=== PATIENT | female | born 1970 | race Caucasian/White ===

== ENCOUNTER 2020-06-24 14:37 | Outpatient (REF) | payer MEDICAID, SELFPAY ==
[2020-06-24 17:28] LABS: Syphilis Screen Nonreactive (Nonreactive)
[2020-06-25 11:08] LABS: CT PCR NOT DETECTED (Not Detect.); NG PCR NOT DETECTED (Not Detect.)
[2020-06-27 08:39] LABS: HBsAGNum1 0.15 S/CO (0.00-0.99); Hepatitis B Surface Antigen Negative (Negative); ~HepC Num1 0.05 S/CO (0.00-0.79); ~Hepatitis C Antibody Nonreactive (Nonreactive)
[2020-06-27 08:55] LABS: HIV AB/AG Nonreactive (Nonreactive); HIV Num 1 0.07 S/CO (0.00-0.99)
[2020-06-28 20:36] LABS: HPV mRNA E6/E7 Not Detected (Not Detected)
== END 2020-06-24 14:38 | disposition home or self-care (01) ==
LOC: HO.LAB 14:37
PROVIDERS: PCP Internal Medicine; Visit Provider Advanced Practice Midwife
DX: Z01.419 Encounter for gynecological examination (general) (routine) without abnormal findings (principal); Z20.2 Contact with and (suspected) exposure to infections with a predominantly sexual mode of transmission; N63.0 Unspecified lump in unspecified breast
CPT/HCPCS: 86780; 86803; 87340; 87389; 87491; 87591; 87624; 87625; 88141; 88142

== ENCOUNTER 2020-06-29 12:59 | Outpatient (REF) | payer MEDICAID, SELFPAY ==
--- NOTE | 2020-06-29 13:07 | MM_ITS ---
EXAMINATION: MM DIAGNOSTIC DIGITAL BREAST TOMOSYNTHESIS, BILATERAL US DIAGNOSTIC ULTRASOUND BREAST, RIGHT CLINICAL INFORMATION: Due for yearly exam. Palpable fullness retroareolar right breast noted at clinical exam. Patient notes no new palpable finding or discharge. No known family history breast cancer. Personal history fibrocystic changes and complicated cyst with apocrine metaplasia. Prior history left cyst aspiration 01/31/2015 and 2 09/21/2006, right cyst aspiration 08/19/2014 and 06/20/2012. The lifetime risk of breast cancer based on the Tyrer-Cuzick Model is 11%. COMPARISON: Mammography: 05/16/2018, 05/10/2017, 04/05/2016; ultrasound right breast 05/10/2017, 10/04/2016, 04/05/2016 TECHNIQUE: Digital breast tomosynthesis is performed in both the craniocaudal and mediolateral oblique views along with computer-aided detection (CAD). Synthesized 2D images are generated from the tomosynthesis. Ultrasound right breast is targeted to the retroareolar and periareolar region image from 4:00 through 8:00 direction. Grayscale imaging and color Doppler are performed without and with harmonics. FINDINGS: The breasts are heterogeneously dense, which may obscure small masses (ACR BI-RADS breast composition Category c). Breast tissue composition borders on extremely dense. There are no abnormal calcifications. The skin contours are smooth. The left breast shows no dominant mass or architectural abnormality. The anterior right breast has 2 smooth masses, the larger 1.1 cm, both appear decreased since prior mammography 05/16/2018. There is no significant mass. No significant changes. Ultrasound anterior right breast demonstrate at least 4 smooth circumscribed with internal echogenicity and increased through-transmission of sound and no associated color flow. These are likely related to apocrine metaplasia, combination foam cysts and acorn cysts also noted to be present in the past, details below. There is no architectural abnormality or focal duct ectasia. The probable benign complicated cysts likely apocrine metaplasia are as follows: -4:00, 4 cm from nipple, 0.5 cm, foam cyst. -6:00, 6 cm from nipple, 0.6 cm, acorn-foam cyst. -6:00, 2 cm from nipple, 1.1 cm, acorn-foam cyst. -6:00, 2 cm from nipple, 0.8 x 0.5 cm, acorn-foam cyst. Results are discussed with the patient at time of visit. The probable benign complicated cysts anterior right breast may be reassessed again with targeted ultrasound in 6 months. MM/MM diagnostic mammo BI IMPRESSION: 1. No significant changes. Right breast mass is decreased from prior mammography 2018. 2. Probable benign apocrine metaplasia acorn-foam cysts right breast. ASSESSMENT: BI-RADS 3: Probably Benign RECOMMENDATION: Targeted right breast ultrasound in 6 months. This patient's information was entered into a reminder system with a target due date for their next mammogram.
== END 2020-06-29 13:00 | disposition home or self-care (01) ==
LOC: HO.MAMMO 12:59
PROVIDERS: Visit Provider Advanced Practice Midwife
DX: N63.0 Unspecified lump in unspecified breast (principal)
CPT/HCPCS: 76642; 77066

== ENCOUNTER 2020-07-06 15:55 | Emergency (ER) | payer MEDICAID, SELFPAY ==
[2020-07-06 18:10] VITALS: BP 102/64; PULSE 75; RESP 17; TEMP 36.7; O2SAT 98; BMI 48.0
--- NOTE | 2020-07-06 18:24 | ED_ITS ---
HPI - Abdominal Pain General Chief Complaint: General Medical Stated Complaint: Flank Pain Time Seen by Provider: 07/06/20 18:11 Source: patient Mode of arrival: ambulatory Limitations: no limitations History of Present Illness HPI narrative: patient with history of recurrent bilateral non soft obstructive kidney stones had a CT scan last year which showed same comes here for pain in the right flank specially since yesterday. Patient denies any nausea no vomiting no relation of the pain with movement no hematuria MD elicited complaint: flank pain Pertinent past history: kidney stones Onset (ago): day(s) (1) Pain Consistency: constant Location: L flank and R flank Severity: moderate Quality: sharp Radiation: none Migration to: no migration Exacerbating factors: nothing Relieving factors: nothing Associated symptoms: denies other symptoms Related Data Home Medications Medication Instructions Recorded Confirmed metoprolol succinate 25 mg 25 mg PO DAILY 06/24/20 tablet,extended release 24 hr Previous Rx's Medication Instructions Recorded cyclobenzaprine 10 mg PO Q8H #20 tab 07/06/20 oxycodone 5 mg PO Q6H PRN #20 tab 07/06/20 Allergies Allergy/AdvReac Type Severity Reaction Status Date / Time bee pollen [BEE STINGS] Allergy Unknown THROAT Verified 06/24/20 14:48 SWELLING codeine [Codeine] Allergy Unknown CAN'T Verified 06/24/20 14:48 BREATHE, SWELLING,RASH tramadol [TRAMADOL] Allergy Unknown ABD PAIN- Verified 06/24/20 14:48 COULD NOT EAT - FELT SICK, sick Codeine Sulfate Allergy Unknown swelling, Uncoded 11/08/17 00:00 black and blue Review of Systems Review of Systems REVIEW OF SYSTEMS: Pertinent positives and negatives are stated above in the history. GEN: no fevers, chills, fatigue HEENT: no nasal congestion, sore throat, ear pain NEURO: no headache, dizziness, focal weakness PULM: no cough, shortness of breath CV: no chest pain, palpitations, LE edema ABD: no abdominal pain, nausea, vomiting, diarrhea : no dysuria, urgency, frequency SKIN: no rash ROS otherwise negative x 10 Physical Exam Vital Signs: Vital Signs: Vital Signs Temp Pulse Resp BP Pulse Ox 07/06/20 18:10 98.1 F 75 17 102/64 98 Body Mass Index 48.0 Appearance: Alert. Oriented X3. No acute distress. Eyes: Pupils equal, round and reactive to light. ENT: Pharynx normal. Neck: Normal inspection. Neck supple. CVS: Normal heart rate and rhythm. Pulses normal. Respiratory: No respiratory distress. Breath sounds normal. Abdomen: Soft and nontender. mild tenderness left flank area no midline tenderness Skin: Skin warm and dry. Normal skin color. Normal skin turgor. Extremities: No lower extremity edema. Good range of movement Neuro: Oriented X 3. No motor deficit. No sensory deficit. Course Course Course Narrative: patient with nonspecific back pain likely muscular urine is negative for hematuria and labs also stable will discharge patient home MDM - Abdominal Pain Differential Diagnosis Differential diagnosis: Likely calculus of kidney and renal colic Differential diagnosis narrative:: UTI, musculoskeletal pain Medical Records Attestation: I reviewed the patient's medical records. Lab Data Attestation: I reviewed the patient's lab results. Result diagrams: 07/06/20 18:29 07/06/20 18:29 Labs: Lab Results 07/06/20 07/06/20 07/06/20 Range/Units 18:29 18:29 18:36 WBC 7.0 (4.8-10.8) X10*3/uL RBC 4.29 (4.20-5.50) X10*6/uL Hgb 12.2 (12.0-16.0) g/dl Hct 37.1 (37-47) % MCV 86.5 (80-98) fL MCH 28.4 (27.0-33.0) pg MCHC 32.9 (31.0-35.0) g/dl RDW 14.2 (11.0-16.0) % Plt Count 248 (160-400) X10*3/uL MPV 9.1 L (9.4-12.3) fL Immature Gran % (Auto) 0.1 (0.0-0.4) % Neut % (Auto) 49.7 (45-73) % Lymph % (Auto) 43.4 H (20-40) % Wetzel % (Auto) 5.5 (2-11) % Eos % (Auto) 0.7 (0-4) % Baso % (Auto) 0.6 (0-2) % Lymph # (Auto) 3.1 (1.2-4.9) X10*3/uL Wetzel # (Auto) 0.4 (0.1-1.2) X10*3/uL Eos # (Auto) 0.1 (0.0-0.4) X10*3/uL Baso # (Auto) 0.0 (0.0-0.2) X10*3/uL Abs Immat Gran (auto) 0.01 (0.00-0.03) X10*3/uL Absolute Neuts (auto) 3.5 (2.0-8.3) X10*3/uL Absolute Nucleated RBC 0.000 (0.0-0.012) X10*3/uL Nucleated RBC % (auto) 0.0 (0.0-0.2) /100WBC Sodium 138 (135-145) mmol/L Potassium 4.3 (3.3-5.1) mmol/l Chloride 105 (96-108) mmol/L Carbon Dioxide 24 (22-29) mmol/L Anion Gap 13 (12-20) BUN 14 (9-16) mg/dL Creatinine 0.74 (0.5-1.4) mg/dL Estim Creat Clear Calc 99.2 Estimated GFR > 60 Random Glucose 93 (60-115) mg/dL Calcium 8.9 (8.4-10.2) mg/dL Urine Color YELLOW Urine Appearance CLEAR Urine pH 5.5 (5.0-8.0) Ur Specific Harrells <= 1.005 (1.005-1.025) Urine Protein NEG (NEG-TRACE) MG/DL Urine Glucose (UA) NEG (NEG) MG/DL Urine Ketones NEG (NEG) MG/DL Urine Blood TRACE (NEG) Urine Nitrite NEG (NEG) Ur Leukocyte Esterase NEG (NEG) Urine RBC 0-2 (0) /HPF Urine WBC 0-2 (0-4) /HPF Ur Squamous Epith Cells 2+ /LPF Urine Bacteria NONE /LPF Discharge Plan Discharge Clinical Impression: Back pain Qualifiers: Back pain location: low back pain Chronicity: acute Back pain laterality: right Sciatica presence: without sciatica Qualified Code(s): M54.5 - Low back pain Patient Disposition: Home, Self-Care Instructions: Back Pain (ED) Additional Instructions: drink plenty of fluid intake and pain medication as prescribed Prescriptions: New oxycodone 5 mg tablet 5 mg PO Q6H PRN (Reason: pain) Qty: 20 RF: 0 cyclobenzaprine 10 mg tablet 10 mg PO Q8H Qty: 20 RF: 0 PMFSH Past Medical History Medical History Hx of ectopic Kidney stones MRSA (methicillin resistant Staphylococcus aureus) SAB (spontaneous ) Surgical History Hx of appendectomy Hx of breast biopsy Hx of cholecystectomy Family History Family History Father Diabetes mellitus CVD (cardiovascular disease) Hyperlipemia Mother Diabetes mellitus HTN (hypertension) Colon cancer Liver cancer Maternal Grandmother Diabetes mellitus Maternal Aunt Breast cancer Paternal Grandfather Colon cancer Maternal Grandfather Stomach cancer Social History Social History Alcohol intake: unknown Smoking Status: Unknown if ever smoked Tobacco Type: Cigarette Use of substances other than those prescribed or required for medical reasons: Unknown Substance Use Type: Marijuana Advance Directives: No Advance Directives Information Provided: Yes Gender identity: female
[2020-07-06] MEDS: 0.9 % Sodium Chloride 1,000 ML 999 ML IVCONT (18:31)
[2020-07-06] MEDS: Ketorolac Tromethamine 30 MG/ML VIAL IVPUSH (18:33)
[2020-07-06 18:37] LABS: Basophils Percent Auto 0.6 % (0-2); Eosinophils Absolute Auto 0.1 X10*3/uL (0.0-0.4); Eosinophils Percent Auto 0.7 % (0-4); Hematocrit 37.1 % (37-47); Hemoglobin 12.2 g/dl (12.0-16.0); Imm Gran Abs Auto 0.01 X10*3/uL (0.00-0.03); Imm Gran Pct Auto 0.1 % (0.0-0.4); Lymphocytes Absolute Auto 3.1 X10*3/uL (1.2-4.9); Lymphocytes Percent Auto 43.4 % (20-40); MANUAL DIFF FLAG NO; Mean Corpuscular HGB Conc 32.9 g/dl (31.0-35.0); Mean Corpuscular Hemoglobin 28.4 pg (27.0-33.0); Mean Corpuscular Volume 86.5 fL (80-98); Mean Platelet Volume 9.1 fL (9.4-12.3); Monocytes Absolute Auto 0.4 X10*3/uL (0.1-1.2); Monocytes Percent Auto 5.5 % (2-11); Neutrophils Absolute Auto 3.5 X10*3/uL (2.0-8.3); Neutrophils Percent Auto 49.7 % (45-73); Platelet Count 248 X10*3/uL (160-400); Red Blood Count 4.29 X10*6/uL (4.20-5.50); Red Cell Distribution Width 14.2 % (11.0-16.0)
[2020-07-06 18:43] LABS: Glucose Urine UA NEG (NEG); Leukocyte Esterase Urine NEG (NEG); Nitrite Urine NEG (NEG); PH 5.5 (5.0-8.0); Specific Gravity - Urine <= 1.005 (1.005-1.025); Urine Blood TRACE (NEG); Urine Ketones NEG (NEG); Urine Protein NEG (NEG-TRACE)
[2020-07-06 18:44] LABS: Appearance Urine CLEAR; Color Urine YELLOW
[2020-07-06 18:57] LABS: Anion Gap 13 (12-20); Blood Urea Nitrogen 14 mg/dL (9-16); Calcium 8.9 mg/dL (8.4-10.2); Carbon Dioxide 24 mmol/L (22-29); Chloride 105 mmol/L (96-108); Creatinine Clr Calc Pharmacy 99.2; Estimated Glomerular Filt Rate > 60; Glucose Random 93 mg/dL (60-115); Potassium 4.3 mmol/l (3.3-5.1); Sodium 138 mmol/L (135-145)
[2020-07-06 18:59] LABS: RBC Urine 0-2 /HPF (0); Squamous Epithelial Cell Urine 2+ /LPF; WBC Urine 0-2 /HPF (0-4)
--- NOTE | 2020-07-06 19:08 | PC.NURSE ---
REPORT TAKEN FROM YEHUDA MEDINA. PATIENT LABS DRAWN AND ALL WITHIN RANGE. PATIENT COMPLAINING OF FLANK PAIN 7 OUT OF 10
[2020-07-06 20:15] VITALS: BP 109/54; PULSE 63; RESP 14; O2SAT 99
== END 2020-07-06 20:30 | disposition home or self-care (01) ==
PROVIDERS: Emergency Provider Internal Medicine; PCP Internal Medicine
DX: M54.41 Lumbago with sciatica, right side (principal); R10.9 Unspecified abdominal pain; Z87.442 Personal history of urinary calculi; Z79.899 Other long term (current) drug therapy; F17.210 Nicotine dependence, cigarettes, uncomplicated; Z71.6 Tobacco abuse counseling
CPT/HCPCS: 36415; 80048; 81001; 85025; 96361; 96374; 99284; J1885

== ENCOUNTER → 2020-07-13 14:17 | Outpatient (BNVA) | payer MEDICAID, SELFPAY | PROVIDERS: PCP Internal Medicine; Referring Provider Internal Medicine; Visit Provider Nurse Practitioner Family | DX: Z01.818 Encounter for other preprocedural examination (principal); K21.9 Gastro-esophageal reflux disease without esophagitis | CPT/HCPCS: 99212 ==

== ENCOUNTER → 2020-08-10 12:45 | Outpatient (BNVA) | payer MEDICAID, SELFPAY | PROVIDERS: PCP Internal Medicine; Visit Provider Nurse Practitioner Family | DX: Z76.89 Persons encountering health services in other specified circumstances (principal) ==

== ENCOUNTER 2020-09-22 08:13 | Day surgery (SDC) | payer MEDICAID, SELFPAY ==
[2020-09-19 11:25] VITALS: BMI 22.2
--- NOTE | 2020-09-21 10:16 | HO.ANESPROP2 ---
Documented by User: Sandy Villalobos 09/21/20 10:18 HPI - Anesthesia Eval Consult details Narrative: 50yo F for Colonoscopy PMFSH Past Medical History Medical History Hx of ectopic Kidney stones MRSA (methicillin resistant Staphylococcus aureus) PONV (postoperative nausea and vomiting) SAB (spontaneous ) Family History Family History Father Diabetes mellitus CVD (cardiovascular disease) Hyperlipemia Mother Diabetes mellitus HTN (hypertension) Colon cancer Liver cancer Maternal Grandmother Diabetes mellitus Maternal Aunt Breast cancer Paternal Grandfather Colon cancer Maternal Grandfather Stomach cancer Surgical History Surgical History H/O elbow surgery H/O lithotripsy History of colonoscopy History of hernia repair Hx of appendectomy Hx of breast biopsy Hx of cholecystectomy Hx of endoscopy Hx of hemorrhoidectomy Social History Social History Alcohol intake: current Alcohol intake frequency: a few times a week Alcohol type: wine and hard liquor Smoking Status: Current every day smoker Tobacco Type: Cigarette Cigarettes Per Day: 5 Years Smoked: 8 Use of substances other than those prescribed or required for medical reasons: Yes Substance Use Type: Marijuana Substance Use Frequency: Daily Advance Directives: No Advance Directives Information Provided: No Advance Directives on File: No Gender identity: female Meds Allergies Allergy/AdvReac Type Severity Reaction Status Date / Time bee pollen [BEE STINGS] Allergy Severe THROAT Verified 09/19/20 11:23 SWELLING codeine [Codeine] Allergy Severe CAN'T Verified 09/19/20 11:23 BREATHE, SWELLING,RASH tramadol [TRAMADOL] Allergy Intermediate ABD PAIN- Verified 09/19/20 11:23 COULD NOT EAT - FELT SICK Exam Exam Date and Time: September 21, 2020 1016 Height,Weight and Vital Signs: Height 4 ft 11 in Weight 49.895 kg Pertinent Lab Results Pertinent Lab Results: Laboratory Tests 07/06/20 07/06/20 18:29 18:29 WBC 7.0 Hgb 12.2 Hct 37.1 Plt Count 248 Sodium 138 Potassium 4.3 Chloride 105 Carbon Dioxide 24 BUN 14 Creatinine 0.74 Assessment and Plan Assessment Anesthesia Assessment: Chart Reviewed Documented by User: Carson Taylor 09/22/20 09:03 PMFSH Past Medical History Medical History Hx of ectopic Kidney stones MRSA (methicillin resistant Staphylococcus aureus) PONV (postoperative nausea and vomiting) SAB (spontaneous ) Family History Family History Father Diabetes mellitus CVD (cardiovascular disease) Hyperlipemia Mother Diabetes mellitus HTN (hypertension) Colon cancer Liver cancer Maternal Grandmother Diabetes mellitus Maternal Aunt Breast cancer Paternal Grandfather Colon cancer Maternal Grandfather Stomach cancer Surgical History Surgical History H/O elbow surgery H/O lithotripsy History of colonoscopy History of hernia repair Hx of appendectomy Hx of breast biopsy Hx of cholecystectomy Hx of endoscopy Hx of hemorrhoidectomy Social History Social History Alcohol intake: current Alcohol intake frequency: a few times a week Alcohol type: wine and hard liquor Smoking Status: Current every day smoker Tobacco Type: Cigarette Cigarettes Per Day: 5 Years Smoked: 8 Use of substances other than those prescribed or required for medical reasons: Yes Substance Use Type: Marijuana Substance Use Frequency: Daily Advance Directives: No Advance Directives Information Provided: No Advance Directives on File: No Gender identity: female Meds Allergies Allergy/AdvReac Type Severity Reaction Status Date / Time bee pollen [BEE STINGS] Allergy Severe THROAT Verified 09/19/20 11:23 SWELLING codeine [Codeine] Allergy Severe CAN'T Verified 09/19/20 11:23 BREATHE, SWELLING,RASH tramadol [TRAMADOL] Allergy Intermediate ABD PAIN- Verified 09/19/20 11:23 COULD NOT EAT - FELT SICK Exam Airway Mallampati Class: II TM Dist: >3cm Neck ROM: Full Loose/Missing/Broken Teeth: No Heart: [id number] Lungs: cta b/l Assessment and Plan Assessment Anesthesia Assessment: Anesthesia Plan Discussed, PAT Visit and Chart Reviewed Final Anesthetic Review NPO: Yes ASA Class: II Final Preanesthetic Review: No Changes in Pt Med Stat, Meds/Allgs Chart Reviewed, Consent Obtained/Reviewed and Anes Risks/Benef Reviewed Patient Risk: Low Procedure Risk: Low Assessment/Block/Sedation in SS: Assess/Block/Sedation-SS Anesthetic Plan Anesthetic Plan: MAC: and Agree w/ Assess. and Plan Disposition: Standard PACU
[2020-09-22] VITALS (8 sets, daily range): BP systolic 107–138; BP diastolic 60–79; PULSE 50–69; RESP 16–18; TEMP 36.2–36.4; O2SAT 98–131
--- NOTE | 2020-09-22 09:01 | MHC.SHP ---
Pre-Procedural Eval Section B Chief Complaint: Screening Details of Present Illness: colon cancer screening, Pos family hx Mother with colon cancer No changes in clinical conditions Relevant Family History (Specify if Yes): Yes Relevant Social History: Tobacco Use (5 cig /day) Present Medications: see Short Stay Collaborative assessment Medical History: Significant History (cigarette smoker, Kidney stones. GERD) History of Previous Operations: Relevant previous surgery/procedure and date(s) (Appendix, cholecystectomy, colonoscopy--Hemorrhoid surgery) Allergies: Allergies Allergy/AdvReac Type Severity Reaction Status Date / Time bee pollen [BEE STINGS] Allergy Severe THROAT Verified 09/19/20 11:23 SWELLING codeine [Codeine] Allergy Severe CAN'T Verified 09/19/20 11:23 BREATHE, SWELLING,RASH tramadol [TRAMADOL] Allergy Intermediate ABD PAIN- Verified 09/19/20 11:23 COULD NOT EAT - FELT SICK Review of Systems Sugical H&P ROS: Negative: Constitution, Cardiovascular, Respiratory and Gastrointestinal Exam Surgical H&P Exam: Normal: HEENT, Normal: Heart, Normal: Lungs, Normal: Extremities, Normal: Abdomen and Normal: Skin Plan Diagnosis/Plan: Unchanged I have reviewed the history and physical and performed a pertinent physical examination on my patient. No changes have occurred unless specified.Yes
[2020-09-22] MEDS: Lactated Ringers 1,000 ML 100 ML IVCONT (09:10)
--- NOTE | 2020-09-22 10:02 | PM.PROC ---
Brief Operative Note Date of procedure: 09/22/20 Pre-op diagnosis: COLON CANCER SCREENING--MOTHER WITH COLON CANCER Post-op diagnosis: other (COLONIC POLYP, MINOR DIVERTICULOSIS) Procedure: COLONOSCOPY WITH COLD SNARE POLYPECTOMT Anesthesia: MAC (EVELYN FERNANDES) Surgeon: Aaliyah Oconnell Estimated blood loss (mL): 5 Pathology: other (sigmoid polyp) Condition: stable Disposition: PACU
[2020-09-22] MEDS: ondansetron HCL 4 MG/2 ML VIAL IVPUSH ×2 (10:07→10:24)
--- NOTE | 2020-09-22 18:41 | OP_ITS ---
SURGEON: Aaliyah Oconnell MD PROCEDURE PERFORMED: Colonoscopy with cold snare polypectomy x1. ESTIMATED BLOOD LOSS: Less than 5 mL. COMPLICATIONS: No complications. ANESTHESIA: Monitored. ANESTHESIOLOGIST: Flor Martin CRNA ASSISTANTS: No assistant at surgery. SPECIMENS: Specimen removed, polyp 30 cm. PREOPERATIVE DIAGNOSES: Colon cancer screening, positive family history in her mother of colon cancer. This is I believe colonoscopy #2. POSTOPERATIVE DIAGNOSES: Colonic polyp, diverticulosis. RN CLINICAL DOCUMENTATION: Dr. Oconnell. CONDITION: Postprocedure, stable. PROCEDURE: Digital rectal exam revealed sphincter tone to be adequate. Video colonoscope was introduced without difficulty. It was navigated into the rectosigmoid sigmoid on up through descending, transverse, ascending colon into the cecum. Appendiceal orifice was seen. Ileocecal valve was well seen. Prep was good. There were few areas that required flushing and suctioning. Scope was slowly withdrawn, good rotational views. Polyp had been removed on the way in that was thought to be 50 cm, which on withdrawal, the scope was actually 30 cm. The base of the polyp was clear. No active bleeding, had been removed with cold snare polypectomy technique. Originally, the considered using a resolution clip. However, due to recurrent angulation and spasm, this did not happen. Further withdrawal of the scope, no additional lesions. Anorectal verge was clear. PLAN: This patient will continue with 5-year colon cancer screening unless there is some concern over histology on polyp. GRAFT OR IMPLANTS: No grafts or implants. Aaliyah Oconnell MD MEN/MODL / [phone] [facility]
== END 2020-09-22 12:08 | disposition home or self-care (01) ==
PROVIDERS: PCP Internal Medicine; Visit Provider Internal Medicine Gastroenterology
PROC: 0DJD8ZZ Inspection of Lower Intestinal Tract, Via Natural or Artificial Opening Endoscopic (ICD-10-PCS; CPT 45378; principal; 2020-09-22 09:20)
DX: Z12.11 Encounter for screening for malignant neoplasm of colon (principal); Z80.0 Family history of malignant neoplasm of digestive organs; D12.5 Benign neoplasm of sigmoid colon; K57.30 Diverticulosis of large intestine without perforation or abscess without bleeding; K21.9 Gastro-esophageal reflux disease without esophagitis; Z79.899 Other long term (current) drug therapy; Z90.49 Acquired absence of other specified parts of digestive tract; Z87.442 Personal history of urinary calculi; Z86.14 Personal history of Methicillin resistant Staphylococcus aureus infection; F17.210 Nicotine dependence, cigarettes, uncomplicated; Z88.8 Allergy status to other drugs, medicaments and biological substances
CPT/HCPCS: 45385; 88305; J2405

== ENCOUNTER → 2020-10-27 13:06 | Outpatient (BNVA) | payer MEDICAID, SELFPAY | PROVIDERS: PCP Internal Medicine; Visit Provider Nurse Practitioner Family ==

== ENCOUNTER → 2020-11-24 13:31 | Outpatient (BNVA) | payer MEDICAID, SELFPAY | PROVIDERS: PCP Internal Medicine; Visit Provider Nurse Practitioner Family ==

== ENCOUNTER 2020-12-02 12:58 | Outpatient (REF) | payer MEDICAID, SELFPAY ==
--- NOTE | ~2020-12-02 | XR_ITS ---
EXAMINATION: XR CHEST CLINICAL INFORMATION: Chest pain. COMPARISON: None TECHNIQUE: 2 views of the chest were obtained. FINDINGS: No significant abnormality is noted involving the heart, lungs, mediastinum, bony thorax or soft tissues. XR/XR chest 2V IMPRESSION: Unremarkable chest exam
== END 2020-12-02 12:59 | disposition home or self-care (01) ==
LOC: HO.XRAY 12:58
PROVIDERS: PCP Internal Medicine; Visit Provider Internal Medicine
DX: R07.9 Chest pain, unspecified (principal)
CPT/HCPCS: 71046

== ENCOUNTER 2021-01-12 13:03 | Outpatient (REF) | payer MEDICAID, SELFPAY ==
--- NOTE | ~2021-01-12 | US_ITS ---
EXAMINATION: US DIAGNOSTIC ULTRASOUND BREAST, RIGHT CLINICAL INFORMATION: Short interval six-month follow-up for several probable benign complicated cysts right breast likely apocrine metaplasia. Prior history fibrocystic changes and complicated cyst with apocrine metaplasia. Prior history left breast aspirations 2014 and 2006 and right breast aspirations 2013 and 2011. TC score 11%. No known family history breast cancer. COMPARISON: Targeted right breast ultrasound 06/29/2020. TECHNIQUE: Ultrasound of the breast is performed with real-time carrillo scale imaging and color Doppler. FINDINGS: The 4 small nodule likely complicated cyst with apocrine metaplasia are stable in size and smooth in contour. There is no interval peripheral or internal color flow. No interval cystic or solid mass. The nodularity for follow-up are as follows: -4:00, 4 cm from nipple, 0.5 cm, foam cyst. Prior measurement 0.5 cm. -6:00, 4-6 cm from nipple, 0.6 cm, acorn-foam cyst. Prior measurement 0.6 cm. -6:00, 2 cm from nipple, 1.1 cm, acorn-foam cyst. Prior measurement 1.1 cm. -6:00, 2 cm from nipple, 0.7 x 0.5 cm, acorn-foam cyst. Prior measurement 0.8 x 0.5 cm. Results are discussed with the patient at time of visit. Management plan is for targeted right breast ultrasound follow-up at time of annual bilateral mammography, due in 6 months. US/US breast RT limited IMPRESSION: The probable benign nodularity right breast for follow-up are stable. ASSESSMENT: BI-RADS 3: Probably Benign RECOMMENDATION: Targeted right breast ultrasound at time of annual bilateral mammography, due in 6 months. This patient's information was entered into a reminder system with a target due date for their next mammogram.
== END 2021-01-12 13:04 | disposition home or self-care (01) ==
LOC: HO.MAMMO 13:03
PROVIDERS: Visit Provider Internal Medicine
DX: R92.2 Inconclusive mammogram (principal)
CPT/HCPCS: 76642

== ENCOUNTER 2021-01-17 13:34 | Emergency (ER) | payer MEDICAID, SELFPAY ==
--- NOTE | ~2021-01-17 | CT_ITS ---
EXAMINATION: CT ABDOMEN AND PELVIS WITH CONTRAST CLINICAL INFORMATION: Syncope and fall. Distention and left lower quadrant tenderness COMPARISON: Previous CT of the abdomen and pelvis most recent June 2019 TECHNIQUE: Multidetector volumetric images were obtained from the superior aspect of the liver through the pubic symphysis following administration 85 mL of Omnipaque 350 intravenous contrast. Sagittal and coronal reformatted images were obtained on the technologist's workstation. Oral contrast: Yes This CT examination was performed using dose optimization techniques as appropriate, variously including the following: *Automated exposure control *Adjustment of mA and/or kV according to patient size (this includes techniques or standardized protocols for targeted exams where dose is matched to indication/reason for exam; i.e. extremities or head) *Use of iterative reconstruction technique DLP: 390 mGy-cm FINDINGS: LUNG BASES: The visualized lung bases are unremarkable. LIVER, GALLBLADDER, AND BILIARY TREE: The liver is normal in size, shape, and attenuation. No focal hepatic lesion or biliary ductal dilatation is present. The gallbladder has been removed. PANCREAS: Unremarkable. SPLEEN: Unremarkable. ADRENAL GLANDS: Unremarkable. KIDNEYS AND URETERS: There are 2 adjacent 3 mm left lower pole renal stones. The kidneys are otherwise unremarkable. No hydronephrosis, ureteral dilatation or ureteral stone is seen. BLADDER: Unremarkable. GASTROINTESTINAL TRACT: There is stool throughout the colon suggestive of constipation. There is mild diverticulosis of the colon. Small and large bowel is otherwise unremarkable. No abnormal bowel wall thickening is seen. No ascites or free air is seen. The appendix is unremarkable. The stomach is unremarkable. ABDOMINAL WALL: No significant hernia is appreciated. LYMPH NODES: Normal. VASCULAR: Unremarkable. PELVIC VISCERA: Unremarkable. OSSEOUS STRUCTURES: No fracture or dislocation is seen. There is degenerative disc disease at L4-L5. CT/CT abdomen pelvis w con IMPRESSION: Small left renal stones. Stool throughout the colon suggestive of constipation and mild diverticulosis. No acute findings in the abdomen or pelvis.
--- NOTE | ~2021-01-17 | XR_ITS ---
EXAMINATION: XR CHEST CLINICAL INFORMATION: Fall. Bilateral rib pain. COMPARISON: Previous chest x-ray most recent December 2020 TECHNIQUE: 2 views of the chest were obtained. FINDINGS: The cardiac and mediastinal contours are normal. The lungs are clear. There is no pleural effusion or pneumothorax. There are degenerative changes of the thoracic spine. No fracture is seen. XR/XR chest 2V IMPRESSION: No evidence for acute disease in the chest. No rib fracture seen.
--- NOTE | ~2021-01-17 | CT_ITS ---
EXAMINATION: CT HEAD WITHOUT CONTRAST CT CERVICAL SPINE WITHOUT CONTRAST CLINICAL INFORMATION: Head injury. Syncope. COMPARISON: None. TECHNIQUE: Imaging was performed from the skull base to vertex without intravenous administration of contrast. In addition, helical noncontrast CT imaging was acquired through the cervical spine and source images were reviewed along with axial reconstructions and sagittal and coronal MPRs. [This CT examination was performed using dose optimization techniques as appropriate, variously including the following: *Automated exposure control *Adjustment of mA and/or kV according to patient size (this includes techniques or standardized protocols for targeted exams where dose is matched to indication/reason for exam; i.e. extremities or head) *Use of iterative reconstruction technique] DLP: 10.25+589.47+248.05 mGy-cm FINDINGS: HEAD: No intracranial mass, hemorrhage, or midline shift is visualized. The ventricles and sulci are age-appropriate. No extra-axial collections are identified. The paranasal sinuses and mastoid air cells are well aerated. CERVICAL SPINE: There is no evidence of acute cervical spine fracture. Vertebral bodies remain normal in height. Cervical vertebrae have normal alignment. There is multilevel degenerative spondylosis of the cervical spine with disc height narrowing and endplate spurs and facet joint arthrosis No pre- or paravertebral soft tissue abnormality is identified. Limited assessment of the lung apices is unremarkable. CT/CT cervical spine wo con IMPRESSION: 1. No acute intracranial pathology. 2. No CT evidence of acute cervical spine fracture or traumatic subluxation
--- NOTE | ~2021-01-17 | CT_ITS ---
EXAMINATION: CT HEAD WITHOUT CONTRAST CT CERVICAL SPINE WITHOUT CONTRAST CLINICAL INFORMATION: Head injury. Syncope. COMPARISON: None. TECHNIQUE: Imaging was performed from the skull base to vertex without intravenous administration of contrast. In addition, helical noncontrast CT imaging was acquired through the cervical spine and source images were reviewed along with axial reconstructions and sagittal and coronal MPRs. [This CT examination was performed using dose optimization techniques as appropriate, variously including the following: *Automated exposure control *Adjustment of mA and/or kV according to patient size (this includes techniques or standardized protocols for targeted exams where dose is matched to indication/reason for exam; i.e. extremities or head) *Use of iterative reconstruction technique] DLP: 10.25+589.47+248.05 mGy-cm FINDINGS: HEAD: No intracranial mass, hemorrhage, or midline shift is visualized. The ventricles and sulci are age-appropriate. No extra-axial collections are identified. The paranasal sinuses and mastoid air cells are well aerated. CERVICAL SPINE: There is no evidence of acute cervical spine fracture. Vertebral bodies remain normal in height. Cervical vertebrae have normal alignment. There is multilevel degenerative spondylosis of the cervical spine with disc height narrowing and endplate spurs and facet joint arthrosis No pre- or paravertebral soft tissue abnormality is identified. Limited assessment of the lung apices is unremarkable. CT/CT head/brain wo con IMPRESSION: 1. No acute intracranial pathology. 2. No CT evidence of acute cervical spine fracture or traumatic subluxation
[2021-01-17 13:57] VITALS: BP 124/67; PULSE 94; RESP 18; TEMP 37.1; O2SAT 100; BMI 24.2
--- NOTE | 2021-01-17 14:38 | ECG_ITS ---
Test Reason : SYNCOPE Blood Pressure : / mmHG Vent. Rate : 078 BPM Atrial Rate : 078 BPM P-R Int : 136 ms QRS Dur : 080 ms QT Int : 386 ms P-R-T Axes : 077 071 034 degrees QTc Int : 440 ms Normal sinus rhythm Possible Left atrial enlargement Borderline ECG When compared with ECG of 27-FEB-2017 11:58, No significant change was found Referred By: Ana Shipley Electronically Signed By:OMERO BOURGEOIS MD
--- NOTE | 2021-01-17 14:58 | ED_ITS ---
HPI - Fall General Chief Complaint: Fall <ALEX Nicole - Last Filed: 01/17/21 17:30> Stated Complaint: FALL <ALEX Nicole - Last Filed: 01/17/21 17:30> Time Seen by Provider: 01/17/21 14:21 <ALEX Nicole - Last Filed: 01/17/21 17:30> Source: patient <ALEX Nicole - Last Filed: 01/17/21 17:30> Mode of arrival: ambulatory <ALEX Nicole - Last Filed: 01/17/21 17:30> History of Present Illness HPI Narrative: 50-year-old female with a past medical history of MRSA, renal stones, SAB, appendectomy, cholecystectomy, prestenting to the ED complaining of syncopal episode & falling out of bed around 7:00 a.m. S/P hearing sudden bang on wall from neighbor, + hit head on floor, +brief LOC, admits to diffuse myalgias, headache, CP, dizziness/feeling off balance with position changes/head movement, and abdominal pain. Denies vision change/loss, nausea/vomiting, diarrhea/constipation, dysuria/hematuria, weakness, numbness/tingling. Does not take anticoagulation <ALEX Nicole - Last Filed: 01/17/21 17:30> MD complaint: fall <ALEX Nicole - Last Filed: 01/17/21 17:30> Onset (ago): hour(s) <ALEX Nicole - Last Filed: 01/17/21 17:30> Related Data Home Medications: Previous Rx's Medication Instructions Recorded omeprazole 20 mg capsule,delayed 20 mg PO DAILY #30 cap 07/13/20 release hydrocortisone 2.5 % topical cream 1 appl IN QID PRN #30 g 10/27/20 with perineal applicator lactobacillus combination no.8 3 3,000 mmu cells PO DAILY #30 cap 10/27/20 billion cell capsule methylcellulose (laxative) 500 mg 500 mg PO DAILY #30 tab 10/27/20 tablet acetaminophen [Tylenol Extra 500 mg PO Q6H PRN #20 tab 01/17/21 Strength] lidocaine [Lidoderm] 1 patch TOPICAL DAILY PRN #30 ea 01/17/21 MDD remove after 12 hours naproxen 500 mg PO BID PRN 10 Days #20 tab 01/17/21 <ALEX Nicole Last Filed: 01/17/21 17:30> Allergies/Adverse Reactions: Allergies Allergy/AdvReac Type Severity Reaction Status Date / Time bee pollen [BEE STINGS] Allergy Severe THROAT Verified 01/17/21 13:57 SWELLING codeine [Codeine] Allergy Severe CAN'T Verified 01/17/21 13:57 BREATHE, SWELLING,RASH tramadol [TRAMADOL] Allergy Intermediate ABD PAIN- Verified 01/17/21 13:57 COULD NOT EAT - FELT SICK <ALEX Nicole Last Filed: 01/17/21 17:30> Review of Systems Review of Systems: Constitutional: No Fever, No Chills, No Fatigue, No Malaise ENT/Mouth: No Ear Pain, No sore throat, No Swallowing Difficulty Eyes: No Vision Changes Cardiovascular: No Chest Pain, +SOB, No Edema, No Palpitations Respiratory: No Cough, No Dyspnea Gastrointestinal: No Nausea, No Vomiting, No Diarrhea, No Constipation, + Abdominal pain Genitourinary: No Dysuria, No Urinary Frequency, No Hematuria, No Flank Pain Musculoskeletal: No joint pain, + Myalgias, No Joint Swelling Skin: No Skin Lesions, No rash Neuro: No Weakness, No Numbness, No Paresthesias, + Loss of Consciousness, + Di zziness, + Headache <ALEX Nicole Last Filed: 01/17/21 17:30> Yes all other systems are reviewed and are negative <ALEX Nicole Last Filed: 01/17/21 17:30> [facility] Past Medical History Attestation statement: The following information was validated with the patient. <ALEX Nicole - Last Filed: 01/17/21 17:30> Medical History: Medical History (Updated 01/18/21 @ 00:01 by Victor M Gonzalez) Hx of ectopic Kidney stones MRSA (methicillin resistant Staphylococcus aureus) PONV (postoperative nausea and vomiting) SAB (spontaneous ) Tubular adenoma <ALEX Nicole Last Filed: 01/17/21 17:30> Surgical History: Surgical History H/O elbow surgery H/O lithotripsy History of colonoscopy History of hernia repair Hx of appendectomy Hx of breast biopsy Hx of cholecystectomy Hx of endoscopy Hx of hemorrhoidectomy <ALEX Nicole - Last Filed: 01/17/21 17:30> Family History Family History: Family History Father Diabetes mellitus CVD (cardiovascular disease) Hyperlipemia Mother Diabetes mellitus HTN (hypertension) Colon cancer Liver cancer Maternal Grandmother Diabetes mellitus Maternal Aunt Breast cancer Paternal Grandfather Colon cancer Maternal Grandfather Stomach cancer <ALEX Nicole - Last Filed: 01/17/21 17:30> Social History Social History: Social History (Updated 11/24/20 @ 13:34 by Chantale rOozco [facility]) Household Members: Children Alcohol intake: current Alcohol intake frequency: a few times a week Alcohol type: wine and hard liquor Cigarettes Per Day: 10 Years Smoked: 8 Substance Use Type: Marijuana Current occupational status: disabled Gender identity: female <ALEX Nicole - Last Filed: 01/17/21 17:30> Physical Exam Vital Signs: Vital Signs: Last Vital Signs Temp 98.7 F 01/17/21 13:57 Pulse 73 01/17/21 17:40 Resp 14 01/17/21 17:40 BP 111/69 01/17/21 17:40 Pulse Ox 100 01/17/21 17:40 Body Mass Index 24.2 <ALEX Nicole - Last Filed: 01/17/21 17:30> Vital Signs: Last Vital Signs Temp 98.7 F 01/17/21 13:57 Pulse 73 01/17/21 17:40 Resp 14 01/17/21 17:40 BP 111/69 01/17/21 17:40 Pulse Ox 100 01/17/21 17:40 Body Mass Index 24.2 <Irineo Ballard MD - Last Filed: 02/13/21 11:35> Const: General: cooperative, healthy appearing, comfortable, no acute distress, alert, awake and Physically active <ALEX Nicole - Last Filed: 01/17/21 17:30> Orientation/consciousness: patient oriented x3 <ALEX Nicole - Last Filed: 01/17/21 17:30> Limitations: no limitations <Ana Shipley AK - Last Filed: 01/17/21 17:30> HENMT: Head: Yes normal to inspection <Ana Shipley AK - Last Filed: 01/17/21 17:30> Ears: hearing grossly normal bilaterally <Ana Shipley AK - Last Filed: 01/17/21 17:30> General nose exam: Normal external nose present <Ana Shipley AK - Last Filed: 01/17/21 17:30> Face and sinus: Yes normal facial exam <Ana Shipley AK - Last Filed: 01/17/21 17:30> Eyes: General: appearance normal, both eyes and all related structures <Ana Shipley AK - Last Filed: 01/17/21 17:30> Pupils: Equal, round and reactive pupils present <Ana Shipley AK - Last Filed: 01/17/21 17:30> EOM: EOMs intact bilaterally <Ana Shipley AK - Last Filed: 01/17/21 17:30> Neck: Other: No midline cervical spinous tenderness or step-offs. Bilateral paraspinal and MSK tenderness to palpation <Ana Shipley AK - Last Filed: 01/17/21 17:30> Neck: Yes normal visual inspection, Yes no lymphadenopathy and Yes no meningeal signs <Ana Shilpey AK - Last Filed: 01/17/21 17:30> Chest: Chest palpation & inspection: normal inspection of the chest, no crepitus and tenderness (Bilateral diffuse rib tenderness to palpation) <Ana Shipley AK - Last Filed: 01/17/21 17:30> Resp: Effort & Inspection: normal respiratory effort <Ana Shipley AK - Last Filed: 01/17/21 17:30> Auscultation: clear to auscultation bilaterally <Ana Shipley AK - Last Filed: 01/17/21 17:30> Cardio: Rate: regular rate <Ana Shipley AK - Last Filed: 01/17/21 17:30> Heart sounds: S1 normal heart sound present and S2 normal heart sound present <Ana Shipley AK - Last Filed: 01/17/21 17:30> GI: Inspection: Yes normal to inspection <Ana Shipley AK - Last Filed: 01/17/21 17:30> Palpation (GI): Soft to palpation, Tenderness to palpation present (GI) in the LLQ, no guarding and not rigid <Ana Quinten AK - Last Filed: 01/17/21 17:30> Back/Spine/Pelvis: Other: No midline thoracic/lumbar spinous tenderness. + bilateral lower lumbar MSK tenderness to palpation <Ana Quinten AK - Last Filed: 01/17/21 17:30> Skin: Rashes: no rashes <Ana Quinten AK - Last Filed: 01/17/21 17:30> Wounds: no wounds <Ana Quinten [facility] Last Filed: 01/17/21 17:30> Neuro: General: patient oriented x3, gait normal, tone normal, moves all extremities, no meningeal signs, no focal motor deficits and CN's II-XI intact bilaterally <Ana Quinten [facility] Last Filed: 01/17/21 17:30> Cranial nerves: Yes Equal, round and reactive pupils present and Yes Nystagmus n ot present <Ana Quinten [facility] Last Filed: 01/17/21 17:30> Motor exam (neuro): 5/5 motor strength present throughout, Pronator motor function not present and no tremor noted <Ana Quinten [facility] Last Filed: 01/17/21 17:30> Coordination: [id number] test normal and Romberg test negative <Ana Quinten [facility] Last Filed: 01/17/21 17:30> Extrem: General: Yes normal to inspection <Ana Shipley [facility] Last Filed: 01/17/21 17:30> Course Course Course Narrative: XR chest 2V IMPRESSION: No evidence for acute disease in the chest. No rib fracture seen. -1645--labs unremarkable including troponin, UA contaminated/not infected, tox screen positive for THC -orthostatic vital signs negative -1729--CT head/brain wo con IMPRESSION: 1. No acute intracranial pathology. 2. No CT evidence of acute cervical spine fracture or traumatic subluxation CT abdomen pelvis w con IMPRESSION: Small left renal stones. Stool throughout the colon suggestive of constipation and mild diverticulosis. No acute findings in the abdomen or pelvis. >> results discussed with patient including worrisome signs and symptoms and strict return precautions. Patient verbalized understanding feel safe for discharge <ALEX Nicole - Last Filed: 01/17/21 17:30> I have reviewed the chart <Irineo Ballard MD - Last Filed: 02/13/21 11:35> MDM - Fall MDM Narrative Medical decision making narrative: 50-year-old female with a past medical history of MRSA, renal stones, SAB, appendectomy, cholecystectomy, prestenting to the ED complaining of syncopal episode & falling out of bed around 7:00 a.m. S/P hearing sudden bang on wall from neighbor, + hit head on floor, +brief LOC, admits to diffuse myalgias, headache, CP, dizziness/feeling off balance with position changes/head movement, and abdominal pain. On exam VSS, NAD, well appearing, no focal neuro deficits, diffuse body myalgias/tenderness to palpation without focal deformity, abdomen soft with LLQ ttp. Concern for syncope vs vasovagal vs anxiety vs metabolic abnormalities. R/o ICH/Fx's vs ACS vs vertigo vs diverticulitis. Low concern for intra-abdominal injury/bleeding with mechanism of action. Plan: EKG, labs, UA, head/C-spine CT, CTAP, CXR, IVF, symptomatic treatment, recess <ALEX Nicole - Last Filed: 01/17/21 17:30> Medical Records Attestation: I reviewed the patient's medical records. <ALEX Nicole - Last Filed: 01/17/21 17:30> Lab Data Attestation: I reviewed the patient's lab results. <ALEX Nicole - Last Filed: 01/17/21 17:30> Result diagrams: : 01/17/21 14:57 01/17/21 15:46 <ALEX Nicole - Last Filed: 01/17/21 17:30> Labs: Lab Results 01/17/21 01/17/21 01/17/21 Range/Units 14:56 14:57 14:57 WBC 6.4 (4.8-10.8) X10*3/uL RBC 4.38 (4.20-5.50) X10*6/uL Hgb 12.4 (12.0-16.0) g/dl Hct 37.9 (37-47) % MCV 86.5 (80-98) fL MCH 28.3 (27.0-33.0) pg MCHC 32.7 (31.0-35.0) g/dl RDW 13.9 (11.0-16.0) % Plt Count 253 (160-400) X10*3/uL MPV 9.2 L (9.4-12.3) fL Immature Gran % (Auto) 0.2 (0.0-0.4) % Neut % (Auto) 64.0 (45-73) % Lymph % (Auto) 30.4 (20-40) % Crosby % (Auto) 4.4 (2-11) % Eos % (Auto) 0.5 (0-4) % Baso % (Auto) 0.5 (0-2) % Lymph # (Auto) 2.0 (1.2-4.9) X10*3/uL Crosby # (Auto) 0.3 (0.1-1.2) X10*3/uL Eos # (Auto) 0.0 (0.0-0.4) X10*3/uL Baso # (Auto) 0.0 (0.0-0.2) X10*3/uL Abs Immat Gran (auto) 0.01 (0.00-0.03) X10*3/uL Absolute Neuts (auto) 4.1 (2.0-8.3) X10*3/uL Absolute Nucleated RBC 0.000 (0.0-0.012) X10*3/uL Nucleated RBC % (auto) 0.0 (0.0-0.2) /100WBC PT 11.3 (10.8-13.0) SEC INR 1.0 (0.9-1.1) APTT 30.2 (24.1-38.0) SEC Sodium (135-145) mmol/L Potassium (3.3-5.1) mmol/L Chloride (96-108) mmol/L Carbon Dioxide (22-29) mmol/L Anion Gap (12-20) BUN (9-16) mg/dL Creatinine (0.5-1.4) mg/dL Estim Creat Clear Calc Estimated GFR Random Glucose (60-115) mg/dL Calcium (8.4-10.2) mg/dL Magnesium (1.6-2.6) mg/dL Total Bilirubin (0.0-1.0) mg/dL Direct Bilirubin (0.0-0.5) mg/dL AST (5-31) U/L ALT (0-31) U/L Alkaline Phosphatase (39-117) U/L Total Creatine Kinase (26-140) U/L Troponin I High Sens < 3.5 (<3.5-17.0) ng/L Total Protein (6.5-8.0) g/dL Albumin (3.5-5.0) g/dL Lipase Urine Color Urine Appearance Urine pH (5.0-8.0) Ur Specific [place] (1.005-1.025) Urine Protein (NEG-TRACE) MG/DL Urine Glucose (UA) (NEG) MG/DL Urine Ketones (NEG) MG/DL Urine Blood (NEG) Urine Nitrite (NEG) Ur Leukocyte Esterase (NEG) Urine RBC (0) /HPF Urine WBC (0-4) /HPF Ur Squamous Epith Cells /LPF Urine Bacteria /LPF Urine Opiates Screen (Not Detect) Ur Barbiturates Screen (Not Detect) Ur Phencyclidine Scrn (Not Detect) Ur Amphetamines Screen (Not Detect) U Benzodiazepines Scrn (Not Detect) Urine Cocaine Screen (Not Detect) U Marijuana (THC) Screen (Not Detect) 01/17/21 01/17/21 01/17/21 Range/Units 14:57 15:46 15:46 WBC (4.8-10.8) X10*3/uL RBC (4.20-5.50) X10*6/uL Hgb (12.0-16.0) g/dl Hct (37-47) % MCV (80-98) fL MCH (27.0-33.0) pg MCHC (31.0-35.0) g/dl RDW (11.0-16.0) % Plt Count (160-400) X10*3/uL MPV (9.4-12.3) fL Immature Gran % (Auto) (0.0-0.4) % Neut % (Auto) (45-73) % Lymph % (Auto) (20-40) % Crosby % (Auto) (2-11) % Eos % (Auto) (0-4) % Baso % (Auto) (0-2) % Lymph # (Auto) (1.2-4.9) X10*3/uL Crosby # (Auto) (0.1-1.2) X10*3/uL Eos # (Auto) (0.0-0.4) X10*3/uL Baso # (Auto) (0.0-0.2) X10*3/uL Abs Immat Gran (auto) (0.00-0.03) X10*3/uL Absolute Neuts (auto) (2.0-8.3) X10*3/uL Absolute Nucleated RBC (0.0-0.012) X10*3/uL Nucleated RBC % (auto) (0.0-0.2) /100WBC PT (10.8-13.0) SEC INR (0.9-1.1) APTT (24.1-38.0) SEC Sodium 141 (135-145) mmol/L Potassium 4.1 (3.3-5.1) mmol/L Chloride 109 H (96-108) mmol/L Carbon Dioxide 24 (22-29) mmol/L Anion Gap 12 (12-20) BUN 7 L (9-16) mg/dL Creatinine 0.73 (0.5-1.4) mg/dL Estim Creat Clear Calc 69.4 Estimated GFR > 60 Random Glucose 96 (60-115) mg/dL Calcium 9.5 D (8.4-10.2) mg/dL Magnesium 2.1 (1.6-2.6) mg/dL Total Bilirubin 0.5 (0.0-1.0) mg/dL Direct Bilirubin 0.2 (0.0-0.5) mg/dL AST 21 (5-31) U/L ALT 18 (0-31) U/L Alkaline Phosphatase 87 (39-117) U/L Total Creatine Kinase 136 (26-140) U/L Troponin I High Sens (<3.5-17.0) ng/L Total Protein 6.9 (6.5-8.0) g/dL Albumin 4.5 (3.5-5.0) g/dL Lipase Cancelled 22 Urine Color YELLOW Urine Appearance CLEAR Urine pH 6.0 (5.0-8.0) Ur Specific [place] 1.010 (1.005-1.025) Urine Protein NEG (NEG-TRACE) MG/DL Urine Glucose (UA) NEG (NEG) MG/DL Urine Ketones NEG (NEG) MG/DL Urine Blood TRACE (NEG) Urine Nitrite NEG (NEG) Ur Leukocyte Esterase TRACE H (NEG) Urine RBC 0-2 (0) /HPF Urine WBC 1-4 (0-4) /HPF Ur Squamous Epith Cells 4+ /LPF Urine Bacteria TRACE /LPF Urine Opiates Screen (Not Detect) Ur Barbiturates Screen (Not Detect) Ur Phencyclidine Scrn (Not Detect) Ur Amphetamines Screen (Not Detect) U Benzodiazepines Scrn (Not Detect) Urine Cocaine Screen (Not Detect) U Marijuana (THC) Screen (Not Detect) 01/17/21 Range/Units 15:46 WBC (4.8-10.8) X10*3/uL RBC (4.20-5.50) X10*6/uL Hgb (12.0-16.0) g/dl Hct (37-47) % MCV (80-98) fL MCH (27.0-33.0) pg MCHC (31.0-35.0) g/dl RDW (11.0-16.0) % Plt Count (160-400) X10*3/uL MPV (9.4-12.3) fL Immature Gran % (Auto) (0.0-0.4) % Neut % (Auto) (45-73) % Lymph % (Auto) (20-40) % Crosby % (Auto) (2-11) % Eos % (Auto) (0-4) % Baso % (Auto) (0-2) % Lymph # (Auto) (1.2-4.9) X10*3/uL Crosby # (Auto) (0.1-1.2) X10*3/uL Eos # (Auto) (0.0-0.4) X10*3/uL Baso # (Auto) (0.0-0.2) X10*3/uL Abs Immat Gran (auto) (0.00-0.03) X10*3/uL Absolute Neuts (auto) (2.0-8.3) X10*3/uL Absolute Nucleated RBC (0.0-0.012) X10*3/uL Nucleated RBC % (auto) (0.0-0.2) /100WBC PT (10.8-13.0) SEC INR (0.9-1.1) APTT (24.1-38.0) SEC Sodium (135-145) mmol/L Potassium (3.3-5.1) mmol/L Chloride (96-108) mmol/L Carbon Dioxide (22-29) mmol/L Anion Gap (12-20) BUN (9-16) mg/dL Creatinine (0.5-1.4) mg/dL Estim Creat Clear Calc Estimated GFR Random Glucose (60-115) mg/dL Calcium (8.4-10.2) mg/dL Magnesium (1.6-2.6) mg/dL Total Bilirubin (0.0-1.0) mg/dL Direct Bilirubin (0.0-0.5) mg/dL AST (5-31) U/L ALT (0-31) U/L Alkaline Phosphatase (39-117) U/L Total Creatine Kinase (26-140) U/L Troponin I High Sens (<3.5-17.0) ng/L Total Protein (6.5-8.0) g/dL Albumin (3.5-5.0) g/dL Lipase Urine Color Urine Appearance Urine pH (5.0-8.0) Ur Specific [place] (1.005-1.025) Urine Protein (NEG-TRACE) MG/DL Urine Glucose (UA) (NEG) MG/DL Urine Ketones (NEG) MG/DL Urine Blood (NEG) Urine Nitrite (NEG) Ur Leukocyte Esterase (NEG) Urine RBC (0) /HPF Urine WBC (0-4) /HPF Ur Squamous Epith Cells /LPF Urine Bacteria /LPF Urine Opiates Screen Not Detected (Not Detect) Ur Barbiturates Screen Not Detected (Not Detect) Ur Phencyclidine Scrn Not Detected (Not Detect) Ur Amphetamines Screen Not Detected (Not Detect) U Benzodiazepines Scrn Not Detected (Not Detect) Urine Cocaine Screen Not Detected (Not Detect) U Marijuana (THC) Screen POSITIVE H (Not Detect) <ALEX Nicole - Last Filed: 01/17/21 17:30> Lab Results 01/17/21 01/17/21 01/17/21 Range/Units 14:56 14:57 14:57 WBC 6.4 (4.8-10.8) X10*3/uL RBC 4.38 (4.20-5.50) X10*6/uL Hgb 12.4 (12.0-16.0) g/dl Hct 37.9 (37-47) % MCV 86.5 (80-98) fL MCH 28.3 (27.0-33.0) pg MCHC 32.7 (31.0-35.0) g/dl RDW 13.9 (11.0-16.0) % Plt Count 253 (160-400) X10*3/uL MPV 9.2 L (9.4-12.3) fL Immature Gran % (Auto) 0.2 (0.0-0.4) % Neut % (Auto) 64.0 (45-73) % Lymph % (Auto) 30.4 (20-40) % Crosby % (Auto) 4.4 (2-11) % Eos % (Auto) 0.5 (0-4) % Baso % (Auto) 0.5 (0-2) % Lymph # (Auto) 2.0 (1.2-4.9) X10*3/uL Crosby # (Auto) 0.3 (0.1-1.2) X10*3/uL Eos # (Auto) 0.0 (0.0-0.4) X10*3/uL Baso # (Auto) 0.0 (0.0-0.2) X10*3/uL Abs Immat Gran (auto) 0.01 (0.00-0.03) X10*3/uL Absolute Neuts (auto) 4.1 (2.0-8.3) X10*3/uL Absolute Nucleated RBC 0.000 (0.0-0.012) X10*3/uL Nucleated RBC % (auto) 0.0 (0.0-0.2) /100WBC PT 11.3 (10.8-13.0) SEC INR 1.0 (0.9-1.1) APTT 30.2 (24.1-38.0) SEC Sodium (135-145) mmol/L Potassium (3.3-5.1) mmol/L Chloride (96-108) mmol/L Carbon Dioxide (22-29) mmol/L Anion Gap (12-20) BUN (9-16) mg/dL Creatinine (0.5-1.4) mg/dL Estim Creat Clear Calc Estimated GFR Random Glucose (60-115) mg/dL Calcium (8.4-10.2) mg/dL Magnesium (1.6-2.6) mg/dL Total Bilirubin (0.0-1.0) mg/dL Direct Bilirubin (0.0-0.5) mg/dL AST (5-31) U/L ALT (0-31) U/L Alkaline Phosphatase (39-117) U/L Total Creatine Kinase (26-140) U/L Troponin I High Sens < 3.5 (<3.5-17.0) ng/L Total Protein (6.5-8.0) g/dL Albumin (3.5-5.0) g/dL Lipase Urine Color Urine Appearance Urine pH (5.0-8.0) Ur Specific [place] (1.005-1.025) Urine Protein (NEG-TRACE) MG/DL Urine Glucose (UA) (NEG) MG/DL Urine Ketones (NEG) MG/DL Urine Blood (NEG) Urine Nitrite (NEG) Ur Leukocyte Esterase (NEG) Urine RBC (0) /HPF Urine WBC (0-4) /HPF Ur Squamous Epith Cells /LPF Urine Bacteria /LPF Urine Opiates Screen (Not Detect) Ur Barbiturates Screen (Not Detect) Ur Phencyclidine Scrn (Not Detect) Ur Amphetamines Screen (Not Detect) U Benzodiazepines Scrn (Not Detect) Urine Cocaine Screen (Not Detect) U Marijuana (THC) Screen (Not Detect) 01/17/21 01/17/21 01/17/21 Range/Units 14:57 15:46 15:46 WBC (4.8-10.8) X10*3/uL RBC (4.20-5.50) X10*6/uL Hgb (12.0-16.0) g/dl Hct (37-47) % MCV (80-98) fL MCH (27.0-33.0) pg MCHC (31.0-35.0) g/dl RDW (11.0-16.0) % Plt Count (160-400) X10*3/uL MPV (9.4-12.3) fL Immature Gran % (Auto) (0.0-0.4) % Neut % (Auto) (45-73) % Lymph % (Auto) (20-40) % Crosby % (Auto) (2-11) % Eos % (Auto) (0-4) % Baso % (Auto) (0-2) % Lymph # (Auto) (1.2-4.9) X10*3/uL Crosby # (Auto) (0.1-1.2) X10*3/uL Eos # (Auto) (0.0-0.4) X10*3/uL Baso # (Auto) (0.0-0.2) X10*3/uL Abs Immat Gran (auto) (0.00-0.03) X10*3/uL Absolute Neuts (auto) (2.0-8.3) X10*3/uL Absolute Nucleated RBC (0.0-0.012) X10*3/uL Nucleated RBC % (auto) (0.0-0.2) /100WBC PT (10.8-13.0) SEC INR (0.9-1.1) APTT (24.1-38.0) SEC Sodium 141 (135-145) mmol/L Potassium 4.1 (3.3-5.1) mmol/L Chloride 109 H (96-108) mmol/L Carbon Dioxide 24 (22-29) mmol/L Anion Gap 12 (12-20) BUN 7 L (9-16) mg/dL Creatinine 0.73 (0.5-1.4) mg/dL Estim Creat Clear Calc 69.4 Estimated GFR > 60 Random Glucose 96 (60-115) mg/dL Calcium 9.5 D (8.4-10.2) mg/dL Magnesium 2.1 (1.6-2.6) mg/dL Total Bilirubin 0.5 (0.0-1.0) mg/dL Direct Bilirubin 0.2 (0.0-0.5) mg/dL AST 21 (5-31) U/L ALT 18 (0-31) U/L Alkaline Phosphatase 87 (39-117) U/L Total Creatine Kinase 136 (26-140) U/L Troponin I High Sens (<3.5-17.0) ng/L Total Protein 6.9 (6.5-8.0) g/dL Albumin 4.5 (3.5-5.0) g/dL Lipase Cancelled 22 Urine Color YELLOW Urine Appearance CLEAR Urine pH 6.0 (5.0-8.0) Ur Specific [place] 1.010 (1.005-1.025) Urine Protein NEG (NEG-TRACE) MG/DL Urine Glucose (UA) NEG (NEG) MG/DL Urine Ketones NEG (NEG) MG/DL Urine Blood TRACE (NEG) Urine Nitrite NEG (NEG) Ur Leukocyte Esterase TRACE H (NEG) Urine RBC 0-2 (0) /HPF Urine WBC 1-4 (0-4) /HPF Ur Squamous Epith Cells 4+ /LPF Urine Bacteria TRACE /LPF Urine Opiates Screen (Not Detect) Ur Barbiturates Screen (Not Detect) Ur Phencyclidine Scrn (Not Detect) Ur Amphetamines Screen (Not Detect) U Benzodiazepines Scrn (Not Detect) Urine Cocaine Screen (Not Detect) U Marijuana (THC) Screen (Not Detect) 01/17/21 Range/Units 15:46 WBC (4.8-10.8) X10*3/uL RBC (4.20-5.50) X10*6/uL Hgb (12.0-16.0) g/dl Hct (37-47) % MCV (80-98) fL MCH (27.0-33.0) pg MCHC (31.0-35.0) g/dl RDW (11.0-16.0) % Plt Count (160-400) X10*3/uL MPV (9.4-12.3) fL Immature Gran % (Auto) (0.0-0.4) % Neut % (Auto) (45-73) % Lymph % (Auto) (20-40) % [place] % (Auto) (2-11) % Eos % (Auto) (0-4) % Baso % (Auto) (0-2) % Lymph # (Auto) (1.2-4.9) X10*3/uL [place] # (Auto) (0.1-1.2) X10*3/uL Eos # (Auto) (0.0-0.4) X10*3/uL Baso # (Auto) (0.0-0.2) X10*3/uL Abs Immat Gran (auto) (0.00-0.03) X10*3/uL Absolute Neuts (auto) (2.0-8.3) X10*3/uL Absolute Nucleated RBC (0.0-0.012) X10*3/uL Nucleated RBC % (auto) (0.0-0.2) /100WBC PT (10.8-13.0) SEC INR (0.9-1.1) APTT (24.1-38.0) SEC Sodium (135-145) mmol/L Potassium (3.3-5.1) mmol/L Chloride (96-108) mmol/L Carbon Dioxide (22-29) mmol/L Anion Gap (12-20) BUN (9-16) mg/dL Creatinine (0.5-1.4) mg/dL Estim Creat Clear Calc Estimated GFR Random Glucose (60-115) mg/dL Calcium (8.4-10.2) mg/dL Magnesium (1.6-2.6) mg/dL Total Bilirubin (0.0-1.0) mg/dL Direct Bilirubin (0.0-0.5) mg/dL AST (5-31) U/L ALT (0-31) U/L Alkaline Phosphatase (39-117) U/L Total Creatine Kinase (26-140) U/L Troponin I High Sens (<3.5-17.0) ng/L Total Protein (6.5-8.0) g/dL Albumin (3.5-5.0) g/dL Lipase Urine Color Urine Appearance Urine pH (5.0-8.0) Ur Specific [place] (1.005-1.025) Urine Protein (NEG-TRACE) MG/DL Urine Glucose (UA) (NEG) MG/DL Urine Ketones (NEG) MG/DL Urine Blood (NEG) Urine Nitrite (NEG) Ur Leukocyte Esterase (NEG) Urine RBC (0) /HPF Urine WBC (0-4) /HPF Ur Squamous Epith Cells /LPF Urine Bacteria /LPF Urine Opiates Screen Not Detected (Not Detect) Ur Barbiturates Screen Not Detected (Not Detect) Ur Phencyclidine Scrn Not Detected (Not Detect) Ur Amphetamines Screen Not Detected (Not Detect) U Benzodiazepines Scrn Not Detected (Not Detect) Urine Cocaine Screen Not Detected (Not Detect) U Marijuana (THC) Screen POSITIVE H (Not Detect) <Irineo Ballard MD - Last Filed: 02/13/21 11:35> ECG Data Attestation: I personally reviewed and interpreted this ECG as follows: <ALEX Nicole - Last Filed: 01/17/21 17:30> ECG interpretation date: 01/17/21 <ALEX Nicole - Last Filed: 01/17/21 17:30> ECG interpretation time: 15:16 <ALEX Nicole - Last Filed: 01/17/21 17:30> Interpretation: EKG normal sinus rhythm with a rate of 78. Nonischemic-no STEMI. QTC 440 <ALEX Nicole - Last Filed: 01/17/21 17:30> Discharge Plan Discharge Clinical Impression: Syncope, Fall <ALEX Nicole - Last Filed: 01/17/21 17:30> Patient Disposition: Home, Self-Care <ALEX Nicole - Last Filed: 01/17/21 17:30> Instructions: Syncope (ED), Fall Prevention (ED) <ALEX Nicole - Last Filed: 01/17/21 17:30> Additional Instructions: Your blood work and imaging studies were unremarkable today in the ED It is important for you to stay hydrated at home Take Tylenol and Motrin for body aches/pains Ice painful areas Rest Follow-up with her doctor Your pain is likely musculoskeletal Naproxen as an anti-inflammatory / pain medication, take with food Lidoderm patches are numbing patches, apply to painful area In addition take Tylenol at home If symptoms persist or worsen, pain becomes unbearable, you developed urinary retention or incontinence, or weakness return to the ED <ALEX Nicole Last Filed: 01/17/21 17:30> Prescriptions: New acetaminophen [Tylenol Extra Strength] 500 mg tablet 500 mg PO Q6H PRN (Reason: pain or fever) Qty: 20 RF: 0 lidocaine [Lidoderm] 5 % adhesive patch,medicated 1 patch topical DAILY MDD remove after 12 hours PRN (Reason: pain) Qty: 30 RF: 0 naproxen 500 mg tablet 500 mg PO BID PRN (Reason: pain) 10 Days Qty: 20 RF: 0 No Action omeprazole 20 mg capsule,delayed release(DR/EC) 20 mg PO DAILY Qty: 30 RF: 3 Adult Probiotic 3 billion cell capsule 3,000 mmu cells PO DAILY Qty: 30 RF: 2 Citrucel 500 mg tablet 500 mg PO DAILY Qty: 30 RF: 2 hydrocortisone [Anusol-HC] 2.5 % cream with perineal applicator 1 appl IN QID PRN (Reason: hemorrhoids) Qty: 30 RF: 2 <ALEX Nicole - Last Filed: 01/17/21 17:30> Referrals: Gloria Smith MD [Primary Care Provider] - 2 days <ALEX Nicole - Last Filed: 01/17/21 17:30> Interventions: ED Discharge Assessment Last Done: 01/17/21 17:45 <ALEX Nicole - Last Filed: 01/17/21 17:30> Discharge Date/Time: 01/17/21 17:46 <ALEX Nicole - Last Filed: 01/17/21 17:30>
[2021-01-17 15:04] LABS: MANUAL DIFF FLAG NO
[2021-01-17 15:07] LABS: Basophils Percent Auto 0.5 % (0-2); Eosinophils Percent Auto 0.5 % (0-4); Hematocrit 37.9 % (37-47); Hemoglobin 12.4 g/dl (12.0-16.0); Imm Gran Abs Auto 0.01 X10*3/uL (0.00-0.03); Imm Gran Pct Auto 0.2 % (0.0-0.4); Lymphocytes Percent Auto 30.4 % (20-40); Mean Corpuscular HGB Conc 32.7 g/dl (31.0-35.0); Mean Corpuscular Hemoglobin 28.3 pg (27.0-33.0); Mean Corpuscular Volume 86.5 fL (80-98); Mean Platelet Volume 9.2 fL (9.4-12.3); Monocytes Absolute Auto 0.3 X10*3/uL (0.1-1.2); Monocytes Percent Auto 4.4 % (2-11); Neutrophils Absolute Auto 4.1 X10*3/uL (2.0-8.3); Platelet Count 253 X10*3/uL (160-400); Red Blood Count 4.38 X10*6/uL (4.20-5.50); Red Cell Distribution Width 13.9 % (11.0-16.0); White Blood Count 6.4 X10*3/uL (4.8-10.8)
[2021-01-17 15:12] VITALS: BP 106/57; PULSE 69
[2021-01-17 15:15] LABS: Prothrombin Time 11.3 SEC (10.8-13.0)
[2021-01-17 15:17] LABS: Partial Thromboplastin Time 30.2 SEC (24.1-38.0)
[2021-01-17] MEDS: Metoclopramide HCl 10 MG/2 ML VIAL IVPUSH (15:33)
[2021-01-17] MEDS: Acetaminophen 325 MG TABLET 650 MG PO (15:37)
[2021-01-17] MEDS: Meclizine HCl 25 MG TABLET PO (15:37)
[2021-01-17] MEDS: 0.9 % Sodium Chloride 1,000 ML 999 ML IVCONT (15:39)
[2021-01-17 15:41] LABS: Troponin-I High Sensitivity < 3.5 ng/L (<3.5-17.0)
[2021-01-17 16:02] LABS: Glucose Urine UA NEG (NEG); Leukocyte Esterase Urine TRACE (NEG); Nitrite Urine NEG (NEG); UACC Culture Trigger YES; Urine Blood TRACE (NEG); Urine Ketones NEG (NEG); Urine Protein NEG (NEG-TRACE)
[2021-01-17 16:06] LABS: Appearance Urine CLEAR; Color Urine YELLOW
[2021-01-17 16:18] LABS: Amphetamine Screen Urine Not Detected (Not Detect); Barbiturates, Urine Not Detected (Not Detect); Benzodiazepines Screen Urine Not Detected (Not Detect); Cannabinoid Screen Urine POSITIVE (Not Detect); Cocaine Screen Urine Not Detected (Not Detect); Opiate Screen Urine Not Detected (Not Detect); Phencyclidine Screen Urine Not Detected (Not Detect)
[2021-01-17 16:23] LABS: Alanine Aminotransferase 18 U/L (0-31); Albumin Level 4.5 g/dL (3.5-5.0); Alkaline Phosphatase 87 U/L (39-117); Anion Gap 12 (12-20); Aspartate Amino Transferase 21 U/L (5-31); Bilirubin Direct 0.2 mg/dL (0.0-0.5); Bilirubin Total 0.5 mg/dL (0.0-1.0); Blood Urea Nitrogen 7 mg/dL (9-16); Calcium 9.5 mg/dL (8.4-10.2); Carbon Dioxide 24 mmol/L (22-29); Chloride 109 mmol/L (96-108); Creatinine Clr Calc Pharmacy 69.4; Estimated Glomerular Filt Rate > 60; Glucose Random 96 mg/dL (60-115); Lipase 22 U/L (8-78); Magnesium 2.1 mg/dL (1.6-2.6); Potassium 4.1 mmol/L (3.3-5.1); Sodium 141 mmol/L (135-145); Total Protein 6.9 g/dL (6.5-8.0)
[2021-01-17 16:31] LABS: Bacteria Urine TRACE /LPF; RBC Urine 0-2 /HPF (0); Squamous Epithelial Cell Urine 4+ /LPF
[2021-01-17] MEDS: iohexoL 350 MG/ML 100 ML INFUS..BTL IV (16:48)
[2021-01-17 17:40] VITALS: BP 111/69; PULSE 73; RESP 14; O2SAT 100
== END 2021-01-17 17:46 | disposition home or self-care (01) ==
PROVIDERS: Physician Assistant; Emergency Provider Emergency Medicine; PCP Internal Medicine
DX: R55 Syncope and collapse (principal); M79.10 Myalgia, unspecified site; R51.9 Headache, unspecified; F17.210 Nicotine dependence, cigarettes, uncomplicated; F12.90 Cannabis use, unspecified, uncomplicated; Z91.81 History of falling
CPT/HCPCS: 36415; 70450; 71046; 72125; 74177; 80048; 80076; 80307; 81001; 81003; 82550; 83690; 83735; 84484; 85025; 85610; 85730; 87086; 93005; 96361; 96374; 99284; J2765; Q9967

== ENCOUNTER 2021-05-26 00:50 | Emergency (ER) | payer MEDICAID, SELFPAY ==
--- NOTE | 2021-05-26 | ECG_ITS ---
Test Reason : CHEST PAIN Blood Pressure : / mmHG Vent. Rate : 077 BPM Atrial Rate : 077 BPM P-R Int : 142 ms QRS Dur : 078 ms QT Int : 370 ms P-R-T Axes : 079 071 035 degrees QTc Int : 418 ms Normal sinus rhythm Possible Left atrial enlargement Borderline ECG When compared with ECG of 17-JAN-2021 15:16, No significant change was found Referred By: Irineo Ballard Electronically Signed By:JACOB BURNETT
[2021-05-26 01:56] VITALS: BP 114/78; PULSE 74; RESP 20; TEMP 36.4; O2SAT 100; BMI 27.9
[2021-05-26 04:00] VITALS: BP 114/78; PULSE 74; RESP 20; TEMP 36.4; O2SAT 100
--- NOTE | 2021-05-26 04:39 | ED_ITS ---
HPI - Chest Pain General Chief Complaint: Chest Pain Stated Complaint: chest pain Time Seen by Provider: 05/26/21 04:39 Source: patient Mode of arrival: ambulatory Limitations: no limitations History of Present Illness HPI narrative: patient has been checking her blood pressure with variation. Patient has had three cardiac catherization that were all negative. Stress test were abnormal thats why the patient had the caths. patient is really under a lot of stress MD complaint: chest pain Onset (ago): week(s) Timing of current episode: episodic Onset: during rest Pain location: substernal Pain radiation: none Severity: mild Treatment prior to arrival: none Risk Factors Coronary artery disease risk factors: none Related Data Previous Rx's Medication Instructions Recorded omeprazole 20 mg capsule,delayed 20 mg PO DAILY #30 cap 07/13/20 release hydrocortisone 2.5 % topical cream 1 appl NM QID PRN #30 g 10/27/20 with perineal applicator (Anusol-HC) lactobacillus combination no.8 3 3,000 mmu cells PO DAILY #30 cap 10/27/20 billion cell capsule (Adult Probiotic) methylcellulose (laxative) 500 mg 500 mg PO DAILY #30 tab 10/27/20 tablet (Citrucel) acetaminophen 500 mg tablet 500 mg PO Q6H PRN #20 tab 01/17/21 (Tylenol Extra Strength) lidocaine 5 % topical patch 1 patch TOPICAL DAILY PRN #30 ea 01/17/21 (Lidoderm) MDD remove after 12 hours naproxen 500 mg tablet 500 mg PO BID PRN 10 Days #20 tab 01/17/21 Allergies Allergy/AdvReac Type Severity Reaction Status Date / Time bee pollen [BEE STINGS] Allergy Severe THROAT Verified 05/26/21 01:55 SWELLING codeine [Codeine] Allergy Severe CAN'T Verified 05/26/21 01:55 BREATHE, SWELLING,RASH tramadol [TRAMADOL] Allergy Intermediate ABD PAIN- Verified 05/26/21 01:55 COULD NOT EAT - FELT SICK Review of Systems Constitutional: Constitutional: Reports no additional constitutional complaints Eyes: Eyes: Reports no additional eye complaints ENT: Denies dizziness Cardiovascular: Cardiovascular: Reports no additional cardiovascular complaints Respiratory: Respiratory: Reports as per HPI Gastrointestinal: Gastrointestinal: Reports no additional gastrointestinal complaints Genitourinary: Genitourinary: Reports no additional female genitourinary complaints Musculoskeletal: Musculoskeletal: Reports no additional musculoskeletal complaints Integumentary/Breasts: Skin/Breast: Denies rash Neurologic: Denies dizziness and Denies Sensory deficit (Neuro) Psychiatric: Psychiatric: Denies anxiety [facility] Past Medical History Medical History Hx of ectopic Kidney stones MRSA (methicillin resistant Staphylococcus aureus) PONV (postoperative nausea and vomiting) SAB (spontaneous ) Tubular adenoma Surgical History H/O elbow surgery H/O lithotripsy History of colonoscopy History of hernia repair Hx of appendectomy Hx of breast biopsy Hx of cholecystectomy Hx of endoscopy Hx of hemorrhoidectomy Family History Family History Father Diabetes mellitus CVD (cardiovascular disease) Hyperlipemia Mother Diabetes mellitus HTN (hypertension) Colon cancer Liver cancer Maternal Grandmother Diabetes mellitus Maternal Aunt Breast cancer Paternal Grandfather Colon cancer Maternal Grandfather Stomach cancer Social History Social History Household Members: Children Alcohol intake: never Patient Tobacco Use Status: Never used Tobacco Cigarettes Per Day: 10 Years Smoked: 8 Use of substances other than those prescribed or required for medical reasons: Yes Substance Use Type: Marijuana Advance Directives: No Advance Directives Information Provided: Yes Patient : No Current occupational status: disabled Gender identity: Female Physical Exam Vital Signs: Vital Signs: Last Vital Signs Temp 97.5 F 05/26/21 04:00 Pulse 74 05/26/21 04:00 Resp 20 05/26/21 04:00 BP 114/78 05/26/21 04:00 Pulse Ox 100 05/26/21 04:00 Body Mass Index 27.9 Const: General: healthy appearing Nutritional Appearance: average body habitus Orientation/consciousness: oriented to person and patient oriented x3 Limitations: no limitations HENMT: Head: Yes normal to inspection Ears: external ears normal General nose exam: Normal external nose present Mouth: Normal oral and palatal mucosa present and oropharynx normal Throat: Yes posterior oropharynx normal Eyes: General: appearance normal, both eyes and all related structures Neck: Other: supple Neck: Yes normal visual inspection Chest: Chest palpation & inspection: normal inspection of the chest Resp: Auscultation: clear to auscultation bilaterally Cardio: Jugular venous distension: no JVD Rate: regular rate Rhythm: regular rhythm Heart sounds: S1 normal heart sound present and S2 normal heart sound present GI: Inspection: Yes normal to inspection Palpation (GI): Soft to palpation, nontender and No hepatosplenomegaly present Auscultation: normal bowel sounds : General: Yes no CVA tenderness Back/Spine/Pelvis: Back: no CVA tenderness Skin: General skin exam: no rashes or lesions noted Neuro: General: oriented to person and patient oriented x3 Cranial nerves: Yes CN's II-XII intact bilaterally Motor exam (neuro): 5/5 motor strength p resent throughout Sensory Exam: No Sensory deficit (Neuro) Extrem: General: Yes normal to inspection Psych: Appearance: grossly normal Course Reevaluation(s) Reevaluation #1: patient with negative cath x 3. EKG normal, Troponin normal. Doubt this is cardiac, will dc home Time: 06:57 MDM - Chest Pain Lab Data Result diagrams: 05/26/21 04:40 05/26/21 04:41 Labs: Lab Results 05/26/21 05/26/21 05/26/21 Range/Units 04:40 04:40 04:41 WBC 7.2 Cancelled (4.8-10.8) X10*3/uL RBC 4.70 Cancelled (4.20-5.50) X10*6/uL Hgb 13.2 Cancelled (12.0-16.0) g/dl Hct 40.6 Cancelled (37-47) % MCV 86.4 Cancelled (80-98) fL MCH 28.1 Cancelled (27.0-33.0) pg MCHC 32.5 Cancelled (31.0-35.0) g/dl RDW 14.0 Cancelled (11.0-16.0) % Plt Count 280 Cancelled (160-400) X10*3/uL MPV 8.9 L Cancelled (9.4-12.3) fL Immature Gran % (Auto) 0.3 Cancelled (0.0-0.4) % Neut % (Auto) 46.0 Cancelled (45-73) % Lymph % (Auto) 45.9 H Cancelled (20-40) % Jenkins % (Auto) 5.7 Cancelled (2-11) % Eos % (Auto) 1.7 Cancelled (0-4) % Baso % (Auto) 0.4 Cancelled (0-2) % Lymph # (Auto) 3.3 Cancelled (1.2-4.9) X10*3/uL Jenkins # (Auto) 0.4 Cancelled (0.1-1.2) X10*3/uL Eos # (Auto) 0.1 Cancelled (0.0-0.4) X10*3/uL Baso # (Auto) 0.0 Cancelled (0.0-0.2) X10*3/uL Abs Immat Gran (auto) 0.02 Cancelled (0.00-0.03) X10*3/uL Absolute Neuts (auto) 3.3 Cancelled (2.0-8.3) X10*3/uL Absolute Nucleated RBC 0.000 Cancelled (0.0-0.012) X10*3/uL Nucleated RBC % (auto) 0.0 Cancelled (0.0-0.2) /100WBC Sodium (135-145) mmol/L Potassium (3.3-5.1) mmol/L Chloride (96-108) mmol/L Carbon Dioxide (22-29) mmol/L Anion Gap (12-20) BUN (9-16) mg/dL Creatinine (0.5-1.4) mg/dL Estim Creat Clear Calc Estimated GFR Random Glucose (60-115) mg/dL Calcium (8.4-10.2) mg/dL Total Bilirubin (0.0-1.0) mg/dL AST (5-31) U/L ALT (0-31) U/L Alkaline Phosphatase (39-117) U/L Troponin I High Sens 4.8 (<3.5-17.0) ng/L Total Protein (6.5-8.0) g/dL Albumin (3.5-5.0) g/dL 05/26/21 Range/Units 04:41 WBC (4.8-10.8) X10*3/uL RBC (4.20-5.50) X10*6/uL Hgb (12.0-16.0) g/dl Hct (37-47) % MCV (80-98) fL MCH (27.0-33.0) pg MCHC (31.0-35.0) g/dl RDW (11.0-16.0) % Plt Count (160-400) X10*3/uL MPV (9.4-12.3) fL Immature Gran % (Auto) (0.0-0.4) % Neut % (Auto) (45-73) % Lymph % (Auto) (20-40) % Jenkins % (Auto) (2-11) % Eos % (Auto) (0-4) % Baso % (Auto) (0-2) % Lymph # (Auto) (1.2-4.9) X10*3/uL Jenkins # (Auto) (0.1-1.2) X10*3/uL Eos # (Auto) (0.0-0.4) X10*3/uL Baso # (Auto) (0.0-0.2) X10*3/uL Abs Immat Gran (auto) (0.00-0.03) X10*3/uL Absolute Neuts (auto) (2.0-8.3) X10*3/uL Absolute Nucleated RBC (0.0-0.012) X10*3/uL Nucleated RBC % (auto) (0.0-0.2) /100WBC Sodium 139 (135-145) mmol/L Potassium 4.0 (3.3-5.1) mmol/L Chloride 103 (96-108) mmol/L Carbon Dioxide 26 (22-29) mmol/L Anion Gap 14 (12-20) BUN 13 D (9-16) mg/dL Creatinine 0.85 (0.5-1.4) mg/dL Estim Creat Clear Calc 63.8 Estimated GFR > 60 Random Glucose 105 (60-115) mg/dL Calcium 10.5 H D (8.4-10.2) mg/dL Total Bilirubin 0.3 (0.0-1.0) mg/dL AST 21 (5-31) U/L ALT 13 (0-31) U/L Alkaline Phosphatase 98 (39-117) U/L Troponin I High Sens (<3.5-17.0) ng/L Total Protein 7.7 (6.5-8.0) g/dL Albumin 4.8 (3.5-5.0) g/dL Discharge Plan Discharge Clinical Impression: Atypical chest pain Patient Disposition: Home, Self-Care Instructions: Chest Pain (ED) Prescriptions: No Action acetaminophen [Tylenol Extra Strength] 500 mg tablet 500 mg PO Q6H PRN (Reason: pain or fever) Qty: 20 RF: 0 lidocaine [Lidoderm] 5 % adhesive patch,medicated 1 patch topical DAILY MDD remove after 12 hours PRN (Reason: pain) Qty: 30 RF: 0 naproxen 500 mg tablet 500 mg PO BID PRN (Reason: pain) 10 Days Qty: 20 RF: 0 omeprazole 20 mg capsule,delayed release(DR/EC) 20 mg PO DAILY Qty: 30 RF: 3 Adult Probiotic 3 billion cell capsule 3,000 mmu cells PO DAILY Qty: 30 RF: 2 Citrucel 500 mg tablet 500 mg PO DAILY Qty: 30 RF: 2 hydrocortisone [Anusol-HC] 2.5 % cream with perineal applicator 1 appl NM QID PRN (Reason: hemorrhoids) Qty: 30 RF: 2 Referrals: [facility] [Primary Care Provider] - 1 week
--- NOTE | 2021-05-26 04:43 | ECG_ITS ---
Test Reason : CP Blood Pressure : / mmHG Vent. Rate : 067 BPM Atrial Rate : 067 BPM P-R Int : 152 ms QRS Dur : 080 ms QT Int : 404 ms P-R-T Axes : 081 072 044 degrees QTc Int : 426 ms Normal sinus rhythm Possible Left atrial enlargement Borderline ECG When compared with ECG of 26-MAY-2021 01:01, No significant change was found Referred By: Irineo Ballard Electronically Signed By:JACOB BURNETT
[2021-05-26 04:51] LABS: Basophils Percent Auto 0.4 % (0-2); Eosinophils Absolute Auto 0.1 X10*3/uL (0.0-0.4); Eosinophils Percent Auto 1.7 % (0-4); Hematocrit 40.6 % (37-47); Hemoglobin 13.2 g/dl (12.0-16.0); Imm Gran Abs Auto 0.02 X10*3/uL (0.00-0.03); Imm Gran Pct Auto 0.3 % (0.0-0.4); Lymphocytes Absolute Auto 3.3 X10*3/uL (1.2-4.9); Lymphocytes Percent Auto 45.9 % (20-40); MANUAL DIFF FLAG NO; Mean Corpuscular HGB Conc 32.5 g/dl (31.0-35.0); Mean Corpuscular Hemoglobin 28.1 pg (27.0-33.0); Mean Corpuscular Volume 86.4 fL (80-98); Mean Platelet Volume 8.9 fL (9.4-12.3); Monocytes Absolute Auto 0.4 X10*3/uL (0.1-1.2); Monocytes Percent Auto 5.7 % (2-11); Neutrophils Absolute Auto 3.3 X10*3/uL (2.0-8.3); Platelet Count 280 X10*3/uL (160-400); White Blood Count 7.2 X10*3/uL (4.8-10.8)
[2021-05-26 05:06] LABS: Troponin-I High Sensitivity 4.8 ng/L (<3.5-17.0)
[2021-05-26 05:09] LABS: Alanine Aminotransferase 13 U/L (0-31); Albumin Level 4.8 g/dL (3.5-5.0); Alkaline Phosphatase 98 U/L (39-117); Anion Gap 14 (12-20); Aspartate Amino Transferase 21 U/L (5-31); Bilirubin Total 0.3 mg/dL (0.0-1.0); Blood Urea Nitrogen 13 mg/dL (9-16); Calcium 10.5 mg/dL (8.4-10.2); Carbon Dioxide 26 mmol/L (22-29); Chloride 103 mmol/L (96-108); Creatinine Clr Calc Pharmacy 63.8; Estimated Glomerular Filt Rate > 60; Glucose Random 105 mg/dL (60-115); Sodium 139 mmol/L (135-145); Total Protein 7.7 g/dL (6.5-8.0)
[2021-05-26 07:07] VITALS: BP 126/76; PULSE 70; RESP 19; O2SAT 100
== END 2021-05-26 07:15 | disposition home or self-care (01) ==
PROVIDERS: Emergency Provider Emergency Medicine
DX: R07.89 Other chest pain (principal); F17.210 Nicotine dependence, cigarettes, uncomplicated; Z71.6 Tobacco abuse counseling; Z79.899 Other long term (current) drug therapy
CPT/HCPCS: 36415; 80053; 84484; 85025; 93005; 99284; 99285

== ENCOUNTER 2021-08-17 14:13 | Outpatient (REF) | payer MEDICAID, SELFPAY ==
[2021-08-18 01:10] LABS: CT PCR NOT DETECTED (Not Detect.); NG PCR NOT DETECTED (Not Detect.)
[2021-08-23 07:16] LABS: HPV mRNA E6/E7 rflx Not Detected (Not Detected)
== END 2021-08-17 14:14 | disposition home or self-care (01) ==
LOC: HO.LAB 14:13
PROVIDERS: Visit Provider Advanced Practice Midwife
DX: Z01.411 Encounter for gynecological examination (general) (routine) with abnormal findings (principal); Z11.51 Encounter for screening for human papillomavirus (HPV); R87.610 Atypical squamous cells of undetermined significance on cytologic smear of cervix (ASC-US); R10.2 Pelvic and perineal pain; Z20.2 Contact with and (suspected) exposure to infections with a predominantly sexual mode of transmission
CPT/HCPCS: 87491; 87591; 87624; 88142

== ENCOUNTER 2021-08-31 12:22 | Emergency (ER) | payer MEDICAID, SELFPAY ==
--- NOTE | ~2021-08-31 | XR_ITS ---
EXAMINATION: XR CHEST CLINICAL INFORMATION: SOB, +COVID COMPARISON: 01/17/2021 TECHNIQUE: AP portable view of the chest FINDINGS: Lungs are clear. No consolidation, pneumothorax, or pleural effusion. Cardiac and mediastinal contours are normal. Pulmonary vasculature is unremarkable. Osseous structures are unremarkable. XR/XR chest 1V IMPRESSION: No acute cardiopulmonary findings
[2021-08-31 12:39] VITALS: BP 135/66; PULSE 80; RESP 19; TEMP 36.6; O2SAT 97; BMI 23.0
[2021-08-31 19:34] LABS: COVID-19 Test Positive (Negative)
--- NOTE | 2021-08-31 19:40 | ED_ITS ---
HPI - URI/Sore Throat General Chief Complaint: Upper Respiratory Symptoms Stated Complaint: covid Time Seen by Provider: 08/31/21 19:28 Source: patient Mode of arrival: ambulatory Limitations: no limitations History of Present Illness HPI Narrative: 51-year-old female with history of asthma, history of pneumonia who presents to the ER with body aches congestion, dry cough and some mild shortness of breath for the last 2 or 3 days. She states yesterday she was positive for COVID-19 at the clinic. She called her primary care doctor with her worsening symptoms who instructed to come to the ER for further evaluation. She reports her doctor 1 drink sure she did have pneumonia. She states she has body pain all over in her back, head, throat. She has headaches and overall just does not feel well. She reports some mild shortness of breath and has coughing episodes when she tries to take deep breaths. She has no chest pain. She has no dyspnea on exertion. She is fully vaccinated and [facility] gotten [facility]. She also got her flu shot. MD elicited complaint: cough and nasal congestion Pertinent past history: pneumonia and asthma Onset (ago): day(s) (3) Consistency: progressively worsening Severity: severe Description of mucous: clear Able to tolerate fluids by mouth: Yes Exacerbating factors: nothing Relieving factors: nothing Context: sick contacts Associated symptoms: chills, myalgias, headache, nasal congestion, sore throat, cough and shortness of breath Treatments prior to arrival: none Related Data Previous Rx's Medication Instructions Recorded omeprazole 20 mg capsule,delayed 20 mg PO DAILY #30 cap 07/13/20 release hydrocortisone 2.5 % topical cream 1 appl NM QID PRN #30 g 10/27/20 with perineal applicator (Anusol-HC) lactobacillus combination no.8 3 3,000 mmu cells PO DAILY #30 cap 10/27/20 billion cell capsule (Adult Probiotic) methylcellulose (laxative) 500 mg 500 mg PO DAILY #30 tab 10/27/20 tablet (Citrucel) acetaminophen 500 mg tablet 500 mg PO Q6H PRN #20 tab 01/17/21 (Tylenol Extra Strength) lidocaine 5 % topical patch 1 patch TOPICAL DAILY PRN #30 ea 01/17/21 (Lidoderm) MDD remove after 12 hours naproxen 500 mg tablet 500 mg PO BID PRN 10 Days #20 tab 01/17/21 Allergies Allergy/AdvReac Type Severity Reaction Status Date / Time bee pollen [BEE STINGS] Allergy Severe THROAT Verified 08/17/21 14:25 SWELLING codeine [Codeine] Allergy Severe CAN'T Verified 08/17/21 14:25 BREATHE, SWELLING,RASH tramadol [TRAMADOL] Allergy Intermediate ABD PAIN- Verified 08/17/21 14:25 COULD NOT EAT - FELT SICK Review of Systems Review of Systems: Constitutional: No Fever, + Chills ENT/Mouth: + sore throat,+ Rhinorrhea, No Swallowing Difficulty Eyes: No Eye Pain, No Swelling, No Redness Cardiovascular: No Chest Pain, + SOB, No Orthopnea, No Edema Respiratory: + Cough, No Sputum, No Wheezing, No dyspnea Gastrointestinal: + Nausea, No Vomiting, No Diarrhea, No abdominal Pain Musculoskeletal: + joint pain, + Myalgias Skin: No Skin Lesions, No rash Neuro: + Weakness, No Numbness, No Dizziness, + Headache Psych: + Anxiety/Panic, No Depression Heme/Lymph:No Lymphadenopathy PMFSH Past Medical History Medical History ASCUS of cervix with negative high risk HPV Female pelvic pain Hx of abnormal cervical Pap smear Hx of ectopic Kidney stones MRSA (methicillin resistant Staphylococcus aureus) PONV (postoperative nausea and vomiting) SAB (spontaneous ) Tubular adenoma Surgical History H/O elbow surgery H/O lithotripsy History of colonoscopy History of hernia repair Hx of appendectomy Hx of breast biopsy Hx of cholecystectomy Hx of endoscopy Hx of hemorrhoidectomy Family History Family History Father Diabetes mellitus CVD (cardiovascular disease) Hyperlipemia Mother Diabetes mellitus HTN (hypertension) Colon cancer Liver cancer Maternal Grandmother Diabetes mellitus Maternal Aunt Breast cancer Paternal Grandfather Colon cancer Maternal Grandfather Stomach cancer Social History Social History Household Members: Children Alcohol intake: never Patient Tobacco Use Status: Never used Tobacco Cigarettes Per Day: 10 Years Smoked: 8 Substance Use Type: Marijuana Advance Directives: No Patient : No Current occupational status: disabled Gender identity: Female Physical Exam Vital Signs: Vital Signs: Last Vital Signs Temp 98 F 08/31/21 12:39 Pulse 80 08/31/21 12:39 Resp 19 08/31/21 12:39 BP 135/66 08/31/21 12:39 Pulse Ox 97 08/31/21 12:39 BMI result Body Mass Index 23.0 Appearance: Alert. Oriented X3. No acute distress. Eyes: Pupils equal, round and reactive to light. ENT: Pharynx normal. Neck: Normal inspection. Neck supple. CVS: Normal heart rate and rhythm. Pulses normal. Respiratory: No respiratory distress. Breath sounds normal. Dry cough noted. Abdomen: Soft and nontender. +BS x4 Skin: Skin warm and dry. Normal skin color. Normal skin turgor. No rashes. Extremities: No lower extremity edema. Thin, frail, no calf tenderness or swelling. Neuro: Oriented X 3. No motor deficit. No sensory deficit. Anxious Course Course Course Narrative: 51-year-old female with history of mild intermittent asthma and history of and pneumonia who is known COVID-19 positive presents to the ER with worsening symptoms today. She reports the worst part is having ?pain all over.? She states her primary care doctor is worried she may have pneumonia. Her SpO2 was 97% on room air. Her lungs are clear. Doubt superimposed bacterial pneumonia but will check a chest x-ray to assess for ground-glass opac ities that may be consistent with COVID pneumonia. Patient is interested in monoclonal antibodies and will refer patient. Reevaluation(s) Reevaluation #1: Chest x-ray shows no evidence of pneumonia. At this time she is stable for discharge home with supportive care as well as referral for monoclonal antibodies. Management and warning signs return to the ER were discussed with the patient. Stable for discharge home. MDM - URI/Sore Throat Lab Data Labs: Lab Results 08/31/21 Range/Units 19:10 COVID-19 ([facility]) Positive A (Negative) COVID-19 Clin Com See Note Discharge Plan Discharge Clinical Impression: COVID-19 Patient Disposition: Home, Self-Care Instructions: Covid-19 Viral Syndrome and Novel Coronavirus (ED) Hey/Ath Additional Instructions: You were found to be COVID-19 POSITIVE today. Your chest x-ray and oxygen levels were normal. Rest. Drink plenty of fluids. Send the Monoclonal Antibody referral to the email provided. They will contact your for an appointment for infusion. Do not go out in public for the next 7- 10 days. It is okay at day 7 if you have no symptoms but continue to wear mask in public. Take over the counter cold/flu medications as needed for your symptoms. Take Tylenol and/or Motrin as needed for fevers and body aches. Follow up with your doctor this week. If you shortness of breath worsens, if you develop difficulty breathing or any other concerning symptom come back to the ER for further evaluation. Prescriptions: No Action acetaminophen [Tylenol Extra Strength] 500 mg tablet 500 mg PO Q6H PRN (Reason: pain or fever) Qty: 20 RF: 0 lidocaine [Lidoderm] 5 % adhesive patch,medicated 1 patch topical DAILY MDD remove after 12 hours PRN (Reason: pain) Qty: 30 RF: 0 naproxen 500 mg tablet 500 mg PO BID PRN (Reason: pain) 10 Days Qty: 20 RF: 0 omeprazole 20 mg capsule,delayed release(DR/EC) 20 mg PO DAILY Qty: 30 RF: 3 Adult Probiotic 3 billion cell capsule 3,000 mmu cells PO DAILY Qty: 30 RF: 2 Citrucel 500 mg tablet 500 mg PO DAILY Qty: 30 RF: 2 hydrocortisone [Anusol-HC] 2.5 % cream with perineal applicator 1 appl NM QID PRN (Reason: hemorrhoids) Qty: 30 RF: 2 Referrals: Gloria Smith MD [Primary Care Provider] - 1 week (Follow-up COVID) Stand Alone Forms: Work/School Release
[2021-08-31 20:00] VITALS: BP 124/79; PULSE 78; RESP 17; TEMP 37.3; O2SAT 98
== END 2021-08-31 20:55 | disposition home or self-care (01) ==
PROVIDERS: Emergency Provider Emergency Medicine Emergency Medical Services; PCP Internal Medicine
DX: U07.1 COVID-19 (principal); R05.9 Cough, unspecified; R06.02 Shortness of breath; M79.10 Myalgia, unspecified site
CPT/HCPCS: 36415; 71045; 87635; 99283; 99284

== ENCOUNTER 2021-09-22 14:08 | Outpatient (REF) | payer MEDICAID, SELFPAY ==
--- NOTE | ~2021-09-22 | MM_ITS ---
EXAMINATION: MM DIAGNOSTIC DIGITAL BREAST TOMOSYNTHESIS, BILATERAL US DIAGNOSTIC ULTRASOUND BREAST, RIGHT CLINICAL INFORMATION: Due for yearly exam. History fibrocystic changes with probable benign complicated cysts with apocrine metaplasia right breast for follow-up. The lifetime risk of breast cancer based on the Tyrer-Cuzick Model is 10%. COMPARISON: Mammography: 06/29/2020, 05/16/2018; targeted right breast ultrasound 01/12/2021, 06/29/2020, 05/10/2017, and 04/05/2016. TECHNIQUE: Digital breast tomosynthesis is performed in both the craniocaudal and mediolateral oblique views along with computer-aided detection (CAD). Synthesized 2D images are generated from the tomosynthesis. Ultrasound right breast is targeted to the areas for follow-up 4:00 and 6:00 positions. Grayscale imaging and color Doppler are performed without and with harmonics. FINDINGS: The breasts are heterogeneously dense, which may obscure small masses (ACR BI-RADS breast composition Category c). There is fine fibronodular parenchymal pattern. Background fibrocystic changes are decreased overall since mammography 2018. There is no interval dominant mass or architectural abnormality. No abnormal calcifications. Complicated cyst anterior lower inner right breast is decreased in size since 2018. The axilla and skin contours are unremarkable. Ultrasound right breast demonstrates no suspicious change from prior exams 01/12/2021 and 06/29/2020. There is no interval solid or complicated cystic lesion or duct ectasia. The dominant acorn/foam cyst 6:00 position 2 cm from nipple appears stable from prior ultrasound exams. There is no associated color flow. This is now considered to be benign. Similarly, the smaller foam cyst 4:00 position 4 cm from nipple measuring approximately 0.5 cm and the acorn-foam cyst 6:00 position measuring 0.6 cm are also stable and without color flow. There are also considered to be benign. The acorn-foam cyst 6:00 position measuring 0.7 cm on prior exam is no longer demonstrated. Results are discussed with the patient at time of visit. MM/MM tomosynthesis diagnostic BI IMPRESSION: 1. Fibrocystic changes decreased since 2018. No mammographic evidence of malignancy. 2. Probable benign foam/acorn cysts right breast are stable and without color flow and now considered to be benign. One of the cysts is no longer demonstrated. ASSESSMENT: BI-RADS 2: Benign RECOMMENDATION: Routine annual mammography screening. This patient's information was entered into a reminder system with a target due date for their next mammogram.
== END 2021-09-22 14:09 | disposition home or self-care (01) ==
LOC: HO.MAMMO 14:08
PROVIDERS: Visit Provider Internal Medicine
DX: N60.01 Solitary cyst of right breast (principal)
CPT/HCPCS: 76642; 77062; 77066

== ENCOUNTER 2021-09-26 12:20 | Outpatient (REF) | payer MEDICAID, SELFPAY ==
[2021-09-27 14:56] LABS: H Pylori Breath Test Negative (Negative)
== END 2021-09-26 12:21 | disposition home or self-care (01) ==
LOC: HO.LNP 12:20
PROVIDERS: PCP Internal Medicine; Visit Provider Nurse Practitioner Family
DX: K21.9 Gastro-esophageal reflux disease without esophagitis (principal); R14.0 Abdominal distension (gaseous); K59.01 Slow transit constipation; K64.9 Unspecified hemorrhoids
CPT/HCPCS: 83013; 99212

== ENCOUNTER 2021-12-09 05:54 | Emergency (ER) | payer MEDICAID, SELFPAY ==
--- NOTE | ~2021-12-09 | CT_ITS ---
EXAMINATION: CT abdomen pelvis w con CLINICAL INFORMATION: Abdominal pain COMPARISON: Prior CT December 2020 TECHNIQUE: Multidetector volumetric imaging was performed from the superior aspect of the liver through the pubic symphysis 100 mL of Omnipaque 350 injected Sagittal and coronal reformatted images were obtained on the technologist's workstation. This CT examination was performed using dose optimization techniques as appropriate, variously including the following: *Automated exposure control *Adjustment of mA and/or kV according to patient size (this includes techniques or standardized protocols for targeted exams where dose is matched to indication/reason for exam; i.e. extremities or head) *Use of iterative reconstruction technique DLP: 371 mGy-cm FINDINGS: LOWER THORAX: Included lung bases are clear. HEPATOBILIARY: No focal hepatic lesions. No biliary ductal dilatation. Mild fullness of the biliary system probably physiologic postcholecystectomy. GALLBLADDER: Gallbladder has been removed. SPLEEN: Spleen is normal in size. PANCREAS: No focal mass or ductal dilatation. STOMACH AND GASTROINTESTINAL TRACT: Stomach is grossly unremarkable. No evidence of bowel obstruction. There is mild circumferential wall thickening of the sigmoid colon nonspecific, suggesting probably mild colitis which could be inflammatory or infection. No pericolic fat stranding. No obstruction. Appendix could not be directly visualized probably obscured by crowding of bowel loops, possibility of intraperitoneal fat and lack of oral contrast there is however no CT evidence of inflammation around the cecum. ADRENALS: No adrenal nodules. KIDNEYS/URETERS: There are 2 small 3 and 4 mm nonobstructing stones lower calyx left kidney. No obstructing uropathy. No hydronephrosis, perinephric fat are clear, uniform homogeneous enhancement of both kidneys. URINARY BLADDER: Partially decompressed. PELVIC VISCERA: Unremarkable PERITONEUM: No free air or fluid. LYMPH NODES: No lymphadenopathy. VASCULAR:Abdominal aorta normal in size, no aneurysm found. BONES, ABDOMINAL WALL AND SOFT TISSUES: Degenerative discitis involving primarily L4-L5. No fracture. No destructive bone lesion. CT/CT abdomen pelvis w con IMPRESSION: *Mild circumferential wall thickening of the descending and sigmoid colon nonspecific, could be mild colitis which could be inflammatory or infection. No evidence of obstruction, no pericolic fat stranding. *Status post cholecystectomy. Mild dilatation of the biliary system probably physiologic postcholecystectomy. *Nonobstructing stones lower calyx left kidney. *Degenerative discitis reaction in the endplates L4-L5.
[2021-12-09 06:03] VITALS: BP 126/80; PULSE 93; RESP 18; TEMP 36.6; O2SAT 100; BMI 23.4
[2021-12-09] MEDS: 0.9 % Sodium Chloride 1,000 ML 999 ML IVCONT (06:39)
[2021-12-09] MEDS: ondansetron HCL 4 MG/2 ML VIAL IVPUSH (06:39)
[2021-12-09 06:43] LABS: MANUAL DIFF FLAG NO
[2021-12-09 06:44] LABS: Basophils Percent Auto 0.5 % (0-2); Eosinophils Percent Auto 0.3 % (0-4); Hematocrit 35.7 % (37.0-47.0); Hemoglobin 11.7 g/dl (12.0-16.0); Imm Gran Abs Auto 0.01 X10*3/uL (0.00-0.03); Imm Gran Pct Auto 0.2 % (0.0-0.4); Lymphocytes Absolute Auto 1.8 X10*3/uL (1.2-4.9); Lymphocytes Percent Auto 28.1 % (20-40); Mean Corpuscular HGB Conc 32.8 g/dl (31.0-35.0); Mean Corpuscular Hemoglobin 27.8 pg (27.0-33.0); Mean Corpuscular Volume 84.8 fL (80.0-98.0); Monocytes Absolute Auto 0.4 X10*3/uL (0.1-1.2); Monocytes Percent Auto 6.7 % (2-11); Neutrophils Percent Auto 64.2 % (45-73); Platelet Count 262 X10*3/uL (160-400); Red Blood Count 4.21 X10*6/uL (4.20-5.50); Red Cell Distribution Width 14.3 % (11.0-16.0); White Blood Count 6.3 X10*3/uL (4.8-10.8)
[2021-12-09 07:03] LABS: Alanine Aminotransferase 20 U/L (0-31); Albumin Level 4.5 g/dL (3.5-5.0); Alkaline Phosphatase 88 U/L (39-117); Anion Gap 13 (12-20); Aspartate Amino Transferase 26 U/L (5-31); Bilirubin Direct 0.2 mg/dL (0.0-0.5); Bilirubin Total 0.5 mg/dL (0.0-1.0); Blood Urea Nitrogen 9 mg/dL (9-16); Calcium 9.8 mg/dL (8.4-10.2); Carbon Dioxide 24 mmol/L (22-29); Chloride 108 mmol/L (96-108); Creatinine Clr Calc Pharmacy 73.6; Estimated Glomerular Filt Rate > 60; Glucose Random 106 mg/dL (60-115); Lipase 24 U/L (8-78); Magnesium 2.3 mg/dL (1.6-2.6); Potassium 4.1 mmol/L (3.3-5.1); Sodium 141 mmol/L (135-145)
[2021-12-09 07:05] LABS: COVID-19 Test Negative (Negative)
--- NOTE | 2021-12-09 07:21 | ED_ITS ---
HPI - Abdominal Pain General Chief Complaint: Abdominal Pain Stated Complaint: stomach pain x5days ; stomach swollen, nausea Time Seen by Provider: 12/09/21 06:18 Source: patient Mode of arrival: ambulatory Limitations: no limitations History of Present Illness HPI narrative: Patient comes emergency room complaining of diffuse abdominal pain, cramping. Patient has history of abdominal bloating, sees Gastroenterology. Patient states that today the pain is worse. Symptoms started 5 days ago but is gradually getting worse. Patient complaining of nausea, no vomiting or diarrhea. No UTI symptoms Related Data Home Medications Medication Instructions Recorded Confirmed acetaminophen 650 mg 0 mg PO 09/26/21 tablet,extended release (Arthritis Pain Relief (acetaminophen) ER) multivitamin with folic acid 400 0 tab PO 09/26/21 mcg tablet (Daily-Jeramy (with folic acid)) Previous Rx's Medication Instructions Recorded hydrocortisone 2.5 % topical cream 1 appl OK QID PRN #30 g 10/27/20 with perineal applicator (Anusol-HC) lactobacillus combination no.8 3 3,000 mmu cells PO DAILY #30 cap 10/27/20 billion cell capsule (Adult Probiotic) methylcellulose (laxative) 500 mg 500 mg PO DAILY #30 tab 10/27/20 tablet (Citrucel) acetaminophen 500 mg tablet 500 mg PO Q6H PRN #20 tab 01/17/21 (Tylenol Extra Strength) lidocaine 5 % topical patch 1 patch TOPICAL DAILY PRN #30 ea 01/17/21 (Lidoderm) MDD remove after 12 hours naproxen 500 mg tablet 500 mg PO BID PRN 10 Days #20 tab 01/17/21 docusate sodium 100 mg capsule 100 mg PO BEDTIME #30 cap 09/26/21 omeprazole 40 mg capsule,delayed 40 mg PO DAILY #90 cap 09/26/21 release sennosides 8.6 mg tablet (Natural 8.6 mg PO BEDTIME #30 tab 12/08/21 Senna Laxative) hyoscyamine sulfate 0.125 mg tablet 0.125 mg PO QID PRN #10 tab 12/09/21 levofloxacin 500 mg tablet 500 mg PO DAILY #10 tab 12/09/21 metronidazole 250 mg tablet 250 mg PO BID #20 tab 12/09/21 ondansetron HCl 4 mg tablet 4 mg PO Q6H PRN #14 tab 12/09/21 Allergies Allergy/AdvReac Type Severity Reaction Status Date / Time bee pollen [BEE STINGS] Allergy Severe THROAT Verified 12/09/21 06:06 SWELLING codeine [Codeine] Allergy Severe CAN'T Verified 12/09/21 06:06 BREATHE, SWELLING,RASH tramadol [TRAMADOL] Allergy Intermediate ABD PAIN- Verified 12/09/21 06:06 COULD NOT EAT - FELT SICK Review of Systems Review of Systems Constitutional : No Weight loss, No Fever, No Chills, No Night Sweats, No Fatigue, No Malaise ENT/Mouth : No Hearing loss, No Ear Pain, No Nasal Congestion, No Sinus Pain, No Hoarseness, No sore throat, No Rhinorrhea, No Swallowing Difficulty Eyes: No Eye Pain, No Swelling, No Redness, No Foreign Body, No Discharge, No Vision Changes Cardiovascular : No Chest Pain, No SOB, No Dyspnea on Exertion, No Orthopnea, No Edema, No Palpitations Respiratory : No Cough, No Sputum, No Wheezing, No Smoke Exposure, No Dyspnea Gastrointestinal : Complaining of nausea, no vomiting or diarrhea, intermittent constipation, complaining of diffuse abdominal pain/cramping Genitourinary : no irregular bleeding, No Dysuria, No Urinary Frequency, No Hematuria, No Urinary Incontinence, No Urgency, No Flank Pain, No Urinary Flow Changes, No Hesitancy Musculoskeletal : No joint pain, No Myalgias, No Joint Swelling Skin : No Skin Lesions, No rash Neuro : No Weakness, No Numbness, No Paresthesias, No Loss of Consciousness, No Dizziness, No Headache Psych : No Anxiety/Panic, No Depression, No SI/HI/AH/VH, No Social Issues, Heme/Lymph: No Bruising, No Bleeding,No Lymphadenopathy Endocrine : No Polyuria, No Polydipsia, No Temperature Intolerance PMFSH Past Medical History Medical History ASCUS of cervix with negative high risk HPV Female pelvic pain Gastroesophageal reflux disease Hx of abnormal cervical Pap smear Hx of ectopic Kidney stones MRSA (methicillin resistant Staphylococcus aureus) PONV (postoperative nausea and vomiting) SAB (spontaneous ) Tubular adenoma Surgical History H/O elbow surgery H/O lithotripsy History of colonoscopy History of hernia repair Hx of appendectomy Hx of breast biopsy Hx of cholecystectomy Hx of endoscopy Hx of hemorrhoidectomy Family History Family History Father Diabetes mellitus CVD (cardiovascular disease) Hyperlipemia Mother Diabetes mellitus HTN (hypertension) Colon cancer Liver cancer Maternal Grandmother Diabetes mellitus Maternal Aunt Breast cancer Paternal Grandfather Colon cancer Maternal Grandfather Stomach cancer Social History Social History Household Members: Children Alcohol intake: never Patient Tobacco Use Status: Current everyday Tobacco user Cigarettes Per Day: 10 Years Smoked: 8 Use of substances other than those prescribed or required for medical reasons: No Substance Use Type: Marijuana Advance Directives: No Advance Directives Information Provided: Yes Current occupational status: disabled Gender identity: Female Physical Exam ED Vital Signs: Vital Signs - 24 hr 12/09/21 06:03 12/09/21 08:02 Temperature 97.8 F Pulse Rate 93 95 Respiratory Rate 18 20 Blood Pressure 126/80 135/75 Pulse Oximetry 100 100 BMI result Body Mass Index 23.4 Const Other: Appearance: Alert. Oriented X3. No acute distress. Eyes: Pupils equal, round and reactive to light. ENT: Pharynx normal. Neck: Normal inspection. Neck supple. No lymph nodes noted. No crepitus CVS: Normal heart rate and rhythm. Pulses normal. Normal S1 and S2 Respiratory: No respiratory distress. Breath sounds normal. No Wheezing. No rales Abdomen: Soft , slight distended, diffuse discomfort on deep palpation, no guarding, no rebound Skin: Skin warm and dry. Normal skin color. Normal skin turgor. Extremities: No lower extremity edema. No Lacerations. No Rash Neuro: Oriented X 3. No motor deficit. No sensory deficit. Moving all extremities. No slurred speech. CN 2 through 12 grossly intact Psych: calm, cooperative, normal affect Course Course Course Narrative: Patient received IV fluids, Zofran. Labs are at baseline, no acute pathology. Patient continues having abdominal pain. 4 mg of Zofran given, CT scan of the abdomen pending. I discussed with the patient the labs and imaging. Patient possibly has colitis. Patient will be started on antibiotics. MDM - Abdominal Pain Lab Data Result diagrams: 12/09/21 06:39 12/09/21 06:39 Labs: Lab Results 12/09/21 12/09/21 12/09/21 Range/Units 06:39 06:39 06:39 WBC 6.3 (4.8-10.8) X10*3/uL RBC 4.21 (4.20-5.50) X10*6/uL Hgb 11.7 L (12.0-16.0) g/dl Hct 35.7 L (37.0-47.0) % MCV 84.8 (80.0-98.0) fL MCH 27.8 (27.0-33.0) pg MCHC 32.8 (31.0-35.0) g/dl RDW 14.3 (11.0-16.0) % Plt Count 262 (160-400) X10*3/uL MPV 9.0 L (9.4-12.3) fL Immature Gran % (Auto) 0.2 (0.0-0.4) % Neut % (Auto) 64.2 (45-73) % Lymph % (Auto) 28.1 (20-40) % Jefferson % (Auto) 6.7 (2-11) % Eos % (Auto) 0.3 (0-4) % Baso % (Auto) 0.5 (0-2) % Lymph # (Auto) 1.8 (1.2-4.9) X10*3/uL Jefferson # (Auto) 0.4 (0.1-1.2) X10*3/uL Eos # (Auto) 0.0 (0.0-0.4) X10*3/uL Baso # (Auto) 0.0 (0.0-0.2) X10*3/uL Abs Immat Gran (auto) 0.01 (0.00-0.03) X10*3/uL Absolute Neuts (auto) 4.0 (2.0-8.3) x10*3/uL Absolute Nucleated RBC 0.000 (0.0-0.012) X10*3/uL Nucleated RBC % (auto) 0.0 (0.0-0.2) /100WBC Sodium 141 (135-145) mmol/L Potassium 4.1 (3.3-5.1) mmol/L Chloride 108 (96-108) mmol/L Carbon Dioxide 24 (22-29) mmol/L Anion Gap 13 (12-20) BUN 9 (9-16) mg/dL Creatinine 0.67 (0.5-1.4) mg/dL Estim Creat Clear Calc 73.6 Estimated GFR > 60 Random Glucose 106 (60-115) mg/dL Calcium 9.8 D (8.4-10.2) mg/dL Magnesium 2.3 (1.6-2.6) mg/dL Total Bilirubin 0.5 (0.0-1.0) mg/dL Direct Bilirubin 0.2 (0.0-0.5) mg/dL AST 26 (5-31) U/L ALT 20 (0-31) U/L Alkaline Phosphatase 88 (39-117) U/L Total Protein 7.0 (6.5-8.0) g/dL Albumin 4.5 (3.5-5.0) g/dL Lipase 24 (8-78) U/L Beta HCG, Quant < 2 mIU/mL COVID-19 ([facility]) Negative (Negative) COVID-19 Clin Com See Note Imaging Data Chest x-ray: Radiologist's impression: INDINGS: LOWER THORAX: Included lung bases are clear. HEPATOBILIARY: No focal hepatic lesions. No biliary ductal dilatation. Mild fullness of the biliary system probably physiologic postcholecystectomy. GALLBLADDER: Gallbladder has been removed. SPLEEN: Spleen is normal in size. PANCREAS: No focal mass or ductal dilatation. STOMACH AND GASTROINTESTINAL TRACT: Stomach is grossly unremarkable. No evidence of bowel obstruction. There is mild circumferential wall thickening of the sigmoid colon nonspecific, suggesting probably mild colitis which could be inflammatory or infection. No pericolic fat stranding. No obstruction. Appendix could not be directly visualized probably obscured by crowding of bowel loops, possibility of intraperitoneal fat and lack of oral contrast there is however no CT evidence of inflammation around the cecum. ADRENALS: No adrenal nodules. KIDNEYS/URETERS: There are 2 small 3 and 4 mm nonobstructing stones lower calyx left kidney. No obstructing uropathy. No hydronephrosis, perinephric fat are clear, uniform homogeneous enhancement of both kidneys. URINARY BLADDER: Partially decompressed. PELVIC VISCERA: Unremarkable PERITONEUM: No free air or fluid. LYMPH NODES: No lymphadenopathy. VASCULAR:Abdominal aorta normal in size, no aneurysm found. BONES, ABDOMINAL WALL AND SOFT TISSUES: Degenerative discitis involving primarily L4-L5. No fracture. No destructive bone lesion. CT/CT abdomen pelvis w con IMPRESSION: *Mild circumferential wall thickening of the descending and sigmoid colon nonspecific, could be mild colitis which could be inflammatory or infection. No evidence of obstruction, no pericolic fat stranding. ? *Status post cholecystectomy. Mild dilatation of the biliary system probably physiologic postcholecystectomy. ? *Nonobstructing stones lower calyx left kidney. ? *Degenerative discitis reaction in the endplates L4-L5. Discharge Plan Discharge Clinical Impression: Colitis Patient Disposition: Home, Self-Care Instructions: Colitis (ED) Additional Instructions: Please follow-up with your primary care physician tomorrow. If you have any worsening or new symptoms, please return to the emergency room or call 911 Prescriptions: New levofloxacin 500 mg tablet 500 mg PO DAILY Qty: 10 0RF metronidazole 250 mg tablet 250 mg PO BID Qty: 20 0RF ondansetron HCl 4 mg tablet 4 mg PO Q6H PRN (Reason: nausea and vomiting) Qty: 14 0RF hyoscyamine sulfate 0.125 mg tablet 0.125 mg PO QID PRN (Reason: dyspepsia) Qty: 10 0RF No Action sennosides [Natural Senna Laxative] 8.6 mg tablet 8.6 mg PO BEDTIME Qty: 30 3RF acetaminophen [Tylenol Extra Strength] 500 mg tablet 500 mg PO Q6H PRN (Reason: pain or fever) Qty: 20 0RF lidocaine [Lidoderm] 5 % adhesive patch,medicated 1 patch topical DAILY MDD remove after 12 hours PRN (Reason: pain) Qty: 30 0RF Rx Instructions: leave on most painful area for up to 12 hrs naproxen 500 mg tablet 500 mg PO BID PRN (Reason: pain) 10 Days Qty: 20 0RF Adult Probiotic 3 billion cell capsule 3,000 mmu cells PO DAILY Qty: 30 2RF Rx Instructions: administer with a meal Citrucel 500 mg tablet 500 mg PO DAILY Qty: 30 2RF hydrocortisone [Anusol-HC] 2.5 % cream with perineal applicator 1 appl OK QID PRN (Reason: hemorrhoids) Qty: 30 2RF multivitamin with folic acid [Daily-Jeramy (with folic acid)] 400 mcg tablet 0 tab PO 0RF acetaminophen [Arthritis Pain Relief (acetam)] 650 mg tablet extended release 0 mg PO 0RF omeprazole 40 mg capsule,delayed release(DR/EC) 40 mg PO DAILY Qty: 90 3RF docusate sodium 100 mg capsule 100 mg PO BEDTIME Qty: 30 3RF
[2021-12-09] MEDS: Morphine Sulfate 4 MG/ML CARTRIDGE IVPUSH (07:58)
[2021-12-09 08:02] VITALS: BP 135/75; PULSE 95; RESP 20; O2SAT 100
--- NOTE | 2021-12-09 08:06 | PC.NURSE ---
pt alert and oriented, skin appropriate for ethnicity, pt reports abd pain/abd is distended and hard to palpitations, bowel sounds in all 4 quadrants, nausea and vomiting
[2021-12-09 08:34] LABS: HCG Quantitative < 2 mIU/mL
[2021-12-09] MEDS: Prochlorperazine Edisylate 10 MG/2 ML VIAL IVPUSH (08:44)
[2021-12-09] MEDS: iohexoL 350 MG/ML 100 ML INFUS..BTL 85 ML IV (09:23)
--- NOTE | 2021-12-09 10:07 | PC.NURSE ---
pt is currently sleeping, respirations even and unlabored
[2021-12-09 10:56] VITALS: BP 104/60; PULSE 78; RESP 18; O2SAT 99
== END 2021-12-09 11:15 | disposition home or self-care (01) ==
PROVIDERS: Emergency Medicine; Emergency Provider Emergency Medicine
DX: K52.9 Noninfective gastroenteritis and colitis, unspecified (principal); Z20.822 Contact with and (suspected) exposure to COVID-19; R11.0 Nausea; F17.200 Nicotine dependence, unspecified, uncomplicated; F12.90 Cannabis use, unspecified, uncomplicated
CPT/HCPCS: 36415; 74177; 80048; 80076; 83690; 83735; 84702; 85025; 87635; 96361; 96374; 96375; 99284; J2270; J2405; Q9967

== ENCOUNTER 2022-02-14 12:39 | Outpatient (REF) | payer MEDICAID, SELFPAY ==
--- NOTE | ~2022-02-14 | XR_ITS ---
EXAMINATION: XR CHEST XR RIBS, RIGHT CLINICAL INFORMATION: Chest pain, rib pain COMPARISON: Chest radiographs 08/31/2021, 01/17/2021 TECHNIQUE: The chest is imaged in PA and lateral views. The right ribs are imaged in 4 views. There are total of 6 views. FINDINGS: There is no visible right rib fracture or rib destructive process. The lungs are clear. There is no pneumothorax or pleural reaction. No airspace consolidation or effusion. Heart size normal. The hilar and mediastinal contours are normal. No free air beneath the diaphragms. XR/XR chest 2V IMPRESSION: -No visible rib fracture. -Lungs clear. No pneumothorax, pleural reaction, or effusion.
--- NOTE | ~2022-02-14 | XR_ITS ---
EXAMINATION: XR CHEST XR RIBS, RIGHT CLINICAL INFORMATION: Chest pain, rib pain COMPARISON: Chest radiographs 08/31/2021, 01/17/2021 TECHNIQUE: The chest is imaged in PA and lateral views. The right ribs are imaged in 4 views. There are total of 6 views. FINDINGS: There is no visible right rib fracture or rib destructive process. The lungs are clear. There is no pneumothorax or pleural reaction. No airspace consolidation or effusion. Heart size normal. The hilar and mediastinal contours are normal. No free air beneath the diaphragms. XR/XR ribs RT 2V IMPRESSION: -No visible rib fracture. -Lungs clear. No pneumothorax, pleural reaction, or effusion.
== END 2022-02-14 12:40 | disposition home or self-care (01) ==
LOC: HO.XRAY 12:39
PROVIDERS: PCP Internal Medicine; Visit Provider Internal Medicine
DX: R07.9 Chest pain, unspecified (principal)
CPT/HCPCS: 71046; 71100

== ENCOUNTER 2022-06-16 12:21 | Emergency (ER) | payer MEDICAID, SELFPAY ==
[2022-06-16 12:29] VITALS: BP 105/69; PULSE 88; RESP 16; TEMP 36.1; O2SAT 98; BMI 23.6
[2022-06-16 12:55] LABS: MANUAL DIFF FLAG NO
[2022-06-16 12:58] LABS: Basophils Percent Auto 0.3 % (0-2); Eosinophils Percent Auto 0.3 % (0-4); Hematocrit 39.1 % (37.0-47.0); Hemoglobin 13.3 g/dl (12.0-16.0); Imm Gran Abs Auto 0.04 X10*3/uL (0.00-0.03); Imm Gran Pct Auto 0.3 % (0.0-0.4); Lymphocytes Absolute Auto 1.6 X10*3/uL (1.2-4.9); Lymphocytes Percent Auto 12.9 % (20-40); Mean Corpuscular Hemoglobin 29.2 pg (27.0-33.0); Mean Corpuscular Volume 85.9 fL (80.0-98.0); Mean Platelet Volume 9.3 fL (9.4-12.3); Monocytes Absolute Auto 0.8 X10*3/uL (0.1-1.2); Monocytes Percent Auto 6.4 % (2-11); Neutrophils Absolute Auto 9.6 x10*3/uL (2.0-8.3); Neutrophils Percent Auto 79.8 % (45-73); Platelet Count 278 X10*3/uL (160-400); Red Blood Count 4.55 X10*6/uL (4.20-5.50); Red Cell Distribution Width 14.2 % (11.0-16.0)
[2022-06-16 13:19] LABS: Alanine Aminotransferase 19 U/L (0-31); Albumin Level 4.9 g/dL (3.5-5.0); Alkaline Phosphatase 105 U/L (39-117); Anion Gap 16 (12-20); Aspartate Amino Transferase 21 U/L (5-31); Bilirubin Total < 0.2 mg/dL (0.0-1.0); Blood Urea Nitrogen 15 mg/dL (9-16); Calcium 10.5 mg/dL (8.4-10.2); Carbon Dioxide 24 mmol/L (22-29); Chloride 105 mmol/L (96-108); Creatinine Clr Calc Pharmacy 61.2; Estimated Glomerular Filt Rate > 60; Glucose Random 113 mg/dL (60-115); Potassium 4.4 mmol/L (3.3-5.1); Sodium 141 mmol/L (135-145); Total Protein 7.8 g/dL (6.5-8.0)
[2022-06-16 13:43] LABS: COVID-19 Test Negative (Negative)
== END 2022-06-16 15:38 | disposition left against medical advice (07) ==
PROVIDERS: Emergency Provider Emergency Medicine; PCP Internal Medicine
DX: R51.9 Headache, unspecified (principal); R11.0 Nausea; Z20.822 Contact with and (suspected) exposure to COVID-19
CPT/HCPCS: 71045; 80048; 80053; 80076; 83690; 83735; 84484; 85025; 85610; 87635; 93005; 99281; 99283; 99284; 99285; J2250; J2405

== ENCOUNTER 2022-06-16 23:26 | Emergency (ER) | payer MEDICAID, SELFPAY ==
--- NOTE | ~2022-06-16 | XR_ITS ---
EXAMINATION: XR CHEST CLINICAL INFORMATION: Chest pain COMPARISON: 02/14/2022 TECHNIQUE: Frontal view of the chest was obtained. FINDINGS: The lungs are clear with no focal consolidation. No evidence of pneumothorax, pulmonary edema, or pleural effusions. The cardiomediastinal silhouette is unremarkable. No acute osseous findings. XR/XR chest 1V IMPRESSION: No acute cardiopulmonary findings.
[2022-06-16 23:37] VITALS: BP 128/94; PULSE 88; RESP 18; O2SAT 100; BMI 23.6
--- NOTE | 2022-06-16 23:41 | PC.NURSE ---
patient endorses chest pain that began at 5PM with shortness of breath, tremors, and anxiety. hx NV and TIA, prescribed nitro and took one, but it didn't help the pain. she endorses SOB and pain worse in her chest with SOB. takes metoprolol. she endorses smoking marijuana today. she states she feels lightheaded. she states she's had 3 caths, but no stents.
[2022-06-16 23:46] VITALS: BP 128/94; PULSE 89; RESP 20; TEMP 36.9; O2SAT 99
[2022-06-16] MEDS: ondansetron HCL 4 MG/2 ML VIAL IVPUSH (23:51)
[2022-06-16] MEDS: Aspirin 81 MG TAB.CHEW 162 MG PO (23:51)
[2022-06-16] MEDS: Midazolam HCl/PF 2 MG/2 ML VIAL IVPUSH (23:51)
[2022-06-16 23:53] VITALS: BP 133/79; PULSE 81; RESP 16; O2SAT 99
--- NOTE | 2022-06-16 23:54 | ED.CHESTPAIN ---
HPI - Chest Pain General Chief Complaint: Chest Pain Stated Complaint: high bp, cp Time Seen by Provider: 06/16/22 23:38 Source: patient and old records reviewed Mode of arrival: ambulatory Limitations: no limitations History of Present Illness HPI narrative: 52 yo female with hx of abnormal pap smear, GERD, prior cardiac cath x 3 negative with chest pain and no stents - states done due to chest pain and abnormal stress tests. She notes chest pain starting around 5pm today. She did smoke marijuana but that was it. She uses no other drugs. She hasn't been feeling well. Received her COVID booster on . She is very anxious at this tme. She tried nitro without relief [employer]. No travel or recent procedures. MD complaint: chest pain Pertinent past history: other (chest pain) Onset (ago): hour(s) (5pm (7 hours ago)) Timing of current episode: constant Prior episodes: Yes Onset: during rest Pain location: substernal Pain radiation: none Severity: moderate Quality: tightness and sharp Relieving factors: nothing Exacerbating factors: movement and stress Associated symptoms: nausea, dyspnea and sense of impending doom Treatment prior to arrival: nitroglycerin Related Data Home Medications Medication Instructions Recorded Confirmed acetaminophen 650 mg 0 mg PO 09/26/21 tablet,extended release (Arthritis Pain Relief (acetaminophen) ER) multivitamin with folic acid 400 0 tab PO 09/26/21 mcg tablet (Daily-Jeramy (with folic acid)) Previous Rx's Medication Instructions Recorded hydrocortisone 2.5 % topical cream 1 appl NC QID PRN hemorrhoids #30 10/27/20 with perineal applicator grams (Anusol-HC) lactobacillus combination no.8 3 3,000 mmu cells PO DAILY #30 caps 10/27/20 billion cell capsule (Adult Probiotic) methylcellulose (laxative) 500 mg 500 mg PO DAILY #30 tabs 10/27/20 tablet (Citrucel) acetaminophen 500 mg tablet 500 mg PO Q6H PRN pain or fever 01/17/21 (Tylenol Extra Strength) #20 tabs lidocaine 5 % topical patch 1 patch topical DAILY PRN pain #30 01/17/21 (Lidoderm) ea naproxen 500 mg tablet 500 mg PO BID PRN pain 10 days #20 01/17/21 tabs docusate sodium 100 mg capsule 100 mg PO BEDTIME #30 caps 09/26/21 omeprazole 40 mg capsule,delayed 40 mg PO DAILY #90 caps 09/26/21 release sennosides 8.6 mg tablet (Natural 8.6 mg PO BEDTIME constipation #30 12/08/21 Senna Laxative) tabs hyoscyamine sulfate 0.125 mg tablet 0.125 mg PO QID PRN dyspepsia #10 12/09/21 tabs levofloxacin 500 mg tablet 500 mg PO DAILY #10 tabs 12/09/21 metronidazole 250 mg tablet 250 mg PO BID #20 tabs 12/09/21 ondansetron HCl 4 mg tablet 4 mg PO Q6H PRN nausea and 12/09/21 vomiting #14 tabs Allergies Allergy/AdvReac Type Severity Reaction Status Date / Time bee pollen [BEE STINGS] Allergy Severe THROAT Verified 12/09/21 06:06 SWELLING codeine [Codeine] Allergy Severe CAN'T Verified 12/09/21 06:06 BREATHE, SWELLING,RASH tramadol [TRAMADOL] Allergy Intermediate ABD PAIN- Verified 12/09/21 06:06 COULD NOT EAT - FELT SICK Review of Systems Review of Systems: Constitutional : No Weight loss, No Fever, No Chills ENT/Mouth : No sore throat, No Rhinorrhea Eyes: No Eye Pain, No Swelling Cardiovascular : pos Chest Pain, pos SOB, no Dyspnea on Exertion, No Orthopnea, No Edema, No Palpitations Respiratory : No Cough, No Sputum Gastrointestinal : pos Nausea, No Vomiting, No Diarrhea, No abdominal Pain, No Hematochezia, No Melena Genitourinary : No Dysuria, No Urinary Frequency Musculoskeletal : No joint pain, No Myalgias, No Joint Swelling Skin : No Skin Lesions, No rash Neuro : No Weakness, No Numbness, No Dizziness, No Headache Psych : pos Anxiety/Panic, No Depression Heme/Lymph: No Bruising, No Lymphadenopathy Endocrine : No Polyuria, No Polydipsia All other systems reviewed and are negative PMFSH Past Medical History Medical History ASCUS of cervix with negative high risk HPV Female pelvic pain Gastroesophageal reflux disease Hx of abnormal cervical Pap smear Hx of ectopic Kidney stones MRSA (methicillin resistant Staphylococcus aureus) PONV (postoperative nausea and vomiting) SAB (spontaneous ) Tubular adenoma Surgical History H/O elbow surgery H/O lithotripsy History of colonoscopy History of hernia repair Hx of appendectomy Hx of breast biopsy Hx of cholecystectomy Hx of endoscopy Hx of hemorrhoidectomy Family History Family History Father Diabetes mellitus CVD (cardiovascular disease) Hyperlipemia Mother Diabetes mellitus HTN (hypertension) Colon cancer Liver cancer Maternal Grandmother Diabetes mellitus Maternal Aunt Breast cancer Paternal Grandfather Colon cancer Maternal Grandfather Stomach cancer Social History Social History Household Members: Children Alcohol intake: never Patient Tobacco Use Status: Current everyday Tobacco user Cigarettes Per Day: 10 Years Smoked: 8 Substance Use Type: Marijuana Advance Directives: No Current occupational status: disabled Gender identity: Female Physical Exam Vital Signs: Vital Signs: Last Vital Signs Temp 98.5 F 06/16/22 23:46 Pulse 74 06/17/22 00:52 Resp 17 06/17/22 00:52 BP 108/75 06/17/22 00:56 Pulse Ox 100 06/17/22 00:52 O2 Del Method 06/17/22 00:52 BMI result Body Mass Index 23.6 Appearance: Alert. Oriented X3. No acute distress. Very anxious, jittery, shaking, strong odor of THC Eyes: Pupils equal, round and reactive to light. ENT: Pharynx normal. Neck: Normal inspection. Neck supple. CVS: Normal heart rate and rhythm. Pulses normal. Respiratory: No respiratory distress. Breath sounds normal. Abdomen: Soft and nontender. Skin: Skin warm and dry. Normal skin color. Normal skin turgor. Extremities: No lower extremity edema. No calf ttp no swelling Neuro: Oriented X 3. No motor deficit. No sensory deficit. Course Course Course Narrative: unchanged EKG, trop flat, COVID negative, VS improved, pending tox but doubt ACS at this time trop flat with 7 hours of symptoms feels much better stable for DC MDM - Chest Pain MDM Narrative Medical decision making narrative: 52 yo female with hx of abnormal pap smear, GERD, prior cardiac cath x 3 negative with chest pain and no stents - states she had abnormal stress test but they found no disease. She comes in with chest pain since 5pm. She did smoke marijuana today but denies cocaine use. She is very anxious. At this time she is not tachycardia, hypoxic, has no signs of PE. Will need labs, troponin, CXR, IV versed/ativan. Possible substance abuse/anxiety related. Dispo per results and findings. Lab Data Result diagrams: 06/16/22 23:49 06/16/22 23:49 Labs: Lab Results 06/16/22 06/16/22 06/16/22 Range/Units 23:49 23:49 23:49 WBC 8.6 (4.8-10.8) X10*3/uL RBC 4.99 (4.20-5.50) X10*6/uL Hgb 13.6 (12.0-16.0) g/dl Hct 41.3 (37.0-47.0) % MCV 82.8 (80.0-98.0) fL MCH 27.3 (27.0-33.0) pg MCHC 32.9 (31.0-35.0) g/dl RDW 13.8 (11.0-16.0) % Plt Count 319 (160-400) X10*3/uL MPV 9.2 L (9.4-12.3) fL Immature Gran % (Auto) 0.2 (0.0-0.4) % Neut % (Auto) 56.7 (45-73) % Lymph % (Auto) 34.7 (20-40) % [place] % (Auto) 7.1 (2-11) % Eos % (Auto) 0.8 (0-4) % Baso % (Auto) 0.5 (0-2) % Lymph # (Auto) 3.0 (1.2-4.9) X10*3/uL [place] # (Auto) 0.6 (0.1-1.2) X10*3/uL Eos # (Auto) 0.1 (0.0-0.4) X10*3/uL Baso # (Auto) 0.0 (0.0-0.2) X10*3/uL Abs Immat Gran (auto) 0.02 (0.00-0.03) X10*3/uL Absolute Neuts (auto) 4.9 (2.0-8.3) x10*3/uL Absolute Nucleated RBC 0.000 (0.0-0.012) X10*3/uL Nucleated RBC % (auto) 0.0 (0.0-0.2) /100WBC PT 10.4 (10.0-13.1) SEC INR 0.9 (0.9-1.1) Sodium 140 (135-145) mmol/L Potassium 4.4 (3.3-5.1) mmol/L Chloride 105 (96-108) mmol/L Carbon Dioxide 20 L (22-29) mmol/L Anion Gap 19 (12-20) BUN 14 (9-16) mg/dL Creatinine 0.75 (0.5-1.4) mg/dL Estim Creat Clear Calc 65.3 Estimated GFR > 60 Random Glucose 108 (60-115) mg/dL Calcium 10.5 H (8.4-10.2) mg/dL Magnesium 2.1 (1.6-2.6) mg/dL Total Bilirubin 0.3 (0.0-1.0) mg/dL Direct Bilirubin 0.2 (0.0-0.5) mg/dL AST 25 (5-31) U/L ALT 19 (0-31) U/L Alkaline Phosphatase 110 (39-117) U/L Troponin I High Sens (<3.5-17.0) ng/L Total Protein 8.0 (6.5-8.0) g/dL Albumin 5.0 (3.5-5.0) g/dL Lipase 32 (8-78) U/L COVID-19 ([facility]INA) (Negative) COVID-19 Clin Com 06/16/22 06/16/22 Range/Units 23:49 23:49 WBC (4.8-10.8) X10*3/uL RBC (4.20-5.50) X10*6/uL Hgb (12.0-16.0) g/dl Hct (37.0-47.0) % MCV (80.0-98.0) fL MCH (27.0-33.0) pg MCHC (31.0-35.0) g/dl RDW (11.0-16.0) % Plt Count (160-400) X10*3/uL MPV (9.4-12.3) fL Immature Gran % (Auto) (0.0-0.4) % Neut % (Auto) (45-73) % Lymph % (Auto) (20-40) % [place] % (Auto) (2-11) % Eos % (Auto) (0-4) % Baso % (Auto) (0-2) % Lymph # (Auto) (1.2-4.9) X10*3/uL [place] # (Auto) (0.1-1.2) X10*3/uL Eos # (Auto) (0.0-0.4) X10*3/uL Baso # (Auto) (0.0-0.2) X10*3/uL Abs Immat Gran (auto) (0.00-0.03) X10*3/uL Absolute Neuts (auto) (2.0-8.3) x10*3/uL Absolute Nucleated RBC (0.0-0.012) X10*3/uL Nucleated RBC % (auto) (0.0-0.2) /100WBC PT (10.0-13.1) SEC INR (0.9-1.1) Sodium (135-145) mmol/L Potassium (3.3-5.1) mmol/L Chloride (96-108) mmol/L Carbon Dioxide (22-29) mmol/L Anion Gap (12-20) BUN (9-16) mg/dL Creatinine (0.5-1.4) mg/dL Estim Creat Clear Calc Estimated GFR Random Glucose (60-115) mg/dL Calcium (8.4-10.2) mg/dL Magnesium (1.6-2.6) mg/dL Total Bilirubin (0.0-1.0) mg/dL Direct Bilirubin (0.0-0.5) mg/dL AST (5-31) U/L ALT (0-31) U/L Alkaline Phosphatase (39-117) U/L Troponin I High Sens < 3.5 (<3.5-17.0) ng/L Total Protein (6.5-8.0) g/dL Albumin (3.5-5.0) g/dL Lipase (8-78) U/L COVID-19 ([facility]Z MARINA) Negative (Negative) COVID-19 Clin Com See Note ECG Data ECG #1: Attestation: I personally reviewed and interpreted this ECG as follows: ECG interpretation date: 06/17/22 ECG interpretation time: 00:01 Interpretation: Rate: 89 Rhythm: NSR [place]: normal , LVH Normal P waves. Normal REJI. Normal QRS complex. ST T wave : no DAMI, inverted t wave III qTC: normal prior studies: no acute ischemia The study has been interpreted contemporaneously by me. . Discharge Plan Discharge Clinical Impression: Atypical chest pain Patient Disposition: Home, Self-Care Instructions: Chest Pain (ED) Additional Instructions: return to ED for any worsening symptoms or concerns Chest xray normal heart blood test normal Prescriptions: No Action sennosides [Natural Senna Laxative] 8.6 mg tablet 8.6 mg PO BEDTIME Qty: 30 3RF acetaminophen [Tylenol Extra Strength] 500 mg tablet 500 mg PO Q6H PRN (Reason: pain or fever) Qty: 20 0RF lidocaine [Lidoderm] 5 % adhesive patch,medicated 1 patch topical DAILY MDD remove after 12 hours PRN (Reason: pain) Qty: 30 0RF Rx Instructions: leave on most painful area for up to 12 hrs naproxen 500 mg tablet 500 mg PO BID PRN (Reason: pain) 10 Days Qty: 20 0RF levofloxacin 500 mg tablet 500 mg PO DAILY Qty: 10 0RF metronidazole 250 mg tablet 250 mg PO BID Qty: 20 0RF ondansetron HCl 4 mg tablet 4 mg PO Q6H PRN (Reason: nausea and vomiting) Qty: 14 0RF hyoscyamine sulfate 0.125 mg tablet 0.125 mg PO QID PRN (Reason: dyspepsia) Qty: 10 0RF Adult Probiotic 3 billion cell capsule 3,000 mmu cells PO DAILY Qty: 30 2RF Rx Instructions: administer with a meal Citrucel 500 mg tablet 500 mg PO DAILY Qty: 30 2RF hydrocortisone [Anusol-HC] 2.5 % cream with perineal applicator 1 appl NC QID PRN (Reason: hemorrhoids) Qty: 30 2RF multivitamin with folic acid [Daily-Jeramy (with folic acid)] 400 mcg tablet 0 tab PO acetaminophen [Arthritis Pain Relief (acetam)] 650 mg tablet extended release 0 mg PO omeprazole 40 mg capsule,delayed release(DR/EC) 40 mg PO DAILY Qty: 90 3RF docusate sodium 100 mg capsule 100 mg PO BEDTIME Qty: 30 3RF Referrals: Physician,None [Primary Care Provider] - 06/18/22 (primary care if not better)
[2022-06-16 23:56] LABS: MANUAL DIFF FLAG NO
[2022-06-16 23:59] LABS: Basophils Percent Auto 0.5 % (0-2); Eosinophils Absolute Auto 0.1 X10*3/uL (0.0-0.4); Eosinophils Percent Auto 0.8 % (0-4); Hematocrit 41.3 % (37.0-47.0); Hemoglobin 13.6 g/dl (12.0-16.0); Imm Gran Abs Auto 0.02 X10*3/uL (0.00-0.03); Imm Gran Pct Auto 0.2 % (0.0-0.4); Lymphocytes Percent Auto 34.7 % (20-40); Mean Corpuscular HGB Conc 32.9 g/dl (31.0-35.0); Mean Corpuscular Hemoglobin 27.3 pg (27.0-33.0); Mean Corpuscular Volume 82.8 fL (80.0-98.0); Mean Platelet Volume 9.2 fL (9.4-12.3); Monocytes Absolute Auto 0.6 X10*3/uL (0.1-1.2); Monocytes Percent Auto 7.1 % (2-11); Neutrophils Absolute Auto 4.9 x10*3/uL (2.0-8.3); Neutrophils Percent Auto 56.7 % (45-73); Platelet Count 319 X10*3/uL (160-400); Red Blood Count 4.99 X10*6/uL (4.20-5.50); Red Cell Distribution Width 13.8 % (11.0-16.0); White Blood Count 8.6 X10*3/uL (4.8-10.8)
[2022-06-17 00:04] LABS: INTERNATIONAL NORM RATIO 0.9 (0.9-1.1); Prothrombin Time 10.4 SEC (10.0-13.1)
[2022-06-17 00:16] LABS: Alanine Aminotransferase 19 U/L (0-31); Alkaline Phosphatase 110 U/L (39-117); Anion Gap 19 (12-20); Aspartate Amino Transferase 25 U/L (5-31); Bilirubin Direct 0.2 mg/dL (0.0-0.5); Bilirubin Total 0.3 mg/dL (0.0-1.0); Blood Urea Nitrogen 14 mg/dL (9-16); Calcium 10.5 mg/dL (8.4-10.2); Carbon Dioxide 20 mmol/L (22-29); Chloride 105 mmol/L (96-108); Creatinine Clr Calc Pharmacy 65.3; Estimated Glomerular Filt Rate > 60; Glucose Random 108 mg/dL (60-115); Lipase 32 U/L (8-78); Magnesium 2.1 mg/dL (1.6-2.6); Potassium 4.4 mmol/L (3.3-5.1); Sodium 140 mmol/L (135-145)
[2022-06-17 00:18] LABS: Troponin-I High Sensitivity < 3.5 ng/L (<3.5-17.0)
[2022-06-17 00:34] LABS: COVID-19 Test Negative (Negative); IDNOW Serial# 16C4AD1C
[2022-06-17 00:52] VITALS: BP 97/60; PULSE 74; RESP 17; O2SAT 100
[2022-06-17 00:56] VITALS: BP 108/75
--- NOTE | 2022-06-17 01:10 | PC.NURSE ---
PATIENT EKG WAS TAKEN AT 2335 .
--- NOTE | 2022-06-17 01:18 | ECG_ITS ---
Test Reason : chest pain Blood Pressure : / mmHG Vent. Rate : 089 BPM Atrial Rate : 089 BPM P-R Int : 124 ms QRS Dur : 074 ms QT Int : 350 ms P-R-T Axes : 080 073 038 degrees QTc Int : 425 ms Normal sinus rhythm Possible Left atrial enlargement Minimal voltage criteria for LVH, may be normal variant ( Sokolow-Cole ) RSR' or QR pattern in V1 suggests right ventricular conduction delay Abnormal ECG When compared with ECG of 26-MAY-2021 04:46, Heart rate has increased Referred By: Joe Minor Electronically Signed By:KOBY OWUSU MD
== END 2022-06-17 01:55 | disposition home or self-care (01) ==
PROVIDERS: Emergency Provider Emergency Medicine
DX: R07.89 Other chest pain (principal); I10 Essential (primary) hypertension; F17.210 Nicotine dependence, cigarettes, uncomplicated; Z20.822 Contact with and (suspected) exposure to COVID-19; Z79.899 Other long term (current) drug therapy; Z71.6 Tobacco abuse counseling
CPT/HCPCS: 71045; 80048; 80076; 83690; 83735; 84484; 85025; 85610; 87635; 93005; 99284; 99285; J2250; J2405

== ENCOUNTER 2022-11-20 11:22 | Emergency (ER) | payer MEDICAID, SELFPAY ==
[2022-11-20 11:27] VITALS: BP 149/82; PULSE 109; RESP 19; TEMP 36.6; O2SAT 99; BMI 21.9
[2022-11-20 11:46] LABS: MANUAL DIFF FLAG NO
[2022-11-20 11:52] LABS: Basophils Percent Auto 0.3 % (0-2); Eosinophils Percent Auto 0.2 % (0-4); Hematocrit 37.7 % (37.0-47.0); Hemoglobin 12.6 g/dl (12.0-16.0); Imm Gran Abs Auto 0.05 X10*3/uL (0.00-0.03); Imm Gran Pct Auto 0.4 % (0.0-0.4); Lymphocytes Absolute Auto 1.1 X10*3/uL (1.2-4.9); Lymphocytes Percent Auto 8.9 % (20-40); Mean Corpuscular HGB Conc 33.4 g/dl (31.0-35.0); Mean Corpuscular Hemoglobin 27.9 pg (27.0-33.0); Mean Corpuscular Volume 83.6 fL (80.0-98.0); Mean Platelet Volume 9.1 fL (9.4-12.3); Monocytes Absolute Auto 0.7 X10*3/uL (0.1-1.2); Monocytes Percent Auto 5.3 % (2-11); Neutrophils Absolute Auto 10.8 x10*3/uL (2.0-8.3); Neutrophils Percent Auto 84.9 % (45-73); Platelet Count 265 X10*3/uL (160-400); Red Blood Count 4.51 X10*6/uL (4.20-5.50); Red Cell Distribution Width 14.1 % (11.0-16.0); White Blood Count 12.7 X10*3/uL (4.8-10.8)
[2022-11-20 12:08] LABS: Anion Gap 15 (12-20); Blood Urea Nitrogen 9 mg/dL (9-16); Calcium 10.5 mg/dL (8.4-10.2); Carbon Dioxide 23 mmol/L (22-29); Chloride 105 mmol/L (96-108); Creatinine Clr Calc Pharmacy 61.4; Estimated Glomerular Filt Rate > 60; Glucose Random 109 mg/dL (60-115); Potassium 4.6 mmol/L (3.3-5.1); Sodium 138 mmol/L (135-145)
[2022-11-20 12:28] LABS: Influenza A PCR NEGATIVE (Negative); Influenza B PCR NEGATIVE (Negative); Resp Syncy Virus RNA Qual PCR NEGATIVE (Negative); SARS COV2 PCR INHOUSE NEGATIVE (Negative)
--- NOTE | 2022-11-20 12:48 | ED_ITS ---
HPI - General Adult General Chief complaint: General Medical Stated complaint: chills, nausea, body aches Time Seen by Provider: 11/20/22 12:07 Source: patient and family Mode of arrival: ambulatory Limitations: language barrier History of Present Illness HPI narrative: Patient had a shingles shot yesterday then developed diffuse myalgias. Presents crying in pain that is generalized Onset (ago): day(s) Severity: moderate Quality: aching Pain Consistency: constant Relieving factors: none Related Data Home Medications Medication Instructions Recorded Confirmed acetaminophen 650 mg 0 mg PO 09/26/21 tablet,extended release (Arthritis Pain Relief (acetaminophen) ER) multivitamin with folic acid 400 0 tab PO 09/26/21 mcg tablet (Daily-Jeramy (with folic acid)) Previous Rx's Medication Instructions Recorded hydrocortisone 2.5 % topical cream 1 appl MI QID PRN hemorrhoids #30 10/27/20 with perineal applicator grams (Anusol-HC) lactobacillus combination no.8 3 3,000 mmu cells PO DAILY #30 caps 10/27/20 billion cell capsule (Adult Probiotic) methylcellulose (laxative) 500 mg 500 mg PO DAILY #30 tabs 10/27/20 tablet (Citrucel) acetaminophen 500 mg tablet 500 mg PO Q6H PRN pain or fever 01/17/21 (Tylenol Extra Strength) #20 tabs lidocaine 5 % topical patch 1 patch topical DAILY PRN pain #30 01/17/21 (Lidoderm) ea naproxen 500 mg tablet 500 mg PO BID PRN pain 10 days #20 01/17/21 tabs docusate sodium 100 mg capsule 100 mg PO BEDTIME #30 caps 09/26/21 omeprazole 40 mg capsule,delayed 40 mg PO DAILY #90 caps 09/26/21 release sennosides 8.6 mg tablet (Natural 8.6 mg PO BEDTIME constipation #30 12/08/21 Senna Laxative) tabs hyoscyamine sulfate 0.125 mg tablet 0.125 mg PO QID PRN dyspepsia #10 12/09/21 tabs levofloxacin 500 mg tablet 500 mg PO DAILY #10 tabs 12/09/21 metronidazole 250 mg tablet 250 mg PO BID #20 tabs 12/09/21 ondansetron HCl 4 mg tablet 4 mg PO Q6H PRN nausea and 12/09/21 vomiting #14 tabs naproxen 500 mg tablet (Naprosyn) 500 mg PO BID #20 tabs 11/20/22 Allergies Allergy/AdvReac Type Severity Reaction Status Date / Time bee pollen [BEE STINGS] Allergy Severe THROAT Verified 12/09/21 06:06 SWELLING codeine [Codeine] Allergy Severe CAN'T Verified 12/09/21 06:06 BREATHE, SWELLING,RASH tramadol [TRAMADOL] Allergy Intermediate ABD PAIN- Verified 12/09/21 06:06 COULD NOT EAT - FELT SICK Review of Systems Review of Systems: Yes all other systems are reviewed and are negative Constitutional: Comments: diffuse myalgias PMFSH Past Medical History Medical History ASCUS of cervix with negative high risk HPV Female pelvic pain Gastroesophageal reflux disease Hx of abnormal cervical Pap smear Hx of ectopic Kidney stones MRSA (methicillin resistant Staphylococcus aureus) PONV (postoperative nausea and vomiting) SAB (spontaneous ) Tubular adenoma Surgical History H/O elbow surgery H/O lithotripsy History of colonoscopy History of hernia repair Hx of appendectomy Hx of breast biopsy Hx of cholecystectomy Hx of endoscopy Hx of hemorrhoidectomy Family History Family History Father Diabetes mellitus CVD (cardiovascular disease) Hyperlipemia Mother Diabetes mellitus HTN (hypertension) Colon cancer Liver cancer Maternal Grandmother Diabetes mellitus Maternal Aunt Breast cancer Paternal Grandfather Colon cancer Maternal Grandfather Stomach cancer Social History Social History Household Members: Children Alcohol intake: current Alcohol intake frequency: a few times a week Alcohol type: wine and hard liquor Patient Tobacco Use Status: Current everyday Tobacco user Cigarettes Per Day: 10 Years Smoked: 8 Smoked in Last 30 Days: Yes Use of substances other than those prescribed or required for medical reasons: Yes Substance Use Type: Marijuana Substance Use Frequency: Daily Advance Directives: No Advance Directives Information Provided: Yes Patient : No Current occupational status: disabled Gender identity: Female Physical Exam ED Vital Signs: Vital Signs - 24 hr 11/20/22 11:27 Temperature 98 F Pulse Rate 109 H Respiratory Rate 19 Blood Pressure 149/82 H Pulse Oximetry 99 Oxygen Delivery Method Room Air BMI result Body Mass Index 21.9 Course Reevaluation(s) Reevaluation #1: patient feeling much better tolerating PO, will dc home Time: 13:44 Medications Administered Discontinued Medications Generic Name Dose Route Start Last Admin Trade Name Natali PRN Reason Stop Dose Admin Ketorolac Tromethamine 60 mg 11/20/22 12:51 11/20/22 13:09 Ketorolac Tromethamine 60 Mg/2 Ml Vial IM 11/20/22 12:52 60 mg ONCE ONE Administration Medical Decision Making Differential Diagnosis Differential Diagnoses: The differential diagnosis associated with the presentation includes (vaccination reaction, rhabdomyolisis, COVID, INfluenza) Lab Data MDM Lab Attestation statement: I reviewed the patient's lab results. 11/20/22 11:41 11/20/22 11:41 Labs: Lab Results 11/20/22 11/20/22 11/20/22 Range/Units 11:41 11:41 11:41 WBC 12.7 H (4.8-10.8) X10*3/uL RBC 4.51 (4.20-5.50) X10*6/uL Hgb 12.6 (12.0-16.0) g/dl Hct 37.7 (37.0-47.0) % MCV 83.6 (80.0-98.0) fL MCH 27.9 (27.0-33.0) pg MCHC 33.4 (31.0-35.0) g/dl RDW 14.1 (11.0-16.0) % Plt Count 265 (160-400) X10*3/uL MPV 9.1 L (9.4-12.3) fL Immature Gran % (Auto) 0.4 (0.0-0.4) % Neut % (Auto) 84.9 H (45-73) % Lymph % (Auto) 8.9 L (20-40) % [place] % (Auto) 5.3 (2-11) % Eos % (Auto) 0.2 (0-4) % Baso % (Auto) 0.3 (0-2) % Lymph # (Auto) 1.1 L (1.2-4.9) X10*3/uL [place] # (Auto) 0.7 (0.1-1.2) X10*3/uL Eos # (Auto) 0.0 (0.0-0.4) X10*3/uL Baso # (Auto) 0.0 (0.0-0.2) X10*3/uL Abs Immat Gran (auto) 0.05 H (0.00-0.03) X10*3/uL Absolute Neuts (auto) 10.8 H (2.0-8.3) x10*3/uL Absolute Nucleated RBC 0.000 (0.0-0.012) X10*3/uL Nucleated RBC % (auto) 0.0 (0.0-0.2) /100WBC Sodium 138 (135-145) mmol/L Potassium 4.6 (3.3-5.1) mmol/L Chloride 105 (96-108) mmol/L Carbon Dioxide 23 (22-29) mmol/L Anion Gap 15 (12-20) BUN 9 (9-16) mg/dL Creatinine 0.77 (0.5-1.4) mg/dL Estim Creat Clear Calc 61.4 Estimated GFR > 60 Random Glucose 109 (60-115) mg/dL Calcium 10.5 H (8.4-10.2) mg/dL Total Creatine Kinase 106 (26-140) U/L Influenza Type A (PCR) NEGATIVE (Negative) Influenza Type B (PCR) NEGATIVE (Negative) RSV RNA Qual (PCR) NEGATIVE (Negative) SARS-CoV-2 RNA (RT-PCR) NEGATIVE (Negative) Discharge Plan Discharge Clinical Impression: Vaccination side effects Patient Disposition: Home, Self-Care Additional Instructions: keep hydrated take the medication as directed Prescriptions: New naproxen [Naprosyn] 500 mg tablet 500 mg PO BID Qty: 20 0RF No Action sennosides [Natural Senna Laxative] 8.6 mg tablet 8.6 mg PO BEDTIME Qty: 30 3RF acetaminophen [Tylenol Extra Strength] 500 mg tablet 500 mg PO Q6H PRN (Reason: pain or fever) Qty: 20 0RF lidocaine [Lidoderm] 5 % adhesive patch,medicated 1 patch topical DAILY MDD remove after 12 hours PRN (Reason: pain) Qty: 30 0RF Rx Instructions: leave on most painful area for up to 12 hrs naproxen 500 mg tablet 500 mg PO BID PRN (Reason: pain) 10 Days Qty: 20 0RF levofloxacin 500 mg tablet 500 mg PO DAILY Qty: 10 0RF metronidazole 250 mg tablet 250 mg PO BID Qty: 20 0RF ondansetron HCl 4 mg tablet 4 mg PO Q6H PRN (Reason: nausea and vomiting) Qty: 14 0RF hyoscyamine sulfate 0.125 mg tablet 0.125 mg PO QID PRN (Reason: dyspepsia) Qty: 10 0RF Adult Probiotic 3 billion cell capsule 3,000 mmu cells PO DAILY Qty: 30 2RF Rx Instructions: administer with a meal Citrucel 500 mg tablet 500 mg PO DAILY Qty: 30 2RF hydrocortisone [Anusol-HC] 2.5 % cream with perineal applicator 1 appl MI QID PRN (Reason: hemorrhoids) Qty: 30 2RF multivitamin with folic acid [Daily-Jeramy (with folic acid)] 400 mcg tablet 0 tab PO acetaminophen [Arthritis Pain Relief (acetam)] 650 mg tablet extended release 0 mg PO omeprazole 40 mg capsule,delayed release(DR/EC) 40 mg PO DAILY Qty: 90 3RF docusate sodium 100 mg capsule 100 mg PO BEDTIME Qty: 30 3RF Referrals: Gloria Smith MD [Primary Care Provider] - 1 week
[2022-11-20] MEDS: Ketorolac Tromethamine 60 MG/2 ML VIAL IM (13:09)
--- NOTE | 2022-11-20 13:10 | PC.NURSE ---
patient a&ox3, pt c/o 06/11 generalized pain, pt medicated for pain per order, call sy within reach, will continue to monitor
[2022-11-20 14:37] VITALS: BP 138/72; PULSE 101; RESP 18; TEMP 36.8; O2SAT 99
== END 2022-11-20 14:39 | disposition home or self-care (01) ==
PROVIDERS: Emergency Provider Emergency Medicine; PCP Internal Medicine
DX: M79.10 Myalgia, unspecified site (principal); Z20.822 Contact with and (suspected) exposure to COVID-19; Z20.828 Contact with and (suspected) exposure to other viral communicable diseases; F17.210 Nicotine dependence, cigarettes, uncomplicated; Z71.6 Tobacco abuse counseling; Z79.899 Other long term (current) drug therapy
CPT/HCPCS: 0241U; 36415; 80048; 82550; 85025; 96372; 99284; J1885

== ENCOUNTER → 2022-12-26 12:54 | Outpatient (BNVA) | payer MEDICAID, SELFPAY | PROVIDERS: PCP Internal Medicine; Referring Provider Internal Medicine; Visit Provider Surgery | DX: L72.0 Epidermal cyst (principal) | CPT/HCPCS: 99202 ==

== ENCOUNTER 2023-01-17 10:48 | Outpatient (REF) | payer MEDICAID, SELFPAY | END 2023-01-17 10:49 | disposition home or self-care (01) | LOC: HO.LNP 10:48 | PROVIDERS: PCP Internal Medicine; Visit Provider Surgery | DX: L72.0 Epidermal cyst (principal) | CPT/HCPCS: 11421; 11422; 88304 ==

== ENCOUNTER 2023-01-19 21:51 | Emergency (ER) | payer MEDICAID, SELFPAY ==
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
--- NOTE | ~2023-01-19 | XR_ITS ---
EXAMINATION: XR CERVICAL SPINE CLINICAL INFORMATION: Left neck pain COMPARISON: None available. TECHNIQUE: 3 views of the cervical spine were obtained. FINDINGS: No acute fracture or traumatic malalignment.. Alignment is maintained at the atlanto-axial articulation. Loss of disc space height associated endplate osteophytes present from C3-C7. The prevertebral soft tissues are normal. XR/XR cervical spine 2V IMPRESSION: * No acute findings. * Cervical spondylosis as described.
[2023-01-19 21:56] VITALS: BP 135/88; PULSE 117; RESP 19; TEMP 35.7; O2SAT 98; BMI 24.2
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
--- NOTE | 2023-01-19 22:48 | PC.NURSE ---
pt in XRay at this time
--- NOTE | 2023-01-19 23:08 | PC.NURSE ---
pt returned from xr pending radiology read
--- NOTE | 2023-01-20 00:15 | PC.NURSE ---
RN informed MD Flores's of pt continued 10/10 discomfort to her left neck. RN inquired about giving the patient medication as she continues to wait for her xray results; verbal orders received for ibuprofen.
[2023-01-20] MEDS: Ibuprofen 600 MG TABLET PO (00:46)
[2023-01-20 00:49] VITALS: BP 132/78; PULSE 99; RESP 18; O2SAT 99
== END 2023-01-20 00:47 | disposition home or self-care (01) ==
PROVIDERS: Emergency Provider Emergency Medicine; PCP Internal Medicine
DX: Z04.1 Encounter for examination and observation following transport accident (principal); M79.18 Myalgia, other site; M54.2 Cervicalgia
CPT/HCPCS: 71046; 72040; 99283; 99284

== ENCOUNTER → 2023-02-06 15:32 | Outpatient (BNVA) | payer MEDICAID, SELFPAY | PROVIDERS: PCP Internal Medicine; Visit Provider Surgery ==

== ENCOUNTER 2023-03-31 06:48 | Emergency (ER) | payer MEDICAID, SELFPAY ==
--- NOTE | ~2023-03-31 | CT_ITS ---
EXAMINATION: CT ABDOMEN AND PELVIS WITH CONTRAST CLINICAL INFORMATION: Abdominal pain COMPARISON: CT abdomen from 12/2021 TECHNIQUE: Multidetector volumetric images were obtained from the superior aspect of the liver through the pubic symphysis following administration 85 mL of Omnipaque 350 intravenous contrast. Sagittal and coronal reformatted images were obtained on the technologist's workstation. Oral contrast: No This CT examination was performed using dose optimization techniques as appropriate, variously including the following: *Automated exposure control *Adjustment of mA and/or kV according to patient size (this includes techniques or standardized protocols for targeted exams where dose is matched to indication/reason for exam; i.e. extremities or head) *Use of iterative reconstruction technique DLP: 326 mGy-cm FINDINGS: LUNG BASES: Calcified granuloma right lower lobe measuring 4 mm. LIVER, GALLBLADDER, AND BILIARY TREE: The liver is normal in size, shape, and attenuation. No focal hepatic lesion or biliary ductal dilatation is present. The gallbladder is surgically absent. PANCREAS: Unremarkable. SPLEEN: Unremarkable. ADRENAL GLANDS: Unremarkable. KIDNEYS AND URETERS AND BLADDER: Mild left-sided hydroureteronephrosis with periureteral stranding and enhancement secondary to a 4 mm calculus just proximal to the left ureterovesicular junction. Additional calculus noted in the left renal lower pole measuring 4 mm. No right-sided nephrolithiasis or hydronephrosis. Urinary bladder is decompressed. GASTROINTESTINAL TRACT: The small and large bowel are unremarkable. The appendix is is not definitively visualized.. ABDOMINAL WALL: No significant hernia is appreciated. LYMPH NODES: Normal. VASCULAR: Unremarkable. Pelvic phleboliths are noted. PELVIC VISCERA: Anteverted uterus. Few foci of air are noted in the vaginal cuff, possibly iatrogenic. OSSEOUS STRUCTURES: Multilevel degenerative changes of the thoracolumbar lumbosacral spine greatest at L4-L5. CT/CT abdomen pelvis w IV con IMPRESSION: 1. Mild left-sided hydroureteronephrosis with periureteral stranding and enhancement secondary to a 4 mm calculus just proximal to the left ureterovesicular junction. Additional calculus noted in the left renal lower pole measuring 4 mm. 2. Status post cholecystectomy.
[2023-03-31 07:10] VITALS: BP 133/72; PULSE 76; RESP 18; TEMP 36.3; O2SAT 100; BMI 23.8
--- NOTE | 2023-03-31 07:18 | ED.GENADULT ---
HPI - General Adult General Chief complaint: Abdominal Pain Stated complaint: Lower abd pain Time Seen by Provider: 03/31/23 07:18 Source: patient Mode of arrival: wheelchair Limitations: no limitations History of Present Illness HPI narrative: Patient is a 52 year old assigned female at with a history of kidney stones presenting to the emergency department today with lower abdominal pain. Patient states that over the last few minutes she has had sudden lower abdominal pain with nausea but no vomiting. Patient states that she no longer has her appendix or her gallbladder. Patient denies any dizziness, lightheadedness, vomiting, fever, chills, blurry vision, double vision, loss of vision, chest pain, difficulty breathing, shortness of breath, back pain, night sweats, pain with urination, increased urinary frequency, increased urinary urgency, blood in her urine or stool, syncope or a near syncopal episode, recent trauma or falls, bowel incontinence, bladder incontinence, bowel retention, bladder retention, or any other complaints at this time. Onset (ago): minute(s) Location: abdomen Radiation: non-radiation Severity: mild Severity scale (1-10): 3 Quality: aching and dull Pain Consistency: constant Relieving factors: none Exacerbating factors: none Associated symptoms: nausea/vomiting Treatments prior to arrival: none Related Data Home Medications Medication Instructions Recorded Confirmed acetaminophen 650 mg 0 mg PO 09/26/21 12/26/22 tablet,extended release (Arthritis Pain Relief (acetaminophen) ER) multivitamin with folic acid 400 0 tab PO 09/26/21 12/26/22 mcg tablet (Daily-Jeramy (with folic acid)) Previous Rx's Medication Instructions Recorded hydrocortisone 2.5 % topical cream 1 appl [place] QID PRN hemorrhoids #30 10/27/20 with perineal applicator grams (Anusol-HC) lactobacillus combination no.8 3 3,000 mmu cells PO DAILY #30 caps 10/27/20 billion cell capsule (Adult Probiotic) methylcellulose (laxative) 500 mg 500 mg PO DAILY #30 tabs 10/27/20 tablet (Citrucel) acetaminophen 500 mg tablet 500 mg PO Q6H PRN pain or fever 01/17/21 (Tylenol Extra Strength) #20 tabs lidocaine 5 % topical patch 1 patch topical DAILY PRN pain #30 01/17/21 (Lidoderm) ea docusate sodium 100 mg capsule 100 mg PO BEDTIME #30 caps 09/26/21 omeprazole 40 mg capsule,delayed 40 mg PO DAILY #90 caps 09/26/21 release sennosides 8.6 mg tablet (Natural 8.6 mg PO BEDTIME constipation #30 12/08/21 Senna Laxative) tabs hyoscyamine sulfate 0.125 mg tablet 0.125 mg PO QID PRN dyspepsia #10 12/09/21 tabs levofloxacin 500 mg tablet 500 mg PO DAILY #10 tabs 12/09/21 metronidazole 250 mg tablet 250 mg PO BID #20 tabs 12/09/21 ondansetron HCl 4 mg tablet 4 mg PO Q6H PRN nausea and 12/09/21 vomiting #14 tabs naproxen 500 mg tablet (Naprosyn) 500 mg PO BID #20 tabs 11/20/22 cyclobenzaprine 10 mg tablet 10 mg PO TID PRN muscle spasm #10 01/19/23 tabs ibuprofen 600 mg tablet 600 mg PO Q6H PRN fever or pain 01/19/23 #20 tabs naproxen 500 mg tablet 500 mg PO BID 7 days #14 tabs 03/31/23 prednisone 20 mg tablet 20 mg PO DAILY 7 days #7 tabs 03/31/23 tamsulosin 0.4 mg capsule 0.4 mg PO DAILY #7 caps 03/31/23 Allergies Allergy/AdvReac Type Severity Reaction Status Date / Time bee pollen [BEE STINGS] Allergy Severe THROAT Verified 03/31/23 07:15 SWELLING codeine [Codeine] Allergy Severe CAN'T Verified 03/31/23 07:15 BREATHE, SWELLING,RASH tramadol [TRAMADOL] Allergy Intermediate ABD PAIN- Verified 03/31/23 07:15 COULD NOT EAT - FELT SICK Review of Systems Constitutional: Constitutional: Reports no additional constitutional complaints, Denies chills, Denies fever(s) and Denies night sweats Eyes: Eyes: Reports no additional eye complaints, Denies blurry vision, Denies change in vision, Denies diplopia, Denies eye discharge, Denies loss of vision and Denies eye pain ENT: Denies dizziness Cardiovascular: Cardiovascular: Reports no additional cardiovascular complaints, Denies chest pain, Denies lightheadedness, Denies Loss of Consciousness and Denies dyspnea Respiratory: Respiratory: Reports no additional respiratory complaints and Denies dyspnea Gastrointestinal: Gastrointestinal: Reports no additional gastrointestinal complaints, Reports abdominal pain, Denies melena, Denies hematochezia, Denies change in bowel habits, Denies change in stool character, Reports nausea and Denies vomiting Genitourinary: Genitourinary: Denies hematuria, Denies urinary frequency, Denies dysuria, Denies urinary incontinence, Denies urinary hesitancy and Denies urinary urgency Musculoskeletal: Musculoskeletal: Reports no additional musculoskeletal complaints, Denies numbness and Denies tingling Neurologic: Denies dizziness, Denies loss of vision, Denies numbness and Denies tingling Psychiatric: Psychiatric: Reports no additional psychiatric complaints Endocrine: Endocrine: Reports no additional endocrine complaints Hematologic/Lymphatic: Hematologic/Lymphatic: Reports no additional hematologic/lymphatic complaints Allergic/Immunologic: Allergic/Immunologic: Reports no additional allergic/immunologic complaints PMFSH Past Medical History Attestation statement: The following information was validated with the patient. Source: old records reviewed and nursing notes reviewed Medical History ASCUS of cervix with negative high risk HPV Breast lump COVID-19 Encounter for annual routine gynecological examination Encounter for repeat Papanicolaou smear of cervix Epidermal cyst of neck Female pelvic pain Gastroesophageal reflux disease Hx of abnormal cervical Pap smear Hx of ectopic Kidney stones MRSA (methicillin resistant Staphylococcus aureus) PONV (postoperative nausea and vomiting) Potential exposure to STD SAB (spontaneous ) Tubular adenoma Well woman exam with routine gynecological exam Surgical History H/O elbow surgery H/O lithotripsy History of colonoscopy History of excision of epidermal inclusion cyst (~01/17/23) History of hernia repair History of removal of cyst (~01/17/23) Hx of appendectomy Hx of breast biopsy Hx of cholecystectomy Hx of endoscopy Hx of hemorrhoidectomy Family History Family History Father Diabetes mellitus CVD (cardiovascular disease) Hyperlipemia Mother Diabetes mellitus HTN (hypertension) Colon cancer Liver cancer Maternal Grandmother Diabetes mellitus Maternal Aunt Breast cancer Paternal Grandfather Colon cancer Maternal Grandfather Stomach cancer Social History Social History Household Members: Children Alcohol intake: current Alcohol intake frequency: does not drink Alcohol type: hard liquor Patient Tobacco Use Status: Current everyday Tobacco user Cigarettes Per Day: 10 Years Smoked: 8 Smoked in Last 30 Days: Yes Use of substances other than those prescribed or required for medical reasons: Yes Substance Use Type: Marijuana Advance Directives: No Advance Directives Information Provided: Yes Current occupational status: disabled Gender identity: Female Physical Exam ED Vital Signs: Vital Signs - 24 hr 03/31/23 07:10 Temperature 97.4 F Pulse Rate 76 Respiratory Rate 18 Blood Pressure 133/72 Pulse Oximetry 100 Oxygen Delivery Method Room Air BMI result Body Mass Index 23.8 Const General: cooperative, no acute distress, alert and awake Nutritional Appearance: well nourished Orientation/consciousness: patient oriented x3 Limitations: no limitations HENMT Head: Yes normal to inspection and Yes atraumatic Ears: hearing grossly normal bilaterally and external ears normal General nose exam: Normal external nose present, no nasal discharge noted and no epistaxis Face and sinus: Yes normal facial exam, No abrasion and No laceration Mouth: Normal oral and palatal mucosa present, no drooling and no muffled voice Eyes General: appearance normal, both eyes and all related structures Periorbital: periorbital findings normal Eyelids: Yes eyelids normal Conjunctivae: conjunctivae normal Pupils: Equal, round and reactive pupils present EOM: EOMs intact bilaterally Neck Neck: Yes normal visual inspection, Yes full ROM and Yes no lymphadenopathy Chest Chest palpation & inspection: normal inspection of the chest Resp Effort & Inspection: normal respiratory effort and able to speak in complete sentences GI Inspection: Yes normal to inspection Palpation (GI): Soft to palpation, not firm, Tenderness to palpation present (GI) (diffuse), no guarding and not rigid Neuro General: patient oriented x3 and moves all extremities Cranial nerves: Yes Equal, round and reactive pupils present Cognition (Neuro): normal cognition Motor exam (neuro): 5/5 motor strength present throughout Sensory Exam: Normal double simultaneous stimulation for sensation Coordination: [id number] test normal Extrem General: Yes normal to inspection, Yes full ROM and Yes capillary refill normal Psych Appearance: grossly normal Mental Status: mental status grossly normal Affect: normal affect Attitude: cooperative Thought process: Normal thought process present Thought content: Normal thought content present Insight: Good insight present (Psych) Medications Administered Discontinued Medications Generic Name Dose Route Start Last Admin Trade Name Freq PRN Reason Stop Dose Admin Iohexol 100 ml 03/31/23 08:37 03/31/23 08:38 Iohexol 350 Mg/Ml 100 Ml Infus..Btl IV 03/31/23 08:38 85 ml ONCE ONE Administration Ketorolac Tromethamine 15 mg 03/31/23 07:23 03/31/23 07:55 Ketorolac Tromethamine 15 Mg/Ml Vial IVPUSH 03/31/23 07:24 15 mg ONCE ONE Administration Ondansetron HCl 4 mg 03/31/23 07:23 03/31/23 07:55 Ondansetron Hcl 4 Mg/2 Ml Vial IVPUSH 03/31/23 07:24 4 mg ONCE ONE Administration Medical Decision Making Medical Decision Making [facility] Narrative: Patient is a 52 year old assigned female at with a history of kidney stones presenting to the emergency department today with left sided abdominal pain. Patient's physical exam was as noted in the physical exam portion of this chart. Patient's blood work was unremarkable. Patient's abdomen/pelvis CT showed a mild left sided hydroureteronephrosis with periureteral stranding and enhancement secondary to a 4mm calculus just proximal to the left ureterovesicular junction. I explained my physical exam findings as well as all test results to the patient. I answered all questions asked by the patient. Patient received IV Toradol which she stated helped her symptoms significantly. I stressed the importance of the patient taking her medication as prescribed. I stressed the importance of the patient following up with her primary care provider and a urologist. I stressed the importance of the patient returning to the emergency department immediately if her symptoms were to worsen or if she were to develop any dizziness, shortness of breath, difficulty breathing, chest pain, blurry vision, loss of vision, nausea, vomiting, abdominal pain, fever, chills, back pain, or any other complaints. Patient verbalized agreement and understanding with this treatment plan and discharge. Differential Diagnosis Differential Diagnoses: The differential diagnosis associated with the presentation includes Kidney stone Abdominal pain Admission/Observation Consideration of admission/observation: Escalation of care including admission/observation considered Patient would have been admitted to the hospital had her work up had any findings where hospital admission was appropriate and her clinical presentation warranted hospital admission. Lab Data MDM Lab Attestation statement: I reviewed the patient's lab results. My interpretation of these studies and their corresponding values is that they are grossly normal. 03/31/23 07:37 03/31/23 07:36 Labs: Lab Results 03/31/23 03/31/23 03/31/23 Range/Units 07:36 07:36 07:37 WBC 8.5 (4.8-10.8) X10*3/uL RBC 4.72 (4.20-5.50) X10*6/uL Hgb 13.2 (12.0-16.0) g/dl Hct 40.1 (37.0-47.0) % MCV 85.0 (80.0-98.0) fL MCH 28.0 (27.0-33.0) pg MCHC 32.9 (31.0-35.0) g/dl RDW 14.2 (11.0-16.0) % Plt Count 276 (160-400) X10*3/uL MPV 8.8 L (9.4-12.3) fL Immature Gran % (Auto) 0.5 H (0.0-0.4) % Neut % (Auto) 57.9 (45-73) % Lymph % (Auto) 32.6 (20-40) % [place] % (Auto) 7.0 (2-11) % Eos % (Auto) 1.5 (0-4) % Baso % (Auto) 0.5 (0-2) % Lymph # (Auto) 2.8 (1.2-4.9) X10*3/uL [place] # (Auto) 0.6 (0.1-1.2) X10*3/uL Eos # (Auto) 0.1 (0.0-0.4) X10*3/uL Baso # (Auto) 0.0 (0.0-0.2) X10*3/uL Abs Immat Gran (auto) 0.04 H (0.00-0.03) X10*3/uL Absolute Neuts (auto) 4.9 (2.0-8.3) x10*3/uL Absolute Nucleated RBC 0.000 (0.0-0.012) X10*3/uL Nucleated RBC % (auto) 0.0 (0.0-0.2) /100WBC Sodium 140 (135-145) mmol/L Potassium 3.7 (3.3-5.1) mmol/L Chloride 107 (96-108) mmol/L Carbon Dioxide 19 L (22-29) mmol/L Anion Gap 18 (12-20) BUN 14 (9-16) mg/dL Creatinine 0.80 (0.5-1.4) mg/dL Estim Creat Clear Calc 61.5 Estimated GFR > 60 Random Glucose 91 (60-115) mg/dL Calcium 10.2 (8.4-10.2) mg/dL Total Bilirubin 0.9 (0.0-1.0) mg/dL Direct Bilirubin 0.4 (0.0-0.5) mg/dL AST 24 (5-31) U/L ALT 16 (0-31) U/L Alkaline Phosphatase 85 (39-117) U/L Total Protein 7.4 (6.5-8.0) g/dL Albumin 4.6 (3.5-5.0) g/dL Lipase 19 (8-78) U/L Beta HCG, Quant < 2 mIU/mL COVID-19 ([facility]) (Negative) COVID-19 Clin Com 03/31/23 03/31/23 Range/Units 07:37 07:58 WBC (4.8-10.8) X10*3/uL RBC (4.20-5.50) X10*6/uL Hgb (12.0-16.0) g/dl Hct (37.0-47.0) % MCV (80.0-98.0) fL MCH (27.0-33.0) pg MCHC (31.0-35.0) g/dl RDW (11.0-16.0) % Plt Count (160-400) X10*3/uL MPV (9.4-12.3) fL Immature Gran % (Auto) (0.0-0.4) % Neut % (Auto) (45-73) % Lymph % (Auto) (20-40) % [place] % (Auto) (2-11) % Eos % (Auto) (0-4) % Baso % (Auto) (0-2) % Lymph # (Auto) (1.2-4.9) X10*3/uL [place] # (Auto) (0.1-1.2) X10*3/uL Eos # (Auto) (0.0-0.4) X10*3/uL Baso # (Auto) (0.0-0.2) X10*3/uL Abs Immat Gran (auto) (0.00-0.03) X10*3/uL Absolute Neuts (auto) (2.0-8.3) x10*3/uL Absolute Nucleated RBC (0.0-0.012) X10*3/uL Nucleated RBC % (auto) (0.0-0.2) /100WBC Sodium (135-145) mmol/L Potassium (3.3-5.1) mmol/L Chloride (96-108) mmol/L Carbon Dioxide (22-29) mmol/L Anion Gap (12-20) BUN (9-16) mg/dL Creatinine (0.5-1.4) mg/dL Estim Creat Clear Calc Estimated GFR Random Glucose (60-115) mg/dL Calcium (8.4-10.2) mg/dL Total Bilirubin (0.0-1.0) mg/dL Direct Bilirubin (0.0-0.5) mg/dL AST (5-31) U/L ALT (0-31) U/L Alkaline Phosphatase (39-117) U/L Total Protein (6.5-8.0) g/dL Albumin (3.5-5.0) g/dL Lipase 19 (8-78) U/L Beta HCG, Quant mIU/mL COVID-19 ([facility]) Negative (Negative) COVID-19 Clin Com See Note Independent Interpretation I performed an independent interpretation of an: CT Scan Interpretation: My interpretation is in agreement with the radiologist's impression of this imaging study. EXAMINATION: CT ABDOMEN AND PELVIS WITH CONTRAST? CLINICAL INFORMATION: Abdominal pain? COMPARISON: CT abdomen from 12/2021 TECHNIQUE: Multidetector volumetric images were obtained from the superior aspect of the liver through the pubic symphysis following administration 85 mL of Omnipaque 350 intravenous contrast. Sagittal and coronal reformatted images were obtained on the technologist's workstation.? Oral contrast: No This CT examination was performed using dose optimization techniques as appropriate, variously including the following: *Automated exposure control *Adjustment of mA and/or kV according to patient size (this includes techniques or standardized protocols for targeted exams where dose is matched to indication/reason for exam; i.e. extremities or head) *Use of iterative reconstruction technique DLP: 326 mGy-cm FINDINGS: LUNG BASES: Calcified granuloma right lower lobe measuring 4 mm.? LIVER, GALLBLADDER, AND BILIARY TREE: The liver is normal in size, shape, and attenuation. No focal hepatic lesion or biliary ductal dilatation is present. The gallbladder is surgically absent. PANCREAS: Unremarkable.? SPLEEN: Unremarkable.? ADRENAL GLANDS: Unremarkable.? KIDNEYS AND URETERS AND BLADDER: Mild left-sided hydroureteronephrosis with periureteral stranding and enhancement secondary to a 4 mm calculus just proximal to the left ureterovesicular junction. Additional calculus noted in the left renal lower pole measuring 4 mm. No right-sided nephrolithiasis or hydronephrosis. Urinary bladder is decompressed. GASTROINTESTINAL TRACT: The small and large bowel are unremarkable. The appendix is is not definitively visualized..? ABDOMINAL WALL: No significant hernia is appreciated.? LYMPH NODES: Normal. VASCULAR: Unremarkable. Pelvic phleboliths are noted. PELVIC VISCERA: Anteverted uterus. Few foci of air are noted in the vaginal cuff, possibly iatrogenic.? OSSEOUS STRUCTURES: Multilevel degenerative changes of the thoracolumbar lumbosacral spine greatest at L4-L5.? CT/CT abdomen pelvis w IV con IMPRESSION: 1.? Mild left-sided hydroureteronephrosis with periureteral stranding and enhancement secondary to a 4 mm calculus just proximal to the left ureterovesicular junction. Additional calculus noted in the left renal lower pole measuring 4 mm. 2.? Status post cholecystectomy. Dictated By: Lorin Burns MD Signed By: Electronically signed by Lorin Burns MD 03/31/23 0849 Radiology Impression Discussion of test interpretation with radiology: I have reviewed the radiologist's reading. Discharge Plan Discharge Clinical Impression: Kidney stones Patient Disposition: Home, Self-Care Instructions: Kidney Stones (ED) Additional Instructions: Follow up with your primary care provider and a urologist. Return to the emergency department immediately if your symptoms worsen or if you develop any dizziness, shortness of breath, difficulty breathing, chest pain, blurry vision, loss of vision, nausea, vomiting, abdominal pain, fever, chills, back pain, or any other complaints. Prescriptions: New prednisone 20 mg tablet 20 mg PO DAILY 7 Days Qty: 7 0RF naproxen 500 mg tablet 500 mg PO BID 7 Days Qty: 14 0RF tamsulosin 0.4 mg capsule 0.4 mg PO DAILY Qty: 7 0RF No Action sennosides [Natural Senna Laxative] 8.6 mg tablet 8.6 mg PO BEDTIME Qty: 30 3RF acetaminophen [Tylenol Extra Strength] 500 mg tablet 500 mg PO Q6H PRN (Reason: pain or fever) Qty: 20 0RF lidocaine [Lidoderm] 5 % adhesive patch,medicated 1 patch topical DAILY MDD remove after 12 hours PRN (Reason: pain) Qty: 30 0RF Rx Instructions: leave on most painful area for up to 12 hrs levofloxacin 500 mg tablet 500 mg PO DAILY Qty: 10 0RF metronidazole 250 mg tablet 250 mg PO BID Qty: 20 0RF ondansetron HCl 4 mg tablet 4 mg PO Q6H PRN (Reason: nausea and vomiting) Qty: 14 0RF hyoscyamine sulfate 0.125 mg tablet 0.125 mg PO QID PRN (Reason: dyspepsia) Qty: 10 0RF naproxen [Naprosyn] 500 mg tablet 500 mg PO BID Qty: 20 0RF cyclobenzaprine 10 mg tablet 10 mg PO TID PRN (Reason: muscle spasm) Qty: 10 0RF ibuprofen 600 mg tablet 600 mg PO Q6H PRN (Reason: fever or pain) Qty: 20 0RF Adult Probiotic 3 billion cell capsule 3,000 mmu cells PO DAILY Qty: 30 2RF Rx Instructions: administer with a meal Citrucel 500 mg tablet 500 mg PO DAILY Qty: 30 2RF hydrocortisone [Anusol-HC] 2.5 % cream with perineal applicator 1 appl TX QID PRN (Reason: hemorrhoids) Qty: 30 2RF multivitamin with folic acid [Daily-Jeramy (with folic acid)] 400 mcg tablet 0 tab PO acetaminophen [Arthritis Pain Relief (acetam)] 650 mg tablet extended release 0 mg PO omeprazole 40 mg capsule,delayed release(DR/EC) 40 mg PO DAILY Qty: 90 3RF docusate sodium 100 mg capsule 100 mg PO BEDTIME Qty: 30 3RF Referrals: [facility] [Provider Group] (Call to establish and follow up with a urologist. ) Gloria Smith MD [Primary Care Provider] - Interventions: ED Discharge Assessment Last Done: 03/31/23 09:30 Discharge Date/Time: 03/31/23 09:30 Print Language: Macedonian
[2023-03-31 07:42] LABS: MANUAL DIFF FLAG NO
[2023-03-31 07:43] LABS: Basophils Percent Auto 0.5 % (0-2); Eosinophils Absolute Auto 0.1 X10*3/uL (0.0-0.4); Eosinophils Percent Auto 1.5 % (0-4); Hematocrit 40.1 % (37.0-47.0); Hemoglobin 13.2 g/dl (12.0-16.0); Imm Gran Abs Auto 0.04 X10*3/uL (0.00-0.03); Imm Gran Pct Auto 0.5 % (0.0-0.4); Lymphocytes Absolute Auto 2.8 X10*3/uL (1.2-4.9); Lymphocytes Percent Auto 32.6 % (20-40); Mean Corpuscular HGB Conc 32.9 g/dl (31.0-35.0); Mean Platelet Volume 8.8 fL (9.4-12.3); Monocytes Absolute Auto 0.6 X10*3/uL (0.1-1.2); Neutrophils Absolute Auto 4.9 x10*3/uL (2.0-8.3); Neutrophils Percent Auto 57.9 % (45-73); Platelet Count 276 X10*3/uL (160-400); Red Blood Count 4.72 X10*6/uL (4.20-5.50); Red Cell Distribution Width 14.2 % (11.0-16.0); White Blood Count 8.5 X10*3/uL (4.8-10.8)
[2023-03-31 07:55] LABS: Lipase 19 U/L (8-78)
[2023-03-31] MEDS: ondansetron HCL 4 MG/2 ML VIAL IVPUSH (07:55)
[2023-03-31] MEDS: Ketorolac Tromethamine 15 MG/ML VIAL IVPUSH (07:55)
[2023-03-31 07:57] LABS: Alanine Aminotransferase 16 U/L (0-31); Albumin Level 4.6 g/dL (3.5-5.0); Alkaline Phosphatase 85 U/L (39-117); Anion Gap 18 (12-20); Aspartate Amino Transferase 24 U/L (5-31); Bilirubin Direct 0.4 mg/dL (0.0-0.5); Bilirubin Total 0.9 mg/dL (0.0-1.0); Blood Urea Nitrogen 14 mg/dL (9-16); Calcium 10.2 mg/dL (8.4-10.2); Carbon Dioxide 19 mmol/L (22-29); Chloride 107 mmol/L (96-108); Creatinine Clr Calc Pharmacy 61.5; Estimated Glomerular Filt Rate > 60; Glucose Random 91 mg/dL (60-115); Lipase 19 U/L (8-78); Potassium 3.7 mmol/L (3.3-5.1); Sodium 140 mmol/L (135-145); Total Protein 7.4 g/dL (6.5-8.0)
[2023-03-31 08:06] LABS: HCG Quantitative < 2 mIU/mL
--- NOTE | 2023-03-31 08:15 | PC.NURSE ---
pt a&&o x4, restless, tearful, cooperative. reporting 10/10 abdominal pain. sts she feels like she is in labor. pt reports that she has not had her period in 4 years but started bleeding this morning along with increased abdominal pain. IV established, labs drawn, pt medicated per mar. currently resting quietly on stretcher with spouse at bedside. wctm
[2023-03-31 08:26] LABS: COVID-19 Test Negative (Negative); IDNOW Serial# 6674DD1D
[2023-03-31] MEDS: iohexoL 350 MG/ML 100 ML INFUS..BTL IV (08:38)
== END 2023-03-31 09:30 | disposition home or self-care (01) ==
PROVIDERS: Physician Assistant Medical; Emergency Provider Student in an Organized Health Care Education/Training Program; PCP Internal Medicine
DX: N21.0 Calculus in bladder (principal); R10.30 Lower abdominal pain, unspecified; Z20.822 Contact with and (suspected) exposure to COVID-19; Z20.828 Contact with and (suspected) exposure to other viral communicable diseases; Z79.899 Other long term (current) drug therapy
CPT/HCPCS: 36415; 74177; 80048; 80076; 83690; 84702; 85025; 87635; 96374; 96375; 99284; J1885; J2405; Q9967

== ENCOUNTER 2023-04-04 14:00 | Outpatient (RCR) | payer OTHER, MEDICAID, SELFPAY | END 2023-06-11 10:59 | disposition home or self-care (01) | LOC: HO.PT 14:00 | PROVIDERS: PCP Internal Medicine; Visit Provider Nurse Practitioner Family | DX: M54.9 Dorsalgia, unspecified (principal); M54.2 Cervicalgia; V89.2XXD Person injured in unspecified motor-vehicle accident, traffic, subsequent encounter | CPT/HCPCS: 97110; 97140; 97161 ==

== ENCOUNTER 2023-05-16 14:41 | Outpatient (AMB) | payer MEDICAID, SELFPAY ==
[2023-05-16 14:44] VITALS: BP 98/66; BMI 22.4
--- NOTE | 2023-05-16 14:44 | A.OFFVIS_ITS ---
Intake Vital Signs 05/16/23 14:44 Height 4 ft 11 in Weight 111 lb BMI 22.4 BP 98/66 Intake Visit Reasons: PMB Outside Upholsterer Required: No Information Interpreted: non-clinical & clinical Vice President Digital Strategist: Vice President Digital Strategist Present (Nguyen RODRIGUEZ) Accompanied by: Spouse Allergies bee pollen [BEE STINGS] Allergy (Severe, Verified 05/16/23 14:49) THROAT SWELLING codeine [Codeine] Allergy (Severe, Verified 05/16/23 14:49) CAN'T BREATHE, SWELLING,RASH tramadol [TRAMADOL] Allergy (Intermediate, Verified 05/16/23 14:49) ABD PAIN- COULD NOT EAT - FELT SICK Post menopausal: Yes HPI HPI Comments History of Present Illness Details Presenting complaining of an episode of vaginal bleeding that lasted 3 days a months ago. The patient has be menopause/amenorrheic since age of 48. Last co testing was in 08/22 was negative PFSH Medical History Epidermal cyst of neck Gastroesophageal reflux disease COVID-19 Female pelvic pain ASCUS of cervix with negative high risk HPV Hx of abnormal cervical Pap smear Encounter for repeat Papanicolaou smear of cervix Encounter for annual routine gynecological examination Tubular adenoma PONV (postoperative nausea and vomiting) Potential exposure to STD Well woman exam with routine gynecological exam Breast lump Hx of ectopic MRSA (methicillin resistant Staphylococcus aureus) Kidney stones SAB (spontaneous ) Surgical History History of excision of epidermal inclusion cyst (~01/17/23) History of removal of cyst (~01/17/23) Hx of hemorrhoidectomy H/O elbow surgery H/O lithotripsy Hx of endoscopy History of colonoscopy History of hernia repair Hx of appendectomy Hx of cholecystectomy Hx of breast biopsy Family History Father Diabetes mellitus CVD (cardiovascular disease) Hyperlipemia Mother Diabetes mellitus HTN (hypertension) Colon cancer Liver cancer Maternal Grandmother Diabetes mellitus Maternal Aunt Breast cancer Paternal Grandfather Colon cancer Maternal Grandfather Stomach cancer Social History Household Members: Children Alcohol intake: current Alcohol intake frequency: does not drink Alcohol type: hard liquor Patient Tobacco Use Status: Current everyday Tobacco user Cigarettes Per Day: 10 Years Smoked: 8 Substance Use Type: Marijuana Current occupational status: disabled Gender identity: Female Female Reproductive History Menstrual Age of Menarche: 9 Date of menopause: 04/02/19 Review of Systems Const All systems reviewed & are unremarkable except as noted in HPI and below Physical Exam Vital Signs: Last Vital Signs BP 98/66 05/16/23 14:44 BMI result Body Mass Index 22.4 General: Yes no CVA tenderness External Female Exam: normal external appearance and normal appearance of the urethra Speculum Exam - Vagina: normal appearance of the vagina, normal palpation, no lesions and no masses Speculum Exam - Cervix: normal appearance of the cervix, normal palpation, no lesions, no masses and nontender Bimanual exam- vagina & uterus: normal bimanual exam, normal palpation, uterine size normal, normal palpation, uterine shape normal, No Cervical tenderness present and non-tender Bimanual Exam- Adnexa, other: normal adnexae Back/Spine/Pelvis Back: no CVA tenderness Assessment & Plan Assessment & Plan (1) Postmenopausal bleeding: Code(s): N95.0 - Postmenopausal bleeding Plan: Discussed with the patient the differential diagnosis of post menopausal bleeding with normal pelvic exam including but not limited to, endometrial hyperplasia, cancer, polyps and other causes; co testing done, recommended ultrasound to measure the endometrial stripe; discussed with the patient that if the endometrial thickness is 4 mm or less the negative predictive value of endometrial pathology is 99%, otherwise If endometrial thickness is more than 4 mm will proceed with endometrial sampling versus hysteroscopy D&C polypectomy depending on the ultrasound findings. Instructed the patient to schedule an ultrasound follow-up appointment in 2 weeks. All questions answered, the patient verbalized understanding and agreed with the plan. Orders: Orders US pelvic and transvaginal Today N95.0 - Postmenopausal bleeding Coding Level of Care Code Est Pt Level 3 (01895) Diagnoses Postmenopausal bleeding N95.0
== END 2023-05-16 15:20 | disposition home or self-care (01) ==
LOC: HO.HWS 14:41
PROVIDERS: PCP Internal Medicine; Visit Provider Obstetrics & Gynecology
DX: N95.0 Postmenopausal bleeding (principal)
CPT/HCPCS: 99213

== ENCOUNTER → 2023-05-16 14:41 | Outpatient (BNVA) | payer MEDICAID, SELFPAY | PROVIDERS: PCP Internal Medicine; Visit Provider Obstetrics & Gynecology | DX: N95.0 Postmenopausal bleeding (principal) | CPT/HCPCS: 99212 ==

== ENCOUNTER → 2023-06-05 13:52 | Outpatient (REF) | payer MEDICAID, SELFPAY | LOC: HO.CARD 13:52 | PROVIDERS: Visit Provider Internal Medicine Cardiovascular Disease | DX: R94.31 Abnormal electrocardiogram [ECG] [EKG] (principal) | CPT/HCPCS: 93306 ==

== ENCOUNTER → 2023-06-05 13:56 | Outpatient (BNV) | payer MEDICAID, SELFPAY | PROVIDERS: Visit Provider Internal Medicine | DX: I36.1 Nonrheumatic tricuspid (valve) insufficiency (principal); R94.31 Abnormal electrocardiogram [ECG] [EKG] | CPT/HCPCS: 93306 ==

== ENCOUNTER 2023-06-14 14:57 | Outpatient (REF) | payer MEDICAID, SELFPAY ==
--- NOTE | ~2023-06-14 | US_ITS ---
EXAMINATION: US PELVIS CLINICAL INFORMATION: Postmenopausal bleeding. COMPARISON: None available. TECHNIQUE: Ultrasound of the pelvis is performed using both transabdominal and transvaginal transducers along with Doppler. Transvaginal imaging is performed due to inadequate visualization transabdominally. FINDINGS: Uterus: The uterus is anteverted and measures 5.3 x 2.1 x 3.0 cm. The double wall endometrial thickness is 2 mm. The uterus is smooth in contour and has normal myometrial echogenicity. No visible fibroid. Adnexa: The left ovary is not seen. The right ovary measures 2.2 x 1.3 x 1.6 cm, volume 2 mL. US/US pelvic and transvaginal IMPRESSION: Nonvisualization of the left ovary. Otherwise normal pelvic ultrasound. The endometrial stripe is normal in thickness measuring 2 mm.
== END 2023-06-14 14:58 | disposition home or self-care (01) ==
LOC: HO.US 14:57
PROVIDERS: PCP Internal Medicine; Visit Provider Obstetrics & Gynecology
DX: N95.0 Postmenopausal bleeding (principal)
CPT/HCPCS: 76830; 76856

== ENCOUNTER → 2023-06-27 11:03 | Outpatient (REF) | payer MEDICAID, SELFPAY ==
--- NOTE | 2023-06-27 11:05 | CA_ITS ---
Acquisition Time: 2023-06-27 11:07:27 Total Exercise Time: 00:03:28 Test Indications: Dyspnea CP Medications: ASA ZOLOFT ATIRVASTATIN FLOVENT Protocol: BIANKA Max HR: 118 BPM 70% of Pred: 167 BPM Max BP: 110/060 mmHG Max Work Load: 5.1 METS Exericse stress test exercise 3 min 28 sec of Bianka protocol achieving 70% MPHR with request to stop due to dizziness and weakness, with mild SOB, 3/10 chest discomfort at baseline 4/10 at peak exercise, without arrhythmias, without EKG chnages at achieved workload. Echo images obtained by tech at rest and immedateky post peak exercise. Definity contrast used. Chest pain returned to baseline with rest.Test reviewed with Dr. Eckert Referred By: Court Thornton Overread By: Marilyn Rubi
== END ==
LOC: HO.CARD 11:03
PROVIDERS: PCP Internal Medicine Cardiovascular Disease; Visit Provider Internal Medicine Cardiovascular Disease
DX: R07.9 Chest pain, unspecified (principal)
CPT/HCPCS: 93350; Q9957

== ENCOUNTER → 2023-07-23 14:00 | Outpatient (BNV) | payer MEDICAID, SELFPAY | PROVIDERS: PCP Internal Medicine; Visit Provider Radiology Diagnostic Radiology | DX: Z12.31 Encounter for screening mammogram for malignant neoplasm of breast (principal) | CPT/HCPCS: 77063; 77067 ==

== ENCOUNTER 2023-07-23 14:09 | Outpatient (REF) | payer MEDICAID, SELFPAY ==
--- NOTE | ~2023-07-23 | MM_ITS ---
EXAMINATION: MM SCREENING DIGITAL BREAST TOMOSYNTHESIS, BILATERAL CLINICAL INFORMATION: Screening. Asymptomatic. Due for yearly exam. History fibrocystic changes with probable benign complicated cysts with apocrine metaplasia right breast . COMPARISON: Mammography: 06/29/2020, 05/16/2018; targeted right breast ultrasound 01/12/2021, 06/29/2020, 05/10/2017, and 04/05/2016. TECHNIQUE: Digital breast tomosynthesis is performed in both the craniocaudal and mediolateral oblique views along with computer-aided detection (CAD). Synthesized 2D images are generated from the tomosynthesis. FINDINGS: The breasts are extremely dense, which lowers the sensitivity of mammography (ACR BI-RADS breast composition Category d). There are stable circumscribed oval and round masses in both breasts, most consistent with numerous waxing/waning cysts and/or benign tumors such as fibroadenomas. These are benign and no further follow-up recommended. The parenchymal pattern is very dense but stable from prior exams bilaterally. No developing pleomorphic suspicious calcifications or areas of architectural distortion. Overall no significant change in the examination. MM/MM tomosynthesis screening BI IMPRESSION: No mammographic evidence of malignancy. Stable benign findings. ASSESSMENT: BI-RADS BI-RADS 2 - Benign Findings RECOMMENDATION: Routine annual mammography screening. 1 year F/U This examination should not preclude the clinical evaluation of a suspicious palpable abnormality. This patient's information was entered into a reminder system with a target due date for their next mammogram.
== END 2023-07-23 14:10 | disposition home or self-care (01) ==
LOC: HO.MAMMO 14:09
PROVIDERS: PCP Internal Medicine; Visit Provider Internal Medicine
DX: Z12.31 Encounter for screening mammogram for malignant neoplasm of breast (principal)
CPT/HCPCS: 77063; 77067

== ENCOUNTER 2023-08-21 10:06 | Outpatient (REF) | payer MEDICAID, SELFPAY ==
[2023-08-21 11:18] LABS: MANUAL DIFF FLAG NO
[2023-08-21 11:44] LABS: Basophils Percent Auto 0.5 % (0-2); Eosinophils Absolute Auto 0.1 X10*3/uL (0.0-0.4); Eosinophils Percent Auto 1.7 % (0-4); Hematocrit 40.5 % (37.0-47.0); Hemoglobin 13.1 g/dl (12.0-16.0); Imm Gran Abs Auto 0.02 X10*3/uL (0.00-0.03); Imm Gran Pct Auto 0.3 % (0.0-0.4); Lymphocytes Absolute Auto 2.2 X10*3/uL (1.2-4.9); Lymphocytes Percent Auto 28.2 % (20-40); Mean Corpuscular HGB Conc 32.3 g/dl (31.0-35.0); Mean Corpuscular Volume 86.5 fL (80.0-98.0); Mean Platelet Volume 9.7 fL (9.4-12.3); Monocytes Absolute Auto 0.4 X10*3/uL (0.1-1.2); Monocytes Percent Auto 5.8 % (2-11); Neutrophils Absolute Auto 4.9 x10*3/uL (2.0-8.3); Neutrophils Percent Auto 63.5 % (45-73); Platelet Count 276 X10*3/uL (160-400); Red Blood Count 4.68 X10*6/uL (4.20-5.50); Red Cell Distribution Width 14.5 % (11.0-16.0); White Blood Count 7.6 X10*3/uL (4.8-10.8)
[2023-08-21 12:28] LABS: HBS Num1 3.82 mIU/mL (0-7.99); HBc Num1 0.07 S/CO (0.00-0.79); HBsAGNum1 0.34 S/CO (0.00-0.99); HIV AB/AG Nonreactive (Nonreactive); HIV Num 1 0.05 S/CO (0.00-0.99); Hepatitis A Antibody IgM 0.12 Index (0-0.79); Hepatitis B Core Antibody Nonreactive (Nonreactive); Hepatitis B Surface Antigen Negative (Negative); ~HepC Num1 0.07 S/CO (0.00-0.79); ~Hepatitis A Antibody IgM Nonreactive (Nonreactive); ~Hepatitis B Surface Antibody NONREACTIVE (Nonreactive); ~Hepatitis C Antibody Nonreactive (Nonreactive)
[2023-08-21 14:49] LABS: Anion Gap 13 (12-20); Blood Urea Nitrogen 14 mg/dL (9-16); Calcium 9.7 mg/dL (8.4-10.2); Carbon Dioxide 23 mmol/L (22-29); Chloride 106 mmol/L (96-108); Estimated Glomerular Filt Rate > 60; Glucose Random 93 mg/dL (60-115); Potassium 3.9 mmol/L (3.3-5.1); Sodium 138 mmol/L (135-145)
[2023-08-21 15:07] LABS: TSH reflex Free T4 1.51 uIU/mL (0.32-4.0)
[2023-08-23 14:24] LABS: Anti Nuclear Antibody Screen NEGATIVE (NEGATIVE)
[2023-08-24 15:38] LABS: TS Negative Control Passed; TS Panel A 0; TS Panel B 0; TS Positive Control Passed; TSpotTB Negative (Negative)
== END 2023-08-21 10:07 | disposition home or self-care (01) ==
LOC: HO.HHCL 10:06
PROVIDERS: Visit Provider Internal Medicine
DX: Z11.4 Encounter for screening for human immunodeficiency virus [HIV] (principal); Z11.1 Encounter for screening for respiratory tuberculosis; R63.4 Abnormal weight loss
CPT/HCPCS: 36415; 80048; 84443; 85025; 86038; 86481; 86704; 86706; 86709; 86803; 87340; 87389

== ENCOUNTER 2023-09-05 04:20 | Emergency (ER) | payer MEDICAID, SELFPAY ==
[2023-09-05 04:26] VITALS: BP 110/64; BP 124/78; PULSE 104; PULSE 111; RESP 20; TEMP 36.7; O2SAT 97; O2SAT 99; BMI 22.3
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
[2023-09-05 07:12] VITALS: BP 116/77; PULSE 93; RESP 22; TEMP 36.5; O2SAT 99
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
== END 2023-09-05 07:24 | disposition home or self-care (01) ==
PROVIDERS: Emergency Provider Internal Medicine
DX: S00.81XA Abrasion of other part of head, initial encounter (principal); Y04.2XXA Assault by strike against or bumped into by another person, initial encounter; Z72.89 Other problems related to lifestyle; Z63.0 Problems in relationship with spouse or partner; F41.9 Anxiety disorder, unspecified; F17.210 Nicotine dependence, cigarettes, uncomplicated; F12.90 Cannabis use, unspecified, uncomplicated; Z79.899 Other long term (current) drug therapy; Y93.9 Activity, unspecified; Y92.810 Car as the place of occurrence of the external cause; Y99.9 Unspecified external cause status
CPT/HCPCS: 99283; 99284

== ENCOUNTER 2023-09-06 16:28 | Outpatient (REF) | payer MEDICAID, SELFPAY | END 2023-09-06 16:29 | disposition home or self-care (01) | LOC: HO.HHCX 16:28 | PROVIDERS: Visit Provider Emergency Medicine | DX: S69.92XA Unspecified injury of left wrist, hand and finger(s), initial encounter (principal) | CPT/HCPCS: 73130 ==

== ENCOUNTER 2023-09-12 14:35 | Outpatient (REF) | payer MEDICAID, SELFPAY ==
--- NOTE | ~2023-09-12 | CT_ITS ---
EXAMINATION: CT ABDOMEN AND PELVIS WITH CONTRAST CLINICAL INFORMATION: Weight loss. COMPARISON: 03/31/2023 TECHNIQUE: Multidetector volumetric images were obtained from the superior aspect of the liver through the pubic symphysis following administration 85 mL of Omnipaque 350 intravenous contrast. Sagittal and coronal reformatted images were obtained on the technologist's workstation. Oral contrast: No This CT examination was performed using dose optimization techniques as appropriate, variously including the following: *Automated exposure control *Adjustment of mA and/or kV according to patient size (this includes techniques or standardized protocols for targeted exams where dose is matched to indication/reason for exam; i.e. extremities or head) *Use of iterative reconstruction technique DLP: 316 mGy-cm FINDINGS: LUNG BASES: No pleural or pericardial effusion. LIVER, GALLBLADDER, AND BILIARY TREE: The liver is decreased in attenuation. No suspicious hepatic lesion or biliary ductal dilatation is present. The gallbladder is surgically absent. PANCREAS: Unremarkable. SPLEEN: Unremarkable. ADRENAL GLANDS: Unremarkable. KIDNEYS AND URETERS: The kidneys are symmetric in size and enhancement. 4 mm nonobstructing calculus lower pole left kidney. No hydronephrosis or perinephric stranding. BLADDER: Unremarkable. GASTROINTESTINAL TRACT: There is wall thickening and mucosal hyperenhancement of the mid transverse colon through the rectosigmoid colon. There is a questionable mass measuring 2.5 x 2.5 x 2.7 cm in the ascending colon above the level of the ileocecal valve on image 30 of series 6. No small bowel obstruction. ABDOMINAL WALL: No significant hernia is appreciated. LYMPH NODES: No bulky abdominal or pelvic lymphadenopathy. VASCULAR: Normal caliber abdominal aorta. PELVIC VISCERA: Unremarkable. OSSEOUS STRUCTURES: Marked degenerative disc disease at L4-L5. CT/CT abdomen pelvis w IV con IMPRESSION: Wall thickening and mucosal hyperenhancement of the mid transverse colon to the rectosigmoid colon. This may represent colitis. Infectious and inflammatory etiologies should be considered. Questionable mass of the ascending colon measuring 2.5 x 2.5 x 2.7 cm. Correlation with direct visualization is advised. 4 mm nonobstructing left renal calculus. No hydronephrosis.
[2023-09-12] MEDS: iohexoL 350 MG/ML 100 ML INFUS..BTL IV (17:06)
== END 2023-09-12 14:36 | disposition home or self-care (01) ==
LOC: HO.CT 14:35
PROVIDERS: Visit Provider Internal Medicine
DX: R63.4 Abnormal weight loss (principal)
CPT/HCPCS: 74177; Q9967

== ENCOUNTER 2023-10-18 11:02 | Outpatient (REF) | payer MEDICAID, SELFPAY ==
--- NOTE | ~2023-10-18 | XR_ITS ---
EXAMINATION: XR HAND, LEFT CLINICAL INFORMATION: Pain and unspecified hand. COMPARISON: 09/06/2023 TECHNIQUE: PA, lateral, and oblique views of the left hand. FINDINGS: Moderate degenerative changes in the first carpometacarpal joint with joint space narrowing and hypertrophic change. Ring present 4th digit. Mild degenerative changes and possible erosions most notable at the second and third DIP joints. No displaced fracture. XR/XR hand LT min 3V IMPRESSION: 1. Moderate degenerative changes first carpometacarpal joint. 2. Mild degenerative changes and possible erosions most notable at the second and third DIP joints. 3. No displaced fracture. Recommend follow-up imaging in 10-14 days if fracture is suspected.
== END 2023-10-18 11:03 | disposition home or self-care (01) ==
LOC: HO.HOSX 11:02
PROVIDERS: Visit Provider Physician Assistant
DX: M25.642 Stiffness of left hand, not elsewhere classified (principal); M79.642 Pain in left hand; S63.613D Unspecified sprain of left middle finger, subsequent encounter; S60.032D Contusion of left middle finger without damage to nail, subsequent encounter; Y08.89XD Assault by other specified means, subsequent encounter
CPT/HCPCS: 73130; 99212

== ENCOUNTER 2023-11-29 05:42 | Emergency (ER) | payer MEDICAID, SELFPAY ==
--- NOTE | ~2023-11-29 | CT_ITS ---
EXAMINATION: CT ABDOMEN AND PELVIS WITH CONTRAST CLINICAL INFORMATION: Diffuse abdominal discomfort COMPARISON: Previous CT of the abdomen and pelvis September 2023 TECHNIQUE: Multidetector volumetric images were obtained from the superior aspect of the liver through the pubic symphysis following administration 85 mL of Omnipaque 350 intravenous contrast. Sagittal and coronal reformatted images were obtained on the technologist's workstation. Oral contrast: Yes This CT examination was performed using dose optimization techniques as appropriate, variously including the following: *Automated exposure control *Adjustment of mA and/or kV according to patient size (this includes techniques or standardized protocols for targeted exams where dose is matched to indication/reason for exam; i.e. extremities or head) *Use of iterative reconstruction technique DLP: 270 mGy-cm FINDINGS: LUNG BASES: Stable 5 mm calcified right lower lobe pulmonary nodule probably representing a calcified granuloma. LIVER, GALLBLADDER, AND BILIARY TREE: The liver is normal in size, shape, and attenuation. No focal hepatic lesion or biliary ductal dilatation is present. The gallbladder has been removed. PANCREAS: Unremarkable. SPLEEN: Unremarkable. ADRENAL GLANDS: Unremarkable. KIDNEYS AND URETERS: The kidneys are normal in size, shape, and attenuation. No hydronephrosis. 4 mm left lower pole renal stone. BLADDER: Unremarkable. GASTROINTESTINAL TRACT: There is mild wall thickening and prominent vascularity of the colon suggestive of mild colitis. No evidence of obstruction. Small bowel and stomach are normal. The appendix is not seen. No ascites or free air. ABDOMINAL WALL: No significant hernia is appreciated. LYMPH NODES: Normal. VASCULAR: Unremarkable. PELVIC VISCERA: Unremarkable. OSSEOUS STRUCTURES: Degenerative changes at L4-5. CT/CT abdomen pelvis w IV con IMPRESSION: Mild colitis. Left renal stone. Fleischner guidelines were followed.
[2023-11-29 05:56] VITALS: PULSE 70
[2023-11-29 05:57] VITALS: BP 123/88; PULSE 100; RESP 18; TEMP 36.6; BMI 15.4
[2023-11-29] MEDS: ondansetron HCL 4 MG/2 ML VIAL IVPUSH ×2 (06:14→08:07)
[2023-11-29 06:17] LABS: MANUAL DIFF FLAG NO
[2023-11-29 06:21] LABS: Basophils Percent Auto 0.2 % (0-2); Eosinophils Absolute Auto 0.2 X10*3/uL (0.0-0.4); Eosinophils Percent Auto 0.8 % (0-4); Hematocrit 42.4 % (37.0-47.0); Imm Gran Pct Auto 0.5 % (0.0-0.4); Lymphocytes Absolute Auto 2.8 X10*3/uL (1.2-4.9); Lymphocytes Percent Auto 14.7 % (20-40); Mean Corpuscular Hemoglobin 28.1 pg (27.0-33.0); Monocytes Absolute Auto 0.7 X10*3/uL (0.1-1.2); Monocytes Percent Auto 3.5 % (2-11); Neutrophils Absolute Auto 15.3 x10*3/uL (2.0-8.3); Neutrophils Percent Auto 80.3 % (45-73); Platelet Count 317 X10*3/uL (160-400); Red Blood Count 4.99 X10*6/uL (4.20-5.50); Red Cell Distribution Width 13.8 % (11.0-16.0)
[2023-11-29 06:28] LABS: Alanine Aminotransferase 18 U/L (0-31); Albumin Level 4.6 g/dL (3.5-5.0); Alkaline Phosphatase 89 U/L (39-117); Anion Gap 14 (12-20); Aspartate Amino Transferase 23 U/L (5-31); Bilirubin Total 0.4 mg/dL (0.0-1.0); Blood Urea Nitrogen 15 mg/dL (9-16); Calcium 10.6 mg/dL (8.4-10.2); Carbon Dioxide 25 mmol/L (22-29); Chloride 107 mmol/L (96-108); Creatinine Clr Calc Pharmacy 45.6; Estimated Glomerular Filt Rate > 60; Glucose Random 171 mg/dL (60-115); Potassium 3.5 mmol/L (3.3-5.1); Sodium 142 mmol/L (135-145); Total Protein 7.7 g/dL (6.5-8.0)
--- NOTE | 2023-11-29 06:30 | PC.NURSE ---
PT had two episodes of bowel incontinence (yellow liquid). aware. PT cleaned up and repositioned.
--- NOTE | 2023-11-29 07:26 | ED.NAVMDI ---
HPI - Nausea/Vomiting/Diarrhea General Chief complaint: Nausea/Vomiting/Diarrhea Stated complaint: NAUSEA VOMMITING Time Seen by Provider: 11/29/23 07:01 Source: patient and family Mode of arrival: EMS History of Present Illness HPI Narrative: 53-year-old female who presents via EMS with complaints of onset of abdominal discomfort with several episodes of nausea, vomiting, diarrhea after eating pig ears . Denies sick contacts. Related Data Home Medications Medication Instructions Recorded Confirmed acetaminophen 650 mg 0 mg PO 09/26/21 12/26/22 tablet,extended release (Arthritis Pain Relief (acetaminophen) ER) multivitamin with folic acid 400 0 tab PO 09/26/21 12/26/22 mcg tablet (Daily-Jeramy (with folic acid)) Previous Rx's Medication Instructions Recorded hydrocortisone 2.5 % topical cream 1 appl CA QID PRN hemorrhoids #30 10/27/20 with perineal applicator grams (Anusol-HC) lactobacillus combination no.8 3 3,000 mmu cells PO DAILY #30 caps 10/27/20 billion cell capsule (Adult Probiotic) methylcellulose (laxative) 500 mg 500 mg PO DAILY #30 tabs 10/27/20 tablet (Citrucel) acetaminophen 500 mg tablet 500 mg PO Q6H PRN pain or fever 01/17/21 (Tylenol Extra Strength) #20 tabs lidocaine 5 % topical patch 1 patch topical DAILY PRN pain #30 01/17/21 (Lidoderm) ea docusate sodium 100 mg capsule 100 mg PO BEDTIME #30 caps 09/26/21 omeprazole 40 mg capsule,delayed 40 mg PO DAILY #90 caps 09/26/21 release sennosides 8.6 mg tablet (Natural 8.6 mg PO BEDTIME constipation #30 12/08/21 Senna Laxative) tabs hyoscyamine sulfate 0.125 mg tablet 0.125 mg PO QID PRN dyspepsia #10 12/09/21 tabs levofloxacin 500 mg tablet 500 mg PO DAILY #10 tabs 12/09/21 metronidazole 250 mg tablet 250 mg PO BID #20 tabs 12/09/21 ondansetron HCl 4 mg tablet 4 mg PO Q6H PRN nausea and 12/09/21 vomiting #14 tabs naproxen 500 mg tablet (Naprosyn) 500 mg PO BID #20 tabs 11/20/22 cyclobenzaprine 10 mg tablet 10 mg PO TID PRN muscle spasm #10 01/19/23 tabs ibuprofen 600 mg tablet 600 mg PO Q6H PRN fever or pain 01/19/23 #20 tabs naproxen 500 mg tablet 500 mg PO BID 7 days #14 tabs 03/31/23 prednisone 20 mg tablet 20 mg PO DAILY 7 days #7 tabs 03/31/23 tamsulosin 0.4 mg capsule 0.4 mg PO DAILY #7 caps 03/31/23 oxycodone-acetaminophen 5 mg-325 1 tab PO Q6H PRN pain #20 tabs 09/05/23 mg tablet (Percocet) ondansetron 4 mg disintegrating 4 mg PO Q8H PRN nausea and 11/29/23 tablet vomiting 4 days #10 tabs Allergies Allergy/AdvReac Type Severity Reaction Status Date / Time bee pollen [BEE STINGS] Allergy Severe THROAT Verified 10/18/23 13:12 SWELLING codeine [Codeine] Allergy Severe CAN'T Verified 10/18/23 13:12 BREATHE, SWELLING,RASH tramadol [TRAMADOL] Allergy Intermediate ABD PAIN- Verified 10/18/23 13:12 COULD NOT EAT - FELT SICK Review of Systems Review of Systems: Pertinent positives and negatives as stated in HPI [facility] Past Medical History Source: nursing notes reviewed Medical History Fibromyalgia Epidermal cyst of neck Gastroesophageal reflux disease COVID-19 Female pelvic pain ASCUS of cervix with negative high risk HPV Hx of abnormal cervical Pap smear Encounter for repeat Papanicolaou smear of cervix Encounter for annual routine gynecological examination Tubular adenoma PONV (postoperative nausea and vomiting) Potential exposure to STD Well woman exam with routine gynecological exam Breast lump Hx of ectopic MRSA (methicillin resistant Staphylococcus aureus) Kidney stones SAB (spontaneous ) Surgical History History of excision of epidermal inclusion cyst (~01/17/23) History of removal of cyst (~01/17/23) Hx of hemorrhoidectomy H/O elbow surgery H/O lithotripsy Hx of endoscopy History of colonoscopy History of hernia repair Hx of appendectomy Hx of cholecystectomy Hx of breast biopsy Family History Family History Father Diabetes mellitus CVD (cardiovascular disease) Hyperlipemia Mother Diabetes mellitus HTN (hypertension) Colon cancer Liver cancer Maternal Grandmother Diabetes mellitus Maternal Aunt Breast cancer Paternal Grandfather Colon cancer Maternal Grandfather Stomach cancer Social History Social History Household Members: Children Alcohol intake: current Alcohol intake frequency: a few times a week Alcohol type: hard liquor Patient Tobacco Use Status: Current everyday Tobacco user Cigarettes Per Day: 10 Years Smoked: 8 Smoked in Last 30 Days: Yes Use of substances other than those prescribed or required for medical reasons: Yes Substance Use Type: Marijuana Advance Directives: No Advance Directives Information Provided: No Patient : No Current occupational status: disabled Gender identity: Female Physical Exam Vital Signs: Vital Signs: Last Vital Signs Temp 97.5 F 11/29/23 09:07 Pulse 71 11/29/23 09:07 Resp 18 11/29/23 09:07 BP 112/58 L 11/29/23 09:07 Pulse Ox 100 11/29/23 09:07 O2 Del Method Room Air 11/29/23 09:07 BMI result Body Mass Index 15.4 VITAL SIGNS: Reviewed. GENERAL: Well developed, well nourished, in no acute distress. HEAD: Normocephalic/atraumatic EYES: PERRLA, EOMI EARS: Ext canals without abnormality NOSE: Nares patent bilateral OROPHARYNX: no oral lesions noted, posterior pharynx clear NECK: Supple, no adenopathy LUNGS: Normal breath sounds. No adventitious sounds or accessory muscle use. CARDIOVASCULAR: Regular rate and rhythm without noted murmurs ABDOMEN: Soft, maximal epigastric discomfort, no rebound, non-distended with bowel sounds. MUSCULOSKELETAL: No tenderness, deformities, or effusions noted on gross inspection. EXTREMITIES: No cyanosis, clubbing or edema. SKIN: Inspection of the skin reveals no rashes NEUROLOGIC: Alert and oriented x 4. Strength and sensation to light touch were grossly intact x 4. Medications Administered Generic Name Dose Route Start Last Admin Trade Name Freq PRN Reason Stop Dose Admin Sodium Chloride 1,000 mls @ 999 mls/hr 11/29/23 10:00 11/29/23 10:17 Ns IV 11/29/23 11:00 999 mls/hr .Q1H1M ROSEMARY Administration Discontinued Medications Generic Name Dose Route Start Last Admin Trade Name Natali PRN Reason Stop Dose Admin Iohexol 100 ml 11/29/23 08:50 11/29/23 08:50 Iohexol 350 Mg/Ml 100 Ml Infus..Btl IV 11/29/23 08:51 85 ml ONCE ONE Administration Ketorolac Tromethamine 15 mg 11/29/23 07:25 11/29/23 07:29 Ketorolac Tromethamine 30 Mg/Ml Vial IVPUSH 11/29/23 07:26 15 mg ONCE ONE Administration Ondansetron HCl 4 mg 11/29/23 06:10 11/29/23 06:14 Ondansetron Hcl 4 Mg/2 Ml Vial IVPUSH 11/29/23 06:11 4 mg ONCE ONE Administration Ondansetron HCl 4 mg 11/29/23 07:36 11/29/23 08:07 Ondansetron Hcl 4 Mg/2 Ml Vial IVPUSH 11/29/23 07:37 4 mg ONCE ONE Administration Medical Decision Making Medical Decision Making [facility] Narrative: 53-year-old female with history and clinical presentation, DDX: gastritis, food poisoning, pancreatitis, lower clinical suspicion for cholecystitis/SBO/diverticulitis. Patient received IV fluids/antinausea medication. I reviewed all investigations and patient demonstrates a noninfectious leukocytosis, she is afebrile and there is no anemia or thrombocytopenia. Chemistry indices do not demonstrate any NAJMA or electrolyte/liver enzyme derangements. GI panel appears to be positive, possibly, for norovirus and CT scan demonstrates findings consistent with viral colitis. Patient is no longer nauseous or vomiting in his received IV fluids. She is otherwise discharged with a prescription for antinausea medication and recommendations for bland diet. Differential Diagnosis Differential Diagnoses: The differential diagnosis associated with the presentation includes Please see the discussion above Admission/Observation Consideration of admission/observation: Escalation of care including admission/observation considered Please see the discussion above Lab Data [facility] Lab Attestation statement: I reviewed the patient's lab results. Please see the discussion above 11/29/23 06:10 11/29/23 06:10 Labs: Lab Results 11/29/23 Range/Units 06:10 WBC 19.0 H (4.8-10.8) X10*3/uL RBC 4.99 (4.20-5.50) X10*6/uL Hgb 14.0 (12.0-16.0) g/dl Hct 42.4 (37.0-47.0) % MCV 85.0 (80.0-98.0) fL MCH 28.1 (27.0-33.0) pg MCHC 33.0 (31.0-35.0) g/dl RDW 13.8 (11.0-16.0) % Plt Count 317 (160-400) X10*3/uL MPV 9.0 L (9.4-12.3) fL Immature Gran % (Auto) 0.5 H (0.0-0.4) % Neut % (Auto) 80.3 H (45-73) % Lymph % (Auto) 14.7 L (20-40) % Wright % (Auto) 3.5 (2-11) % Eos % (Auto) 0.8 (0-4) % Baso % (Auto) 0.2 (0-2) % Lymph # (Auto) 2.8 (1.2-4.9) X10*3/uL Wright # (Auto) 0.7 (0.1-1.2) X10*3/uL Eos # (Auto) 0.2 (0.0-0.4) X10*3/uL Baso # (Auto) 0.0 (0.0-0.2) X10*3/uL Abs Immat Gran (auto) 0.10 H (0.00-0.03) X10*3/uL Absolute Neuts (auto) 15.3 H (2.0-8.3) x10*3/uL Absolute Nucleated RBC 0.000 (0.0-0.012) X10*3/uL Nucleated RBC % (auto) 0.0 (0.0-0.2) /100WBC Sodium 142 (135-145) mmol/L Potassium 3.5 (3.3-5.1) mmol/L Chloride 107 (96-108) mmol/L Carbon Dioxide 25 (22-29) mmol/L Anion Gap 14 (12-20) BUN 15 (9-16) mg/dL Creatinine 0.92 (0.5-1.4) mg/dL Estim Creat Clear Calc 45.6 Estimated GFR > 60 Random Glucose 171 H (60-115) mg/dL Calcium 10.6 H D (8.4-10.2) mg/dL Total Bilirubin 0.4 (0.0-1.0) mg/dL AST 23 (5-31) U/L ALT 18 (0-31) U/L Alkaline Phosphatase 89 (39-117) U/L Total Protein 7.7 (6.5-8.0) g/dL Albumin 4.6 (3.5-5.0) g/dL Radiology Impression Discussion of test interpretation with radiology: I have reviewed the radiologist's reading. Radiologist Impression: Please see the discussion above External Record Review External record reviewed: Outpatient record, Prior outpatient labs and Prior outpatient radiology Critical Care Time Critical Care Time Critical Care Time: Yes Total Critical Care Time: 60 Attestation: I personally attest to this time spent taking care of the patient. Discharge Plan Discharge Clinical Impression: Colitis, Norovirus Patient Disposition: Home, Self-Care Instructions: Acute Nausea and Vomiting (ED), Acute Diarrhea (ED), Nutrition Tips for Relief of Diarrhea (ED) Additional Instructions: 1. Please use the antinausea medication for the next 24-48 hours, continue to stay well hydrated with Pedialyte/Gatorade/water. Advance your diet when you can but stick to a bland diet for now. 2. Please follow-up with your primary care doctor. Return to the ER for any worsening symptoms. Prescriptions: New ondansetron 4 mg tablet,disintegrating 4 mg PO Q8H PRN (Reason: nausea and vomiting) 4 Days Qty: 10 0RF No Action sennosides [Natural Senna Laxative] 8.6 mg tablet 8.6 mg PO BEDTIME Qty: 30 3RF acetaminophen [Tylenol Extra Strength] 500 mg tablet 500 mg PO Q6H PRN (Reason: pain or fever) Qty: 20 0RF lidocaine [Lidoderm] 5 % adhesive patch,medicated 1 patch topical DAILY MDD remove after 12 hours PRN (Reason: pain) Qty: 30 0RF Rx Instructions: leave on most painful area for up to 12 hrs levofloxacin 500 mg tablet 500 mg PO DAILY Qty: 10 0RF metronidazole 250 mg tablet 250 mg PO BID Qty: 20 0RF ondansetron HCl 4 mg tablet 4 mg PO Q6H PRN (Reason: nausea and vomiting) Qty: 14 0RF hyoscyamine sulfate 0.125 mg tablet 0.125 mg PO QID PRN (Reason: dyspepsia) Qty: 10 0RF naproxen [Naprosyn] 500 mg tablet 500 mg PO BID Qty: 20 0RF prednisone 20 mg tablet 20 mg PO DAILY 7 Days Qty: 7 0RF naproxen 500 mg tablet 500 mg PO BID 7 Days Qty: 14 0RF tamsulosin 0.4 mg capsule 0.4 mg PO DAILY Qty: 7 0RF cyclobenzaprine 10 mg tablet 10 mg PO TID PRN (Reason: muscle spasm) Qty: 10 0RF ibuprofen 600 mg tablet 600 mg PO Q6H PRN (Reason: fever or pain) Qty: 20 0RF oxycodone-acetaminophen [Percocet] 5-325 mg tablet 1 tab PO Q6H PRN (Reason: pain) Qty: 20 0RF Rx Instructions: Partial Fill upon patient request. Adult Probiotic 3 billion cell capsule 3,000 mmu cells PO DAILY Qty: 30 2RF Rx Instructions: administer with a meal Citrucel 500 mg tablet 500 mg PO DAILY Qty: 30 2RF hydrocortisone [Anusol-HC] 2.5 % cream with perineal applicator 1 appl CA QID PRN (Reason: hemorrhoids) Qty: 30 2RF multivitamin with folic acid [Daily-Jeramy (with folic acid)] 400 mcg tablet 0 tab PO acetaminophen [Arthritis Pain Relief (acetam)] 650 mg tablet extended release 0 mg PO omeprazole 40 mg capsule,delayed release(DR/EC) 40 mg PO DAILY Qty: 90 3RF docusate sodium 100 mg capsule 100 mg PO BEDTIME Qty: 30 3RF
[2023-11-29] MEDS: Ketorolac Tromethamine 30 MG/ML VIAL 15 MG IVPUSH (07:29)
[2023-11-29 07:42] VITALS: BP 98/49; PULSE 68; RESP 22; TEMP 37.2; O2SAT 97
[2023-11-29] MEDS: iohexoL 350 MG/ML 100 ML INFUS..BTL IV (08:50)
[2023-11-29 09:07] VITALS: BP 112/58; PULSE 71; RESP 18; TEMP 36.4; O2SAT 100
[2023-11-29] MEDS: 0.9 % Sodium Chloride 1,000 ML 999 ML IV (10:17)
[2023-11-29 10:20] LABS: Adenovirus F 40/41 Not Detected (Not Detect.); Astrovirus Not Detected (Not Detect.); Campylobacter Not Detected (Not Detect.); Cryptosporidium Not Detected (Not Detect.); Cyclospora cayetanensis Not Detected (Not Detect.); E. coli EAEC Not Detected (Not Detect.); E. coli EPEC Not Detected (Not Detect.); E. coli ETEC Not Detected (Not Detect.); E. coli STEC Not Detected (Not Detect.); Entamoeba histolytica Not Detected (Not Detect.); Giardia lamblia Not Detected (Not Detect.); Plesiomonas shigelloides Not Detected (Not Detect.); Rotavirus A Not Detected (Not Detect.); Salmonella Not Detected (Not Detect.); Sapovirus Not Detected (Not Detect.); Shigella sp./EIEC Not Detected (Not Detect.); Vibrio Not Detected (Not Detect.); Vibrio Cholerae Not Detected (Not Detect.); Yersinia enterocolitica Not Detected (Not Detect.)
--- NOTE | 2023-11-29 10:29 | PC.NURSE ---
Attempted po trial patient declining food and fluids provider aware
[2023-11-29 11:06] VITALS: BP 129/67; PULSE 86; RESP 20; TEMP 36.7; O2SAT 100
[2023-11-29 11:24] VITALS: BP 129/67; PULSE 86; RESP 18; TEMP 36.6; O2SAT 98
== END 2023-11-29 11:38 | disposition home or self-care (01) ==
PROVIDERS: Emergency Provider Student in an Organized Health Care Education/Training Program
DX: K52.9 Noninfective gastroenteritis and colitis, unspecified (principal); A08.11 Acute gastroenteropathy due to Norwalk agent; R11.2 Nausea with vomiting, unspecified; R10.13 Epigastric pain; Z79.899 Other long term (current) drug therapy
CPT/HCPCS: 36415; 74177; 80053; 85025; 87507; 96361; 96374; 96375; 96376; 99284; 99285; J1885; J2405; Q9967

== ENCOUNTER 2023-12-09 16:06 | Outpatient (REF) | payer MEDICAID, SELFPAY ==
--- NOTE | ~2023-12-09 | MR_ITS ---
EXAMINATION: MR HAND WITHOUT CONTRAST, LEFT CLINICAL INFORMATION: Left middle finger contusion with damaged nail. Volar lump/mass. Stiffness. COMPARISON: Left hand radiographs dated 10/18/2023. TECHNIQUE: Multisequence MR imaging of the left hand was obtained without contrast on a high-field strength scanner. FINDINGS: BONE: Minimally increased T2 signal within the second metacarpal head, which could represent a minimal osseous contusion. No fracture line. Small degenerative cysts within the second and third metacarpal heads. No concerning lytic or blastic osseous lesion. Grossly intact articular cartilage; however, evaluation is limited on large [id number] imaging. MUSCLES/TENDONS: The visualized flexor and extensor tendons are intact. No transverse tendon tear or tendon retraction. LIGAMENTS: Intact collateral ligaments. SOFT TISSUES: Small third metacarpophalangeal joint effusion with mild adjacent soft tissue edema. No discrete soft tissue mass or extra-articular fluid collection. MR/MR hand LT wo con IMPRESSION: 1. Small third metacarpophalangeal joint effusion with mild adjacent soft tissue edema. No discrete soft tissue mass or extra-articular fluid collection. 2. Minimal marrow edema within the second metacarpal head, which could represent a minimal osseous contusion. No fracture line.
== END 2023-12-09 16:07 | disposition home or self-care (01) ==
LOC: HO.MRI 16:06
PROVIDERS: PCP Internal Medicine; Visit Provider Physician Assistant
DX: S60.032A Contusion of left middle finger without damage to nail, initial encounter (principal); S63.613A Unspecified sprain of left middle finger, initial encounter; S63.92XA Sprain of unspecified part of left wrist and hand, initial encounter; M25.642 Stiffness of left hand, not elsewhere classified; X58.XXXA Exposure to other specified factors, initial encounter; Y93.9 Activity, unspecified; Y92.9 Unspecified place or not applicable; Y09 Assault by unspecified means
CPT/HCPCS: 73218

== ENCOUNTER 2023-12-13 13:59 | Outpatient (AMB) | payer MEDICAID, SELFPAY ==
[2023-12-13 14:03] VITALS: BP 87/57; PULSE 73; BMI 20.9
--- NOTE | 2023-12-13 14:03 | MHC.OFFVIS ---
Intake Vital Signs 12/13/23 14:03 Height 4 ft 11 in Weight 103 lb 9.876 oz BMI 20.9 BP 87/57 L Blood Pressure Location Rt brachial Position Sitting Pulse 73 Intake Visit Reasons: pt req appointment for colo screening Intake Note: Neli presents to in office visit today to discuss colonoscopy screening. CC: Patient reports doing well and denies having any GI concerns today. Manager Baby Required: No Allergies bee pollen [BEE STINGS] Allergy (Severe, Verified 12/13/23 14:11) THROAT SWELLING codeine [Codeine] Allergy (Severe, Verified 12/13/23 14:11) CAN'T BREATHE, SWELLING,RASH tramadol [TRAMADOL] Allergy (Intermediate, Verified 12/13/23 14:11) ABD PAIN- COULD NOT EAT - FELT SICK HPI pt req appointment for colo screening HPI Details LAST COLONOSCOPY Gastroesophageal reflux disease Patient ran out of omeprazole couple months ago. Recently her symptoms of acid reflux are coming back. Patient tries to avoid dietary triggers. Patient was encouraged to avoid late night snacking, staying upright for 2-3 hours after meals. I will send her script for omeprazole 40 mg to be taken every morning half an hour before breakfast. We will do H pylori breath test today, patient has a history of H pylori in the past and was treated with antibiotics. I will see her in 5 weeks to re-evaluate. Patient will go for upper endoscopy. Abdominal bloating Occasional postprandial bloating, patient also reports that sometimes she does not move her bowels every day. Discussed with patient again FODMAP diet and avoiding dietary triggers Constipation Occasional symptoms of constipation. Will send her script for Colace. Patient states that sometimes when she is constipated her hemorrhoids will bleed. Patient reports that she will have blood on the tissue when she wipes. Hemorrhoids without complication Occasional blood on the tissue when patient wipes specially after having bowel movement if no BM in couple days. Patient reports that she has Anusol cream at home and she will use that. Script for Colace given to patient so she can start taking it every evening. Patient was encouraged to call our office if her symptoms will get worse. I will see her in 5 weeks. Patient is agreeable to this plan and verbalizes understanding of instructions. She was given the opportunity to ask questions and all questions answered. ? Thank you for allowing me to participate in her care Plan Orders Orders H Pylori Breath Test Today Medications New omeprazole 40 mg PO DAILY 90 caps 3RF K21.9 docusate sodium 100 mg PO BEDTIME 30 caps 3RF K59.00 Discontinued omeprazole Discontinued Reason: Doctor's Order 20 mg PO DAILY 30 caps 3RF K21.9 TODAY'S VISIT: Patient is here today for follow-up and requesting to go for colonoscopy. Patient was seen in the ER at the end of October for abdominal pain and diarrhea. Patient was found to have a norovirus. CT scan showed mild colitis. Patient states that since then she has been feeling better, however patient was surprised that she contracted the virus. No one in the house had similar symptoms. Patient denies traveling anywhere. Patient denies any melena, hematochezia, unintentional weight loss or ribbon like stools. Patient denies any dyspepsia, dysphagia or odynophagia. Patient denies any issues with anesthesia in the past. No history of sleep apnea. Not on any anticoagulation medication. Denies any cardiac or respiratory symptoms. Denies any infectious diseases in the past or present. Patient reports that she is moving her bowels well without any issues. Currently patient is taking omeprazole daily and her symptoms of acid reflux are suppressed. Previously patient tested negative for H pylori PFSH Medical History Fibromyalgia Epidermal cyst of neck Gastroesophageal reflux disease COVID-19 Female pelvic pain ASCUS of cervix with negative high risk HPV Hx of abnormal cervical Pap smear Encounter for repeat Papanicolaou smear of cervix Encounter for annual routine gynecological examination Tubular adenoma PONV (postoperative nausea and vomiting) Potential exposure to STD Well woman exam with routine gynecological exam Breast lump Hx of ectopic MRSA (methicillin resistant Staphylococcus aureus) Kidney stones SAB (spontaneous ) Surgical History History of excision of epidermal inclusion cyst (~01/17/23) History of removal of cyst (~01/17/23) Hx of hemorrhoidectomy H/O elbow surgery H/O lithotripsy Hx of endoscopy History of colonoscopy History of hernia repair Hx of appendectomy Hx of cholecystectomy Hx of breast biopsy Family History Father Diabetes mellitus CVD (cardiovascular disease) Hyperlipemia Mother Diabetes mellitus HTN (hypertension) Colon cancer Liver cancer Maternal Grandmother Diabetes mellitus Maternal Aunt Breast cancer Paternal Grandfather Colon cancer Maternal Grandfather Stomach cancer Social History Household Members: Children Alcohol intake: current Alcohol intake frequency: a few times a week Alcohol type: hard liquor Patient Tobacco Use Status: Current everyday Tobacco user Cigarettes Per Day: 10 Years Smoked: 8 Substance Use Type: Marijuana Current occupational status: disabled Gender identity: Female Female Reproductive History Menstrual Age of Menarche: 9 Date of menopause: 04/02/19 Review of Systems Const Denies weight gain and Denies weight loss ENT Reports no additional complaints, Denies dysphagia and Denies odynophagia Card Reports no additional complaints Resp Reports no additional complaints GI Denies abdominal pain, Denies belching, Denies melena, Denies bloating, Denies change in bowel habits, Denies dysphagia, Denies excessive flatus, Denies dyspepsia, Denies heartburn, Denies diarrhea, Denies loose stools, Denies nausea, Denies odynophagia and Denies vomiting Musc Reports no additional complaints Neuro Reports no additional complaints Psych Reports no additional complaints Endo Reports no additional complaints Physical Exam Vital Signs: Last Vital Signs Pulse 73 12/13/23 14:03 BP 87/57 L 12/13/23 14:03 BMI result Body Mass Index 20.9 Const General: healthy appearing, no acute distress and well developed Nutritional Appearance: well nourished Orientation/consciousness: patient oriented x3 Resp Effort & Inspection: normal respiratory effort, able to speak in complete sentences, no tracheal deviation and symmetric chest movement Auscultation: clear to auscultation bilaterally Cardio Rate: regular rate GI Inspection: Yes normal to inspection and No distended Palpation (GI): Soft to palpation, not firm, nontender and No hepatosplenomegaly present Auscultation: normal bowel sounds General: Yes no CVA tenderness Back/Spine/Pelvis Back: no CVA tenderness Skin General skin exam: elasticity normal, turgor normal and dry skin Neuro General: patient oriented x3 Psych Appearance: grossly normal Mental Status: mental status grossly normal Results Reviewed Results Reviewed: ABDOMINAL CT SCAN 11/29/2023 FROM ED VISIT FINDINGS: LUNG BASES: Stable 5 mm calcified right lower lobe pulmonary nodule probably representing a calcified granuloma. LIVER, GALLBLADDER, AND BILIARY TREE: The liver is normal in size, shape, and attenuation. No focal hepatic lesion or biliary ductal dilatation is present. The gallbladder has been removed. PANCREAS: Unremarkable. SPLEEN: Unremarkable. ADRENAL GLANDS: Unremarkable. KIDNEYS AND URETERS: The kidneys are normal in size, shape, and attenuation. No hydronephrosis. 4 mm left lower pole renal stone. BLADDER: Unremarkable. GASTROINTESTINAL TRACT: There is mild wall thickening and prominent vascularity of the colon suggestive of mild colitis. No evidence of obstruction. Small bowel and stomach are normal. The appendix is not seen. No ascites or free air. ABDOMINAL WALL: No significant hernia is appreciated. LYMPH NODES: Normal. VASCULAR: Unremarkable. PELVIC VISCERA: Unremarkable. OSSEOUS STRUCTURES: Degenerative changes at L4-5. CT/CT abdomen pelvis w IV con IMPRESSION: Mild colitis. Left renal stone. Stool positive for norovirus Assessment & Plan Assessment & Plan (1) Gastroesophageal reflux disease: Code(s): K21.9 - Gastro-esophageal reflux disease without esophagitis Qualifiers: Esophagitis presence: esophagitis presence not specified Qualified Code(s): K21.9 - Gastro-esophageal reflux disease without esophagitis (2) History of colitis: Code(s): Z87.19 - Personal history of other diseases of the digestive system (3) Tubular adenoma: Code(s): D36.9 - Benign neoplasm, unspecified site Plan History of tubular adenoma in September of 2020. Patient denies any melena, hematochezia, unintentional weight loss or ribbon like stools. Recently patient had colitis most likely related to diarrhea caused by norovirus. Currently patient has no symptoms. Reports that she is moving her bowels without any issues. Denies any issues with anesthesia in the past. No history of sleep apnea. Not on any anticoagulation medication. What to expect before during and after procedure discussed with patient. Discussed with patient the importance of clear liquid diet and good bowel prep. I will see patient after the procedure, sooner on as needed basis. Patient is agreeable to this plan and verbalizes understanding of instructions. She was given the opportunity to ask questions and all questions answered. Thank you for allowing me to participate in her care Medications: New bisacodyl (Dulcolax (bisacodyl)) take 4 tabs at noon the day before your colonoscopy 20 mg (4 x 5 mg) PO ONCE 1 day 4 tabs 0RF Z12.11 - Encounter for screening for malignant neoplasm of colon polyethylene glycol 3350 (Miralax) As directed by gastroenterology department at [facility] 238 grams PO ONCE 238 grams 0RF Z12.11 - Encounter for screening for malignant neoplasm of colon Coding Level of Care Code Est Pt Level 4 (34635) Diagnoses Gastroesophageal reflux disease, unspecified whether esophagitis present K21.9 Esophagitis presence: esophagitis presence not specified History of colitis Z87.19 Tubular adenoma D36.9 Time Spent (min) 35 Comment 20 minutes spent with patient and additional 15 minutes spent reviewing her records
== END 2023-12-13 14:35 | disposition home or self-care (01) ==
PROVIDERS: Visit Provider Nurse Practitioner Family
DX: K21.9 Gastro-esophageal reflux disease without esophagitis (principal); Z87.19 Personal history of other diseases of the digestive system; D36.9 Benign neoplasm, unspecified site
CPT/HCPCS: 99214

== ENCOUNTER → 2023-12-13 13:59 | Outpatient (BNVA) | payer MEDICAID, SELFPAY | PROVIDERS: Visit Provider Nurse Practitioner Family | DX: K21.9 Gastro-esophageal reflux disease without esophagitis (principal); D36.9 Benign neoplasm, unspecified site; Z87.19 Personal history of other diseases of the digestive system | CPT/HCPCS: 99212 ==

== ENCOUNTER 2023-12-18 17:12 | Emergency (ER) | payer MEDICAID, SELFPAY ==
--- NOTE | ~2023-12-18 | XR_ITS ---
EXAMINATION: XR CHEST CLINICAL INFORMATION: Chest pain COMPARISON: Chest radiograph 01/19/2023, CT abdomen pelvis 01/29/2024 TECHNIQUE: 2 views of the chest were obtained. FINDINGS: No significant abnormality is noted involving the heart, lungs, mediastinum, bony thorax or soft tissues. Again seen is a calcified granuloma in the right lower lobe. XR/XR chest 2V IMPRESSION: Unremarkable examination.
--- NOTE | 2023-12-18 17:15 | ECG_ITS ---
Test Reason : chest pain Blood Pressure : / mmHG Vent. Rate : 083 BPM Atrial Rate : 083 BPM P-R Int : 138 ms QRS Dur : 076 ms QT Int : 368 ms P-R-T Axes : 080 074 038 degrees QTc Int : 432 ms Normal sinus rhythm Possible Left atrial enlargement Borderline ECG When compared with ECG of 16-JUN-2022 23:35, Nonspecific T wave abnormality now evident in Anterior leads Referred By: Haven Joshi Electronically Signed By:KAT SALAZAR
[2023-12-18 17:45] VITALS: BP 115/73; PULSE 73; RESP 16; TEMP 36.2; O2SAT 100; BMI 20.8
--- NOTE | 2023-12-18 17:45 | ED_ITS ---
HPI - Chest Pain General Chief Complaint: Chest Pain Stated Complaint: chest pain x 3 days Time Seen by Provider: 12/19/23 00:27 Source: patient Mode of arrival: ambulatory Limitations: no limitations History of Present Illness HPI narrative: 53-year-old female came in for evaluation of chest pain, dizziness, back pain, headache, palpitation with feeling of skipping beats started all day today, patient also been having coughing with congestion x3 days. Patient previously was evaluated by cushion cover inspector and had nondiagnostic stress test due to low workload and suboptimal HR. No recent travel, no lower extremity swelling or tenderness, no prolonged immobilization, no long car rides. Related Data Home Medications ?Medication ?Instructions ?Recorded ?Confirmed multivitamin with folic acid 400 1 tab PO DAILY 12/13/23 mcg tablet (Daily-Jeramy (with folic acid)) Previous Rx's ?Medication ?Instructions ?Recorded hydrocortisone 2.5 % topical cream 1 appl DC QID PRN hemorrhoids #30 10/27/20 with perineal applicator grams (Anusol-HC) omeprazole 40 mg capsule,delayed 40 mg PO DAILY #90 caps 09/26/21 release naproxen 500 mg tablet (Naprosyn) 500 mg PO BID #20 tabs 11/20/22 bisacodyl 5 mg tablet,delayed 20 mg (4 x 5 mg) PO ONCE 1 day #4 12/13/23 release (Dulcolax (bisacodyl)) tabs polyethylene glycol 3350 17 238 g PO ONCE #238 grams 12/13/23 gram/dose oral powder (Miralax) Allergies Allergy/AdvReac Type Severity Reaction Status Date / Time bee pollen [BEE STINGS] Allergy Severe THROAT Verified 12/18/23 17:49 SWELLING codeine [Codeine] Allergy Severe CAN'T Verified 12/18/23 17:49 BREATHE, SWELLING,RASH tramadol [TRAMADOL] Allergy Intermediate ABD PAIN- Verified 12/18/23 17:49 COULD NOT EAT - FELT SICK Review of Systems 2 Review of Systems: All other systems are reviewed and are negative Constitutional: Reports as per HPI and Reports no additional constitutional complaints Eyes: Reports as per HPI and Reports no additional eye complaints Reports system reviewed and no additional complaints, except as documented Cardiovascular: Reports as per HPI and Reports no additional cardiovascular complaints Respiratory: Reports as per HPI and Reports no additional respiratory complaints Gastrointestinal: Reports as per HPI and Reports no additional gastrointestinal complaints Genitourinary: Reports no additional female genitourinary complaints Musculoskeletal: Reports no additional musculoskeletal complaints Skin/Breast: Reports system reviewed and no additional complaints, except as docu Psychiatric: Reports no additional psychiatric complaints Endocrine: Reports no additional endocrine complaints Hematologic/Lymphatic: Reports no additional hematologic/lymphatic complaints Allergic/Immunologic: Reports no additional allergic/immunologic complaints Reports system reviewed and no additional complaints, except as documented and Reports Abnormal speech present PMFSH Past Medical History Medical History Fibromyalgia Epidermal cyst of neck Gastroesophageal reflux disease COVID-19 Female pelvic pain ASCUS of cervix with negative high risk HPV Hx of abnormal cervical Pap smear Encounter for repeat Papanicolaou smear of cervix Encounter for annual routine gynecological examination Tubular adenoma PONV (postoperative nausea and vomiting) Potential exposure to STD Well woman exam with routine gynecological exam Breast lump Hx of ectopic MRSA (methicillin resistant Staphylococcus aureus) Kidney stones SAB (spontaneous ) Surgical History History of excision of epidermal inclusion cyst (~01/17/23) History of removal of cyst (~01/17/23) Hx of hemorrhoidectomy H/O elbow surgery H/O lithotripsy Hx of endoscopy History of colonoscopy History of hernia repair Hx of appendectomy Hx of cholecystectomy Hx of breast biopsy Family History Family History Father Diabetes mellitus CVD (cardiovascular disease) Hyperlipemia Mother Diabetes mellitus HTN (hypertension) Colon cancer Liver cancer Maternal Grandmother Diabetes mellitus Maternal Aunt Breast cancer Paternal Grandfather Colon cancer Maternal Grandfather Stomach cancer Social History Social History Household Members: Children Alcohol intake: current Alcohol intake frequency: a few times a week Alcohol type: hard liquor Patient Tobacco Use Status: Current everyday Tobacco user Cigarettes Per Day: 10 Years Smoked: 8 Substance Use Type: Marijuana Advance Directives: No Advance Directives Information Provided: No Current occupational status: disabled Gender identity: Female Physical Exam 2 Vital Signs: Vital Signs: Last Vital Signs Temp 97.9 F 12/19/23 00:57 Pulse 80 12/19/23 00:57 Resp 16 12/19/23 00:57 BP 114/67 12/19/23 00:57 Pulse Ox 99 12/19/23 00:57 O2 Del Method Room Air 12/19/23 00:57 BMI result Body Mass Index 20.8 Vital signs have been reviewed and appear to be correct. Blood pressure elevated. Heart rate normal. Respiratory rate normal. Temperature normal. Oxygen saturation normal. Appearance: Alert. Oriented X3. No acute distress. Head: Normal external exam. Normocephalic. Atraumatic. No Barnes signs noted. No raccoon eyes noted Eyes: PERRLA. EOMI. Conjunctiva and sclera normal. Eyelids normal. ENT: TM's Normal. Pharynx normal. Uvula midline. Moist mucous membranes. No trismus noted. No drooling noted. No muffled voice noted. Neck: Normal inspection. Neck supple. FROM. No adenopathy. Thyroid Normal. No meningeal signs. No neck mass noted. CVS: Normal heart rate and rhythm. Heart sound normal. No murmurs noted. Pulses normal throughout. Respiratory: No respiratory distress. Painless inspiration. Breath sounds normal. No wheezes/rales/rhonchi noted. Chest nontender. No accessory muscle usage noted or decreased air movement noted. Abdomen: Soft and nontender. Bowel sounds normal in all 4 quadrants. No distention noted. No organomegaly noted. No visible injury noted. Back: No CVA tenderness. Full range of motion noted. Skin: Skin warm and dry. Normal skin color. Normal skin turgor. No rashes/lesions/lacerations noted. Extremities: No lower extremity edema. Extremities exhibit normal range of motion. Extremities nontender. Neuro: Oriented X 3. Cranial nerve exam: II-XII are grossly intact No motor deficit. No sensory deficit. Reflexes normal. Course Course Course Narrative: RME:?53 yo female hx of HTN, GERD here w/ headache, substernal chest pain w/ radiation to left shoulder, and cough x3 days. feels like her heart is skipping. admits to feeling mobile, painless mass to her right breast yesterday. no known sick contacts. labs, ekg, cxr ordered. Full HPI, ROS and PE to be performed by the primary ED provider. Reevaluation(s) Reevaluation #1: Came in for evaluation of multiple symptoms including chest pain, patient has unremarkable cardiac workup in the emergency department, will discharge with follow-up with Cardiology, patient also was instructed to follow-up with PCP for outpatient mammogram. Time: 00:41 Medical Decision Making Differential Diagnosis Differential Diagnoses: The differential diagnosis associated with the presentation includes (ACS, pneumonia, pneumothorax, dysrhythmia, electrolyte derangement, severe anemia.) Admission/Observation Consideration of admission/observation: Escalation of care including admission/observation considered Lab Data MDM Lab Attestation statement: I reviewed the patient's lab results. 12/18/23 18:13 12/18/23 18:13 Labs: Lab Results 12/18/23 12/18/23 Range/Units 18:13 Unknown WBC 4.6 L (4.8-10.8) X10*3/uL RBC 4.30 (4.20-5.50) X10*6/uL Hgb 12.1 (12.0-16.0) g/dl Hct 36.6 L (37.0-47.0) % MCV 85.1 (80.0-98.0) fL MCH 28.1 (27.0-33.0) pg MCHC 33.1 (31.0-35.0) g/dl RDW 14.6 (11.0-16.0) % Plt Count 269 (160-400) X10*3/uL MPV 8.9 L (9.4-12.3) fL Immature Gran % (Auto) 0.2 (0.0-0.4) % Neut % (Auto) 46.6 (45-73) % Lymph % (Auto) 43.3 H (20-40) % [place] % (Auto) 7.3 (2-11) % Eos % (Auto) 1.7 (0-4) % Baso % (Auto) 0.9 (0-2) % Lymph # (Auto) 2.0 (1.2-4.9) X10*3/uL [place] # (Auto) 0.3 (0.1-1.2) X10*3/uL Eos # (Auto) 0.1 (0.0-0.4) X10*3/uL Baso # (Auto) 0.0 (0.0-0.2) X10*3/uL Abs Immat Gran (auto) 0.01 (0.00-0.03) X10*3/uL Absolute Neuts (auto) 2.2 (2.0-8.3) x10*3/uL Absolute Nucleated RBC 0.000 (0.0-0.012) X10*3/uL Nucleated RBC % (auto) 0.0 (0.0-0.2) /100WBC Sodium 143 (135-145) mmol/L Potassium 3.8 (3.3-5.1) mmol/L Chloride 109 H (96-108) mmol/L Carbon Dioxide 30 H (22-29) mmol/L Anion Gap 8 L (12-20) BUN 14 (9-16) mg/dL Creatinine 0.69 (0.5-1.4) mg/dL Estim Creat Clear Calc 64.3 Estimated GFR > 60 Random Glucose 89 (60-115) mg/dL Calcium 9.6 D (8.4-10.2) mg/dL Magnesium 2.3 (1.6-2.6) mg/dL Total Bilirubin 0.4 (0.0-1.0) mg/dL AST 21 (5-31) U/L ALT 20 (0-31) U/L Alkaline Phosphatase 94 (39-117) U/L Troponin I High Sens < 2.7 < 2.7 (<3.5-17.0) ng/L Total Protein 7.0 (6.5-8.0) g/dL Albumin 4.4 (3.5-5.0) g/dL Lipase 45 (8-78) U/L Influenza Type A (PCR) NEGATIVE (Negative) Influenza Type B (PCR) NEGATIVE (Negative) RSV RNA Qual (PCR) NEGATIVE (Negative) SARS-CoV-2 RNA (RT-PCR) NEGATIVE (Negative) Independent Interpretation I performed an independent interpretation of an: EKG (Normal sinus rhythm at 83 beats per minute, normal axis deviation, normal intervals, diffuse T-wave inversion in the anterior leads..) Discharge Plan Discharge Clinical Impression: Chest pain, Palpitation Patient Disposition: Home, Self-Care Instructions: Chest Pain (ED) Additional Instructions: Follow-up with your PCP to arrange for outpatient mammogram. Prescriptions: No Action naproxen [Naprosyn] 500 mg tablet 500 mg PO BID Qty: 20 0RF hydrocortisone [Anusol-HC] 2.5 % cream with perineal applicator 1 appl DC QID PRN (Reason: hemorrhoids) Qty: 30 2RF omeprazole 40 mg capsule,delayed release(DR/EC) 40 mg PO DAILY Qty: 90 3RF multivitamin with folic acid [Daily-Jeramy (with folic acid)] 400 mcg tablet 1 tab PO DAILY bisacodyl [Dulcolax (bisacodyl)] 5 mg tablet,delayed release (DR/EC) 20 mg PO ONCE 1 Days Qty: 4 0RF Rx Instructions: take 4 tabs at noon the day before your colonoscopy polyethylene glycol 3350 [Miralax] 17 gram/dose powder 238 g PO ONCE Qty: 238 0RF Rx Instructions: As directed by gastroenterology department at [facility] Referrals: [facility] [Primary Care Provider] - Sam Eckert MD [Physician] - Print Language: Romansh
[2023-12-18 18:17] LABS: MANUAL DIFF FLAG NO
--- NOTE | 2023-12-18 18:17 | MHC.EDTECH ---
EKG TAKEN AND WAS READ BY PROVIDER ,BLOOD DRAWN AND RSV/COVID SWAB COLLECTED AND SENT TO LAB .
[2023-12-18 18:20] LABS: Basophils Percent Auto 0.9 % (0-2); Eosinophils Absolute Auto 0.1 X10*3/uL (0.0-0.4); Eosinophils Percent Auto 1.7 % (0-4); Hematocrit 36.6 % (37.0-47.0); Hemoglobin 12.1 g/dl (12.0-16.0); Imm Gran Abs Auto 0.01 X10*3/uL (0.00-0.03); Imm Gran Pct Auto 0.2 % (0.0-0.4); Lymphocytes Percent Auto 43.3 % (20-40); Mean Corpuscular HGB Conc 33.1 g/dl (31.0-35.0); Mean Corpuscular Hemoglobin 28.1 pg (27.0-33.0); Mean Corpuscular Volume 85.1 fL (80.0-98.0); Mean Platelet Volume 8.9 fL (9.4-12.3); Monocytes Absolute Auto 0.3 X10*3/uL (0.1-1.2); Monocytes Percent Auto 7.3 % (2-11); Neutrophils Absolute Auto 2.2 x10*3/uL (2.0-8.3); Neutrophils Percent Auto 46.6 % (45-73); Platelet Count 269 X10*3/uL (160-400); Red Cell Distribution Width 14.6 % (11.0-16.0); White Blood Count 4.6 X10*3/uL (4.8-10.8)
[2023-12-18 18:35] LABS: Alanine Aminotransferase 20 U/L (0-31); Albumin Level 4.4 g/dL (3.5-5.0); Alkaline Phosphatase 94 U/L (39-117); Anion Gap 8 (12-20); Aspartate Amino Transferase 21 U/L (5-31); Bilirubin Total 0.4 mg/dL (0.0-1.0); Blood Urea Nitrogen 14 mg/dL (9-16); Calcium 9.6 mg/dL (8.4-10.2); Carbon Dioxide 30 mmol/L (22-29); Chloride 109 mmol/L (96-108); Creatinine Clr Calc Pharmacy 64.3; Estimated Glomerular Filt Rate > 60; Glucose Random 89 mg/dL (60-115); Lipase 45 U/L (8-78); Magnesium 2.3 mg/dL (1.6-2.6); Potassium 3.8 mmol/L (3.3-5.1); Sodium 143 mmol/L (135-145)
[2023-12-18 18:44] LABS: Troponin-I High Sensitivity < 2.7 ng/L (<3.5-17.0)
[2023-12-18 18:58] LABS: Influenza A PCR NEGATIVE (Negative); Influenza B PCR NEGATIVE (Negative); Resp Syncy Virus RNA Qual PCR NEGATIVE (Negative); SARS COV2 PCR INHOUSE NEGATIVE (Negative)
--- NOTE | 2023-12-18 22:38 | MHC.EDTECH ---
patient 2nd trop drawn and sent to lab .
--- NOTE | 2023-12-18 22:46 | MHC.EDTECH ---
Patient 2nd trop drawn and sent to lab .
[2023-12-18 23:07] LABS: Troponin-I High Sensitivity < 2.7 ng/L (<3.5-17.0)
[2023-12-19 00:57] VITALS: BP 114/67; PULSE 80; RESP 16; TEMP 36.6; O2SAT 99
--- NOTE | 2023-12-19 01:25 | PC.NURSE ---
This Rn reviewed discharge instruction with pt. pt verbalized understanding, no sign of distress, pt able to speak in full sentence, with a steady gait.
[2023-12-19 01:27] VITALS: BP 114/67; PULSE 80; RESP 16; TEMP 36.6; O2SAT 99
== END 2023-12-19 01:27 | disposition home or self-care (01) ==
PROVIDERS: Physician Assistant Medical; Emergency Provider Emergency Medicine
DX: R07.89 Other chest pain (principal); Z79.899 Other long term (current) drug therapy; Z20.822 Contact with and (suspected) exposure to COVID-19; Z11.52 Encounter for screening for COVID-19
CPT/HCPCS: 0241U; 36415; 71046; 80053; 83690; 83735; 84484; 85025; 93005; 99283; 99284

== ENCOUNTER → 2023-12-18 17:15 | Outpatient (BNV) | payer MEDICAID, SELFPAY | PROVIDERS: Emergency Provider Emergency Medicine; Visit Provider Internal Medicine | DX: R07.9 Chest pain, unspecified (principal) | CPT/HCPCS: 93010 ==

== ENCOUNTER 2024-01-17 13:26 | Outpatient (AMB) | payer MEDICAID, SELFPAY ==
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
== END 2024-01-17 14:02 | disposition home or self-care (01) ==
PROVIDERS: Visit Provider Physician Assistant
DX: M25.642 Stiffness of left hand, not elsewhere classified (principal); S63.613D Unspecified sprain of left middle finger, subsequent encounter; S63.92XD Sprain of unspecified part of left wrist and hand, subsequent encounter; S60.032A Contusion of left middle finger without damage to nail, initial encounter; Y09 Assault by unspecified means
CPT/HCPCS: 99213

== ENCOUNTER → 2024-01-17 13:26 | Outpatient (BNVA) | payer MEDICAID, SELFPAY | PROVIDERS: Visit Provider Physician Assistant | DX: M25.642 Stiffness of left hand, not elsewhere classified (principal); S63.613D Unspecified sprain of left middle finger, subsequent encounter; S63.92XD Sprain of unspecified part of left wrist and hand, subsequent encounter; S60.032D Contusion of left middle finger without damage to nail, subsequent encounter; Y04.8XXD Assault by other bodily force, subsequent encounter; M79.7 Fibromyalgia | CPT/HCPCS: 99212 ==

== ENCOUNTER 2024-03-30 19:51 | Emergency (ER) | payer MEDICAID, SELFPAY ==
--- NOTE | ~2024-03-30 | CT_ITS ---
EXAMINATION: NONCONTRAST HEAD CT NONCONTRAST CERVICAL SPINE CT INDICATION INFORMATION: Trauma with pain COMPARISON: 01/17/2021 TECHNIQUE: Separate noncontrast CT examinations of the head and cervical spine were performed. Coronal head CT images and coronal and sagittal cervical spine images were created at the technologist workstation. DLP: 796 mGy-cm DOSE LOWERING TECHNIQUES: This CT examination was performed using dose optimization techniques as appropriate, variously including the following: - Automated exposure control - Adjustment of mA and/or kV according to patient size (this includes techniques or standardized protocols for targeted exams were dose is matched to indication/reason for exam; i.e. extremities or head) - Use of iterative reconstruction technique FINDINGS: Head: There is no evidence of acute intracranial hemorrhage or territorial infarction. No abnormal mass-effect or midline shift is seen. Burroughs to white matter differentiation is well preserved. No extra-axial fluid collections are identified. The ventricles are normal in size. There is no abnormal attenuation within the brain parenchyma. The osseous structures and soft tissues are normal. The mastoid air cells and visualized portions of the paranasal sinuses are well-aerated. Cervical spine: There is anatomic alignment of the vertebral bodies and posterior elements. Vertebral body heights are maintained. There is disc space narrowing and endplate osteophyte formation extending from C3 through C7. No evidence of acute fracture. No prevertebral soft tissue swelling. Visualized portions of the lung apices are unremarkable. The thyroid gland is unremarkable. CT/CT head/brain wo IV con IMPRESSION: No acute findings identified in the head or cervical spine. Degenerative changes of the cervical spine.
--- NOTE | ~2024-03-30 | CT_ITS ---
EXAMINATION: NONCONTRAST HEAD CT NONCONTRAST CERVICAL SPINE CT INDICATION INFORMATION: Trauma with pain COMPARISON: 01/17/2021 TECHNIQUE: Separate noncontrast CT examinations of the head and cervical spine were performed. Coronal head CT images and coronal and sagittal cervical spine images were created at the technologist workstation. DLP: 796 mGy-cm DOSE LOWERING TECHNIQUES: This CT examination was performed using dose optimization techniques as appropriate, variously including the following: - Automated exposure control - Adjustment of mA and/or kV according to patient size (this includes techniques or standardized protocols for targeted exams were dose is matched to indication/reason for exam; i.e. extremities or head) - Use of iterative reconstruction technique FINDINGS: Head: There is no evidence of acute intracranial hemorrhage or territorial infarction. No abnormal mass-effect or midline shift is seen. Burroughs to white matter differentiation is well preserved. No extra-axial fluid collections are identified. The ventricles are normal in size. There is no abnormal attenuation within the brain parenchyma. The osseous structures and soft tissues are normal. The mastoid air cells and visualized portions of the paranasal sinuses are well-aerated. Cervical spine: There is anatomic alignment of the vertebral bodies and posterior elements. Vertebral body heights are maintained. There is disc space narrowing and endplate osteophyte formation extending from C3 through C7. No evidence of acute fracture. No prevertebral soft tissue swelling. Visualized portions of the lung apices are unremarkable. The thyroid gland is unremarkable. CT/CT cervical spine wo IV con IMPRESSION: No acute findings identified in the head or cervical spine. Degenerative changes of the cervical spine.
[2024-03-30 21:26] VITALS: BP 102/42; PULSE 88; RESP 16; TEMP 36.6; O2SAT 99; BMI 21.3
[2024-03-30 23:17] VITALS: BP 103/56; PULSE 69; RESP 12; TEMP 36.7; O2SAT 100
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
[2024-03-31] MEDS: Ketorolac Tromethamine 30 MG/ML VIAL IM (00:44)
[2024-03-31] MEDS: Lidocaine 4 % Patch ADH..PATCH 1 PATCH TRANSDERMA (00:44)
[2024-03-31 00:54] VITALS: BP 103/56; PULSE 69; RESP 12; TEMP 36.7; O2SAT 100
== END 2024-03-31 00:54 | disposition home or self-care (01) ==
PROVIDERS: Emergency Provider Emergency Medicine
DX: S06.0X0A Concussion without loss of consciousness, initial encounter (principal); R51.9 Headache, unspecified; M54.2 Cervicalgia; Y29.XXXA Contact with blunt object, undetermined intent, initial encounter; Y93.89 Activity, other specified; Y92.810 Car as the place of occurrence of the external cause; Y99.8 Other external cause status
CPT/HCPCS: 70450; 72125; 96372; 99283; 99284; J1885

== ENCOUNTER 2024-04-10 12:06 | Outpatient (REF) | payer MEDICAID, SELFPAY ==
[2024-04-10 13:58] LABS: Cholesterol 152 mg/dL (<200); HDL Cholesterol 59 mg/dL (>40); LDL Cholesterol Calculated 70 mg/dL (<100); Triglycerides 115 mg/dL (<150)
[2024-04-10 14:13] LABS: TSH reflex Free T4 1.28 uIU/mL (0.32-4.0); Vitamin D 25-OH Total 34.2 ng/mL (>30)
[2024-04-10 15:46] LABS: Reflex LDLD? No
[2024-04-12 03:51] LABS: Syphilis Screen Nonreactive (Nonreactive)
[2024-04-12 04:04] LABS: HIV AB/AG Nonreactive (Nonreactive); HIV Num 1 0.05 S/CO (0.00-0.99)
== END 2024-04-10 12:07 | disposition home or self-care (01) ==
LOC: HO.HHCL 12:06
PROVIDERS: Visit Provider Internal Medicine
DX: Z00.00 Encounter for general adult medical examination without abnormal findings (principal); Z69.81 Encounter for mental health services for victim of other abuse; B35.4 Tinea corporis; F33.1 Major depressive disorder, recurrent, moderate; F17.200 Nicotine dependence, unspecified, uncomplicated
CPT/HCPCS: 36415; 80061; 82306; 84443; 86780; 87389

== ENCOUNTER 2024-04-27 13:59 | Outpatient (REF) | payer MEDICAID, SELFPAY ==
--- NOTE | ~2024-04-27 | MM_ITS ---
EXAMINATION: MM DIAGNOSTIC DIGITAL BREAST TOMOSYNTHESIS, BILATERAL US BREAST LIMITED, BILATERAL MAMMOGRAPHY: CLINICAL INFORMATION: 53-year-old female, recent 25 pound weight loss, history of fibrocystic changes with benign complicated cysts with apocrine metaplasia right breast, complaining of 2 foci of palpable concern right breast at 4:00 and 6:00 axes, and one focus left breast at the approximate 3:00 axis. COMPARISON: Mammography: 07/23/2023, 06/29/2020, 05/16/2018. Targeted right breast ultrasound 01/12/2021, 06/29/2020, 05/10/2017, and 04/05/2016. TECHNIQUE: Digital breast tomosynthesis is performed in both the craniocaudal and mediolateral oblique views along with computer-aided detection (CAD). Synthesized 2D images are generated from the tomosynthesis. In addition to standard views, 3-D spot compression bilateral CC and MLO views were obtained of the palpable foci, as well as a full-field 3-D repeat MLO. This was followed by bilateral targeted breast ultrasound. FINDINGS: The breasts are extremely dense, which lowers the sensitivity of mammography (ACR BI-RADS breast composition Category d). Mammography demonstrates numerous circumscribed masses in both breasts, similar to prior exams and consistent with the known complicated cysts and fibrocystic changes. Palpable foci appear to be in the vicinity of round and oval benign masses, although these areas will be evaluated with ultrasound. Otherwise, no suspicious grouped calcifications, suspicious masses, or areas of architectural distortion in either breast. Overall parenchymal pattern is unchanged allowing for technical differences. There is no skin or axillary abnormality. ULTRASOUND: CLINICAL INFORMATION: As above. COMPARISON: As above. TECHNIQUE: Targeted sonographic evaluation was performed using a high frequency linear transducer. Attention was given right breast 4:00 and 6:00 axes and regions of palpable concern, and left breast 3:00 axis in region of palpable concern. Selected archived documentation. FINDINGS: RIGHT BREAST: -At the 4:00 axis, 3 cm from the nipple, there is an oval circumscribed mass with good through transmission and no internal color Doppler flow, hypoechoic with low-level internal echoes, measuring 5 x 4 x 4 mm. This is benign. This correlates with the 4:00 axis palpable focus of concern. -At the 6:00 axis, 2 cm from the nipple, there is an oval hypoechoic circumscribed mass versus cyst with good through transmission, no internal color Doppler flow, low-level internal echoes, and benign features. This is benign. This correlates with the 6:00 area of palpable concern. Both of these areas are unchanged from 09/22/2021 ultrasound. There are no suspicious findings. LEFT BREAST: -At the 2:00 axis, 3 cm from the nipple, correlating with the area of palpable concern, there is a 3 x 4 x 4 mm oval circumscribed mass with good through transmission and no internal color Doppler flow, hypoechoic with low level internal echoes, benign. This correlates well with the approximate 3:00 area of palpable concern left breast. There are no suspicious findings. MM/MM tomosynthesis diagnostic BI IMPRESSION: 1. There are no findings suspicious for malignancy in either breast. 2. There is extremely dense breast parenchyma with bilateral circumscribed round and oval masses, consistent with known benign complicated cysts/benign masses. 3. Palpable foci bilaterally correlate with benign masses/complicated cysts. 4. Recommend the patient return to routine annual screening. Benign findings. OVERALL ASSESSMENT: Mammography: BI-RADS 2 - Benign Findings Ultrasound: BI-RADS 2 - Benign Findings RECOMMENDATION: 1 year F/U This patient's information was entered into a reminder system with a target due date for their next mammogram. Electronically signed by: Joey Rubi MD 04/27/2024 03:46 PM EDT
== END 2024-04-27 14:00 | disposition home or self-care (01) ==
LOC: HO.MAMMO 13:59
PROVIDERS: PCP Internal Medicine; Visit Provider Internal Medicine
DX: N64.4 Mastodynia (principal)
CPT/HCPCS: 76642; 77062; 77066

== ENCOUNTER → 2024-04-27 14:00 | Outpatient (BNV) | payer MEDICAID, SELFPAY | PROVIDERS: PCP Internal Medicine; Visit Provider Radiology Diagnostic Radiology | DX: N63.15 Unspecified lump in the right breast, overlapping quadrants (principal); N63.25 Unspecified lump in the left breast, overlapping quadrants | CPT/HCPCS: 76642; 77062; 77066 ==

== ENCOUNTER 2024-05-12 07:58 | Day surgery (SDC) | payer MEDICAID, SELFPAY ==
[2024-05-08 07:38] VITALS: BMI 20.8
--- NOTE | 2024-05-11 09:18 | HO.ANESPROP2 ---
HPI - Anesthesia Eval Consult details Narrative: 53yo F for Colonoscopy PMFSH Active Problems Active Problems: All Active Problems Contusion of left middle finger (Acute) Sprain of left hand (Acute) Sprain of left middle finger (Acute) Stiffness of finger joint of left hand (Acute) Postmenopausal bleeding (Acute) Tubular adenoma (Acute) Kidney stones (Acute) Epidermal cyst of neck (Acute) Gastroesophageal reflux disease (Acute) Female pelvic pain (Acute) ASCUS of cervix with negative high risk HPV (Acute) Past Medical History Medical History Fibromyalgia Epidermal cyst of neck Gastroesophageal reflux disease COVID-19 Female pelvic pain ASCUS of cervix with negative high risk HPV Hx of abnormal cervical Pap smear Encounter for repeat Papanicolaou smear of cervix Encounter for annual routine gynecological examination Tubular adenoma PONV (postoperative nausea and vomiting) Potential exposure to STD Well woman exam with routine gynecological exam Breast lump Hx of ectopic MRSA (methicillin resistant Staphylococcus aureus) Kidney stones SAB (spontaneous ) Family History Family History Father Diabetes mellitus CVD (cardiovascular disease) Hyperlipemia Mother Diabetes mellitus HTN (hypertension) Colon cancer Liver cancer Maternal Grandmother Diabetes mellitus Maternal Aunt Breast cancer Paternal Grandfather Colon cancer Maternal Grandfather Stomach cancer Surgical History Surgical History History of excision of epidermal inclusion cyst (~01/17/23) History of removal of cyst (~01/17/23) Hx of hemorrhoidectomy H/O elbow surgery H/O lithotripsy Hx of endoscopy History of colonoscopy History of hernia repair Hx of appendectomy Hx of cholecystectomy Hx of breast biopsy Social History Social History Household Members: Children Alcohol intake: current Alcohol intake frequency: holidays/special occasions only Alcohol type: hard liquor Patient Tobacco Use Status: Current everyday Tobacco user Cigarettes Per Day: 5 Years Smoked: 8 Use of substances other than those prescribed or required for medical reasons: Yes Substance Use Type: Marijuana Substance Use Frequency: Daily Are you DNR?: No Advance Directives: No Advance Directives Information Provided: Yes Recently lost weight without trying: No Patient : No Current occupational status: disabled Gender identity: Female Meds Allergies Allergy/AdvReac Type Severity Reaction Status Date / Time bee pollen [BEE STINGS] Allergy Severe THROAT Verified 05/12/24 08:49 SWELLING codeine [Codeine] Allergy Severe CAN'T Verified 05/12/24 08:49 BREATHE, SWELLING,RASH tramadol [TRAMADOL] Allergy Intermediate ABD PAIN- Verified 05/12/24 08:49 COULD NOT EAT - FELT SICK Exam Height,Weight and Vital Signs: Height 4 ft 11 in Weight 46.72 kg Assessment and Plan Assessment Anesthesia Assessment: Chart Reviewed
--- NOTE | 2024-05-12 08:41 | MHC.SHP ---
Pre-Procedural Eval Section A - 24 Hr Update-Section A only Date of Service: 05/12/24 The patient is an INPATIENT: No The patient has been examined within 24 hours of the surgical procedure. The History & Physical has been completed within 30 days and I have reviewed it.: No Section B - Complete if H&P > 30 days Chief Complaint: Surveillance for colon polyps Relevant Family History (Specify if Yes): Yes Relevant Social History: Tobacco Use Present Medications: see Short Stay Collaborative assessment Medical History: Significant History (Fibromyalgia Epidermal cyst of neck Gastroesophageal reflux disease COVID-19 Female pelvic pain ASCUS of cervix with negative high risk HPV Hx of abnormal cervical Pap smear Encounter for repeat Papanicolaou smear of cervix Encounter for annual routine gynecological examination Tubular adenoma PONV ) History of Previous Operations: Relevant previous surgery/procedure and date(s) (History of excision of epidermal inclusion cyst (~01/17/23) History of removal of cyst (~01/17/23) Hx of hemorrhoidectomy H/O elbow surgery H/O lithotripsy Hx of endoscopy History of colonoscopy History of hernia repair Hx of appendectomy Hx of cholecystectomy Hx of breast biopsy) Allergies: Allergies Allergy/AdvReac Type Severity Reaction Status Date / Time bee pollen [BEE STINGS] Allergy Severe THROAT Verified 03/30/24 21:26 SWELLING codeine [Codeine] Allergy Severe CAN'T Verified 03/30/24 21:26 BREATHE, SWELLING,RASH tramadol [TRAMADOL] Allergy Intermediate ABD PAIN- Verified 03/30/24 21:26 COULD NOT EAT - FELT SICK Review of Systems Sugical H&P ROS: Negative: Constitution, Cardiovascular, Respiratory and Gastrointestinal Exam Surgical H&P Exam: Normal: Heart, Normal: Lungs, Normal: Extremities and Normal: Abdomen Plan Diagnosis/Plan: Change (proceed with colonoscopy for fu of colon polyps) I have reviewed the history and physical and performed a pertinent physical examination on my patient. No changes have occurred unless specified. Time Spent With Patient Time: Total time managing care of this patient today ____ minutes.
[2024-05-12 09:03] VITALS: BP 106/63; PULSE 55; RESP 16; TEMP 36.2; O2SAT 99; BMI 19.8
[2024-05-12] MEDS: Lactated Ringers 1,000 ML 100 ML IVCONT (09:16)
--- NOTE | 2024-05-12 09:39 | P.CONAN_ITS ---
[facility] Active Problems Active Problems: All Active Problems Contusion of left middle finger (Acute) Sprain of left hand (Acute) Sprain of left middle finger (Acute) Stiffness of finger joint of left hand (Acute) Postmenopausal bleeding (Acute) Tubular adenoma (Acute) Kidney stones (Acute) Epidermal cyst of neck (Acute) Gastroesophageal reflux disease (Acute) Female pelvic pain (Acute) ASCUS of cervix with negative high risk HPV (Acute) Past Medical History Medical History Fibromyalgia Epidermal cyst of neck Gastroesophageal reflux disease COVID-19 Female pelvic pain ASCUS of cervix with negative high risk HPV Hx of abnormal cervical Pap smear Encounter for repeat Papanicolaou smear of cervix Encounter for annual routine gynecological examination Tubular adenoma PONV (postoperative nausea and vomiting) Potential exposure to STD Well woman exam with routine gynecological exam Breast lump Hx of ectopic MRSA (methicillin resistant Staphylococcus aureus) Kidney stones SAB (spontaneous ) Patient : No Family History Family History Father Diabetes mellitus CVD (cardiovascular disease) Hyperlipemia Mother Diabetes mellitus HTN (hypertension) Colon cancer Liver cancer Maternal Grandmother Diabetes mellitus Maternal Aunt Breast cancer Paternal Grandfather Colon cancer Maternal Grandfather Stomach cancer Family history of problems with anesthesia: No Surgical History Surgical History History of excision of epidermal inclusion cyst (~01/17/23) History of removal of cyst (~01/17/23) Hx of hemorrhoidectomy H/O elbow surgery H/O lithotripsy Hx of endoscopy History of colonoscopy History of hernia repair Hx of appendectomy Hx of cholecystectomy Hx of breast biopsy History of Problems with Anesthesia: No Social History Social History Household Members: Children Alcohol intake: current Alcohol intake frequency: holidays/special occasions only Alcohol type: hard liquor Patient Tobacco Use Status: Current everyday Tobacco user Cigarettes Per Day: 5 Years Smoked: 8 Use of substances other than those prescribed or required for medical reasons: Yes Substance Use Type: Marijuana Substance Use Frequency: Daily Are you DNR?: No Advance Directives: No Advance Directives Information Provided: Yes Recently lost weight without trying: No Current occupational status: disabled Gender identity: Female Meds Allergies Allergy/AdvReac Type Severity Reaction Status Date / Time bee pollen [BEE STINGS] Allergy Severe THROAT Verified 05/12/24 08:49 SWELLING codeine [Codeine] Allergy Severe CAN'T Verified 05/12/24 08:49 BREATHE, SWELLING,RASH tramadol [TRAMADOL] Allergy Intermediate ABD PAIN- Verified 05/12/24 08:49 COULD NOT EAT - FELT SICK Active Medications: Current Medications Lactated Ringer's (Lr) 1,000 mls @ 100 mls/hr IVCONT .Q10H ROSEMARY Last Admin: 05/12/24 09:16 Dose: 100 mls/hr Exam Height,Weight and Vital Signs: Height 4 ft 11 in Weight 44.452 kg Last Vital Signs Temp 97.2 F 05/12/24 09:03 Pulse 55 05/12/24 09:03 Resp 16 05/12/24 09:03 BP 106/63 05/12/24 09:03 Pulse Ox 99 05/12/24 09:03 O2 Del Method Room Air 05/12/24 09:03 Airway Mallampati Class: II TM Dist: >3cm Neck ROM: Full Heart: RRR Lungs: CTA Assessment and Plan Assessment Anesthesia Assessment: Anesthesia Plan Discussed, Smoking Cess. Discussed and Chart Reviewed Final Anesthetic Review Family History of Problems with Anesthesia: No History of Problems with Anesthesia: No NPO: Yes ASA Class: II Final Preanesthetic Review: Meds/Allgs Chart Reviewed, Consent Obtained/Reviewed and Anes Risks/Benef Reviewed Patient Risk: Low Procedure Risk: Low Anesthetic Plan Anesthetic Plan: MAC: Disposition: Standard PACU
[2024-05-12 10:08] VITALS: BP 84/43; PULSE 77; RESP 16; TEMP 36.2; O2SAT 100
--- NOTE | 2024-05-12 10:12 | HO.OPN-COLON ---
Colonoscopy Operative Note Operative Note Date of Service: 05/12/24 Narrative: COLONOSCOPY TILL CECUM WITH BIOPSIES Pre-op diagnosis: Colon cancer screening, hx of colitis. Post-op diagnosis:? Diverticulosis, hemorrhoids Endoscopist:? Antony Claros MD Anesthesia:?MAC Consent: Indications for the procedure and potential complications of bleeding, perforation, reaction to medications and missed diagnosis were discussed with the patient and informed consent was obtained. Instrument: Olympus PCF H 190 L variable stiffness pediatric colonoscope Monitoring: Vital signs and clinical assessment, intermittent blood pressure monitoring, continuous EKG monitoring, Pulse oximetry and Carbon Dioxide monitoring were done throughout the procedure. Please see anesthesia flowsheet. Colon withdrawl time was 17 minutes. Procedure: The patient was placed in the left lateral decubitis position and pre-procedure medications were administered. After a digital rectal examination of the ano-rectum, the video colonoscope was inserted into the rectum and advanced through the colon to the cecum. The colonoscope was slowly withdrawn in a retrograde panoramic fashion and the colon mucosa was carefully examined including a retroflexed view of the rectum. Findings and interventions are described below. Procedure Difficulty: without difficulty Findings: Terminal Ileum: Not evaluated Cecum: Normal Ascending Colon: Normal Transverse Colon: Normal Descending Colon: Normal Sigmoid Colon: Moderate diverticulosis Rectum: Normal Ano-rectum: Small non-bleeding internal hemorrhoids Colon preparation: Excellent, after copious irrigation. [place] Bowel Preparation Scale Right colon; 3 Transverse colon: 3 Left colon; 3 (0 = Unprepared colon segment with mucosa not seen due to solid stool that cannot be cleared. 1 = Portion of mucosa of the colon segment seen, but other areas of the colon segment not well seen due to staining, residual stool and/or opaque liquid. 2 = Minor amount of residual staining, small fragments of stool and/or opaque liquid, but mucosa of colon segment seen well. 3 = Entire mucosa of colon segment seen well with no residual staining, small fragments of stool or opaque liquid) Impression and Post Procedure Diagnosis: Colonoscopy Findings: No polyps were detected. Random biopsies were obtained from the left colon to check for microscopic colitis Moderate diverticulosis seen in the sigmoid colon Small hemorrhoids on retroflexed exam. Plan: Pt has a FU appointment on 05/26/24 with Marguerite Valles NP Repeat Colonoscopy in 5 years if colon biopsies are normal and due to a history of adenomatous colon polyps Above findings were reviewed with the patient and relevant handouts were given and the discharge area. BIOPSIES SHOWED: Colon, left, biopsy: Colonic mucosa within normal limits; negative for microscopic colitis. Letter sent to the patient advising repeat colonoscopy in 5 years. Patient was placed on the colonoscopy recall list
[2024-05-12] MEDS: Acetaminophen 325 MG TABLET 650 MG PO (10:25)
[2024-05-12 10:29] VITALS: BP 104/63; PULSE 66; RESP 19; TEMP 36.1; O2SAT 100
--- NOTE | 2024-05-12 10:45 | HO.POSTANES ---
Post Anesthesia Evaluation Post Anesthesia Evaluation Date of Service: 05/12/24 Vital Signs: Vital Signs Temp Pulse Resp BP Pulse Ox O2 Del Method 05/12/24 10:29 97.0 F 66 19 104/63 100 Room Air 05/12/24 10:08 97.1 F 77 16 84/43 L 100 Room Air 05/12/24 09:03 97.2 F 55 16 106/63 99 Room Air Anesthesia: Monitored Mental Status: Awake Pain Control: Satisfactory Nausea/Vomiting: None Hydration: Adequate Anesthesia-Related Issues: No Anes. Related Issues
== END 2024-05-12 11:05 | disposition home or self-care (01) ==
PROVIDERS: Visit Provider Internal Medicine Gastroenterology
PROC: 0DJD8ZZ Inspection of Lower Intestinal Tract, Via Natural or Artificial Opening Endoscopic (ICD-10-PCS; CPT 45378; principal; 2024-05-12 09:20)
DX: Z12.11 Encounter for screening for malignant neoplasm of colon (principal); Z86.010 Personal history of colon polyps; K64.8 Other hemorrhoids; K57.30 Diverticulosis of large intestine without perforation or abscess without bleeding; K21.9 Gastro-esophageal reflux disease without esophagitis; Z87.19 Personal history of other diseases of the digestive system; Z86.19 Personal history of other infectious and parasitic diseases; M79.7 Fibromyalgia; Z87.442 Personal history of urinary calculi; Z88.5 Allergy status to narcotic agent; Z90.49 Acquired absence of other specified parts of digestive tract; Z98.890 Other specified postprocedural states
CPT/HCPCS: 45380; 88305; J2704

== ENCOUNTER → 2024-05-12 07:58 | Outpatient (BNV) | payer MEDICAID, SELFPAY | PROVIDERS: Visit Provider Internal Medicine Gastroenterology | DX: Z12.11 Encounter for screening for malignant neoplasm of colon (principal); Z87.19 Personal history of other diseases of the digestive system; K57.30 Diverticulosis of large intestine without perforation or abscess without bleeding; K64.8 Other hemorrhoids | CPT/HCPCS: 45380 ==

== ENCOUNTER 2024-05-27 06:36 | Emergency (ER) | payer MEDICAID, SELFPAY ==
[2024-05-27 06:39] VITALS: BP 118/62; PULSE 99; RESP 20; TEMP 36.8; O2SAT 98; BMI 21.4
== END 2024-05-27 07:25 | disposition left against medical advice (07) ==
PROVIDERS: Emergency Provider Emergency Medicine
DX: R05.9 Cough, unspecified (principal); R06.02 Shortness of breath
CPT/HCPCS: 99281

== ENCOUNTER 2024-08-10 08:17 | Emergency (ER) | payer MEDICAID, SELFPAY ==
--- NOTE | ~2024-08-10 | XR_ITS ---
EXAMINATION: XR CHEST CLINICAL INFORMATION: Dyspnea. COMPARISON: Most recent chest radiograph dated 12/18/2023. TECHNIQUE: 2 views of the chest were obtained. FINDINGS: The lungs are clear. The cardiomediastinal silhouette is normal in size. There is no pleural effusion or pneumothorax. No acute osseous abnormality. XR/XR chest 2V IMPRESSION: No acute cardiopulmonary findings. Electronically signed by: Tevin Olmos MD 08/10/2024 10:20 AM [facility]
[2024-08-10 08:25] VITALS: BP 123/76; PULSE 93; RESP 20; TEMP 36.4; O2SAT 100; BMI 19.9
[2024-08-10 08:55] LABS: IDNOW Serial# 08D9AD1C; Strep A Nucleic Acid Negative (Negative)
[2024-08-10 09:24] LABS: Influenza A PCR NEGATIVE (Negative); Influenza B PCR NEGATIVE (Negative); Resp Syncy Virus RNA Qual PCR NEGATIVE (Negative); SARS COV2 PCR INHOUSE NEGATIVE (Negative)
--- NOTE | 2024-08-10 09:30 | ED.SOB ---
HPI - SOB/Dyspnea General Chief Complaint: Dyspnea Stated Complaint: SOB Time Seen by Provider: 08/10/24 09:11 Source: patient Mode of arrival: ambulatory Limitations: no limitations History of Present Illness ED Provider: YASMIN GONZALEZ PA-C HPI Narrative: 54 year old female with pmhx significant for GERD, fibromyalgia, and cardiac cath x2 (negative, no stents) presents to the ED today for evaluation of dry cough x2 weeks. She reports feeling as though she needs to expel sputum however chokes on it and dry heaves. Reports feeling SOB yesterday with associated chest tightness. She admits to lung pain and sore throat secondary to excessive coughing. Denies known sick contatcs. Denies recent travel or long car rides. Denies fever, chills, hemoptysis, sputum production, lower extremity pain/swelling, nausea or vomiting, abdominal pain, rashes. Related Data Previous Rx's ?Medication ?Instructions ?Recorded hydrocortisone 2.5 % topical cream 1 appl NE QID PRN hemorrhoids #30 10/27/20 with perineal applicator grams (Anusol-HC) omeprazole 40 mg capsule,delayed 40 mg PO DAILY #90 caps 09/26/21 release naproxen 500 mg tablet (Naprosyn) 500 mg PO BID #20 tabs 11/20/22 ketorolac 10 mg tablet 10 mg PO TID PRN pain 5 days #15 03/30/24 tabs azithromycin 250 mg tablet See Rx Instructions PO .COMPLEX #6 08/10/24 tabs guaifenesin 200 mg tablet 200 mg PO TID PRN cough #10 tabs 08/10/24 ibuprofen 600 mg tablet 600 mg PO Q8H PRN fever or pain 08/10/24 #30 tabs prednisone 20 mg tablet 40 mg (2 x 20 mg) PO DAILY 5 days 08/10/24 #10 tabs Allergies Allergy/AdvReac Type Severity Reaction Status Date / Time bee pollen [BEE STINGS] Allergy Severe THROAT Verified 08/10/24 08:29 SWELLING codeine [Codeine] Allergy Severe CAN'T Verified 08/10/24 08:29 BREATHE, SWELLING,RASH tramadol [TRAMADOL] Allergy Intermediate ABD PAIN- Verified 08/10/24 08:29 COULD NOT EAT - FELT SICK Review of Systems Review of Systems: Yes all other systems are reviewed and are negative PMFSH Past Medical History Attestation statement: The following information was validated with the patient. Source: old records reviewed and nursing notes reviewed Medical History Fibromyalgia Epidermal cyst of neck Gastroesophageal reflux disease COVID-19 Female pelvic pain ASCUS of cervix with negative high risk HPV Hx of abnormal cervical Pap smear Encounter for repeat Papanicolaou smear of cervix Encounter for annual routine gynecological examination Tubular adenoma PONV (postoperative nausea and vomiting) Potential exposure to STD Well woman exam with routine gynecological exam Breast lump Hx of ectopic MRSA (methicillin resistant Staphylococcus aureus) Kidney stones SAB (spontaneous ) Surgical History History of excision of epidermal inclusion cyst (~01/17/23) History of removal of cyst (~01/17/23) Hx of hemorrhoidectomy H/O elbow surgery H/O lithotripsy Hx of endoscopy History of colonoscopy History of hernia repair Hx of appendectomy Hx of cholecystectomy Hx of breast biopsy Family History Family History Father Diabetes mellitus CVD (cardiovascular disease) Hyperlipemia Mother Diabetes mellitus HTN (hypertension) Colon cancer Liver cancer Maternal Grandmother Diabetes mellitus Maternal Aunt Breast cancer Paternal Grandfather Colon cancer Maternal Grandfather Stomach cancer Social History Social History Household Members: Children Alcohol intake: current Alcohol intake frequency: holidays/special occasions only Alcohol type: hard liquor Patient Tobacco Use Status: Current everyday Tobacco user Cigarettes Per Day: 5 Years Smoked: 8 Smoked in Last 30 Days: Yes Use of substances other than those prescribed or required for medical reasons: Yes Substance Use Type: Marijuana Advance Directives: No Advance Directives Information Provided: Yes Do you have a plan to hurt others: No Plan Current occupational status: disabled Gender identity: Female Physical Exam Vital Signs: Vital Signs: Last Vital Signs Temp 97.5 F 08/10/24 08:25 Pulse 93 08/10/24 08:25 Resp 16 08/10/24 09:49 BP 123/76 08/10/24 08:25 Pulse Ox 100 08/10/24 08:25 O2 Del Method Room Air 08/10/24 08:25 BMI result Body Mass Index 19.9 Vital signs stable, afebrile. Not hypoxic. General: Well appearing, in no acute distress. Skin: Warm, dry, intact. No rashes or lesions. Head: Normocephalic, atraumatic. EENT: Hearing is intact b/l. Conjunctiva clear. PERRLA. EOM intact. Moist mucous membranes.? Neck: Supple without LAD Cardiac: Chest wall symmetric. RRR Lungs: Bronchospastic cough, no tripoding, no increased effort of breathing, lungs clear to auscultation bilaterally with equal breath sounds Ext: Upper and lower extremities atraumatic, without tenderness, deformity, swelling or erythema. No calf tenderness. Neuro: AOx3. Normal speech. Ambulating with steady gait. Psych: Appropriate mood and affect. Responds appropriately to questions. Course Course Course Narrative: Patient tested negative for COVID, flu, RSV, strep throat. Chest x-ray does not demonstrate pneumonia. Respiratory panel pending - informed patient she will be called with any positive results. Will treat for bronchitis. Azithromycin, prednisone and guaifenesin sent to pharmacy. Patient has remained stable throughout ED visit today. Discussed worrisome signs and symptoms and when to return to the ED. All questions answered at this time. Patient is agreeable with disposition and stable for discharge. Medications Administered Discontinued Medications Generic Name Dose Route Start Last Admin Trade Name Freq PRN Reason Stop Dose Admin Methylprednisolone Sodium Succinate 60 mg 08/10/24 09:33 08/10/24 09:58 Methylprednisolone Sod Succ 125 Mg/2 Ml Vial IM 08/10/24 09:34 60 mg ONCE ONE Administration Medical Decision Making Medical Decision Making [facility] Narrative: 54 year old female with pmhx significant for GERD, fibromyalgia, and cardiac cath x2 (negative, no stents) presents to the ED today for evaluation of dry cough x2 weeks. Vital signs stable, afebrile, not hypoxic or tachycardic. On exam, patient sitting up in bed with bronchospastic cough. No tripoding or increased effort of breathing. Lungs are CTA b/l with equal breath sounds. Posterior oropharynx WNL. No pitting edema. No calf tenderness. No rashes. Differential diagnosis includes viral syndrome, strep throat, pneumonia, bronchitis Plan for viral and strep swabs, respiratory panel, chest x-ray, re-evaluation Differential Diagnosis Differential Diagnoses: The differential diagnosis associated with the presentation includes as above Admission/Observation Not indicated Lab Data MDM Lab Attestation statement: I reviewed the patient's lab results. as above Labs: Lab Results 08/10/24 Range/Units 08:43 Influenza Type A (PCR) NEGATIVE (Negative) Influenza Type B (PCR) NEGATIVE (Negative) RSV RNA Qual (PCR) NEGATIVE (Negative) SARS-CoV-2 RNA (RT-PCR) NEGATIVE (Negative) S. pyogenes GrpA MAEGAN Negative (Negative) Independent Interpretation I performed an independent interpretation of an: Plain X-Ray Interpretation: chest xray without consolidation or infiltrate Radiology Impression Discussion of test interpretation with radiology: I have reviewed the radiologist's reading. Radiologist Impression: EXAMINATION: XR CHEST CLINICAL INFORMATION: Dyspnea. COMPARISON: Most recent chest radiograph dated 12/18/2023. TECHNIQUE: 2 views of the chest were obtained. FINDINGS: The lungs are clear. The cardiomediastinal silhouette is normal in size. There is no pleural effusion or pneumothorax. No acute osseous abnormality. XR/XR chest 2V IMPRESSION: No acute cardiopulmonary findings. Electronically signed by: Tevin Olmos MD 08/10/2024 10:20 AM [facility] Independent Historian Clinical information obtained from an independent historian. History obtained from or confirmed by: Spouse External Record Review External record reviewed: Inpatient record, Office record, Outpatient record, Prior outpatient labs, Prior outpatient radiology, Primary care record and Outside ED record Prescription Management I considered prescription management with: Pain Medication (Motrin), Antibiotic (Azithromycin) and Other (Prednisone, guaifenesin) Social Determinants Patient?s care significantly limited by Social Determinants of Health including: Other Social Determinant of Health Critical Care Time Critical Care Time Critical Care Time: No Discharge Plan Discharge Clinical Impression: Bronchitis Patient Disposition: Home, Self-Care Instructions: Acute Bronchitis (ED) Additional Instructions: You tested negative for COVID, flu, RSV, strep throat. Your respiratory panel is pending and you will be called with any positive results. Your chest x-ray does not demonstrate pneumonia. You will be treated for bronchitis. Azithromycin as an antibiotic that has been sent to your pharmacy for treatment. Take this as prescribed over the next 5 days. I have also sent prednisone (a steroid) to your pharmacy to help with your breathing. Take this as prescribed with next dose being tomorrow as you already received a dose today. Guaifenesin has been sent to your pharmacy to help with your cough. I have also send Motrin to your pharmacy to help with your headache. Please follow-up with your primary care provider this week. Return with new or worsening symptoms. In the case of an emergency call 911. Prescriptions: New guaifenesin 200 mg tablet 200 mg PO TID PRN (Reason: cough) Qty: 10 0RF prednisone 20 mg tablet 40 mg PO DAILY 5 Days Qty: 10 0RF azithromycin 250 mg tablet See Rx Instructions .ROUTE .COMPLEX Qty: 6 0RF Rx Instructions: For 250 mg dose pack: take 500 mg today (day 1), then 250 mg for 4 days (days 2-5) ibuprofen 600 mg tablet 600 mg PO Q8H PRN (Reason: fever or pain) Qty: 30 0RF No Action naproxen [Naprosyn] 500 mg tablet 500 mg PO BID Qty: 20 0RF ketorolac 10 mg tablet 10 mg PO TID PRN (Reason: pain) 5 Days Qty: 15 0RF hydrocortisone [Anusol-HC] 2.5 % cream with perineal applicator 1 appl NE QID PRN (Reason: hemorrhoids) Qty: 30 2RF omeprazole 40 mg capsule,delayed release(DR/EC) 40 mg PO DAILY Qty: 90 3RF Referrals: [facility] [Primary Care Provider] - Stand Alone Forms: Work/School Release Print Language: British
[2024-08-10 09:49] VITALS: RESP 16
[2024-08-10] MEDS: methylPREDNISolone Sod Succ 125 MG/2 ML VIAL 60 MG IM (09:58)
[2024-08-10] MEDS: Ibuprofen 600 MG TABLET PO (11:01)
[2024-08-10 11:03] VITALS: BP 125/76; PULSE 93; RESP 16; TEMP 37.1; O2SAT 97
[2024-08-10 12:25] LABS: Adenovirus PCR Not Detected (Not Detect.); Bordetella parapertussis PCR Not Detected (Not Detect.); Bordetella pertussis PCR Not Detected (Not Detect.); Chlamydia pneumoniae PCR Not Detected (Not Detect.); Coronavirus 229E PCR Not Detected (Not Detect.); Coronavirus HKU1 PCR Not Detected (Not Detect.); Coronavirus NL63 PCR Not Detected (Not Detect.); Coronavirus OC43 PCR Not Detected (Not Detect.); Human metapneumovirus PCR Not Detected (Not Detect.); Influenza A PCR Not Detected (Not Detect.); Influenza B PCR Not Detected (Not Detect.); Mycoplasma pneumoniae PCR Not Detected (Not Detect.); Parainfluenza 1 PCR Detected (Not Detect.); Parainfluenza 2 PCR Not Detected (Not Detect.); Parainfluenza 3 PCR Not Detected (Not Detect.); Parainfluenza 4 PCR Not Detected (Not Detect.); RSV PCR Not Detected (Not Detect.); Rhino/Enterovirus PCR Not Detected (Not Detect.)
[2024-08-10 12:40] LABS: SARS-CoV-2 PCR Not Detected (Not Detect.)
== END 2024-08-10 11:07 | disposition home or self-care (01) ==
PROVIDERS: Physician Assistant Medical; Emergency Provider Emergency Medicine
DX: J40 Bronchitis, not specified as acute or chronic (principal); R06.02 Shortness of breath; Z03.818 Encounter for observation for suspected exposure to other biological agents ruled out; Z79.899 Other long term (current) drug therapy
CPT/HCPCS: 0241U; 71046; 87633; 87651; 96372; 99284; J2919

== ENCOUNTER 2024-08-13 08:02 | Emergency (ER) | payer MEDICAID, SELFPAY ==
--- NOTE | ~2024-08-13 | XR_ITS ---
EXAMINATION: XR CHEST CLINICAL INFORMATION: cough COMPARISON: 08/10/2024 TECHNIQUE: 2 views of the chest were obtained. FINDINGS: No significant abnormality is noted involving the heart, lungs, mediastinum, bony thorax or soft tissues. XR/XR chest 2V IMPRESSION: No acute disease Electronically signed by: Ronald Jennings MD 08/13/2024 09:39 AM [facility]
[2024-08-13 08:06] VITALS: BP 140/82; PULSE 114; RESP 22; TEMP 36.4; O2SAT 99; BMI 25.6
--- NOTE | 2024-08-13 08:20 | ED.SOB ---
HPI - SOB/Dyspnea General Chief Complaint: Dyspnea Stated Complaint: diff breathing Time Seen by Provider: 08/13/24 08:18 Source: patient Mode of arrival: ambulatory Limitations: no limitations History of Present Illness HPI Narrative: 54 t[place] old female PMH: GERD, fibromyalgia, and cardiac cath x2 (negative, no stents). Here with continued cough seen 3 days ago for the same had negative covid flu RSV and Xr. Back as she feels it is no better. Sent with antibiotics and prednisone. MD elicited complaint: shortness of breath and cough Related Data Previous Rx's ?Medication ?Instructions ?Recorded hydrocortisone 2.5 % topical cream 1 appl LA QID PRN hemorrhoids #30 10/27/20 with perineal applicator grams (Anusol-HC) omeprazole 40 mg capsule,delayed 40 mg PO DAILY #90 caps 09/26/21 release naproxen 500 mg tablet (Naprosyn) 500 mg PO BID #20 tabs 11/20/22 ketorolac 10 mg tablet 10 mg PO TID PRN pain 5 days #15 03/30/24 tabs azithromycin 250 mg tablet See Rx Instructions PO .COMPLEX #6 08/10/24 tabs guaifenesin 200 mg tablet 200 mg PO TID PRN cough #10 tabs 08/10/24 ibuprofen 600 mg tablet 600 mg PO Q8H PRN fever or pain 08/10/24 #30 tabs prednisone 20 mg tablet 40 mg (2 x 20 mg) PO DAILY 5 days 08/10/24 #10 tabs Allergies Allergy/AdvReac Type Severity Reaction Status Date / Time bee pollen [BEE STINGS] Allergy Severe THROAT Verified 08/13/24 08:07 SWELLING codeine [Codeine] Allergy Severe CAN'T Verified 08/13/24 08:07 BREATHE, SWELLING,RASH tramadol [TRAMADOL] Allergy Intermediate ABD PAIN- Verified 08/13/24 08:07 COULD NOT EAT - FELT SICK Review of Systems Review of Systems: Review of systems: General: Patient denies any fever chills recent illness or falls Musculoskeletal: Denies back pain or body aches or other injuries HEENT: denies headache, runny nose, ear pain Respiratory: denies shortness of breath, cough Cardiovascular: no chest pain or palpitations : denies dysuria, frequency Abdomen: no nausea vomiting denies abdominal pain Extremities: no swelling, no pain Skin: no diaphoresis Yes all other systems are reviewed and are negative PMFSH Past Medical History Medical History Fibromyalgia Epidermal cyst of neck Gastroesophageal reflux disease COVID-19 Female pelvic pain ASCUS of cervix with negative high risk HPV Hx of abnormal cervical Pap smear Encounter for repeat Papanicolaou smear of cervix Encounter for annual routine gynecological examination Tubular adenoma PONV (postoperative nausea and vomiting) Potential exposure to STD Well woman exam with routine gynecological exam Breast lump Hx of ectopic MRSA (methicillin resistant Staphylococcus aureus) Kidney stones SAB (spontaneous ) Surgical History History of excision of epidermal inclusion cyst (~01/17/23) History of removal of cyst (~01/17/23) Hx of hemorrhoidectomy H/O elbow surgery H/O lithotripsy Hx of endoscopy History of colonoscopy History of hernia repair Hx of appendectomy Hx of cholecystectomy Hx of breast biopsy Family History Family History Father Diabetes mellitus CVD (cardiovascular disease) Hyperlipemia Mother Diabetes mellitus HTN (hypertension) Colon cancer Liver cancer Maternal Grandmother Diabetes mellitus Maternal Aunt Breast cancer Paternal Grandfather Colon cancer Maternal Grandfather Stomach cancer Social History Social History Household Members: Children Alcohol intake: current Alcohol intake frequency: holidays/special occasions only Alcohol type: hard liquor Patient Tobacco Use Status: Current everyday Tobacco user Cigarettes Per Day: 5 Years Smoked: 8 Substance Use Type: Marijuana Advance Directives: No Advance Directives Information Provided: Yes Current occupational status: disabled Gender identity: Female Physical Exam Vital Signs: Vital Signs: Last Vital Signs Temp 97.5 F 08/13/24 08:06 Pulse 114 H 08/13/24 08:06 Resp 22 H 08/13/24 08:06 BP 140/82 H 08/13/24 08:06 Pulse Ox 99 08/13/24 08:06 O2 Del Method Room Air 08/13/24 08:06 BMI result Body Mass Index 25.6 General: Very anxious and shaky Well-appearing well-nourished in no signs of distress HEENT: Normocephalic atraumatic Neck: No signs of JVD, no masses no tenderness or lymphadenopathy Cardiovascular: Regular rate and rhythm Respiratory: Clear to auscultation bilaterally coughing Abdomen: Soft nontender no masses Extremities: Normal pedal pulses no signs of edema Skin: Dry warm no rashes Back: No tenderness full ROM Course Reevaluation(s) Reevaluation #1: Patient continues to hack and cough in the room she does appear to be uncomfortable both a negative x-ray and negative swabs I do not know there is anything that we would offer her here in the ER. I do feel comfortable discharging her home Medications Administered Discontinued Medications Generic Name Dose Route Start Last Admin Trade Name Freq PRN Reason Stop Dose Admin Benzonatate 100 mg 08/13/24 08:24 08/13/24 08:30 Benzonatate 100 Mg Capsule PO 08/13/24 08:25 100 mg ONCE ONE Administration Hydroxyzine HCl 25 mg 08/13/24 08:26 08/13/24 08:31 Hydroxyzine Hcl 25 Mg Tablet PO 08/13/24 08:27 25 mg ONCE ONE Administration Lorazepam 0.5 mg 08/13/24 09:26 08/13/24 09:35 Lorazepam 0.5 Mg Tablet PO 08/13/24 09:27 0.5 mg ONCE ONE Administration Medical Decision Making Medical Decision Making MDM Narrative: cough and bronchitis with no wheezing I will repeat the x-ray and sent off repeat swabs Differential Diagnosis Differential Diagnoses: The differential diagnosis associated with the presentation includes Patient has normal vitals but is very anxious sitting up lying down and stating that she can not breathe oxygen saturation 98% otherwise normal vitals I tried to educate the patient this is viral infection has tried intercourse she had much though we can do here I will give the patient some benzonatate I will repeat the swabs and an x-ray Lab Data Labs: Lab Results 08/13/24 Range/Units 08:25 Influenza Type A (PCR) NEGATIVE (Negative) Influenza Type B (PCR) NEGATIVE (Negative) RSV RNA Qual (PCR) NEGATIVE (Negative) SARS-CoV-2 RNA (RT-PCR) NEGATIVE (Negative) Independent Interpretation I performed an independent interpretation of an: Plain X-Ray Discharge Plan Discharge Clinical Impression: Cough, Bronchitis Patient Disposition: Home, Self-Care Instructions: Acute Bronchitis (ED), Acute Cough (ED) Additional Instructions: you were seen today for cough and shortness of breath. You had another x-ray as well as repeat swabs which were all negative. Please call follow up with your doctor if you have any other concerns please return to the ER. Prescriptions: No Action naproxen [Naprosyn] 500 mg tablet 500 mg PO BID Qty: 20 0RF ketorolac 10 mg tablet 10 mg PO TID PRN (Reason: pain) 5 Days Qty: 15 0RF guaifenesin 200 mg tablet 200 mg PO TID PRN (Reason: cough) Qty: 10 0RF prednisone 20 mg tablet 40 mg PO DAILY 5 Days Qty: 10 0RF azithromycin 250 mg tablet See Rx Instructions .ROUTE .COMPLEX Qty: 6 0RF Rx Instructions: For 250 mg dose pack: take 500 mg today (day 1), then 250 mg for 4 days (days 2-5) ibuprofen 600 mg tablet 600 mg PO Q8H PRN (Reason: fever or pain) Qty: 30 0RF hydrocortisone [Anusol-HC] 2.5 % cream with perineal applicator 1 appl LA QID PRN (Reason: hemorrhoids) Qty: 30 2RF omeprazole 40 mg capsule,delayed release(DR/EC) 40 mg PO DAILY Qty: 90 3RF Stand Alone Forms: Work/School Release Print Language: Georgian
[2024-08-13] MEDS: Benzonatate 100 MG CAPSULE PO (08:30)
[2024-08-13] MEDS: hydrOXYzine HCL 25 MG TABLET PO (08:31)
--- NOTE | 2024-08-13 08:40 | PC.NURSE ---
RN and MD at bedside, MD verbalized he only wanted SARS and no labs. Pt remains to be very anxious, coughing and not able to give staff straight answers. Recently on steroids/antibiotics for bronchitis. Pt continues to be a daily smoker.
[2024-08-13 09:12] LABS: Influenza A PCR NEGATIVE (Negative); Influenza B PCR NEGATIVE (Negative); Resp Syncy Virus RNA Qual PCR NEGATIVE (Negative); SARS COV2 PCR INHOUSE NEGATIVE (Negative)
[2024-08-13] MEDS: LORazepam 0.5 MG TABLET PO (09:35)
[2024-08-13 10:17] VITALS: BP 105/52; PULSE 85; RESP 20; TEMP 36.6; O2SAT 99
== END 2024-08-13 10:18 | disposition home or self-care (01) ==
PROVIDERS: Emergency Provider Student in an Organized Health Care Education/Training Program
DX: J40 Bronchitis, not specified as acute or chronic (principal); R06.02 Shortness of breath; Z03.818 Encounter for observation for suspected exposure to other biological agents ruled out; R05.9 Cough, unspecified; F17.210 Nicotine dependence, cigarettes, uncomplicated
CPT/HCPCS: 0241U; 71046; 99283; 99284

== ENCOUNTER 2024-11-10 16:30 | Emergency (ER) | payer MEDICAID, SELFPAY ==
--- NOTE | ~2024-11-10 | XR_ITS ---
EXAMINATION: XR HAND, LEFT CLINICAL INFORMATION: trauma COMPARISON: 10/18/2023. TECHNIQUE: PA, lateral, and oblique views of the left hand. FINDINGS: No fracture, dislocation, or suspicious bone lesion. Normal bone mineralization. Normal alignment. Joint spaces are preserved. No significant arthropathy. Carpal bones intact and aligned. Soft tissues appear normal. XR/XR hand LT min 3V IMPRESSION: Normal left hand. Electronically signed by: Joey Rubi MD 11/10/2024 05:12 PM EDT
[2024-11-10 16:36] VITALS: PULSE 80; RESP 18; TEMP 36.8; O2SAT 100; BMI 21.0
--- NOTE | 2024-11-10 16:39 | ED.GENADULT ---
HPI - General Adult General Chief complaint: Extremity Injury, Upper Stated complaint: Finger and hand pain Time Seen by Provider: 11/10/24 18:44 Source: patient, RN notes reviewed and old records reviewed Mode of arrival: ambulatory Limitations: no limitations History of Present Illness ED Provider: Treasure KENNY narrative: 54-year-old female presents for evaluation of left hand pain. Patient reports that her pain started 5 days ago after slipping and falling on ice outside of her house. She used her left hand to brace her fall. She has pain mostly of the left 2nd finger. She denies any pain to the wrist, elbow. Denies any head strike. Her pain is an 04/11 Related Data Previous Rx's ?Medication ?Instructions ?Recorded hydrocortisone 2.5 % topical cream 1 appl [place] QID PRN hemorrhoids #30 10/27/20 with perineal applicator grams (Anusol-HC) omeprazole 40 mg capsule,delayed 40 mg PO DAILY #90 caps 09/26/21 release naproxen 500 mg tablet (Naprosyn) 500 mg PO BID #20 tabs 11/20/22 ketorolac 10 mg tablet 10 mg PO TID PRN pain 5 days #15 03/30/24 tabs azithromycin 250 mg tablet See Rx Instructions PO .COMPLEX #6 08/10/24 tabs guaifenesin 200 mg tablet 200 mg PO TID PRN cough #10 tabs 08/10/24 ibuprofen 600 mg tablet 600 mg PO Q8H PRN fever or pain 08/10/24 #30 tabs prednisone 20 mg tablet 40 mg (2 x 20 mg) PO DAILY 5 days 08/10/24 #10 tabs Allergies Allergy/AdvReac Type Severity Reaction Status Date / Time bee pollen [BEE STINGS] Allergy Severe THROAT Verified 11/10/24 16:41 SWELLING codeine [Codeine] Allergy Severe CAN'T Verified 11/10/24 16:41 BREATHE, SWELLING,RASH tramadol [TRAMADOL] Allergy Intermediate ABD PAIN- Verified 11/10/24 16:41 COULD NOT EAT - FELT SICK Review of Systems Constitutional: Constitutional: Denies body ache(s), Denies chills, Denies fever(s) and Denies frequent falls Cardiovascular: Cardiovascular: Denies chest pain and Denies dyspnea Respiratory: Respiratory: Denies cough and Denies dyspnea Gastrointestinal: Gastrointestinal: Denies abdominal pain Musculoskeletal: Musculoskeletal: Reports arthralgias, Reports joint swelling and Reports limited range of motion Integumentary/Breasts: Skin/Breast: Denies rash Neurologic: Denies frequent falls PMFSH Past Medical History Medical History Fibromyalgia Epidermal cyst of neck Gastroesophageal reflux disease COVID-19 Female pelvic pain ASCUS of cervix with negative high risk HPV Hx of abnormal cervical Pap smear Encounter for repeat Papanicolaou smear of cervix Encounter for annual routine gynecological examination Tubular adenoma PONV (postoperative nausea and vomiting) Potential exposure to STD Well woman exam with routine gynecological exam Breast lump Hx of ectopic MRSA (methicillin resistant Staphylococcus aureus) Kidney stones SAB (spontaneous ) Surgical History History of excision of epidermal inclusion cyst (~01/17/23) History of removal of cyst (~01/17/23) Hx of hemorrhoidectomy H/O elbow surgery H/O lithotripsy Hx of endoscopy History of colonoscopy History of hernia repair Hx of appendectomy Hx of cholecystectomy Hx of breast biopsy Family History Family History Father Diabetes mellitus CVD (cardiovascular disease) Hyperlipemia Mother Diabetes mellitus HTN (hypertension) Colon cancer Liver cancer Maternal Grandmother Diabetes mellitus Maternal Aunt Breast cancer Paternal Grandfather Colon cancer Maternal Grandfather Stomach cancer Social History Social History Household Members: Children Alcohol intake: current Alcohol intake frequency: holidays/special occasions only Alcohol type: hard liquor Patient Tobacco Use Status: Current everyday Tobacco user Cigarettes Per Day: 5 Years Smoked: 8 Substance Use Type: Marijuana Advance Directives: No Advance Directives Information Provided: No Current occupational status: disabled Gender identity: Female Physical Exam ED Vital Signs: Vital Signs - 24 hr 11/10/24 16:36 11/10/24 19:01 Temperature 98.3 F 98.3 F Pulse Rate 80 80 Respiratory Rate 18 18 Blood Pressure 00/00 L Pulse Oximetry 100 100 Oxygen Delivery Method Room Air Room Air BMI result Body Mass Index 21.0 Const General: healthy appearing, comfortable, no acute distress, alert and awake Nutritional Appearance: well nourished Orientation/consciousness: patient oriented x3 HENMT Head: Yes normocephalic and Yes atraumatic Eyes Eyelids: Yes eyelids normal Conjunctivae: conjunctivae normal Sclerae: sclerae normal Corneas: corneas normal Pupils: Equal, round and reactive pupils present EOM: EOMs intact bilaterally Neck Neck: Yes full ROM Resp Effort & Inspection: normal respiratory effort, able to speak in complete sentences and not labored Cardio Rate: regular rate Rhythm: regular rhythm Skin General skin exam: elasticity normal Neuro General: patient oriented x3 Cranial nerves: Yes Equal, round and reactive pupils present and Yes Bilaterally intact EOM present Cognition (Neuro): normal cognition Extrem Other: No obvious deformity to the left hand. The patient has tenderness over the left 2nd MCP joint. There was full range of motion of this finger. No left wrist tenderness or tenderness over the left scaphoid. Course Course Course Narrative: RME, this is a rapid medical exam performed by Ehsan Amanda please refer to primary provider for complete H&P- 54-year-old female presents for evaluation of left hand pain after a fall that happened 5 days ago. Plan for x-rays. Medical Decision Making Medical Decision Making MDM Narrative: 54-year-old female presents for evaluation of left hand pain after a fall 5 days ago. X-ray was ordered over left hand which shows no traumatic injuries. There was no tenderness over the scaphoid. The patient will be discharged with symptomatic care Differential Diagnosis Differential Diagnoses: The differential diagnosis associated with the presentation includes Hand sprain Ankle sprain Foot sprain Fracture Dislocation Radiology Impression Discussion of test interpretation with radiology: I have reviewed the radiologist's reading. Radiologist Impression: FINDINGS: No fracture, dislocation, or suspicious bone lesion. Normal bone mineralization. Normal alignment. Joint spaces are preserved. No significant arthropathy. Carpal bones intact and aligned. Soft tissues appear normal. XR/XR hand LT min 3V IMPRESSION: Normal left hand. Electronically signed by: Joey Rubi MD 11/10/2024 05:12 PM EDT Discharge Plan Discharge Clinical Impression: Sprain and strain of left hand Patient Disposition: Home, Self-Care Instructions: Sprain (ED) Additional Instructions: Your x-rays did not show any fracture or dislocation of the hand. You likely have a sprain. Use ibuprofen/Tylenol as needed for pain Follow-up with your primary doctor, return for new or worsening symptoms Prescriptions: No Action naproxen [Naprosyn] 500 mg tablet 500 mg PO BID Qty: 20 0RF ketorolac 10 mg tablet 10 mg PO TID PRN (Reason: pain) 5 Days Qty: 15 0RF guaifenesin 200 mg tablet 200 mg PO TID PRN (Reason: cough) Qty: 10 0RF prednisone 20 mg tablet 40 mg PO DAILY 5 Days Qty: 10 0RF azithromycin 250 mg tablet See Rx Instructions .ROUTE .COMPLEX Qty: 6 0RF Rx Instructions: For 250 mg dose pack: take 500 mg today (day 1), then 250 mg for 4 days (days 2-5) ibuprofen 600 mg tablet 600 mg PO Q8H PRN (Reason: fever or pain) Qty: 30 0RF hydrocortisone [Anusol-HC] 2.5 % cream with perineal applicator 1 appl [place] QID PRN (Reason: hemorrhoids) Qty: 30 2RF omeprazole 40 mg capsule,delayed release(DR/EC) 40 mg PO DAILY Qty: 90 3RF Interventions: ED Discharge Assessment Last Done: 11/10/24 19:01 Discharge Date/Time: 11/10/24 18:55 Print Language: Salvadorean
[2024-11-10 19:01] VITALS: BP 00/00; PULSE 80; RESP 18; TEMP 36.8; O2SAT 100
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
--- OUTSIDE RECORDS SUMMARY | 2024-11-10 19:37 | XMS_ITS | Clinical Summary ---
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 No acute disease Electronically signed by: Ronald Jennings MD 08/13/2024 09:39 AM EST Dictated By: Ronald Jennings MD Signed By: <Electronically signed by Ronald Jennings MD in OV> 08/13/24 0939 DD/ TD/TT: 08/13/24 09 Cutting Supervisor: [facility] External Provider IMG XR PROCEDURES Edited Result - Final * SARS-CoV-2 RNA, Influenza A/B, and RSV RNA, Ql NAAT (08/13/2024 8:25 AM EST) Influenza A PCR NEGATIVE Negative [facility] Influenza B PCR NEGATIVE Negative [facility] Resp Syncy Virus RNA Qual PCR NEGATIVE Negative [facility] SARS COV2 PCR NEGATIVE Negative [facility] Comment:All test results mus t be correlated with clinical findings.Negative results do not preclude SARS-CoV2, influenza Avirus, influenza B virus and/or RSV infectionand should not be used as the sole basis for treatment orother patient management decisions. Negative results must becombined with clinical observations, patient history, andepidemiological information.This test has not been evaluated for monitoring treatment ofinfection.This test has been authorized by the FDA under an EmergencyUse Authorization (EUA) for use by authorized laboratories.Testing performed on the [facility] GeneXpert utilizingreal-time RT-PCR.All SARS CoV2 and positive influenza A/B results arereported to [facility]. 08/13/2024 8:25 AM EST 08/13/2024 8:29 AM EST Generic External Data Provider LAB MICROBIOLOGY - GENERAL ORDERABLES Final Result [facility] [address] [place] [phone] * BI US Breast Limited Bilateral (04/27/2024 2:02 PM EDT) Anatomical Region Laterality Modality Breast Bilateral Ultrasound 04/27/2024 2:02 PM EDT Narrative 04/27/2024 3:49 PM EDT ? [place] [facility] ? [address] ?[place] [address] ? Ultrasound Report ? Signed ? Patient: Jean,Neli ?MR#: [id number] ?? 2 ? : 1970 ?Acct:[id number] ? Age/Sex: 53 / F ?ADM Date: 04/27/24 ? Loc: HO.MAMMO ? Attending Dr: Gloria Smith MD ? Ordering Physician: Gloria Smith MD ?? Date of Service: 04/27/24 ?? Procedure(s): US breast BI limited mamm only ?? Accession Number(s): [id number] ? cc: Gloria Smith MD ? EXAMINATION: ?? MM DIAGNOSTIC DIGITAL BREAST TOMOSYNTHESIS, BILATERAL ?? US BREAST LIMITED, BILATERAL ? MAMMOGRAPHY: ?? CLINICAL INFORMATION: ? 53-year-old female, recent 25 pound weight loss, history of fibrocystic ?? changes with benign complicated cysts with apocrine metaplasia right ?? breast, complaining of 2 foci of palpable concern right breast at 4:00 ?? and 6:00 axes, and one focus left breast at the approximate 3:00 axis. ? COMPARISON: ?? Mammography: 07/23/2023, 06/29/2020, 05/16/2018. ?? Targeted right breast ultrasound 01/12/2021, 06/29/2020, 05/10/2017, and ?? 04/05/2016. ? TECHNIQUE: ?? Digital breast tomosynthesis is performed in both the craniocaudal and ?? mediolateral oblique views along with computer-aided detection (CAD). ?? Synthesized 2D images are generated from the tomosynthesis. In addition ?? to standard views, 3-D spot compression bilateral CC and MLO views were ?? obtained of the palpable foci, as well as a full-field 3-D repeat MLO. ?? This was followed by bilateral targeted breast ultrasound. ? FINDINGS: ?? The breasts are extremely dense, which lowers the sensitivity of ?? mammography (ACR BI-RADS breast composition Category d). ? Mammography demonstrates numerous circumscribed masses in both breasts, ?? similar to prior exams and consistent with the known complicated cysts ?? and fibrocystic changes. Palpable foci appear to be in the vicinity of ?? round and oval benign masses, although these areas will be evaluated ?? with ultrasound. ? Otherwise, no suspicious grouped calcifications, suspicious masses, or ?? areas of architectural distortion in either breast. Overall parenchymal ?? pattern is unchanged allowing for technical differences. There is no ?? skin or axillary abnormality. ? ULTRASOUND: ?? CLINICAL INFORMATION: ?? As above. ? COMPARISON: ?? As above. ? TECHNIQUE: ?? Targeted sonographic evaluation was performed using a high frequency ?? linear transducer. Attention was given right breast 4:00 and 6:00 axes ?? and regions of palpable concern, and left breast 3:00 axis in region of ?? palpable concern. Selected archived documentation. ? FINDINGS: ? RIGHT BREAST: ?? -At the 4:00 axis, 3 cm from the nipple, there is an oval circumscribed ?? mass with good through transmission and no internal color Doppler flow, ?? hypoechoic with low-level internal echoes, measuring 5 x 4 x 4 mm. This ?? is benign. This correlates with the 4:00 axis palpable focus of concern. ?? -At the 6:00 axis, 2 cm from the nipple, there is an oval hypoechoic ?? circumscribed mass versus cyst with good through transmission, no ?? internal color Doppler flow, low-level internal echoes, and benign ?? features. This is benign. This correlates with the 6:00 area of ?? palpable concern. Both of these areas are unchanged from 09/22/2021 ?? ultrasound. ? There are no suspicious findings. ? LEFT BREAST: ?? -At the 2:00 axis, 3 cm from the nipple, correlating with the area of ?? palpable concern, there is a 3 x 4 x 4 mm oval circumscribed mass with ?? good through transmission and no internal color Doppler flow, ?? hypoechoic with low level internal echoes, benign. This correlates well ?? with the approximate 3:00 area of palpable concern left breast. ? There are no suspicious findings. ? US/US breast BI limited mamm only ?? IMPRESSION: ? 1. There are no findings suspicious for malignancy in either breast. ?? 2. There is extremely dense breast parenchyma with bilateral ?? circumscribed round and oval masses, consistent with known benign ?? complicated cysts/benign masses. ?? 3. Palpable foci bilaterally correlate with benign masses/complicated ?? cysts. ?? 4. Recommend the patient return to routine annual screening. Benign ?? findings. ? OVERALL ASSESSMENT: ?? Mammography: BI-RADS 2 - Benign Findings ?? Ultrasound: BI-RADS 2 - Benign Findings ? RECOMMENDATION: ?? 1 year F/U ? This patient's information was entered into a reminder system with a ?? target due date for their next mammogram. ? Electronically signed by: ??Joey Rubi MD ??04/27/2024 03:46 PM EDT RP ? Dictated By: ?Joey Rubi MD ? Signed By: ?<Electronically signed by Joey Rubi MD in OV> ?04/27/24 1546 ? DD/ 1402 ? TD/TT: 04/27/24 1535 ? Cutting Supervisor: ? Procedure Note Raul, Image - 04/27/2024 [facility] [address] [place] [address] Ultrasound Report Signed Patient: Neli JeanMR#: [id number] 2 : 1970Acct:[id number] Age/Sex: 53 / FADM Date: 04/27/24 Loc: HO.MAMMO Attending Dr: Gloria Smith MD Ordering Physician: Gloria Smith MD Date of Service: 04/27/24 Procedure(s): US breast BI limited mamm only Accession Number(s): [id number] cc: Gloria Smith MD EXAMINATION: MM DIAGNOSTIC DIGITAL BREAST TOMOSYNTHESIS, BILATERAL US BREAST LIMITED, BILATERAL MAMMOGRAPHY: CLINICAL INFORMATION: 53-year-old female, recent 25 pound weight loss, history of fibrocystic changes with benign complicated cysts with apocrine metaplasia right breast, complaining of 2 foci of palpable concern right breast at 4:00 and 6:00 axes, and one focus left breast at the approximate 3:00 axis. COMPARISON: Mammography: 07/23/2023, 06/29/2020, 05/16/2018. Targeted right breast ultrasound 01/12/2021, 06/29/2020, 05/10/2017, and 04/05/2016. TECHNIQUE: Digital breast tomosynthesis is performed in both the craniocaudal and mediolateral oblique views along with computer-aided detection (CAD). Synthesized 2D images are generated from the tomosynthesis. In addition to standard views, 3-D spot compression bilateral CC and MLO views were obtained of the palpable foci, as well as a full-field 3-D repeat MLO. This was followed by bilateral targeted breast ultrasound. FINDINGS: The breasts are extremely dense, which lowers the sensitivity of mammography (ACR BI-RADS breast composition Category d). Mammography demonstrates numerous circumscribed masses in both breasts, similar to prior exams and consistent with the known complicated cysts and fibrocystic changes. Palpable foci appear to be in the vicinity of round and oval benign masses, although these areas will be evaluated with ultrasound. Otherwise, no suspicious grouped calcifications, suspicious masses, or areas of architectural distortion in either breast. Overall parenchymal pattern is unchanged allowing for technical differences. There is no skin or axillary abnormality. ULTRASOUND: CLINICAL INFORMATION: As above. COMPARISON: As above. TECHNIQUE: Targeted sonographic evaluation was performed using a high frequency linear transducer. Attention was given right breast 4:00 and 6:00 axes and regions of palpable concern, and left breast 3:00 axis in region of palpable concern. Selected archived documentation. FINDINGS: RIGHT BREAST: -At the 4:00 axis, 3 cm from the nipple, there is an oval circumscribed mass with good through transmission and no internal color Doppler flow, hypoechoic with low-level internal echoes, measuring 5 x 4 x 4 mm. This is benign. This correlates with the 4:00 axis palpable focus of concern. -At the 6:00 axis, 2 cm from the nipple, there is an oval hypoechoic circumscribed mass versus cyst with good through transmission, no internal color Doppler flow, low-level internal echoes, and benign features. This is benign. This correlates with the 6:00 area of palpable concern. Both of these areas are unchanged from 09/22/2021 ultrasound. There are no suspicious findings. LEFT BREAST: -At the 2:00 axis, 3 cm from the nipple, correlating with the area of palpable concern, there is a 3 x 4 x 4 mm oval circumscribed mass with good through transmission and no internal color Doppler flow, hypoechoic with low level internal echoes, benign. This correlates well with the approximate 3:00 area of palpable concern left breast. There are no suspicious findings. US/US breast BI limited mamm only IMPRESSION: 1. There are no findings suspicious for malignancy in either breast. 2. There is extremely dense breast parenchyma with bilateral circumscribed round and oval masses, consistent with known benign complicated cysts/benign masses. 3. Palpable foci bilaterally correlate with benign masses/complicated cysts. 4. Recommend the patient return to routine annual screening. Benign findings. OVERALL ASSESSMENT: Mammography: BI-RADS 2 - Benign Findings Ultrasound: BI-RADS 2 - Benign Findings RECOMMENDATION: 1 year F/U This patient's information was entered into a reminder system with a target due date for their next mammogram. Electronically signed by: Joey Rubi MD 04/27/2024 03:46 PM EDT RP Workstation: [id number] Dictated By: Joey Rubi MD Signed By: <Electronically signed by Joey Rubi MD in OV> 04/27/24 1546 DD/ 1402 TD/TT: 04/27/24 1535 Cutting Supervisor: us Gloria Smith MD IMG US PROCEDURES Final Result * Lipid Panel with Reflex to Direct LDL (04/10/2024 12:06 PM EDT) Triglycerides 115 <150 mg/dL [facility] Comment:Desirable Triglyceri de: less than 150 mg/dLBorderline High Triglyceride 150-199 mg/dLHigh Triglyceride: 200-499 mg/dLVery High Triglyceride: greater than or equal to 5OO mg/dL Cholesterol 152 <200 mg/dL [facility] Comment:Desirable Cholestero l: less than 200 mg/dLBorderline High Cholesterol: 200-239 mg/dLHigh Cholesterol: greater than 239 mg/dL LDL Cholesterol Calculated 70 <100 mg/dL [facility] Comment:Desirable LDL: less than 100 mg/dLNear Optimal/Above Optimal LDL: 110- 129 mg/dLBorderline High LDL: 130-159 mg/dLHigh LDL: 160-189 mg/dLVery High LDL: greater than or equal to 190 mg/dL HDL Cholesterol 59 >40 mg/dL [facility] Comment:Desirable HDL: great er than 40 mg/dL Note: This HDL assay may give artificially low results in patients with liver disease. Blood 04/10/2024 12:0 6 PM EDT 04/10/2024 1:05 PM EDT us Gloria Smith MD LAB BLOOD ORDERABLES Fin al Result Performing Organization Address City/[facility]/ZIP Co de Phone Number [facility] [address] [place] [phone] * HIV-1/2 Antigen and Antibodies, Fourth Generation, with Reflexes (04/10/2024 12:06 PM EDT) Pathologist [facility] HIV AB/AG Nonreactive Nonreactive [facility] Comment:HIV-1 p24 Ag and/or HIV-1/HIV-2 Ab not detected.A test result that is nonreactive does not exclude thepossibility of exposure to or infection with HIV-1 and/orHIV-2. Nonreactive results in this assay for individualswith prior exposure to HIV-1 and/or HIV-2 may be due toantigen and antibody levels that are below the limit ofdetection of this assay.[employer] HIV Ag/Ab Combo assay result andsupplemental assay results should be interpreted inconjunction with the patient's clinical presentation,history and other laboratory results. If the results areinconsistent with clinical evidence, additional testing issuggested to confirm the result. Blood Venous blood specimen / Unknown 04/10/2024 12:06 PM EDT 04/10/2024 1:05 PM EDT us Gloria Smith MD LAB BLOOD ORDERABLES Fin al Result Performing Organization Address City/[facility]/ZIP Co de Phone Number [facility] [address] [place] [phone] * Hepatitis Panel, General (08/21/2023 10:08 AM EST) Pathologist [facility] Hepatitis A IgM Nonreactive Nonreactive [facility] Comment:IgM antibodies to HUYNH V not detected; does not exclude earlyacute or recovered HAV infection. ~Hepatitis B Surface Antibody NONREACTIVE Nonreactive [facility] Comment:Nonreactive: < 8.00 mIU/mL Hepatitis B Core Antibody Nonreactive Nonreactive [facility] Hepatitis C Antibody Nonreactive Nonreactive [facility] Comment:Antibodies to HCV no t detected; does not exclude early acuteHCV infection. Hepatitis B Surface Ag Negative Negative [facility] Blood 08/21/2023 10:0 8 AM EST 08/21/2023 11:12 AM EST us Gloria Smith MD LAB BLOOD ORDERABLES Fin al Result Performing Organization Address [facility] de Phone Number [facility] [address] [place] [phone] * HPV E6/E7 RFLX ABEL 16 18/45 (08/17/2021 3:37 PM EST) [facility] HPV mRNA E6/E7 rflx Not Detected Not Detected [facility] Comment: Methodology: [employer] Engineer-Mediated Amplification This assay detects E6/E7 viral messenger RNA (mRNA) from 14 high-risk HPV types (16,18,31,33,35,39,45,51,52,56,58,59,66,68). The analytical performance characteristics of this assay have been determined by [employer]. The modifications have not been cleared or approved by the FDA. This assay has been validated pursuant to the CLIA regulations and is used for clinical purposes. For additional information, please refer to http://education.[employer]/faq/YDD497o7 (This link if provided for information/ educational purposes only.) THIS TEST WAS PERFORMED AT: [facility] [address] [place] [address],[address] [place], [place] ??[phone] JANNET BARAJAS MD 08/17/2021 3:37 PM EST us Tamia Griffiths HISTORICAL/NON ORDERABLE LABS Fi nal Result Performing Organization Address [facility] Co de Phone Number [facility] [address] [place] [phone] * Hm Colonoscopy (09/22/2020 9:00 AM EST) us Historical Provider MD HEALTH MAINTENANCE Final Result from Last 3 Months or Most Recently Relevant to Health Maintenance Insurance [facility] C3 DENTAL-[facility] MEDICAID STAND ADULT Care Teams Environmental Communications Specialist Relationship Specialty Start Date End Date Gloria Smith MD [address] [place] [address] [place], [place] [phone] PCP - General Family Medicine 04/17/17
--- OUTSIDE RECORDS SUMMARY | 2024-11-10 19:37 | XMS_ITS | Encounter Summary ---
Author Organization [facility] Address [address] [place] [address] Care Team Providers Care Supreme Court Justice Name Role Phone Gloria Smith MD Primary Care Provider + Reason for Visit * Reason Onset Date Comments Appointment Request 12/17/2023 Encounter Details Date Type Department Care Team ([facility] st Contact Info) Description 12/17/2023 Telephone [facility] [address] [place] [address] Gloria Smith MD [address] [place] [address] Appointment Request Social History Tobacco Use Types Packs/Day Years Used Date Smoking Tobacco: Every Day Cigarettes Smokeless Tobacco: Former Comments:Smoking since age 2 6 1/2 ppd for 15y then 5-10 cig for 10 more years, for the past 15y she's smoking 2-5 cig/d Alcohol Use Standard Drinks/Week Comments Not Currently 0 (1 standard drink = 0.6 oz pur e alcohol) social Depression Answer Date Recorded Patient Health Questionnaire-9 Score 12 10/04/2023 Patient Health Questionnaire-9 Score 12 10/04/2023 Last PHQ-9: Questionnaire Data Not on file 0 10/04/2023 Housing Stability Answer Date Recorded What is your housing situation today? I am not s ure 06/17/[address] you li ve. Do you have problems with any of the following? None of the above 06/17/2023 Food Insecurity Answer Date Recorded Within the past 12 months, y ou worried that your food would run out before you got money to buy more: Never True 06/17/2023 Within the past 12 months,th e food you bought just didn't last and you didn't have enough money to get more: Never True Transportation Answer Date Recorded In the past 12 months, has l ack of transportation kept you from medical appts, meetings, work or from getting things needed for daily living? No 06/17/2023 Utilities Answer Date Recorded In the past 12 months, has t he electric, gas, oil or water company threatened to shut off services in your home? No 06/17/2023 Depression Answer Date Recorded Patient Health Questionnaire-2 Score 4 10/04/2023 Comments Unknown Sex and Gender Information Value Date Recorded Sex Assigned at Female 07/02/2022 10:15 AM EDT Legal Sex Female 10:15 AM EDT Gender Identity Female 07/02/2022 10:15 AM EDT Sexual Orientation Choose not to disclose 2021 10:15 AM EDT documented as of this encounter Miscellaneous Notes * Telephone Encounter - Javy Tomlin - 12/17/2023 3:37 PM EDT Tc from patient calling to reschedule PE appt would like a call back if there any cancellations selling underwriter did offer appt for January but the patient would like something sooner and in the afternoon documented in this encounter Plan of Treatment Not on file documented as of this encounter Visit Diagnoses Not on filedocumented in this encounter Additional Health Concerns Assessment Noted Time PHQ-9 Depression Total Score: 12 024 8:47 AM EST documented as of this encounter Care Teams Supreme Court Justice Relationship Specialty Start Date End Date Gloria Smith MD [address] [place] [phone] PCP - General Family Medicine 04/17/17 documented as of this encounter
--- OUTSIDE RECORDS SUMMARY | 2024-11-10 19:37 | XMS_ITS | Encounter Summary ---
Author Organization [employer] Address [address] [place] [address] Care Team Providers Care Thread Drawer Name Role Phone Gloria Smith MD Primary Care Provider + Encounter Details Date Type Department Care Team (Latest Contact Info) Description 10/29/2024 Outside Procedure [facility] [address] [place] [address] Herbert, Cherelle, OD [address] [place] [phone] Presbyopia (Primary Dx) Social History Tobacco Use Types [...] Progress Notes * Cherelle Godinez OD - 10/29/2024 11:04 AM EST MH glasses were dispensed, 2 of 2. documented in this encounter Plan of Treatment Not on file documented as of this encounter Visit Diagnoses Diagnosis Presbyopia- Primary documented in this encounter Additional Health Concerns Assessment Noted Time PHQ-9 Depression Total Score: 13 024 4:13 PM EDT documented as of this encounter Care Teams Thread Drawer Relationship Specialty Start Date End Date Gloria Smith MD [address] [place] [address] PCP - General Family Medicine 04/17/17 documented as of this encounter
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
--- OUTSIDE RECORDS SUMMARY | 2024-11-10 19:37 | XMS_ITS | Encounter Summary ---
Author Organization [employer] Address [address] [facility] [address] [place] [address] Care Team Providers Care Industrial Editor Name Role Phone Gloria Smith MD Primary Care Provider + Encounter Details Date Type Department Care Team (Late st Contact Info) Description 11/10/2024 Orders Only [facility] External Provider, [facility] Social History Tobacco Use Types Packs/Day Years [...] your housing situation today? I have hillary maire 04/10/[address] you li [...] on file documented as of this encounter Procedures Procedure Name Priority Date/Time Associated Diagnosis Comments XR HAND 3+ VIEWS LEFT Routine 11/10/2024 4:39 PM EDT documented in this encounter Results * XR Hand 3+ Views Left (11/10/2024 4:39 PM EDT) Anatomical Region Laterality Modality Upper Extremities, Hand Left Radiogra phic Imaging 11/10/2024 4:39 PM EDT Narrative 11/10/2024 5:15 PM EDT ? [facility] ?[address] ?[place] [address] ?XRay Report ? Signed ? Patient: Miranda,Neli ?MR#: [id number] ?? 2 ? : 1970 ?Acct:[id number] ? Age/Sex: 54 / F ?ADM Date: 03/11/25 ? Loc: HO.ED ? Attending Dr: ? Ordering Physician: Davy Amanda ?? Date of Service: 11/10/24 ?? Procedure(s): XR hand LT min 3V ?? Accession Number(s): [id number] ? cc: Gloria Smith MD; Davy Amanda [...] DD/ 1639 ? TD/TT: 11/10/24 1645 ? Director Of Preclinical Research: ? Procedure Note Dondemetriusvandanarosater, Image - 11/10/2024 [place] [address] XRay Report Signed Patient: Neli JeanMR#: [id number] 2 : 1970Acct:[id number] Age/Sex: 54 / FADM Date: 11/10/24 Loc: HO.ED Attending Dr: Ordering Physician: Davy Amanda Date of Service: 11/10/24 Procedure(s): XR hand LT min 3V Accession Number(s): [id number] cc: Gloria Smith MD; Davy Amanda EXAMINATION: [...] 11/10/24 1712 DD/ 1639 TD/TT: 11/10/24 1645 Director Of Preclinical Research: [facility] External Provider IMG XR PROCEDURES Final Result documented in this encounter Visit Diagnoses Not on filedocumented in this encounter Additional Health Concerns Assessment Noted Time PHQ-9 Depression Total Score: 13 04/15/ 024 4:13 PM EDT documented as of this encounter Care Teams Industrial Editor Relationship Specialty Start Date End Date Gloria Smith MD [address] [place] [address] PCP - General Family Medicine 04/17/17 documented as of this encounter
--- OUTSIDE RECORDS SUMMARY | 2024-11-10 19:38 | XMS_ITS | Encounter Summary ---
Author Organization [employer] Address [address] [facility] [address] 7[address] [place] [address] Care Team Providers Care Atmospheric Physics Professor Name Role Phone Gloria Smith MD Primary Care Provider + Encounter Details Date Type Department Care Team (Late st Contact Info) Description 01/29/2024 Orders Only [facility] MEDICINE [address] [place] [address] Provider, MD Gloria Social History Tobacco Use Types Packs/Day Years [...] Procedure Name Priority Date/Time Associated Diagnosis Comments COLONOSCOPY Routine 09/22/2020 9:00 AM EST documented in this encounter Results * Hm Colonoscopy (09/22/2020 9:00 AM EST) us Historical Provider HEALTH MAINTENANCE Final Result documented in this encounter Visit Diagnoses Not on filedocumented in this encounter Additional Health Concerns Assessment Noted Time PHQ-9 Depression Total Score: 12 024 8:47 AM EST documented as of this encounter Care Teams Atmospheric Physics Professor Relationship Specialty Start Date End Date Gloria Smith MD [address] [place] [phone] PCP - General Family Medicine 04/17/17 documented as of this encounter
--- OUTSIDE RECORDS SUMMARY | 2024-11-10 19:38 | XMS_ITS | Encounter Summary ---
Author Organization [employer] Address [address] [facility] [address] [address] 7[address] [place] [address] Care Team Providers Care Inventory Checker Name Role Phone Gloria Smith MD Primary Care Provider + Encounter Details Date Type Department Care Team (Late st Contact Info) Description 10/23/2022 Orders Only [facility] [address] [place] [address] Chantale Amaya LPN Social History Tobacco Use Types Packs/Day Years Used Date Smoking Tobacco: Never Assessed Comments Unknown Sex and Gender Information Value [...] Procedure Name Priority Date/Time Associated Diagnosis Comments GROSS AND MICROSCOPIC LEVEL 3 Routine 01/17/2023 11:30 AM EDT SARS COV2/INFLUENZA A/B AND RSV RNA QL NAAT Routine 11/20/2022 11:41 AM EDT CREATINE KINASE, TOTAL Routine 11/20/2022 11:41 AM EDT BASIC METABOLIC PANEL Routine 11/20/2022 11:41 AM EDT documented in this encounter Results * Gross and Microscopic Level 3 (01/17/2023 11:30 AM EDT) 01/17/2023 11:3 0 AM EDT 01/18/2023 7:18 AM EDT [facility] - 01/24/2023 7:32 PM EDT ----- ------- Name: JeanNeli ?Age/Sex: 52/F ? : 1970 Unit#: [id number] ?? Attend Dr: Filemon Veronica MD ?Re01/17/23 ?Status: DEP REF ? Location: HO.LNP ?Disch: ? ----- ------- SPEC : [id number] ? RECD: 01/18/23-717 ? STATUS: ??SOUT ? REQ NUM: [id number] ? MIGNON: 01/17/23-1130 ? SUBM DR: Filemon Veronica MD ? ENTERED: ??01/18/23 ?SP TYPE: Surgical ? OTHR DR: Gloria Smith MD ? ORDERED: ??Gross Micro L3 ? Diagnosis ?? Skin, neck cyst, excision: ??Benign epidermal cyst. ?Clinical History Epidermal cyst of neck ?Microscopic Description Microscopic sections reviewed. ? Material Received ?? Epidermal cyst of neck ? Gross Description Received in formalin labeled ?epidermal cyst neck? is a 1.2 x 1.0 cm slightly puckered retracted ovoid-elliptical portion of thurston-brown skin and nodular subcutaneous tissue excised to a maximum depth 1.0 cm. ??The margins are inked and the specimen is serially sectioned to reveal homogeneous, dense, carrillo-white fibrous dermal tissue and unremarkable subcutaneous fat. ??A cyst is not identified. ??The specimen is entirely submitted in a single cassette labeled A. CEDS Copies To: ?? Gloria Smith MD ?? [address] [facility] ?? [place] [id number] ? Filemon Veronica MD ?? [address] [facility] . ?? [place] [id number] ?? [phone] ----- ------- Signed (signature on file) Babita Riverton 01/24/231931 ? ----- ------- ? END OF REPORT ? [facility] External Provider LAB CYT OLOGY ORDERABLES Final Result Performing Organization Address [facility]/ZIP Co de Phone Number [facility] [address] [place] [address] [phone] * Creatine Kinase, Total (11/20/2022 11:41 AM EDT) Pathologist [facility] Creatine Kinase Total 106 26 - 140 U/L [facility] 11/20/2022 11:4 1 AM EDT 11/20/2022 11:44 AM EDT [facility] External Provider LAB BLO OD ORDERABLES Final Result Performing Organization Address [facility] de Phone Number [facility] [address] [place] [address] [phone] * SARS-CoV-2 RNA, Influenza A/B, and RSV RNA, Ql NAAT (11/20/2022 11:41 AM EDT) Pathologist [facility] Influenza A PCR NEGATIVE Negative [facility] Influenza B PCR NEGATIVE Negative [facility] Resp Syncy Virus RNA Qual PCR NEGATIVE Negative [facility] SARS COV2 PCR NEGATIVE Negative [facility] SARS/Flu/RSV Note See Note [facility] Comment:All test results mus t be [...] use by authorized laboratories.Testing performed on the [employer] GeneXpert utilizingreal-time RT-PCR.All SARS CoV2 and positive influenza A/B results arereported to [facility]. 11/20/2022 11:4 1 AM EDT 11/20/2022 11:44 AM EDT [facility] Exter nal Provider LAB MICROBIOLOGY - GENERAL ORDERABLES Final Result [facility] [address] [place] [phone] * (ABNORMAL) Basic Metabolic Panel (11/20/2022 11:41 AM EDT) Sodium 138 135 - 145 mmol/L [facility] Potassium 4.6 3.3 - 5.1 mmol/L [facility] Comment:Slight Hemolysis Chloride 105 96 - 108 mmol/L [facility] Carbon Dioxide 23 22 - 29 mmol/L [facility] Anion Gap 15 12 - 20 [facility] Urea Nitrogen (BUN) 9 9 - 16 mg/dL [facility] Creatinine, Serum 0.77 0.5 - 1.4 mg/dL [facility] Creatinine Clr Calc Pharmacy 61.4 [facility] Comment:Provided height and weight: 152.4 cm,51 kg.eGFR (calculated from the MDRD study equation) and eCrCl(calculated from the Cockcroft-Gault equation) are based ondifferent parameters and may not yield comparable results.If eCrCl result is absurd, please check patient'sheight/weight. Estimated Glomerular Filt Rate >60 [facility] Comment:NOTE: For -Am erican individuals, multiply the result by 1.210.Chronic Kidney Disease: Estimated GFR < 60 mL/min/1.17i4Bgpucg Kidney Disease: Estimated GFR < 15 mL/min/1.73m2 Glucose 109 60 - 115 mg/dL [facility] Calcium 10.5(H) 8.4 - 10.2 mg/dL [facility] 11/20/2022 11:4 1 AM EDT 11/20/2022 11:44 AM EDT us [facility] External Provider LAB BLO OD ORDERABLES Final Result [facility] [address] [place] [phone] documented in this encounter Visit Diagnoses Not on filedocumented in this encounter Care Teams Inventory Checker Relationship Specialty Start Date End Date Gloria Smith MD [address] [place] [phone] PCP - General Family Medicine 04/17/17 documented as of this encounter
== END 2024-11-10 18:55 | disposition home or self-care (01) ==
PROVIDERS: Emergency Provider Emergency Medicine Emergency Medical Services; PCP Internal Medicine
DX: S63.92XA Sprain of unspecified part of left wrist and hand, initial encounter (principal); M79.642 Pain in left hand; W00.0XXA Fall on same level due to ice and snow, initial encounter; Y93.01 Activity, walking, marching and hiking; Y92.89 Other specified places as the place of occurrence of the external cause; Y99.8 Other external cause status
CPT/HCPCS: 73130; 99282; 99283

== ENCOUNTER → 2024-11-10 16:39 | Outpatient (BNV) | payer MEDICAID, SELFPAY | PROVIDERS: PCP Internal Medicine; Visit Provider Radiology Diagnostic Radiology | DX: S69.92XA Unspecified injury of left wrist, hand and finger(s), initial encounter (principal) | CPT/HCPCS: 73130 ==

== ENCOUNTER 2024-12-02 11:46 | Emergency (ER) | payer MEDICAID, SELFPAY ==
--- NOTE | ~2024-12-02 | XR_ITS ---
EXAMINATION: XR CHEST 2 VIEWS HISTORY: chest pain COMPARISON: Comparison is made with the prior examination dated 08/13/2024. FINDINGS: PA and lateral views of the chest are submitted. The lungs are expanded and clear. There is no pleural effusion, pneumothorax, or pulmonary vascular congestion. The heart is normal in size. There is mild degenerative disc disease of the spine. XR/XR chest 2V IMPRESSION: No acute cardiopulmonary abnormality. Electronically signed by: Sunny Del Real MD 12/02/2024 12:15 PM EDT
--- NOTE | 2024-12-02 11:48 | ECG_ITS ---
Test Reason : CHEST PAIN Blood Pressure : */* mmHG Vent. Rate : 85 BPM Atrial Rate : 85 BPM P-R Int : 136 ms QRS Dur : 76 ms QT Int : 360 ms P-R-T Axes : 85 77 29 degrees QTcB Int : 428 ms Normal sinus rhythm Possible Left atrial enlargement Minimal voltage criteria for LVH, may be normal variant ( Sokolow-Cole ) Borderline ECG When compared with ECG of 18-Dec-2023 17:21, No significant change was found Referred By: Generic ED Physician Electronically Signed By: KAT SALAZAR
[2024-12-02 11:50] VITALS: BP 111/78; PULSE 97; RESP 18; TEMP 36.5; O2SAT 98; BMI 19.4
--- NOTE | 2024-12-02 11:51 | ED.CHESTPAIN ---
HPI - Chest Pain General Chief Complaint: General Medical Stated Complaint: Chest Pain, Headaches Related Data Previous Rx's ?Medication ?Instructions ?Recorded hydrocortisone 2.5 % topical cream 1 appl PA QID PRN hemorrhoids #30 10/27/20 with perineal applicator grams (Anusol-HC) omeprazole 40 mg capsule,delayed 40 mg PO DAILY #90 caps 09/26/21 release naproxen 500 mg tablet (Naprosyn) 500 mg PO BID #20 tabs 11/20/22 ketorolac 10 mg tablet 10 mg PO TID PRN pain 5 days #15 03/30/24 tabs azithromycin 250 mg tablet See Rx Instructions PO .COMPLEX #6 08/10/24 tabs guaifenesin 200 mg tablet 200 mg PO TID PRN cough #10 tabs 08/10/24 ibuprofen 600 mg tablet 600 mg PO Q8H PRN fever or pain 08/10/24 #30 tabs prednisone 20 mg tablet 40 mg (2 x 20 mg) PO DAILY 5 days 08/10/24 #10 tabs Allergies Allergy/AdvReac Type Severity Reaction Status Date / Time bee pollen [BEE STINGS] Allergy Severe THROAT Verified 12/02/24 11:53 SWELLING codeine [Codeine] Allergy Severe CAN'T Verified 12/02/24 11:53 BREATHE, SWELLING,RASH tramadol [TRAMADOL] Allergy Intermediate ABD PAIN- Verified 12/02/24 11:53 COULD NOT EAT - FELT SICK PMFSH Past Medical History Medical History Fibromyalgia Epidermal cyst of neck Gastroesophageal reflux disease COVID-19 Female pelvic pain ASCUS of cervix with negative high risk HPV Hx of abnormal cervical Pap smear Encounter for repeat Papanicolaou smear of cervix Encounter for annual routine gynecological examination Tubular adenoma PONV (postoperative nausea and vomiting) Potential exposure to STD Well woman exam with routine gynecological exam Breast lump Hx of ectopic MRSA (methicillin resistant Staphylococcus aureus) Kidney stones SAB (spontaneous ) Surgical History History of excision of epidermal inclusion cyst (~01/17/23) History of removal of cyst (~01/17/23) Hx of hemorrhoidectomy H/O elbow surgery H/O lithotripsy Hx of endoscopy History of colonoscopy History of hernia repair Hx of appendectomy Hx of cholecystectomy Hx of breast biopsy Family History Family History Father Diabetes mellitus CVD (cardiovascular disease) Hyperlipemia Mother Diabetes mellitus HTN (hypertension) Colon cancer Liver cancer Maternal Grandmother Diabetes mellitus Maternal Aunt Breast cancer Paternal Grandfather Colon cancer Maternal Grandfather Stomach cancer Social History Social History Household Members: Children Alcohol intake: current Alcohol intake frequency: holidays/special occasions only Alcohol type: hard liquor Patient Tobacco Use Status: Current everyday Tobacco user Cigarettes Per Day: 5 Years Smoked: 8 Substance Use Type: Marijuana Advance Directives: No Advance Directives Information Provided: Yes Current occupational status: disabled Gender identity: Female Physical Exam Vital Signs: Vital Signs: Last Vital Signs Temp 97.7 F 12/02/24 11:50 Pulse 97 12/02/24 11:50 Resp 18 12/02/24 11:50 BP 111/78 12/02/24 11:50 Pulse Ox 98 12/02/24 11:50 O2 Del Method Room Air 12/02/24 11:50 BMI result Body Mass Index 19.4 Course Course Course Narrative: This is an RME: Additional HPI, ROS, PE not included below will be deferred to primary provider. RME assessment and note performed by: Cha Weeks PA-C This is a [id number] who presents to the ER with a complaint of multiple complaints. She states that over the last few days she has had headache, chest pain, palpitations, nausea, SOB. Denies any fevers, cough, vomiting, diarrhea. Denies sick contacts. She is well appearing under no acute distress. Lungs CTAB, vitals WNL. Plan: Labs, chest x-ray, EKG, further ER evaluation needed. Reevaluation(s) Reevaluation #1: Patient left without completing treatment. Medical Decision Making Lab Data 12/02/24 12:05 12/02/24 12:05 Labs: Lab Results 12/02/24 Range/Units 12:05 WBC 7.4 (4.8-10.8) X10*3/uL RBC 4.71 (4.20-5.50) X10*6/uL Hgb 13.2 (12.0-16.0) g/dl Hct 39.5 (37.0-47.0) % MCV 83.9 (80.0-98.0) fL MCH 28.0 (27.0-33.0) pg MCHC 33.4 (31.0-35.0) g/dl RDW 13.9 (11.0-16.0) % Plt Count 270 (160-400) X10*3/uL MPV 8.9 L (9.4-12.3) fL Immature Gran % (Auto) 0.3 (0.0-0.4) % Neut % (Auto) 70.2 (45-73) % Lymph % (Auto) 22.9 (20-40) % [place] % (Auto) 6.1 (2-11) % Eos % (Auto) 0.1 (0-4) % Baso % (Auto) 0.4 (0-2) % Lymph # (Auto) 1.7 (1.2-4.9) X10*3/uL [place] # (Auto) 0.5 (0.1-1.2) X10*3/uL Eos # (Auto) 0.0 (0.0-0.4) X10*3/uL Baso # (Auto) 0.0 (0.0-0.2) X10*3/uL Abs Immat Gran (auto) 0.02 (0.00-0.03) X10*3/uL Absolute Neuts (auto) 5.2 (2.0-8.3) x10*3/uL Absolute Nucleated RBC 0.000 (0.0-0.012) X10*3/uL Nucleated RBC % (auto) 0.0 (0.0-0.2) /100WBC Sodium 140 (135-145) mmol/L Potassium 4.1 (3.3-5.1) mmol/L Chloride 109 H (96-108) mmol/L Carbon Dioxide 23 (22-29) mmol/L Anion Gap 12 (12-20) BUN 18 H (9-16) mg/dL Creatinine 0.67 (0.5-1.4) mg/dL Estim Creat Clear Calc 65.5 Estimated GFR > 60 Random Glucose 94 (60-115) mg/dL Calcium 10.1 (8.4-10.2) mg/dL Magnesium 2.2 (1.6-2.6) mg/dL Total Bilirubin 0.6 (0.0-1.0) mg/dL Direct Bilirubin 0.2 (0.0-0.5) mg/dL AST 29 (5-31) U/L ALT 23 (0-31) U/L Alkaline Phosphatase 84 (39-117) U/L Troponin I High Sens < 2.7 (<3.5-17.0) ng/L Total Protein 7.4 (6.5-8.0) g/dL Albumin 4.7 (3.5-5.0) g/dL TSH 1.17 (0.32-4.0) uIU/mL Influenza Type A (PCR) NEGATIVE (Negative) Influenza Type B (PCR) NEGATIVE (Negative) RSV RNA Qual (PCR) NEGATIVE (Negative) SARS-CoV-2 RNA (RT-PCR) NEGATIVE (Negative) Discharge Plan Discharge Clinical Impression: Chest pain Patient Disposition: Left W/O Completing Treatment Prescriptions: No Action naproxen [Naprosyn] 500 mg tablet 500 mg PO BID Qty: 20 0RF ketorolac 10 mg tablet 10 mg PO TID PRN (Reason: pain) 5 Days Qty: 15 0RF guaifenesin 200 mg tablet 200 mg PO TID PRN (Reason: cough) Qty: 10 0RF prednisone 20 mg tablet 40 mg PO DAILY 5 Days Qty: 10 0RF azithromycin 250 mg tablet See Rx Instructions .ROUTE .COMPLEX Qty: 6 0RF Rx Instructions: For 250 mg dose pack: take 500 mg today (day 1), then 250 mg for 4 days (days 2-5) ibuprofen 600 mg tablet 600 mg PO Q8H PRN (Reason: fever or pain) Qty: 30 0RF hydrocortisone [Anusol-HC] 2.5 % cream with perineal applicator 1 appl PA QID PRN (Reason: hemorrhoids) Qty: 30 2RF omeprazole 40 mg capsule,delayed release(DR/EC) 40 mg PO DAILY Qty: 90 3RF Discharge Date/Time: 12/02/24 20:02
[2024-12-02 12:11] LABS: MANUAL DIFF FLAG NO
[2024-12-02 12:13] LABS: Basophils Percent Auto 0.4 % (0-2); Eosinophils Percent Auto 0.1 % (0-4); Hematocrit 39.5 % (37.0-47.0); Hemoglobin 13.2 g/dl (12.0-16.0); Imm Gran Abs Auto 0.02 X10*3/uL (0.00-0.03); Imm Gran Pct Auto 0.3 % (0.0-0.4); Lymphocytes Absolute Auto 1.7 X10*3/uL (1.2-4.9); Lymphocytes Percent Auto 22.9 % (20-40); Mean Corpuscular HGB Conc 33.4 g/dl (31.0-35.0); Mean Corpuscular Volume 83.9 fL (80.0-98.0); Mean Platelet Volume 8.9 fL (9.4-12.3); Monocytes Absolute Auto 0.5 X10*3/uL (0.1-1.2); Monocytes Percent Auto 6.1 % (2-11); Neutrophils Absolute Auto 5.2 x10*3/uL (2.0-8.3); Neutrophils Percent Auto 70.2 % (45-73); Platelet Count 270 X10*3/uL (160-400); Red Blood Count 4.71 X10*6/uL (4.20-5.50); Red Cell Distribution Width 13.9 % (11.0-16.0); White Blood Count 7.4 X10*3/uL (4.8-10.8)
[2024-12-02 12:39] LABS: Troponin-I High Sensitivity < 2.7 ng/L (<3.5-17.0)
[2024-12-02 12:40] LABS: Alanine Aminotransferase 23 U/L (0-31); Albumin Level 4.7 g/dL (3.5-5.0); Alkaline Phosphatase 84 U/L (39-117); Anion Gap 12 (12-20); Aspartate Amino Transferase 29 U/L (5-31); Bilirubin Direct 0.2 mg/dL (0.0-0.5); Bilirubin Total 0.6 mg/dL (0.0-1.0); Blood Urea Nitrogen 18 mg/dL (9-16); Calcium 10.1 mg/dL (8.4-10.2); Carbon Dioxide 23 mmol/L (22-29); Chloride 109 mmol/L (96-108); Creatinine Clr Calc Pharmacy 65.5; Estimated Glomerular Filt Rate > 60; Glucose Random 94 mg/dL (60-115); Magnesium 2.2 mg/dL (1.6-2.6); Potassium 4.1 mmol/L (3.3-5.1); Sodium 140 mmol/L (135-145); Total Protein 7.4 g/dL (6.5-8.0)
[2024-12-02 12:54] LABS: TSH reflex Free T4 1.17 uIU/mL (0.32-4.0)
[2024-12-02 13:00] LABS: Influenza A PCR NEGATIVE (Negative); Influenza B PCR NEGATIVE (Negative); Resp Syncy Virus RNA Qual PCR NEGATIVE (Negative); SARS COV2 PCR INHOUSE NEGATIVE (Negative)
--- OUTSIDE RECORDS SUMMARY | 2024-12-02 14:33 | XMS_ITS | Encounter Summary ---
Author Organization [employer] [facility] Address [address] [facility] 7t [place] [address] Care Team Providers Care Bow Tacker Name Role Phone Gloria Smith MD Primary Care Provider + Reason for Visit * Reason Onset Date Comments Appointment Request 12/17/2023 Encounter Details Date Type Department Care Team ([facility] st Contact Info) Description 12/17/2023 Telephone [facility] MEDICINE [address] [place] [address] Gloria Smith MD [address] [place] [address] Appointment Request Social History Tobacco Use Types [...] a call back if there any cancellations commercial lines underwriter did offer appt for January but the patient would like something sooner and in the afternoon documented in this encounter Plan of Treatment Not on file documented as of this encounter Visit Diagnoses Not on filedocumented in this encounter Additional Health Concerns Assessment Noted Time PHQ-9 Depression Total Score: 12 024 8:47 AM EST documented as of this encounter Care Teams Bow Tacker Relationship Specialty Start Date End Date Gloria Smith MD [address] [place] [phone] PCP - General Family Medicine 04/17/17 documented as of this encounter
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
--- OUTSIDE RECORDS SUMMARY | 2024-12-02 14:34 | XMS_ITS | Encounter Summary ---
Author Organization [employer] Address [address] [place] [address] Care Team Providers Care Internal Recruiter Name Role Phone Gloria Smith MD Primary Care Provider + Encounter Details Date Type Department Care Team (Late st Contact Info) Description 01/29/2024 Orders Only [facility] [address] [place] [address] Provider, MD Gloria Social History Tobacco Use [...] documented as of this encounter Care Teams Internal Recruiter Relationship Specialty Start Date End Date Gloria Smith MD [address] [place] [phone] PCP - General Family Medicine 04/17/17 documented as of this encounter
--- OUTSIDE RECORDS SUMMARY | 2024-12-02 14:34 | XMS_ITS | Encounter Summary ---
Author Organization [employer] Address [address] [place] [address] Care Team Providers Care Counter Top Maker Name Role Phone Gloria Smith MD Primary Care Provider + Encounter Details Date Type Department Care Team (Late st Contact Info) Description 10/23/2022 Orders Only [facility] P[facility] [address] [place] [address] Chantale Amaya LPN Social History Tobacco Use [...] 0 AM EDT 01/18/2023 7:18 AM EDT [facility] - 01/24/2023 7:32 PM EDT ----- ------- Name: JeanNeli ?Age/Sex: 52/F ? : 1970 Unit#: [id number] ?? Attend Dr: Filemon Veronica MD ?Re01/17/23 ?Status: DEP REF ? Location: HO.LNP ?Disch: ? ----- ------- SPEC : [id number] ? RECD: 01/18/23-717 ? STATUS: ??SOUT ? REQ NUM: [id number] ? MIGNON: 01/17/23-1130 ? SUBM DR: Filemon [...] To: ?? Gloria Smith MD ?? [address] [facility] ?? [place] [address] ? Filemon Veronica MD ?? [address] [facility] . ?? [place] [address] ?? [phone] ----- ------- Signed (signature on file) Babita Jasmin 01/24/231931 ? ----- ------- ? END OF REPORT ? [facility] External Provider LAB CYT OLOGY ORDERABLES Final Result Performing Organization Address [facility]/ZIP Co de Phone Number [facility] [address] [place] [phone] * Creatine Kinase, Total (11/20/2022 11:41 AM EDT) Pathologist [facility] Creatine Kinase Total 106 26 - 140 U/L [facility] 11/20/2022 11:4 1 AM EDT 11/20/2022 11:44 AM EDT [facility] External Provider LAB BLO OD ORDERABLES Final Result Performing Organization Address [facility] de Phone Number [facility] [address] [place] [address] [phone] * SARS-CoV-2 RNA, Influenza A/B, and RSV RNA, Ql NAAT (11/20/2022 11:41 AM EDT) Pathologist [facility] Influenza A PCR NEGATIVE Negative [facility] Influenza B PCR NEGATIVE Negative [facility] Resp Syncy Virus RNA Qual PCR NEGATIVE Negative [facility] SARS COV2 PCR NEGATIVE Negative [facility] SARS/Flu/RSV Note See Note [facility] Comment:All test results mus t [...] use by authorized laboratories.Testing performed on the [employer] GeneXpert utilizingreal-time RT-PCR.All SARS CoV2 and positive influenza A/B results arereported to [facility]. 11/20/2022 11:4 1 AM EDT 11/20/2022 11:44 AM EDT [facility] Exter nal Provider LAB MICROBIOLOGY - GENERAL ORDERABLES Final Result [facility] [address] [place] [phone] * (ABNORMAL) Basic Metabolic Panel (11/20/2022 11:41 AM EDT) Sodium 138 135 - 145 mmol/L [facility] Potassium 4.6 3.3 - 5.1 mmol/L [facility] Comment:Slight Hemolysis Chloride 105 96 - 108 mmol/L [facility] Carbon Dioxide 23 22 - 29 mmol/L [facility] Anion Gap 15 12 - 20 [facility] Urea Nitrogen (BUN) 9 9 - 16 mg/dL [facility] Creatinine, Serum 0.77 0.5 - 1.4 mg/dL [facility] Creatinine Clr Calc Pharmacy 61.4 [facility] Comment:Provided height and weight: 152.4 cm,51 kg.eGFR (calculated from the MDRD study equation) and eCrCl(calculated from the Cockcroft-Gault equation) are based ondifferent parameters and may not yield comparable results.If eCrCl result is absurd, please check patient'sheight/weight. Estimated Glomerular Filt Rate >60 [facility] Comment:NOTE: For -Am erican individuals, multiply the result by 1.210.Chronic Kidney Disease: Estimated GFR < 60 mL/min/1.10j5Wkkdwc Kidney Disease: Estimated GFR < 15 mL/min/1.73m2 Glucose 109 60 - 115 mg/dL [facility] Calcium 10.5(H) 8.4 - 10.2 mg/dL [facility] 11/20/2022 11:4 1 AM EDT 11/20/2022 11:44 AM EDT us [facility] External Provider LAB BLO OD ORDERABLES Final Result [facility] [address] [place] [phone] documented in this encounter Visit Diagnoses Not on filedocumented in this encounter Care Teams Counter Top Maker Relationship Specialty Start Date End Date Gloria Smith MD [address] [place] [phone] PCP - General Family Medicine 04/17/17 documented as of this encounter
--- OUTSIDE RECORDS SUMMARY | 2024-12-02 14:34 | XMS_ITS | Encounter Summary ---
Author Organization [facility] Address [address] [place] [address] Care Team Providers Care Copy Preparer Name Role Phone Gloria Smith MD Primary Care Provider + Encounter Details Date Type Department Care Team (Late st Contact Info) Description 12/02/2024 Orders Only GENERIC EXTERNAL DATA DEPARTMENT Provider, Generic External Data Social History Tobacco Use Types Packs/Day Years [...] Procedure Name Priority Date/Time Associated Diagnosis Comments HIGH SENSITIVITY TROPONIN I Routine 12/02/2024 12:05 PM EDT TSH W/REFLEX TO FT4 Routine 12/02/2024 1 2:05 PM EDT SARS COV2/INFLUENZA A/B AND RSV RNA QL NAAT Routine 12/02/2024 12:05 PM EDT CBC WITH AUTO DIFFERENTIAL Routine 12/02/2024 12:05 PM EDT MAGNESIUM Routine 12/02/2024 12:05 PM EDT HEPATIC FUNCTION PANEL Routine 12/02/2024 12:05 PM EDT BASIC METABOLIC PANEL Routine 12/02/2024 12:05 PM EDT XR CHEST 2 VIEWS Routine 12/02/2024 11:5 3 AM EDT documented in this encounter Results * SARS-CoV-2 RNA, Influenza A/B, and RSV RNA, Ql NAAT (12/02/2024 12:05 PM EDT) Influenza A PCR NEGATIVE Negative [facility] Influenza B PCR NEGATIVE Negative [facility] Resp Syncy Virus RNA Qual PCR NEGATIVE Negative [facility] SARS COV2 PCR NEGATIVE Negative [facility] Comment:All test results mus t [...] use by authorized laboratories.Testing performed on the [employer] GeneXpert utilizingreal-time RT-PCR.All SARS CoV2 and positive influenza A/B results arereported to [facility]. 12/02/2024 12:0 5 PM EDT 12/02/2024 12:10 PM EDT Generic External Data Provider LAB MICROBIOLOGY - GENERAL ORDERABLES Final Result Performing Organization Address [facility] Co de Phone Number [facility] [address] [place] [phone] * TSH with Reflex to Free T4 (12/02/2024 12:05 PM EDT) TSH reflex Free T4 1.17 0.32 - 4.0 uIU/mL [facility] 12/02/2024 12:0 5 PM EDT 12/02/2024 12:10 PM EDT Generic External Data Provider LAB BLOOD ORDERAB LES Final Result Performing Organization Address [facility]/ZIP Co de Phone Number [facility] [address] [place] [phone] * Magnesium (12/02/2024 12:05 PM EDT) Magnesium 2.2 1.6 - 2.6 mg/dL [facility] 12/02/2024 12:0 5 PM EDT 12/02/2024 12:10 PM EDT us Generic External Data Provider LAB BLOOD ORDERAB LES Final Result [facility] [address] [place] [phone] [phone] * (ABNORMAL) Basic Metabolic Panel (12/02/2024 12:05 PM EDT) Sodium 140 135 - 145 mmol/L [facility] Potassium 4.1 3.3 - 5.1 mmol/L [facility] Chloride 109(H) 96 - 108 mmol/L [facility] Carbon Dioxide 23 22 - 29 mmol/L [facility] Anion Gap 12 12 - 20 [facility] Urea Nitrogen (BUN) 18(H) 9 - 16 mg/dL [facility] Creatinine, Serum 0.67 0.5 - 1.4 mg/dL [facility] Creatinine Clr Calc Pharmacy 65.5 [facility] Comment:Provided height and weight: 149.86 cm,43.6 kg.eGFR (calculated from the MDRD study equation) and eCrCl(calculated from the Cockcroft-Gault equation) are based ondifferent parameters and may not yield comparable results.If eCrCl result is absurd, please check patient'sheight/weight. Estimated Glomerular Filt Rate >60 [facility] Comment:Chronic Kidney Disea se: Estimated GFR < 60 mL/min/1.84v7Lianus Kidney Disease: Estimated GFR < 15 mL/min/1.73m2 Glucose 94 60 - 115 mg/dL [facility] Calcium 10.1 8.4 - 10.2 mg/dL [facility] 12/02/2024 12:0 5 PM EDT 12/02/2024 12:10 PM EDT us Generic External Data Provider LAB BLOOD ORDERAB LES Final Result [facility] [address] [place] [phone] * Hepatic Function Panel (12/02/2024 12:05 PM EDT) Pathologist [facility] Bilirubin, Total 0.6 0.0 - 1.0 mg/dL [facility] Bilirubin, Direct 0.2 0.0 - 0.5 mg/dL [facility] Aspartate Amino Transferase 29 5 - 31 U/L [facility] Alanine Aminotransferase 23 0 - 31 U/L [facility] Total Protein 7.4 6.5 - 8.0 g/dL [facility] Albumin Level 4.7 3.5 - 5.0 g/dL [facility] Alkaline Phosphatase 84 39 - 117 U/L [facility] 12/02/2024 12:0 5 PM EDT 12/02/2024 12:10 PM EDT us Generic External Data Provider LAB BLOOD ORDERAB LES Final Result Performing Organization Address [facility] Co de Phone Number [facility] [address] [place] [phone] * High Sensitivity Troponin I (12/02/2024 12:05 PM EDT) [facility] TROPONIN I HIGH SENSITIVITY <2.7 <3.5 - 17.0 ng/L [facility] Comment:The Lopez high sens itivity Troponin-I results should beused in conjunction with other diagnostic information suchas ECG, clinical observations and information, and patientsymptoms to aid in the diagnosis of RI. 12/02/2024 12:0 5 PM EDT 12/02/2024 12:10 PM EDT us Generic External Data Provider LAB BLOOD ORDERAB LES Final Result Performing Organization Address [facility] Co de Phone Number [facility] [address] [place] [phone] * (ABNORMAL) CBC auto differential (12/02/2024 12:05 PM EDT) White Blood Count 7.4 4.8 - 10.8 X10*3/uL [facility] Red Blood Count 4.71 4.20 - 5.50 X10*6/uL [facility] Hemoglobin 13.2 12.0 - 16.0 g/dl [facility] Hematocrit 39.5 37.0 - 47.0 % [facility] Mean Corpuscular Volume 83.9 80.0 - 98.0 fL [facility] Mean Corpuscular Hemoglobin 28.0 27.0 - 33.0 pg [facility] Mean Corpuscular HGB Conc 33.4 31.0 - 35.0 g/dl [facility] Red Cell Distribution Width 13.9 11.0 - 16.0 % [facility] Platelet Count 270 160 - 400 X10*3/uL [facility] Mean Platelet Volume 8.9(L) 9.4 - 12.3 fL [facility] Neutrophils Percent Auto 70.2 45 - 73 % [facility] Imm Gran Pct Auto 0.3 0.0 - 0.4 % [facility] Lymphocytes Percent Auto 22.9 20 - 40 % [facility] Monocytes Percent Auto 6.1 2 - 11 % [facility] Eosinophils Percent Auto 0.1 0 - 4 % [facility] Basophils Percent Auto 0.4 0 - 2 % [facility] NRBC Pct Auto 0.0 0.0 - 0.2 /100WBC [facility] Neutrophils Absolute Auto 5.2 2.0 - 8.3 x10*3/uL [facility] Imm Gran Abs Auto 0.02 0.00 - 0.03 X10*3/uL [facility] Lymphocytes Absolute Auto 1.7 1.2 - 4.9 X10*3/uL [facility] Monocytes Absolute Auto 0.5 0.1 - 1.2 X10*3/uL [facility] Eosinophils Absolute Auto 0.0 0.0 - 0.4 X10*3/uL [facility] Basophils Absolute Auto 0.0 0.0 - 0.2 X10*3/uL [facility] NRBC Abs Auto 0.000 0.0 - 0.012 X10*3/uL [facility] 12/02/2024 12:0 5 PM EDT 12/02/2024 12:10 PM EDT us Generic External Data Provider LAB BLOOD ORDERAB LES Final Result [facility] [address] [place] [phone] * XR Chest 2 Views (12/02/2024 11:53 AM EDT) Anatomical Region Laterality Modality Chest Radiographic Frida ging 12/02/2024 11:5 3 AM EDT Narrative 12/02/2024 12:18 PM EDT ? [facility] ?[address] ?[place] [address] ?XRay Report ? Signed ? Patient: Neli Jean ?MR#: [id number] ?? 2 ? : 1970 ?Acct:[id number] ? Age/Sex: 54 / F ?ADM Date: 12/02/24 ? Loc: HO.ED ? Attending Dr: ? Ordering Physician: Cha Weeks ?? Date of Service: 12/02/24 ?? Procedure(s): XR chest 2V ?? Accession Number(s): [id number] ? cc: Gloria Smith MD; Cha Weeks [...] DD/ 1153 ? TD/TT: 12/02/24 1212 ? [employer] Foreman: ? Procedure Note Donlisa, Image - 12/02/[address] [address] XRay Report Signed Patient: Neli JeanMR#: [id number] 2 : 1970Acct:[id number] Age/Sex: 54 / FADM Date: 12/02/24 Loc: HO.ED Attending Dr: Ordering Physician: Cha Weeks Date of Service: 12/02/24 Procedure(s): XR chest 2V Accession Number(s): [id number] cc: Gloria Smith MD; Cha Weeks EXAMINATION: [...] Del Real MD 12/02/2024 12:15 PM EDT Dictated By: Sunny Del Real MD Signed By: <Electronically signed by Sunny Del Real MD in OV> 12/02/24 1215 DD/ 1153 TD/TT: 12/02/24 1212 [employer] Foreman: [facility] External Provider IMG XR PROCEDURES Edited Result - Final documented in this encounter Visit Diagnoses Not on filedocumented in this encounter Additional Health Concerns Assessment Noted Time PHQ-9 Depression Total Score: 13 08/14/2 024 4:13 PM EDT documented as of this encounter Care Teams Copy Preparer Relationship Specialty Start Date End Date Gloria Smith MD [address] [place] [phone] PCP - General Family Medicine 04/17/17 documented as of this encounter
== END 2024-12-02 20:02 | disposition left against medical advice (07) ==
PROVIDERS: Physician Assistant Medical; Emergency Provider Emergency Medicine; PCP Internal Medicine
DX: R07.89 Other chest pain (principal); R51.9 Headache, unspecified; R00.2 Palpitations; R11.0 Nausea; R06.02 Shortness of breath; F17.210 Nicotine dependence, cigarettes, uncomplicated; Z03.818 Encounter for observation for suspected exposure to other biological agents ruled out; Z79.899 Other long term (current) drug therapy
CPT/HCPCS: 0241U; 71046; 80048; 80076; 83735; 84443; 84484; 85025; 93005; 99283

== ENCOUNTER → 2024-12-02 11:48 | Outpatient (BNV) | payer MEDICAID, SELFPAY | PROVIDERS: Emergency Provider Emergency Medicine; PCP Internal Medicine; Visit Provider Internal Medicine | DX: R07.9 Chest pain, unspecified (principal) | CPT/HCPCS: 93010 ==

== ENCOUNTER → 2024-12-02 11:53 | Outpatient (BNV) | payer MEDICAID, SELFPAY | PROVIDERS: PCP Internal Medicine; Visit Provider Radiology Diagnostic Radiology | DX: R07.9 Chest pain, unspecified (principal) | CPT/HCPCS: 71046 ==

== ENCOUNTER 2024-12-17 00:37 | Observation (INO) | payer MEDICAID, SELFPAY ==
[2024-12-17] VITALS (24 sets, daily range): BP systolic 72–132; BP diastolic 44–77; PULSE 53–132; RESP 12–34; TEMP 35.3–36.7; O2SAT 94–100; BMI 19.5; BMI 20.8
--- NOTE | 2024-12-17 | ECG_ITS ---
Test Reason : SEIZURE Blood Pressure : */* mmHG Vent. Rate : 97 BPM Atrial Rate : 97 BPM P-R Int : 150 ms QRS Dur : 74 ms QT Int : 356 ms P-R-T Axes : 74 76 56 degrees QTcB Int : 452 ms Normal sinus rhythm Possible Left atrial enlargement Borderline ECG When compared with ECG of 02-Dec-2024 11:53, No significant change was found Referred By: Generic ED Physician Electronically Signed By: OMERO BOURGEOIS MD
--- NOTE | 2024-12-17 | ECG_ITS ---
Test Reason : chest pain Blood Pressure : */* mmHG Vent. Rate : 60 BPM Atrial Rate : 60 BPM P-R Int : 140 ms QRS Dur : 86 ms QT Int : 428 ms P-R-T Axes : 81 74 52 degrees QTcB Int : 428 ms Normal sinus rhythm Normal ECG When compared with ECG of 17-Dec-2024 01:04, Vent. rate has decreased by 37 bpm Referred By: Generic ED Physician Electronically Signed By: OMERO BOURGEOIS MD
--- NOTE | ~2024-12-17 | XR_ITS ---
CLINICAL HISTORY: hypotension 1 view chest x-ray Comparison: CR/SR - XR CHEST 2V - 12/02/24 12:09 EDT Findings: No consolidation or effusion. Normal size heart. No acute fracture. IMPRESSION: 1. No acute findings. This document has been electronically signed by: Ishaan Hernandez MD, PHD on 12/17/2024 03:42:55
--- NOTE | ~2024-12-17 | CT_ITS ---
CLINICAL HISTORY: AMS, poss fall, cant assess C-spine clinically CT cervical spine without contrast Comparison: CT of the cervical spine from 03/30/2024 Findings: No acute fracture of the cervical spine. No significant change in vertebral heights or vertebral alignments. Mild reversal cervical lordosis. Mild worsening degenerative changes include disc osteophyte complexes and facet arthropathy. Mild increase in endplate sclerosis. Disc height losses are again multifocal. Mild spinal canal stenosis from C4-C5 to C6-C7. Multilevel [id number] foraminal narrowing redemonstrated, right worse than left with worsening including C5-C6 and C6-C7. No paraspinal hematoma. Mild scarring in motion imaged lung apices. IMPRESSION: No acute fracture of the cervical spine. This document has been electronically signed by: Mario Pickett MD on 12/17/2024 02:29:59
--- NOTE | ~2024-12-17 | CT_ITS ---
CLINICAL HISTORY: ALtered mental status, possible fall CT head without contrast Comparison: Head CT from 03/30/2024 Findings: No acute intracranial hemorrhage. No midline shift or hydrocephalus. No arterial territorial infarction by CT. Posterior fossa arachnoid cysts measures [address] Question mild white matter changes as can be seen with small-vessel ischemic disease. Imaged paranasal sinuses and imaged mastoid air cells appear well aerated. No acute skull fracture. Arachnoid granulations are redemonstrated. Mild exotropia at the time of the imaging. IMPRESSION: 1. No acute intracranial abnormality by CT and no significant change compared to 03/30/2024. This document has been electronically signed by: Mario Pickett MD on 12/17/2024 02:31:02
[2024-12-17 00:54] LABS: MANUAL DIFF FLAG NO
[2024-12-17 00:55] LABS: Basophils Absolute Auto 0.1 X10*3/uL (0.0-0.2); Basophils Percent Auto 0.3 % (0-2); Eosinophils Percent Auto 0.1 % (0-4); Hematocrit 37.6 % (37.0-47.0); Hemoglobin 12.6 g/dl (12.0-16.0); Imm Gran Abs Auto 0.06 X10*3/uL (0.00-0.03); Imm Gran Pct Auto 0.4 % (0.0-0.4); Lymphocytes Absolute Auto 1.2 X10*3/uL (1.2-4.9); Lymphocytes Percent Auto 8.3 % (20-40); Mean Corpuscular HGB Conc 33.5 g/dl (31.0-35.0); Mean Corpuscular Hemoglobin 28.3 pg (27.0-33.0); Mean Corpuscular Volume 84.5 fL (80.0-98.0); Mean Platelet Volume 8.8 fL (9.4-12.3); Monocytes Absolute Auto 0.7 X10*3/uL (0.1-1.2); Monocytes Percent Auto 4.8 % (2-11); Neutrophils Absolute Auto 12.8 x10*3/uL (2.0-8.3); Neutrophils Percent Auto 86.1 % (45-73); Platelet Count 269 X10*3/uL (160-400); Red Blood Count 4.45 X10*6/uL (4.20-5.50); White Blood Count 14.9 X10*3/uL (4.8-10.8)
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
[2024-12-17] MEDS: diazePAM 10 MG/2 ML CARTRIDGE IVPUSH ×2 (00:59→01:52)
[2024-12-17 01:00] LABS: VBG HCO3 20 mmol/L (22-26); VBG pCO2 29 mmHg; VBG pH 7.43 (7.32-7.43); VBG pO2 71 mmHg
[2024-12-17 01:01] LABS: Venous Blood Gas Refer to POC result
[2024-12-17 01:13] LABS: Alanine Aminotransferase 18 U/L (0-31); Albumin Level 4.7 g/dL (3.5-5.0); Anion Gap 17 (12-20); Aspartate Amino Transferase 29 U/L (5-31); Bilirubin Total 0.3 mg/dL (0.0-1.0); Blood Urea Nitrogen 18 mg/dL (9-16); C Reactive Protein 0.17 mg/dL (< or = 0.50); Calcium 10.2 mg/dL (8.4-10.2); Carbon Dioxide 19 mmol/L (22-29); Chloride 109 mmol/L (96-108); Estimated Glomerular Filt Rate > 60; Glucose Random 108 mg/dL (60-115); Sodium 141 mmol/L (135-145); Total Protein 7.6 g/dL (6.5-8.0)
[2024-12-17 01:14] LABS: Alkaline Phosphatase 93 U/L (39-117)
[2024-12-17 01:14] LABS: Glucose, Whole Blood 111 mg/dL (60-115)
[2024-12-17 01:16] LABS: Lactic Acid 3.4 mmol/L (0.5-2.0)
[2024-12-17 01:17] LABS: Troponin-I High Sensitivity < 2.7 ng/L (<3.5-17.0)
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
--- OUTSIDE RECORDS SUMMARY | 2024-12-17 01:38 | XMS_ITS | Encounter Summary ---
Author Organization [facility] Address [address] [place] [address] Care Team Providers Care Aircraft Loadmaster Superintendent Name Role Phone Gloria Smith MD Primary Care Provider + Reason for Visit * Reason Onset Date Comments Appointment Request 12/17/2023 Encounter Details Date Type Department Care Team ([facility] st Contact Info) Description 12/17/2023 Telephone [facility] [address] [place] [address] Gloria Smith MD [address] [place] [address] Appointment Request Social History Tobacco Use Types [...] a call back if there any cancellations customs entry writer did offer appt for January but the patient would like something sooner and in the afternoon documented in this encounter Plan of Treatment Not on file documented as of this encounter Visit Diagnoses Not on filedocumented in this encounter Additional Health Concerns Assessment Noted Time PHQ-9 Depression Total Score: 12 024 8:47 AM EST documented as of this encounter Care Teams Aircraft Loadmaster Superintendent Relationship Specialty Start Date End Date Gloria Smith MD [address] [place] [phone] PCP - General Family Medicine 04/17/17 documented as of this encounter
--- OUTSIDE RECORDS SUMMARY | 2024-12-17 01:38 | XMS_ITS | Encounter Summary ---
Author Organization [employer] Address [address] [place] [address] Care Team Providers Care Parts Washer Name Role Phone Gloria Smith MD Primary Care Provider + Encounter Details Date Type Department Care Team (Late st Contact Info) Description 10/23/2022 Orders Only [facility] PEDS [address] [place] [address] Chantale Amaya LPN Social History Tobacco Use [...] 0 AM EDT 01/18/2023 7:18 AM EDT [facility] LABS - 01/24/2023 7:32 PM EDT ----- ------- Name: JeanNeli ?Age/Sex: 52/F ? : 1970 Unit#: [id number] ?? Attend Dr: Filemon Veronica MD ?Re01/17/23 ?Status: DEP REF ? Location: HO.LNP ?Disch: ? ----- ------- SPEC : [id number] ? RECD: 01/18/23-717 ? STATUS: ??SOUT ? REQ NUM: [id number] ? MIGNON: 01/17/23-1130 ? SUBM DR: Filemon [...] To: ?? Gloria Smith MD ?? [address] [facility] ?? [place] [id number] ? Filemon Veronica MD ?? [address] [facility] . ?? [place] [address] ?? [phone] ----- ------- Signed (signature on file) Babita [place] 01/24/231931 ? ----- ------- ? END OF REPORT ? [facility] External Provider LAB CYT OLOGY ORDERABLES Final Result Performing Organization Address [facility]/ZIP Co de Phone Number [facility] [address] [place] [address] [phone] * Creatine Kinase, Total (11/20/2022 11:41 AM EDT) Pathologist [facility] Creatine Kinase Total 106 26 - 140 U/L [facility] 11/20/2022 11:4 1 AM EDT 11/20/2022 11:44 AM EDT [facility] External Provider LAB BLO OD ORDERABLES Final Result Performing Organization Address [facility] de Phone Number [facility] [address] [place] [address] [phone] * SARS-CoV-2 RNA, Influenza A/B, and RSV RNA, Ql NAAT (11/20/2022 11:41 AM EDT) Pathologist [facility] Influenza A PCR NEGATIVE Negative [facility] Influenza B PCR NEGATIVE Negative [facility] Resp Syncy Virus RNA Qual PCR NEGATIVE Negative [facility] SARS COV2 PCR NEGATIVE Negative [facility] SARS/Flu/RSV Note See Note [facility] Comment:All test results mus t [...] use by authorized laboratories.Testing performed on the [employer] GeneXpert utilizingreal-time RT-PCR.All SARS CoV2 and positive influenza A/B results arereported to [facility]. 11/20/2022 11:4 1 AM EDT 11/20/2022 11:44 AM EDT [facility] Exter nal Provider LAB MICROBIOLOGY - GENERAL ORDERABLES Final Result [facility] [address] [place] [phone] * (ABNORMAL) Basic Metabolic Panel (11/20/2022 11:41 AM EDT) Sodium 138 135 - 145 mmol/L [facility] Potassium 4.6 3.3 - 5.1 mmol/L [facility] Comment:Slight Hemolysis Chloride 105 96 - 108 mmol/L [facility] Carbon Dioxide 23 22 - 29 mmol/L [facility] Anion Gap 15 12 - 20 [facility] Urea Nitrogen (BUN) 9 9 - 16 mg/dL [facility] Creatinine, Serum 0.77 0.5 - 1.4 mg/dL [facility] Creatinine Clr Calc Pharmacy 61.4 [facility] Comment:Provided height and weight: 152.4 cm,51 kg.eGFR (calculated from the MDRD study equation) and eCrCl(calculated from the Cockcroft-Gault equation) are based ondifferent parameters and may not yield comparable results.If eCrCl result is absurd, please check patient'sheight/weight. Estimated Glomerular Filt Rate >60 [facility] Comment:NOTE: For -Am erican individuals, multiply the result by 1.210.Chronic Kidney Disease: Estimated GFR < 60 mL/min/[id number] Kidney Disease: Estimated GFR < 15 mL/min/1.73m2 Glucose 109 60 - 115 mg/dL [facility] Calcium 10.5(H) 8.4 - 10.2 mg/dL [facility] 11/20/2022 11:4 1 AM EDT 11/20/2022 11:44 AM EDT us [facility] External Provider LAB BLO OD ORDERABLES Final Result [facility] [address] [place] [phone] documented in this encounter Visit Diagnoses Not on filedocumented in this encounter Care Teams Parts Washer Relationship Specialty Start Date End Date Gloria Smith MD [address] [place] [phone] PCP - General Family Medicine 04/17/17 documented as of this encounter
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
--- OUTSIDE RECORDS SUMMARY | 2024-12-17 01:38 | XMS_ITS | Encounter Summary ---
Author Organization [employer] Address [address] [place] [address] Care Team Providers Care Minesweeping Officer Name Role Phone Gloria Smith MD Primary Care Provider + Encounter Details Date Type Department Care Team (Late st Contact Info) Description 01/29/[address] [facility] MEDICINE [address] [place] [address] Provider, MD Gloria Social History Tobacco Use [...] documented as of this encounter Care Teams Minesweeping Officer Relationship Specialty Start Date End Date Gloria Simth MD [address] [place] [phone] PCP - General Family Medicine 04/17/17 documented as of this encounter
[2024-12-17] MEDS: 0.9 % Sodium Chloride 1,000 ML 999 ML IV ×2 (01:53→02:38)
[2024-12-17 01:56] LABS: Ethanol < 10 mg/dL
[2024-12-17 02:21] LABS: Appearance Urine Clear; Color Urine Yellow; Glucose Urine UA Negative (Negative); Leukocyte Esterase Urine Negative (Negative); Nitrite Urine Negative (Negative); PH 5.5 (5.0-9.0); Specific Gravity - Urine 1.025 (1.005-1.025); UMIC TRIGGER UACC YES; Urine Blood Moderate (2+) (Negative); Urine Ketones Trace mg/dL (Negative); Urine Protein 30 (1+) mg/dL (Neg-Trace)
[2024-12-17 02:30] LABS: Amphetamine Screen Urine Not Detected (Not Detect); Barbiturates, Urine Not Detected (Not Detect); Benzodiazepines Screen Urine POSITIVE (Not Detect); Buprenorphine Scr Not Detected (Not Detect); Cannabinoid Screen Urine POSITIVE (Not Detect); Cocaine Screen Urine POSITIVE (Not Detect); Fentanyl, urine Not Detected (Not Detect); Methadone Screen, Urine Not Detected (Not Detect); Opiate Screen Urine Not Detected (Not Detect); Oxycodone Screen Urine Not Detected (Not Detect); Phencyclidine Screen Urine Not Detected (Not Detect)
[2024-12-17 02:52] LABS: Reflex Lactate? Lactic Acid Added
[2024-12-17] MEDS: levETIRAcetam 2,000 MG in 0.9 % Sodium Chloride 100 ML 480 MG IV (02:57)
[2024-12-17 02:58] LABS: Bacteria Urine None Seen (None Seen); Calcium Oxalate Crystals Urine Present; Hyaline Casts Urine 0-2 /LPF (0-2); Squamous Epithelial Cell Urine 0-2 /HPF (0-2); WBC Urine 0-5 /HPF (0-5)
[2024-12-17] MEDS: cefTRIAXone sodium 2 GM VIAL IVPUSH (03:29)
[2024-12-17 03:30] LABS: Venous Blood Gas Refer to POC result
[2024-12-17 03:31] LABS: VBG Base Excess -2.6 mmol/L; VBG HCO3 23 mmol/L (22-26); VBG pCO2 45 mmHg; VBG pH 7.31 (7.32-7.43); VBG pO2 85 mmHg
[2024-12-17 03:43] LABS: ~Lactic Acid-LAB USE ONLY 0.6 mmol/L (0.5-2.0)
[2024-12-17 03:47] LABS: Anion Gap 13 (12-20); Blood Urea Nitrogen 16 mg/dL (9-16); Calcium 8.8 mg/dL (8.4-10.2); Carbon Dioxide 19 mmol/L (22-29); Chloride 114 mmol/L (96-108); Estimated Glomerular Filt Rate > 60; Glucose Random 93 mg/dL (60-115); HCG Quantitative < 2 mIU/mL; Potassium 4.1 mmol/L (3.3-5.1); Sodium 142 mmol/L (135-145)
[2024-12-17 03:51] LABS: Troponin-I High Sensitivity 3.2 ng/L (<3.5-17.0)
[2024-12-17] MEDS: Lactated Ringers 1,000 ML 999 ML IV ×2 (04:19→06:33)
--- NOTE | 2024-12-17 06:39 | PC.NURSE ---
bladder scan d/t not voiding independently, while bladder scanning patient reported needed to void, urinated 250 in bedpan
--- NOTE | 2024-12-17 07:19 | PC.NURSE ---
Assumed care of pt at 0700. Pt a/ox3, resting in bed quietly, respirations even and unlabored, no increased wob/sob noted, maintaining own airway/O2 sat high 90s on RA, on almond blancher hand for safety, NSR HR- 70s. BP soft, 90s/50s. MD at bedside to evaluate pt. Pt encourage to sit up in bed/move around a bit. 1L NS hung and infusing per MAR. Vitals updated in worklist. Call sy within reach, all needs met at this time.
[2024-12-17] MEDS: Ketorolac Tromethamine 15 MG/ML VIAL 10 MG IVPUSH (07:31)
--- NOTE | 2024-12-17 07:33 | PC.NURSE ---
Pt endorsing generalized pain- 10/10. MD aware, medicated per MAR for pain management.
[2024-12-17] MEDS: Acetaminophen 1,000 MG/100 ML PIGGYBACK 400 MG IV (08:32)
[2024-12-17 08:43] LABS: Procalcitonin 0.03 ng/mL
--- NOTE | 2024-12-17 09:29 | PC.NURSE ---
This RN and MD at bedside, attempt to get pt up out of bed. Weak/lethargic with standing, unable to ambulate more than 2 steps. Pt endorsing dizziness/headache- placed back in bed d/t safety concerns. Pt rectal temp 95.5- MD aware. Warm blankets/hot packs placed to warm pt up. Vitals cycling q 10 to monitor.
--- NOTE | 2024-12-17 11:07 | P.HPHOSP_ITS ---
History of Present Illness Date of Service: 12/17/24 Attending physician on admission: Krupa Black Chief Complaint: Seizure-like activity Pt is a 54-year-old female with a PMH significant for?fibromyalgia, GERD, hx of negative cardiac catheterizations x2, and cocaine use disorder who presents to the ED after witnessed seizure-like activity at home. Pt is somnolent but arousable, though falling back asleep during interview and examination. Does not remember events precipitating presentation to ED. HPI is thus supplemented by provider in chart review, as well as who was at bedside. Has been reports that pt has been hanging out with friends last night who have known to indulge in cocaine. Has been reports pt came home seemingly in her normal state of health. Did not appear intoxicated. Pt has started cleaning the upstairs while was downstairs watching TV. He heard a loud crash coming from upstairs and when he went to investigate found the pt on the floor ?convulsing? and foaming at the mouth. No witnessed episodes of vomiting or loss of bowel/bladder control. Reports pt has no hx of seizure disorder nor has ever experienced similar episode before. Has been called 911 and paramedics noted blood sugars were WNL. In the ED pt continued to exhibit seizure-like activity and was given diazepam 10 mg IV with initial cessation of abnormal movements. Seizure-like activity returned a short time later and pt was given additional dose of diazepam 10 mg IV as well as Keppra 2 g IV. Pt was subsequently somnolent and hypotensive as low as 72/44. Pt was also symptomatic with lightheadedness and dizziness. Pt was given IVF and midodrine with improvement to BP. Pt also complained of central chest pain/pressure, though serial troponins x3 has been negative and EKG without ischemic changes. Labs were significant for leukocytosis of 14.9, initial lactic acid of 3.4 which normalized to 0.6 after IVF, and CPK as high as 277. Procalcitonin negative. UA negative. Imaging, including CTA of head and C-spine and CXR negative for acute abnormalities. Pt will be admitted to the hospital under observation for further evaluation of likely cocaine-induced seizure and hypotension secondary to benzodiazepine use. Review of Systems 2 Review of Systems: Negative except for that which is stated in the HPI. [facility] Medical History Fibromyalgia Epidermal cyst of neck Gastroesophageal reflux disease COVID-19 Female pelvic pain ASCUS of cervix with negative high risk HPV Hx of abnormal cervical Pap smear Encounter for repeat Papanicolaou smear of cervix Encounter for annual routine gynecological examination Tubular adenoma PONV (postoperative nausea and vomiting) Potential exposure to STD Well woman exam with routine gynecological exam Breast lump Hx of ectopic MRSA (methicillin resistant Staphylococcus aureus) Kidney stones SAB (spontaneous ) Family History Father Diabetes mellitus CVD (cardiovascular disease) Hyperlipemia Mother Diabetes mellitus HTN (hypertension) Colon cancer Liver cancer Maternal Grandmother Diabetes mellitus Maternal Aunt Breast cancer Paternal Grandfather Colon cancer Maternal Grandfather Stomach cancer Surgical History History of excision of epidermal inclusion cyst (~01/17/23) History of removal of cyst (~01/17/23) Hx of hemorrhoidectomy H/O elbow surgery H/O lithotripsy Hx of endoscopy History of colonoscopy History of hernia repair Hx of appendectomy Hx of cholecystectomy Hx of breast biopsy Social History Household Members: Children Alcohol intake: current Alcohol intake frequency: holidays/special occasions only Alcohol type: hard liquor Patient Tobacco Use Status: Current everyday Tobacco user Cigarettes Per Day: 5 Years Smoked: 8 Use of substances other than those prescribed or required for medical reasons: Yes Substance Use Type: Crack/Cocaine Substance Use Frequency: Socially Last Used Substance: Just Prior to Admission Advance Directives: No Advance Directives Information Provided: Yes Do you have a plan to hurt others: No Plan Current occupational status: disabled Gender identity: Female Meds Allergies Allergy/AdvReac Type Severity Reaction Status Date / Time bee pollen [BEE STINGS] Allergy Severe THROAT Verified 12/17/24 00:46 SWELLING codeine [Codeine] Allergy Severe CAN'T Verified 12/17/24 00:46 BREATHE, SWELLING,RASH tramadol [TRAMADOL] Allergy Intermediate ABD PAIN- Verified 12/17/24 00:46 COULD NOT EAT - FELT SICK Active Medications: Current Medications Acetaminophen (Acetaminophen 325 Mg Tablet) 650 mg PO Q6H PRN PRN Reason: Pain, Mild 1-3,fever,headache Calcium Carbonate (Calcium Carbonate 750 Mg Tab.Chew) 750 mg PO Q4H PRN PRN Reason: Heartburn Magnesium Hydroxide (Milk Of Magnesia 30 Ml Oral.Susp) 30 ml PO DAILY PRN PRN Reason: Constipation Melatonin (Melatonin 3 Mg Tablet) 6 mg PO BEDTIME PRN PRN Reason: Insomnia Sodium Chloride (0.9 % Sodium Chloride Flush 3 Ml Syringe) 3 ml IVFLUSH QSHIFT [facility] Home Medications ?Medication ?Instructions ?Recorded ?Confirmed ?Last Taken ?Type Unobtainable 12/17/24 12/17/24 Unknown History Physical Exam 2 Vital Signs and Narrative: Vital Signs: Last Vital Signs Temp 95.5 F L 12/17/24 09:29 Pulse 58 12/17/24 09:29 Resp 12 12/17/24 09:29 BP 95/66 12/17/24 09:29 Pulse Ox 100 12/17/24 09:29 O2 Del Method Room Air 12/17/24 09:29 BMI result Body Mass Index 19.5 General: Somnolent but arousable, though falling back asleep during interview and exam. Limited historian due to somnolence. In no acute distress Resp: CTA bilaterally CVS: S1, S2, RRR Chest: Central anterior chest wall tender to palpation GI: +BS, NT, no distention Skin: Warm, dry Neuro: Cranial nerves II-XII grossly intact bilaterally. Motor grossly intact bilaterally Extremities: No edema Results Labs 12/17/24 00:49 12/17/24 03:17 Labs: Laboratory Results - last 24 hr 12/17/24 12/17/24 12/17/24 00:49 00:55 00:57 MCV 84.5 MCH 28.3 MCHC 33.5 RDW 14.0 Plt Count 269 MPV 8.8 L Immature Gran % (Auto) 0.4 Neut % (Auto) 86.1 H Lymph % (Auto) 8.3 L [place] % (Auto) 4.8 Eos % (Auto) 0.1 Baso % (Auto) 0.3 Lymph # (Auto) 1.2 [place] # (Auto) 0.7 Eos # (Auto) 0.0 Baso # (Auto) 0.1 Abs Immat Gran (auto) 0.06 H Absolute Neuts (auto) 12.8 H Absolute Nucleated RBC 0.000 Nucleated RBC % (auto) 0.0 VBG pH 7.43 VBG pCO2 29 VBG pO2 71 VBG HCO3 20 L VBG O2 Saturation 94.0 VBG Base Excess -3.0 Anion Gap 17 Estim Creat Clear Calc 59.0 Estimated GFR > 60 POC Glucose 111 Random Glucose 108 Lactic Acid 3.4 H* Lactic Acid F/U @ 2Hr Calcium 10.2 Magnesium Total Bilirubin 0.3 AST 29 ALT 18 Alkaline Phosphatase 93 Total Creatine Kinase 216 H C-Reactive Protein 0.17 Total Protein 7.6 Albumin 4.7 Procalcitonin Beta HCG, Quant Urine Color Urine Appearance Urine pH Ur Specific [place] Urine Protein Urine Glucose (UA) Urine Ketones Urine Blood Urine Nitrite Ur Leukocyte Esterase Urine RBC Urine WBC Ur Squamous Epith Cells Calcium Oxalate Crystal Urine Bacteria Hyaline Casts Urine Opiates Screen Ur Buprenorphine Scrn Ur Oxycodone Screen Urine Methadone Screen Urine Fentanyl Screen Ur Barbiturates Screen Ur Phencyclidine Scrn Ur Amphetamines Screen U Benzodiazepines Scrn Urine Cocaine Screen U Marijuana (THC) Screen Ethyl Alcohol < 10 12/17/24 12/17/24 12/17/24 02:08 03:17 03:27 MCV MCH MCHC RDW Plt Count MPV Immature Gran % (Auto) Neut % (Auto) Lymph % (Auto) [place] % (Auto) Eos % (Auto) Baso % (Auto) Lymph # (Auto) [place] # (Auto) Eos # (Auto) Baso # (Auto) Abs Immat Gran (auto) Absolute Neuts (auto) Absolute Nucleated RBC Nucleated RBC % (auto) VBG pH 7.31 L VBG pCO2 45 VBG pO2 85 VBG HCO3 23 VBG O2 Saturation 97.0 VBG Base Excess -2.6 Anion Gap 13 Estim Creat Clear Calc 73.0 Estimated GFR > 60 POC Glucose Random Glucose 93 Lactic Acid Lactic Acid F/U @ 2Hr 0.6 Calcium 8.8 D Magnesium 2.0 Total Bilirubin AST ALT Alkaline Phosphatase Total Creatine Kinase 277 H C-Reactive Protein Total Protein Albumin Procalcitonin 0.03 Beta HCG, Quant < 2 Urine Color Yellow Urine Appearance Clear Urine pH 5.5 Ur Specific [place] 1.025 Urine Protein 30 (1+) H Urine Glucose (UA) Negative Urine Ketones Trace Urine Blood Moderate (2+) H Urine Nitrite Negative Ur Leukocyte Esterase Negative Urine RBC 6-10 H Urine WBC 0-5 Ur Squamous Epith Cells 0-2 Calcium Oxalate Crystal Present Urine Bacteria None Seen Hyaline Casts 0-2 Urine Opiates Screen Not Detected Ur Buprenorphine Scrn Not Detected Ur Oxycodone Screen Not Detected Urine Methadone Screen Not Detected Urine Fentanyl Screen Not Detected Ur Barbiturates Screen Not Detected Ur Phencyclidine Scrn Not Detected Ur Amphetamines Screen Not Detected U Benzodiazepines Scrn POSITIVE H Urine Cocaine Screen POSITIVE H U Marijuana (THC) Screen POSITIVE H Ethyl Alcohol Assessment and Plan (1) Observed seizure-like activity: Status: Acute Plan Pt is a 54-year-old female with a PMH significant for?fibromyalgia, GERD, hx of negative cardiac catheterizations x2, and cocaine use disorder who presents to the ED after witnessed seizure-like activity at home. Pt will be admitted to the hospital under observation for further evaluation of likely cocaine-induced seizure and hypotension secondary to benzodiazepine use. Seizure-like activity Witness by and in the ED Pt without seizure disorder, no previous known episodes CT of head and c-spine negative Likely secondary to cocaine use Seizure precautions Monitor on telemetry Hypotension Pt hypotensive as low as 72/44, currently normotensive at 114/70 Likely secondary to diazepam IV use Pt received 4L IVF, midodrine 5 mg p.o., and place on maintenance fluids Pt with lightheadedness and dizziness Continue maintenance fluids for now Monitor BP Consider additional midodrine if hypotension returns Acute lactic acidosis, resolved Initial lactic 3.4 with repeat normalized at 0.6 after IVF Likely secondary to seizure activity, not sepsis No indication of active infection, no antibiotics indicated at this time Atypical chest pain Pt complaining of central, non-radiating chest pain/pressure Troponins x3 negative; EKG without ischemic changes Hx of negative cardiac caths x2 Chest pain reproducible with palpation Likely musculoskeletal Treat conservatively Cocaine use disorder Addiction medicine consult Full Code Attending:?Dr. Black DVT Prophylaxis: Lovenox Pt will be admitted to the hospital under observation for further evaluation of likely cocaine induced seizure and iatrogenic hypotension from diazepam use. Given that pt remains symptomatic with somnolence, lightheadedness, dizziness, and inability to ambulate on her own, pt will need hospital level care for observation and continued symptomatic treatment. Quality Stroke Does the patient have a stroke diagnosis?: No VTE Prior VTE?: No VTE Risk Level:: Medical - low VTE Device Contraindication: Treatment Not Indicated VTE Drug Contraindication: N/A - Med Ordered
--- NOTE | 2024-12-17 11:32 | PC.NURSE ---
Pt endorsing cp/sob to this RN. notified, EKG obtained. NSR on monitoring coordinator, HR- 60s, maintaining O2 sat on RA high 90s. Manual BP 88/62- MD aware. Verbal order to start LR @ 100mls/hr. Tech at bedside obtaining EKG. Call sy within reach, all needs met at this time.
--- NOTE | 2024-12-17 11:38 | PHA.MEDREC ---
Pharmacy Consult ? Medication Reconciliation Pharmacy has attempted the medication reconciliation. Went to see patient x 3, each time the patient was unarousable. The most recent time the ED rf test technician told this [facility] the patient doesn't even know where she is . I called patients contacts including patients spouse, it does not seem like the patient has anyone help with her medications are no family members were able to provide me with any information. When looking at patients claims, all claims are from 2023 and seem to have been completed by now.
[2024-12-17] MEDS: Lactated Ringers 1,000 ML 100 ML IVCONT ×2 (11:40→20:47)
[2024-12-17] MEDS: Midodrine HCl 5 MG TABLET PO (12:04)
[2024-12-17 12:10] LABS: Troponin-I High Sensitivity < 2.7 ng/L (<3.5-17.0)
--- NOTE | 2024-12-17 16:48 | PC.NURSE ---
Attempted to get pt up out of bed to commode, pt lethargic/weak. Unable to safely get pt out of bed to commode assisted by this RN and Tech. Pt placed on bedpan, able to urinate approx 300mls. Cleaned up and repositioned, call sy within reach, all needs met at this time.
[2024-12-17] MEDS: Acetaminophen 325 MG TABLET 650 MG PO (17:58)
[2024-12-17] MEDS: Enoxaparin Sodium 40 MG/0.4 ML SYRINGE SUBCUT (17:59)
[2024-12-18 03:52] VITALS: BP 110/66; PULSE 54; RESP 18; TEMP 36.3; O2SAT 98
[2024-12-18 06:23] LABS: Prolactin 5.8 ng/mL
[2024-12-18 07:22] LABS: Hematocrit 32.9 % (37.0-47.0); Mean Corpuscular HGB Conc 33.4 g/dl (31.0-35.0); Mean Corpuscular Hemoglobin 29.1 pg (27.0-33.0); Mean Platelet Volume 9.1 fL (9.4-12.3); Platelet Count 204 X10*3/uL (160-400); Red Blood Count 3.78 X10*6/uL (4.20-5.50); Red Cell Distribution Width 14.2 % (11.0-16.0); White Blood Count 4.5 X10*3/uL (4.8-10.8)
[2024-12-18 07:38] LABS: Anion Gap 8 (12-20); Blood Urea Nitrogen 10 mg/dL (9-16); Calcium 8.9 mg/dL (8.4-10.2); Carbon Dioxide 25 mmol/L (22-29); Chloride 113 mmol/L (96-108); Creatinine Clr Calc Pharmacy 72.2; Estimated Glomerular Filt Rate > 60; Glucose Random 74 mg/dL (60-115); Sodium 142 mmol/L (135-145)
[2024-12-18 07:46] VITALS: BP 119/57; PULSE 58; RESP 18; TEMP 36.4; O2SAT 98
[2024-12-18] MEDS: Lactated Ringers 1,000 ML 100 ML IVCONT (07:49)
[2024-12-18] MEDS: 0.9 % Sodium Chloride Flush 3 ML SYRINGE IVFLUSH (07:50)
[2024-12-18 10:10] LABS: HBS Num1 6.98 mIU/mL (0-7.99); HBc Num1 0.04 S/CO (0.00-0.79); HBsAGNum1 0.26 S/CO (0.00-0.99); HIV AB/AG Nonreactive (Nonreactive); HIV Num 1 0.06 S/CO (0.00-0.99); Hepatitis B Core Antibody Nonreactive (Nonreactive); Hepatitis B Surface Antigen Negative (Negative); ~HepC Num1 0.06 S/CO (0.00-0.79); ~Hepatitis B Surface Antibody NONREACTIVE (Nonreactive); ~Hepatitis C Antibody Nonreactive (Nonreactive)
--- NOTE | 2024-12-18 11:23 | MHC.CM.PN ---
Addendum entered by Ivanna Galindo 12/18/24 11:31: BENEDICTO 12/18/24 Original Note: Patient lives with her spouse. She is independent with all functional mobility. Patient denied the offer to document a HCP. Toxicology Coccaine+ Benzos+ A Recovery Team consult has been ordered. DP Home self care. Community resource information provided by the recovery team. Patient has arranged for her spouse to provide transportation home.
[2024-12-18 11:35] VITALS: BP 139/62; PULSE 70
[2024-12-18 12:00] VITALS: BP 131/66; PULSE 55; RESP 18; TEMP 36.6; O2SAT 100
[2024-12-18 12:17] VITALS: BP 139/62; PULSE 70
[2024-12-18 12:25] VITALS: BP 122/79; BP 131/66; PULSE 55; PULSE 61
--- NOTE | 2024-12-18 12:58 | PM.DS ---
DS: Providers Provider Date of Service: 12/18/24 Date of admission: 12/17/24 14:43 Date of discharge: 12/18/24 Primary care physician: [facility] [employer] [facility] Consults: 12/17/24 11:04 Addiction Medicine Provider Routine Consulting Provider: Edmar Santillan Reason for consultation: Cocaine use disorder 12/18/24 08:44 Inpt - Recovery Team Routine Comment: Reason for consultation: AMANDEEP eval DS: Diagnosis Discharge Diagnosis (1) Observed seizure-like activity: Status: Acute (2) Cocaine use: Status: Acute (3) Hypotension: Status: Acute DS: Summary Hospital Course Hospital Course: From the history and physical by the admitting hospitalist, ALEX Faith, 12/17/24: Pt is a 54-year-old female with a PMH significant for?fibromyalgia, GERD, hx of negative cardiac catheterizations x2, and cocaine use disorder who presents to the ED after witnessed seizure-like activity at home. Pt is somnolent but arousable, though falling back asleep during interview and examination. Does not remember events precipitating presentation to ED. HPI is thus supplemented by provider in chart review, as well as who was at bedside. Has been reports that pt has been hanging out with friends last night who have known to indulge in cocaine. Has been reports pt came home seemingly in her normal state of health. Did not appear intoxicated. Pt has started cleaning the upstairs while was downstairs watching TV. He heard a loud crash coming from upstairs and when he went to investigate found the pt on the floor ?convulsing? and foaming at the mouth. No witnessed episodes of vomiting or loss of bowel/bladder control. Reports pt has no hx of seizure disorder nor has ever experienced similar episode before. Has been called 911 and paramedics noted blood sugars were WNL. In the ED pt continued to exhibit seizure-like activity and was given diazepam 10 mg IV with initial cessation of abnormal movements. Seizure-like activity returned a short time later and pt was given additional dose of diazepam 10 mg IV as well as Keppra 2 g IV. Pt was subsequently somnolent and hypotensive as low as 72/44. Pt was also symptomatic with lightheadedness and dizziness. Pt was given IVF and midodrine with improvement to BP. Pt also complained of central chest pain/pressure, though serial troponins x3 has been negative and EKG without ischemic changes. Labs were significant for leukocytosis of 14.9, initial lactic acid of 3.4 which normalized to 0.6 after IVF, and CPK as high as 277. Procalcitonin negative. UA negative. Imaging, including CTA of head and C-spine and CXR negative for acute abnormalities. Pt will be admitted to the hospital under observation for further evaluation of likely cocaine-induced seizure and hypotension secondary to benzodiazepine use. She was admitted to the telemetry unit on observation. Hypotension resolved with IV fluid hydration. She met with the Recovery Team but declined cocaine abuse despite positive urine toxicology. No further seizure-like episodes. Likely the seizure-like activity was due to cocaine intoxication. She was counseled to avoid cocaine and all substance of abuse and discharged home. Time Attestation Discharge Coordination Time (in mins): 35 Quality: Safe Use of Opioids Does Pt have an Active Cancer Diagnosis on the Problem List?: No Quality: Stroke Does the patient have a stroke diagnosis?: No Physical Exam Vital Signs: Vital Signs: Last Vital Signs Temp 97.8 F 12/18/24 12:00 Pulse 61 12/18/24 12:25 Resp 18 12/18/24 12:00 BP 122/79 12/18/24 12:25 Pulse Ox 100 12/18/24 12:00 O2 Del Method Room Air 12/18/24 12:00 BMI result Body Mass Index 20.8 DS: Data Data Completed and Pending Labs on day of discharge: Laboratory Results - last 24 hr 12/17/24 12/18/24 03:17 07:12 WBC 4.5 L RBC 3.78 L Hgb 11.0 L Hct 32.9 L MCV 87.0 MCH 29.1 MCHC 33.4 RDW 14.2 Plt Count 204 MPV 9.1 L Absolute Nucleated RBC 0.000 Nucleated RBC % (auto) 0.0 Sodium 142 Potassium 4.0 Chloride 113 H Carbon Dioxide 25 Anion Gap 8 L BUN 10 Creatinine 0.64 Estim Creat Clear Calc 72.2 Estimated GFR > 60 Random Glucose 74 Calcium 8.9 Prolactin 5.8 Preliminary micro results at discharge 12/17/24 03:17 Blood Culture - Preliminary Blood - Venous No growth after 24 hours. 12/17/24 03:17 Blood Culture - Preliminary Blood - Venous No growth after 24 hours. Discharge Plan Discharge Anticipated Discharge Date/Time: 12/18/24 12:53 Patient Disposition: Home, Self-Care Discharge Diagnosis: seizures due to cocaine abuse Referrals: [place],[facility] [Primary Care Provider] - 1 Week Discharge Medications: No Action Unobtainable Discharge Orders: Discharge Order (Routine); Ordered 12/18/24 Ordered By: Krupa Black Diet: Advance to usual diet Activity on Discharge: As tolerated Stand Alone Forms: Patient Portal Discharge page Print Language: Central African Care Plan Goals: recovery from drug intoxication Health Concerns: cocaine use leading to seizures Plan of Treatment: avoid cocaine Please follow up with your primary care doctor within 1 week. Return to the hospital if you experience recurrent or worsening symptoms. Assessment: See Discharge Summary.
== END 2024-12-18 15:33 | disposition home or self-care (01) ==
LOC: HO.ED 13:54 → HO.EDOVER 14:52 → HO.IMC 15:54
PROVIDERS: Emergency Medicine; Admitting Provider Student in an Organized Health Care Education/Training Program; Emergency Provider Emergency Medicine; PCP Internal Medicine; Visit Provider Family Medicine
DX: R56.9 Unspecified convulsions (principal); F14.188 Cocaine abuse with other cocaine-induced disorder; R07.9 Chest pain, unspecified; E87.20 Acidosis, unspecified; I95.9 Hypotension, unspecified; R41.82 Altered mental status, unspecified; K21.9 Gastro-esophageal reflux disease without esophagitis; T14.90XA Injury, unspecified, initial encounter; W19.XXXA Unspecified fall, initial encounter; Y93.9 Activity, unspecified; Y92.9 Unspecified place or not applicable; Y99.9 Unspecified external cause status; M79.7 Fibromyalgia
CPT/HCPCS: 36415; 70450; 71045; 72125; 80048; 80053; 80307; 81001; 82550; 82803; 82947; 83605; 83735; 84145; 84146; 84484; 84702; 85025; 85027; 86140; 86704; 86706; 86803; 87040; 87340; 87389; 93005; 96361; 96365; 96367; 96375; 96376; 99222; 99285; J0131; J0696; J1650; J1885; J1953; J3360; J7120; S9485

== ENCOUNTER → 2024-12-17 01:00 | Outpatient (BNV) | payer MEDICAID, SELFPAY | PROVIDERS: Emergency Provider Emergency Medicine; Visit Provider Radiology Neuroradiology | DX: R41.82 Altered mental status, unspecified (principal); I95.9 Hypotension, unspecified | CPT/HCPCS: 70450; 71045; 72125 ==

== ENCOUNTER → 2024-12-17 01:04 | Outpatient (BNV) | payer MEDICAID, SELFPAY | PROVIDERS: Emergency Provider Emergency Medicine; Visit Provider Internal Medicine Cardiovascular Disease | DX: R56.9 Unspecified convulsions (principal); R07.9 Chest pain, unspecified | CPT/HCPCS: 93010 ==

== ENCOUNTER → 2024-12-17 14:43 | Outpatient (BNV) | payer MEDICAID, SELFPAY | PROVIDERS: Admitting Provider Student in an Organized Health Care Education/Training Program; Emergency Provider Emergency Medicine; Visit Provider Student in an Organized Health Care Education/Training Program | DX: R56.9 Unspecified convulsions (principal); F14.90 Cocaine use, unspecified, uncomplicated; I95.9 Hypotension, unspecified | CPT/HCPCS: 99222; 99239 ==

== ENCOUNTER 2025-01-19 14:34 | Outpatient (REF) | payer MEDICAID, SELFPAY ==
--- OUTSIDE RECORDS SUMMARY | 2025-01-19 15:57 | XMS_ITS | Encounter Summary ---
Author Organization [employer] Address [address] [place] [address] [address] [place] [address] Care Team Providers Care Survey Chief Name Role Phone Gloria Smith MD Primary Care Provider + Reason for Visit * Reason Onset Date Comments Appointment Request 12/17/2023 Encounter Details Date Type Department Care Team ([facility] st Contact Info) Description 12/17/[address] [facility] MEDICINE [address] [place], [place] [phone] Gloria Smith MD [address] [place], [place] [phone] Appointment Request Social History Tobacco Use Types [...] a call back if there any cancellations conventional mortgage underwriter did offer appt for January but the patient would like something sooner and in the afternoon documented in this encounter Plan of Treatment Not on file documented as of this encounter Visit Diagnoses Not on filedocumented in this encounter Additional Health Concerns Assessment Noted Time PHQ-9 Depression Total Score: 12 024 8:47 AM EST documented as of this encounter Care Teams Survey Chief Relationship Specialty Start Date End Date Gloria Smith MD [address] [place] [address] PCP - General Family Medicine 04/17/17 documented as of this encounter
--- OUTSIDE RECORDS SUMMARY | 2025-01-19 15:57 | XMS_ITS | Encounter Summary ---
Author Organization [employer] Address [address] [facility] [address] [place] [address] Care Team Providers Care Director Of Business Operations Name Role Phone Gloria Smith MD Primary Care Provider + Encounter Details Date Type Department Care Team (Late st Contact Info) Description 10/23/2022 Orders Only [facility] MED & PEDS [address] [place], [place] [phone] Chantale Amaya LPN Social History Tobacco Use [...] 0 AM EDT 01/18/2023 7:18 AM EDT [facility]S - 01/24/2023 7:32 PM EDT ----- ------- Name: Neli Jean ?Age/Sex: 52/F ? : 1970 Unit#: [id number] ?? Attend Dr: Filemon Veronica MD ?Re01/17/23 ?Status: DEP REF ? Location: HO.LNP ?Disch: ? ----- ------- SPEC : [id number] ? RECD: 01/18/23 ? STATUS: ??SOUT ? REQ NUM: [id number] ? MIGNON: 01/17/23-1130 ? SUBM DR: Filemon [...] To: ?? Gloria Smith MD ?? [address] [facility] ?? [place] [address] ? Filemno Veronica MD ?? [address] [facility] ?? [place] [address] ?? [phone] ----- ------- Signed (signature on file) Babita Castellanos 01/24/231931 ? ----- ------- ? END OF REPORT ? [facility] External Provider LAB CYT OLOGY ORDERABLES Final Result Performing Organization Address [facility] Co de Phone Number [facility] [address] [place] [address] [phone] * Creatine Kinase, Total (11/20/2022 11:41 AM EDT) Pathologist [facility] Creatine Kinase Total 106 26 - 140 U/L [facility] 11/20/2022 11:4 1 AM EDT 11/20/2022 11:44 AM EDT [facility] External Provider LAB BLO OD ORDERABLES Final Result Performing Organization Address [facility] de Phone Number [facility] [address] [place] [address] [phone] * SARS-CoV-2 RNA, Influenza A/B, and RSV RNA, Ql NAAT (11/20/2022 11:41 AM EDT) [facility] Influenza A PCR NEGATIVE Negative [facility] Influenza B PCR NEGATIVE Negative [facility] Resp Syncy Virus RNA Qual PCR NEGATIVE Negative [facility] SARS COV2 PCR NEGATIVE Negative [facility] SARS/Flu/RSV Note See Note [facility] Comment:All test results mus t [...] use by authorized laboratories.Testing performed on the [employer] GeneXpert utilizingreal-time RT-PCR.All SARS CoV2 and positive influenza A/B results arereported to [facility]. 11/20/2022 11:4 1 AM EDT 11/20/2022 11:44 AM EDT [facility] Exter nal Provider LAB MICROBIOLOGY - GENERAL ORDERABLES Final Result [facility] [address] [place] [phone] * (ABNORMAL) Basic Metabolic Panel (11/20/2022 11:41 AM EDT) Sodium 138 135 - 145 mmol/L [facility] Potassium 4.6 3.3 - 5.1 mmol/L [facility] Comment:Slight Hemolysis Chloride 105 96 - 108 mmol/L [facility] Carbon Dioxide 23 22 - 29 mmol/L [facility] Anion Gap 15 12 - 20 [facility] Urea Nitrogen (BUN) 9 9 - 16 mg/dL [facility] Creatinine, Serum 0.77 0.5 - 1.4 mg/dL [facility] Creatinine Clr Calc Pharmacy 61.4 [facility] Comment:Provided height and weight: 152.4 cm,51 kg.eGFR (calculated from the MDRD study equation) and eCrCl(calculated from the Cockcroft-Gault equation) are based ondifferent parameters and may not yield comparable results.If eCrCl result is absurd, please check patient'sheight/weight. Estimated Glomerular Filt Rate >60 [facility] Comment:NOTE: For -Am erican individuals, multiply the result by 1.210.Chronic Kidney Disease: Estimated GFR < 60 mL/min/1.26z6Vclnxs Kidney Disease: Estimated GFR < 15 mL/min/1.73m2 Glucose 109 60 - 115 mg/dL [facility] Calcium 10.5(H) 8.4 - 10.2 mg/dL [facility] 11/20/2022 11:4 1 AM EDT 11/20/2022 11:44 AM EDT us [facility] External Provider LAB BLO OD ORDERABLES Final Result [facility] [address] [place] [phone] documented in this encounter Visit Diagnoses Not on filedocumented in this encounter Care Teams Director Of Business Operations Relationship Specialty Start Date End Date Gloria Smith MD [address] [place] [phone] PCP - General Family Medicine 04/17/17 documented as of this encounter
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
--- OUTSIDE RECORDS SUMMARY | 2025-01-19 15:57 | XMS_ITS | Encounter Summary ---
Author Organization [employer] Address [address] [facility] [address] [place] [address] Care Team Providers Care Dietetics Professor Name Role Phone Gloria Smith MD Primary Care Provider + Encounter Details Date Type Department Care Team (Latest Contact Info) Description 01/19/2025 Travel Social History Tobacco Use Types Packs/Day Years Used Date Smoking Tobacco: Every Day Cigarettes Passive Smoke Exposure: Current Smokeless Tobacco: Former Comments:Smoking since age 2 [...] got money to buy more: Never True 12/28/2024 Within the past 12 months,th e food you bought just didn't last and you didn't have enough money to get more: Never True Transportation Answer Date Recorded In the past 12 months, has l ack of transportation kept you from medical appts, meetings, work or from getting things needed for daily living? Yes, it has kept me from medical appointments or getting medications. 12/28/2024 Utilities Answer Date Recorded In the past 12 months, has t he electric, gas, oil or water company threatened to shut off services in your home? No 12/28/2024 Depression Answer Date Recorded Patient Health Questionnaire-2 Score 4 04/15/2024 Internet Access Answer Date Recorded Internet Access Q1 Yes 12/28/2024 Internet Access Q2 Not on file 12/28/2024 Comments No Sex and Gender Information Value Date Recorded Sex Assigned at Female 07/02/2022 10:15 AM EDT Legal Sex Female 10:15 AM EDT Gender Identity Female 07/02/2022 10:15 AM EDT Sexual Orientation Choose not to disclose 2021 10:15 AM EDT documented as of this encounter Functional Status * Over the last 2 weeks, how often have you been bothered by any of the following problems? Question Answer Date of Assessment Author Feeling nervous, anxious, or on edge 1 01/19/2025 2:40 PM EDT Riley Lewis Not being able to stop or control worrying 1 01/19/2025 2:40 PM EDT Riley Lewis Worrying too much about different things 2 01/19/2025 2:40 PM EDT Riley Lewis Trouble relaxing 1 01/19/2025 2:40 PM EDT Riley Zheng Being so restless that it is hard to sit still 1 01/19/2025 2:40 PM EDT Riley Lewis Becoming easily annoyed or irritable 2 01/19/2025 2:40 PM EDT Riley Lewis Feeling afraid as if something awful might happen 1 01/19/2025 2:40 PM EDT Riley Vazquez RANI-7 Total Score 9 01/19/2025 2:40 PM EDT Riley Lewis documented as of this encounter Plan of Treatment Not on file documented as of this encounter Visit Diagnoses Not on filedocumented in this encounter Additional Health Concerns Assessment Noted Time PHQ-9 Depression Total Score: 13 024 4:13 PM EDT documented as of this encounter Care Teams Dietetics Professor Relationship Specialty Start Date End Date Gloria Smith MD [address] [place] [address] PCP - General Family Medicine 04/17/17 documented as of this encounter
--- OUTSIDE RECORDS SUMMARY | 2025-01-19 15:57 | XMS_ITS | Encounter Summary ---
Author Organization [employer] Address [address] [facility] [address] [place] [address] Care Team Providers Care Surgical Garment Inspector Name Role Phone Gloria Smith MD Primary Care Provider + Encounter Details Date Type Department Care Team (Late st Contact Info) Description 01/29/2024 Orders Only [facility] MEDICINE [address] [place] [address] Provider, MD Gloria Social History Tobacco Use [...] Procedure Name Priority Date/Time Associated Diagnosis Comments HM COLONOSCOPY Routine 09/22/2020 9:00 AM EST documented in this encounter Results * Hm Colonoscopy (09/22/2020 9:00 AM EST) Historical Provider HEALTH MAINTENANCE Final Result documented in this encounter Visit Diagnoses Not on filedocumented in this encounter Additional Health Concerns Assessment Noted Time PHQ-9 Depression Total Score: 12 024 8:47 AM EST documented as of this encounter Care Teams Surgical Garment Inspector Relationship Specialty Start Date End Date Gloria Smith MD [address] [place] [phone] PCP - General Family Medicine 04/17/17 documented as of this encounter
--- OUTSIDE RECORDS SUMMARY | 2025-01-19 15:57 | XMS_ITS | Clinical Summary ---
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 LES Final Result [facility] [address] [place] [address] [phone] * (ABNORMAL) Drug Monitoring, Panel 1, Screen, Urine (12/17/2024 2:08 AM EDT) Opiate Screen Urine Not Detected Not Detect [facility] Comment:Opiate cut-off is 30 0 ng/mL.Positive results are unconfirmed and should not be used fornon-medical purposes. Barbiturates, Urine Not Detected Not Detect [facility] Comment:Barbiturate cut-off is 200 ng/mL.Positive results are unconfirmed and should not be used fornon-medical purposes. Phencyclidine Screen Urine Not Detected Not Detect [facility] Comment:Phencyclidine cut-of f is 25 ng/mL.Positive results are unconfirmed and should not be used fornon-medical purposes. Amphetamine Screen Urine Not Detected Not Detect [facility] Comment:Amphetamine cut-off is 1000 ng/mL.Positive results are unconfirmed and should not be used fornon-medical purposes. Benzodiazepines Screen Urine POSITIVE(A) Not Detect [facility] Comment:Benzodiazepine cut-o ff is 200 ng/mL.Positive results are unconfirmed and should not be used fornon-medical purposes. Cocaine Screen Urine POSITIVE(A) Not Detect [facility] Comment:Cocaine cut-off is 3 00 ng/mL.Positive results are unconfirmed and should not be used fornon-medical purposes. Cannabinoid Screen Urine POSITIVE(A) Not Detect [facility] Comment:Cannabinoid cut-off is 50 ng/mL.Positive results are unconfirmed and should not be used fornon-medical purposes. Methadone Screen, Urine Not Detected Not Detect ng/mL [facility] Comment:Methadone cut-off is 300 ng/mL.Positive results are unconfirmed and should not be used fornon-medical purposes. FENTANYL URINE Not Detected Not Detect [facility] Comment:Fentanyl cut-off is 1 ng/mL.Positive results are unconfirmed and should not be used fornon-medical purposes. Oxycodone Urine Screen Not Detected Not Detect ng/mL [facility] Comment:Oxycodone cut-off is 100 ng/mL.Positive results are unconfirmed and should not be used fornon-medical purposes. Buprenorphine Screen Not Detected Not Detect ng/mL [facility] Comment:Buprenorphine cut-of f is 5 ng/mL.Positive results are unconfirmed and should not be used fornon-medical purposes. 12/17/2024 2:08 AM EDT 12/17/2024 2:14 AM EDT Generic External Data Provider LAB URINE ORDERAB LES Final Result Performing Organization Address [facility] de Phone Number [facility] [address] [place] [phone] * Ethanol (12/17/2024 12:49 AM EDT) ETHANOL (MG/DL) IN SER/PLAS <10 mg/dL [facility] Comment:Serum/plasma ethanol results are to be used formedical/treatment purposes only. 12/17/2024 12:4 9 AM EDT 12/17/2024 12:52 AM EDT Generic External Data Provider LAB BLOOD ORDERAB LES Final Result Performing Organization Address [facility] Co de Phone Number [facility] [address] [place] [phone] * C-reactive Protein (12/17/2024 12:49 AM EDT) C Reactive Protein 0.17 < or = 0.50 mg/dL [facility] 12/17/2024 12:4 9 AM EDT 12/17/2024 12:52 AM EDT Generic External Data Provider LAB BLOOD ORDERAB LES Final Result Performing Organization Address [facility] Co de Phone Number [facility] [address] [place] [address] [phone] * (ABNORMAL) Comprehensive Metabolic Panel (12/17/2024 12:49 AM EDT) Sodium 141 135 - 145 mmol/L [facility] Potassium 4.0 3.3 - 5.1 mmol/L [facility] Chloride 109(H) 96 - 108 mmol/L [facility] Carbon Dioxide 19(L) 22 - 29 mmol/L [facility] Anion Gap 17 12 - 20 [facility] Urea Nitrogen (BUN) 18(H) 9 - 16 mg/dL [facility] Creatinine, Serum 0.78 0.5 - 1.4 mg/dL [facility] Creatinine Clr Calc Pharmacy 59.0 [facility] Comment:Provided height and weight: 152.4 cm,45.359 kg.eGFR (calculated from the MDRD study equation) and eCrCl(calculated from the Cockcroft-Gault equation) are based ondifferent parameters and may not yield comparable results.If eCrCl result is absurd, please check patient'sheight/weight. Estimated Glomerular Filt Rate >60 [facility] Comment:Chronic Kidney Disea se: Estimated GFR < 60 mL/min/1.81w0Qjgues Kidney Disease: Estimated GFR < 15 mL/min/1.73m2 Glucose 108 60 - 115 mg/dL [facility] Calcium 10.2 8.4 - 10.2 mg/dL [facility] Bilirubin, Total 0.3 0.0 - 1.0 mg/dL [facility] Aspartate Amino Transferase 29 5 - 31 U/L [facility] Alanine Aminotransferase 18 0 - 31 U/L [facility] Total Protein 7.6 6.5 - 8.0 g/dL [facility] Albumin Level 4.7 3.5 - 5.0 g/dL [facility] Alkaline Phosphatase 93 39 - 117 U/L [facility] 12/17/2024 12:4 9 AM EDT 12/17/2024 12:52 AM EDT us Generic External Data Provider LAB BLOOD ORDERAB LES Final Result Performing Organization Address [facility]/ZIP Co de Phone Number [facility] [address] [place] [phone] * TSH with Reflex to Free T4 (12/02/2024 12:05 PM EDT) TSH reflex Free T4 1.17 0.32 - 4.0 uIU/mL [facility] 12/02/2024 12:0 5 PM EDT 12/02/2024 12:10 PM EDT Generic External Data Provider LAB BLOOD ORDERAB LES Final Result Performing Organization Address [facility] de Phone Number [facility] [address] [place] [phone] * SARS-CoV-2 RNA, Influenza A/B, and RSV RNA, Ql NAAT (12/02/2024 12:05 PM EDT) Influenza A PCR NEGATIVE Negative [facility] Influenza B PCR NEGATIVE Negative [facility] Resp Syncy Virus RNA Qual PCR NEGATIVE Negative [facility] SARS COV2 PCR NEGATIVE Negative [facility] Comment:All test results mus t [...] use by authorized laboratories.Testing performed on the [employer] GeneXpert utilizingreal-time RT-PCR.All SARS CoV2 and positive influenza A/B results arereported to [facility]. 12/02/2024 12:0 5 PM EDT 12/02/2024 12:10 PM EDT us Generic External Data Provider LAB MICROBIOLOGY - GENERAL ORDERABLES Final Result [facility] [address] [place] [phone] * (ABNORMAL) CBC auto differential (12/02/2024 12:05 PM EDT) White Blood Count 7.4 4.8 - 10.8 X10*3/uL [facility] Red Blood Count 4.71 4.20 - 5.50 X10*6/uL [facility] Hemoglobin 13.2 12.0 - 16.0 g/dl [facility] Hematocrit 39.5 37.0 - 47.0 % [facility] Mean Corpuscular Volume 83.9 80.0 - 98.0 fL [facility] Mean Corpuscular Hemoglobin 28.0 27.0 - 33.0 pg [facility] Mean Corpuscular HGB Conc 33.4 31.0 - 35.0 g/dl [facility] Red Cell Distribution Width 13.9 11.0 - 16.0 % [facility] Platelet Count 270 160 - 400 X10*3/uL [facility] Mean Platelet Volume 8.9(L) 9.4 - 12.3 fL [facility] Neutrophils Percent Auto 70.2 45 - 73 % [facility] Imm Gran Pct Auto 0.3 0.0 - 0.4 % [facility] Lymphocytes Percent Auto 22.9 20 - 40 % [facility] Monocytes Percent Auto 6.1 2 - 11 % [facility] Eosinophils Percent Auto 0.1 0 - 4 % [facility] Basophils Percent Auto 0.4 0 - 2 % [facility] NRBC Pct Auto 0.0 0.0 - 0.2 /100WBC [facility] Neutrophils Absolute Auto 5.2 2.0 - 8.3 x10*3/uL [facility] Imm Gran Abs Auto 0.02 0.00 - 0.03 X10*3/uL [facility] Lymphocytes Absolute Auto 1.7 1.2 - 4.9 X10*3/uL [facility] Monocytes Absolute Auto 0.5 0.1 - 1.2 X10*3/uL [facility] Eosinophils Absolute Auto 0.0 0.0 - 0.4 X10*3/uL [facility] Basophils Absolute Auto 0.0 0.0 - 0.2 X10*3/uL [facility] NRBC Abs Auto 0.000 0.0 - 0.012 X10*3/uL [facility] 12/02/2024 12:0 5 PM EDT 12/02/2024 12:10 PM EDT Generic External Data Provider LAB BLOOD ORDERAB LES Final Result Performing Organization Address [facility] Co de Phone Number [facility] [address] [place] [phone] * Hepatic Function Panel (12/02/2024 12:05 PM EDT) Bilirubin, Total 0.6 0.0 - 1.0 mg/dL [facility] Bilirubin, Direct 0.2 0.0 - 0.5 mg/dL [facility] Aspartate Amino Transferase 29 5 - 31 U/L [facility] Alanine Aminotransferase 23 0 - 31 U/L [facility] Total Protein 7.4 6.5 - 8.0 g/dL [facility] Albumin Level 4.7 3.5 - 5.0 g/dL [facility] Alkaline Phosphatase 84 39 - 117 U/L [facility] 12/02/2024 12:0 5 PM EDT 12/02/2024 12:10 PM EDT us Generic External Data Provider LAB BLOOD ORDERAB LES Final Result Performing Organization Address [facility]/ZIP Co de Phone Number [facility] [address] [place] [phone] * XR Chest 2 Views (12/02/2024 11:53 AM EDT) Anatomical Region Laterality Modality Chest Radiographic Frida ging 12/02/2024 11:5 3 AM EDT Narrative 12/02/2024 12:18 PM EDT ? [facility] ?[address] ?[place] [address] ?XRay Report ? Signed ? Patient: Jean,Neli ?MR#: [id number] ?? 2 ? : 1970 ?Acct:[id number] ? Age/Sex: 54 / F ?ADM Date: 12/02/24 ? Loc: HO.ED ? Attending Dr: ? Ordering Physician: Cha Weeks ?? Date of Service: 12/02/24 ?? Procedure(s): XR chest 2V ?? Accession Number(s): [id number] ? cc: Gloria Smith MD; Cha Weeks [...] DD/ 1153 ? TD/TT: 12/02/24 1212 ? Cadastral Surveyor: ? Procedure Note Tonja Carter - 12/02/[address] [address] XRay Report Signed Patient: Neli JeanMR#: [id number] 2 : 1970Acct:[id number] Age/Sex: 54 / FADM Date: 12/02/24 Loc: HO.ED Attending Dr: Ordering Physician: Cha Weeks Date of Service: 12/02/24 Procedure(s): XR chest 2V Accession Number(s): [id number] cc: Gloria Smith MD; Cha Weeks EXAMINATION: [...] 12/02/24 1215 DD/ 1153 TD/TT: 12/02/24 1212 Cadastral Surveyor: [facility] External Provider IMG XR PROCEDURES Edited Result - Final * XR Hand 3+ Views Left (11/10/2024 4:39 PM EDT) Anatomical Region Laterality Modality Upper Extremities, Hand Left Radiogra phic Imaging 11/10/2024 4:39 PM EDT Narrative 11/10/2024 5:15 PM EDT ? [facility] ?[address] ?[place] [address] ?XRay Report ? Signed ? Patient: Jean,Neli ?MR#: [id number] ?? 2 ? : 1970 ?Acct:[id number] ? Age/Sex: 54 / F ?ADM Date: 03/11/25 ? Loc: HO.ED ? Attending Dr: ? Ordering Physician: Davy Amanda ?? Date of Service: 11/10/24 ?? Procedure(s): XR hand LT min 3V ?? Accession Number(s): [id number] ? cc: Gloria Smith MD; Davy Amanda [...] DD/ 1639 ? TD/TT: 11/10/24 1645 ? Cadastral Surveyor: ? Procedure Note Donjessicater, Image - 11/10/2024 [place] [address] XRay Report Signed Patient: Neli JeanMR#: [id number] 2 : 1970Acct:[id number] Age/Sex: 54 / FADM Date: 11/10/24 Loc: HO.ED Attending Dr: Ordering Physician: Davy Amanda Date of Service: 11/10/24 Procedure(s): XR hand LT min 3V Accession Number(s): [id number] cc: Gloria Smith MD; Davy Amanda EXAMINATION: [...] Joey Rubi MD 11/10/2024 05:12 PM EDT RP Dictated By: Joey Rubi MD Signed By: <Electronically signed by Joey Rubi MD in OV> 11/10/24 1712 DD/ 1639 TD/TT: 11/10/24 1645 Cadastral Surveyor: [facility] External Provider IMG XR PROCEDURES Final Result * BI US Breast Limited Bilateral (04/27/2024 2:02 PM EDT) Anatomical Region Laterality Modality Breast Bilateral Ultrasound 04/27/2024 2:02 PM EDT Narrative 04/27/2024 3:49 PM EDT ? [facility] ? [address] ?[place] [address] ? Ultrasound Report ? Signed ? Patient: Neli Jean ?MR#: [id number] ?? 2 ? : 1970 ?Acct:[id number] ? Age/Sex: 53 / F ?ADM Date: 04/27/24 ? Loc: HO.MAMMO ? Attending Dr: Gloria Smith MD ? Ordering Physician: Gloria Smith MD ?? Date of Service: 04/27/24 ?? Procedure(s): US breast BI limited mamm only ?? Accession Number(s): [id number] ? cc: Gloria Smith MD ? EXAMINATION: [...] Rubi MD ??04/27/2024 03:46 PM EDT RP ?? Workstation: [id number] ? Dictated By: ?Joey Rubi MD ? Signed By: ?<Electronically signed by Joey Rubi MD in OV> ?04/27/24 1546 ? DD/ 1402 ? TD/TT: 04/27/24 1535 ? Cadastral Surveyor: ? Procedure Note Tonja Carter - 04/27/2024 [facility] [address] [place] [address] [place] [address] Ultrasound Report Signed Patient: Kristi Jean#: [id number] 2 : 1970Acct:[id number] Age/Sex: 53 / FADM Date: 04/27/24 Loc: HO.MAMMO Attending Dr: Gloria Smith MD Ordering Physician: Gloria Smith MD Date of Service: 04/27/24 Procedure(s): US breast BI limited mamm only Accession Number(s): [id number] cc: Gloria Smith MD EXAMINATION: MM DIAGNOSTIC [...] 04/27/24 1546 DD/ 1402 TD/TT: 04/27/24 1535 Cadastral Surveyor: us Gloria Smith MD IMG US PROCEDURES Final Result * Lipid Panel with Reflex to Direct LDL (04/10/2024 12:06 PM EDT) Triglycerides 115 <150 mg/dL [facility] Comment:Desirable Triglyceri de: less than 150 mg/dLBorderline High Triglyceride 150-199 mg/dLHigh Triglyceride: 200-499 mg/dLVery High Triglyceride: greater than or equal to 5OO mg/dL Cholesterol 152 <200 mg/dL [facility] Comment:Desirable Cholestero l: less than 200 mg/dLBorderline High Cholesterol: 200-239 mg/dLHigh Cholesterol: greater than 239 mg/dL LDL Cholesterol Calculated 70 <100 mg/dL [facility] Comment:Desirable LDL: less than 100 mg/dLNear Optimal/Above Optimal LDL: 110- 129 mg/dLBorderline High LDL: 130-159 mg/dLHigh LDL: 160-189 mg/dLVery High LDL: greater than or equal to 190 mg/dL HDL Cholesterol 59 >40 mg/dL [facility] Comment:Desirable HDL: great er than 40 mg/dL Note: This HDL assay may give artificially low results in patients with liver disease. Blood 04/10/2024 12:0 6 PM EDT 04/10/2024 1:05 PM EDT us Gloria Smith MD LAB BLOOD ORDERABLES Fin al Result [facility] [address] [place] [phone] * HIV-1/2 Antigen and Antibodies, Fourth Generation, with Reflexes (04/10/2024 12:06 PM EDT) HIV AB/AG Nonreactive Nonreactive [facility] Comment:HIV-1 p24 Ag and/or HIV-1/HIV-2 Ab not detected.A test result that is nonreactive does not exclude thepossibility of exposure to or infection with HIV-1 and/orHIV-2. Nonreactive results in this assay for individualswith prior exposure to HIV-1 and/or HIV-2 may be due toantigen and antibody levels that are below the limit ofdetection of this assay.The Xumii HIV Ag/Ab Combo assay result andsupplemental assay results should be interpreted inconjunction with the patient's clinical presentation,history and other laboratory results. If the results areinconsistent with clinical evidence, additional testing issuggested to confirm the result. Blood Venous blood specimen / Unknown 04/10/2024 12:06 PM EDT 04/10/2024 1:05 PM EDT Gloria Smith MD LAB BLOOD ORDERABLES Fin al Result Performing Organization Address [facility] de Phone Number [facility] [address] [place] [phone] * Hepatitis Panel, General (08/21/2023 10:08 AM EST) Pathologist [facility] Hepatitis A IgM Nonreactive Nonreactive [facility] Comment:IgM antibodies to HUYNH V not detected; does not exclude earlyacute or recovered HAV infection. ~Hepatitis B Surface Antibody NONREACTIVE Nonreactive [facility] Comment:Nonreactive: < 8.00 mIU/mL Hepatitis B Core Antibody Nonreactive Nonreactive [facility] Hepatitis C Antibody Nonreactive Nonreactive [facility] Comment:Antibodies to HCV no t detected; does not exclude early acuteHCV infection. Hepatitis B Surface Ag Negative Negative [facility] Blood 08/21/2023 10:0 8 AM EST 08/21/2023 11:12 AM EST Gloria Smith MD LAB BLOOD ORDERABLES Fin al Result Performing Organization Address [facility] de Phone Number [facility] [address] [place] [phone] * HPV E6/E7 RFLX ABEL 16 18/45 (08/17/2021 3:37 PM EST) Pathologist [facility] HPV mRNA E6/E7 rflx Not Detected Not Detected [facility] Comment: Methodology: Gritting Machine Operator-Mediated Amplification This assay detects E6/E7 viral messenger RNA (mRNA) from 14 high-risk HPV types (16,18,31,33,35,39,45,51,52,56,58,59,66,68). The analytical performance characteristics of this assay have been determined by [employer]. The modifications have not been cleared or approved by the FDA. This assay has been validated pursuant to the CLIA regulations and is used for clinical purposes. For additional information, please refer to http://education.[employer]/faq/ECM920o8 (This link if provided for information/ educational purposes only.) THIS TEST WAS PERFORMED AT: [facility] [address] [place] [address] [address] [place], [place] ??[phone] JANNET BARAJAS MD 08/17/2021 3:37 PM EST Tamia Griffiths HISTORICAL/NON ORDERABLE LABS Fi nal Result Performing Organization Address [facility]/State/[facility] Co de Phone Number [facility] [address] * Hm Colonoscopy (09/22/2020 9:00 AM EST) Historical Provider HEALTH MAINTENANCE Final Result from Last 3 Months or Most Recently Relevant to Health Maintenance Insurance [facility] C3 DENTAL-[facility] [place] [address] Care Teams Manager Search Relationship Specialty Start Date End Date Gloria Smith MD [address] [place] [phone] PCP - General Family Medicine 04/17/17
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
[2025-01-20 03:35] LABS: Hepatitis A Antibody IgM 0.14 Index (0-0.79); ~Hepatitis A Antibody IgM Nonreactive (Nonreactive)
[2025-01-20 04:10] LABS: HBS Num1 7.65 mIU/mL (0-7.99); HBc Num1 0.03 S/CO (0.00-0.79); HBsAGNum1 0.42 S/CO (0.00-0.99); HIV AB/AG Nonreactive (Nonreactive); HIV Num 1 0.07 S/CO (0.00-0.99); Hepatitis B Core Antibody Nonreactive (Nonreactive); Hepatitis B Surface Antigen Negative (Negative); ~HepC Num1 0.05 S/CO (0.00-0.79); ~Hepatitis B Surface Antibody NONREACTIVE (Nonreactive); ~Hepatitis C Antibody Nonreactive (Nonreactive)
[2025-01-20 05:57] LABS: CT PCR NOT DETECTED (Not Detect.); NG PCR NOT DETECTED (Not Detect.)
[2025-01-21 11:23] LABS: RPR Rapid Plasma Reagin NON-REACTIVE (NON-REACTIVE)
== END 2025-01-19 14:35 | disposition home or self-care (01) ==
LOC: HO.HHCL 14:34
PROVIDERS: Internal Medicine; Visit Provider Internal Medicine
DX: Z00.00 Encounter for general adult medical examination without abnormal findings (principal); R30.0 Dysuria; Z69.81 Encounter for mental health services for victim of other abuse
CPT/HCPCS: 36415; 86592; 86704; 86706; 86709; 86803; 87086; 87088; 87186; 87340; 87389; 87491; 87591

== ENCOUNTER 2025-04-15 21:04 | Emergency (ER) | payer MEDICAID, SELFPAY ==
--- NOTE | ~2025-04-15 | CT_ITS ---
CLINICAL HISTORY: RUQ Pain Tenderness CT abdomen and pelvis with contrast Comparison: CT/REG/MI/SR - CT ABDOMEN PELVIS W IV CON - 11/29/23 08:29 EDT Findings: The gallbladder is surgically absent. The solid organs are within normal limits. Mild intrahepatic biliary dilation redemonstrated, unchanged, possibly related to postcholecystectomy change. No hydronephrosis. Nonobstructing left renal calculus. No bowel obstruction, pneumoperitoneum, or pneumatosis. Thickened loops of jejunum are identified at the left hemiabdomen. These bowel loops appear underdistended. Pelvic contents unremarkable. The bladder is underdistended, limiting its evaluation. Nonvisualization of the appendix. No acute fracture visualized. Vacuum disc phenomenon identified at the L4-L5 and L5-S1 levels. IMPRESSION: 1. Thickened loops of jejunum visualized at the left hemiabdomen. This may be related to bowel underdistention or an underlying enteritis. No other CT evidence for an acute inflammatory process identified within the abdomen or pelvis. No bowel obstruction. 2. Nonobstructing left renal calculus. No hydronephrosis. This document has been electronically signed by: Carson Blackwood MD on 04/16/2025 05:09:49
--- NOTE | ~2025-04-15 | XR_ITS ---
CLINICAL HISTORY: R sided rib pain 2 view chest x-ray Comparison: CR - XR CHEST 1V - 12/17/24 02:51 EDT Findings: The lungs are clear. Normal size heart. No acute fracture. IMPRESSION: 1. No acute findings. This document has been electronically signed by: Azucena Trevino MD on 04/15/2025 22:26:48
--- NOTE | ~2025-04-15 | CT_ITS ---
CLINICAL HISTORY: Pleurisy CT angiography chest using contrast. 3-D postprocessing Comparison: CR - XR CHEST 2V - 04/15/25 22:14 EDT Findings: No pulmonary embolism. No thoracic aorta aneurysm. The thoracic aorta is not well opacified on this examination. Heart size within normal limits. RV/LV ratio normal. 2. Rmuz-vm-tdglacfo centrilobular emphysema. No focal pulmonary consolidation, pneumothorax, or pleural effusion. [id number]-[id number] centrilobular emphysema. Trace bilateral lower lobe subsegmental atelectasis. No acute fractures. Impression: 1. Negative for pulmonary embolism. No focal pulmonary consolidation, pneumothorax, or pleural effusion. This document has been electronically signed by: Carson Blackwood MD on 04/16/2025 05:05:37
[2025-04-15 21:51] VITALS: BP 159/63; PULSE 95; RESP 18; TEMP 36.7; O2SAT 99; BMI 19.0
[2025-04-15 22:41] LABS: MANUAL DIFF FLAG NO
[2025-04-15 22:42] LABS: Hematocrit 40.5 % (37.0-47.0); Hemoglobin 13.8 g/dl (12.0-16.0); Imm Gran Abs Auto 0.01 X10*3/uL (0.00-0.03); Imm Gran Pct Auto 0.1 % (0.0-0.4); Lymphocytes Absolute Auto 2.3 X10*3/uL (1.2-4.9); Mean Corpuscular HGB Conc 34.1 g/dl (31.0-35.0); Mean Corpuscular Hemoglobin 28.8 pg (27.0-33.0); Mean Corpuscular Volume 84.6 fL (80.0-98.0); NRBC Abs Auto 0.000 X10*3/uL (0.0-0.012); NRBC Pct Auto 0.0 /100WBC (0.0-0.2); Platelet Count 316 X10*3/uL (160-400); Red Blood Count 4.79 X10*6/uL (4.20-5.50); White Blood Count 9.5 X10*3/uL (4.8-10.8)
[2025-04-15 22:53] LABS: Anion Gap 13 (12-20); Blood Urea Nitrogen 13 mg/dL (9-16); Calcium 10.7 mg/dL (8.4-10.2); Carbon Dioxide 26 mmol/L (22-29); Chloride 105 mmol/L (96-108); Creatinine Clr Calc Pharmacy 52.2; Estimated Glomerular Filt Rate > 60; Potassium 4.3 mmol/L (3.3-5.1); Sodium 140 mmol/L (135-145)
[2025-04-15 23:19] LABS: Resp Syncy Virus RNA Qual PCR NEGATIVE (Negative); SARS COV2 PCR INHOUSE NEGATIVE (Negative)
[2025-04-16 01:30] VITALS: BP 129/80; PULSE 91; RESP 18; TEMP 36.7; O2SAT 97
--- OUTSIDE RECORDS SUMMARY | 2025-04-16 02:41 | XMS_ITS | Encounter Summary ---
Author Organization [employer] Address [address] [place] [address] [address] [place] [address] Care Team Providers Care Hatchery Manager Name Role Phone Gloria Smith MD Primary Care Provider + Reason for Visit * Reason Onset Date Comments Appointment Request 12/17/2023 Encounter Details Date Type Department Care Team ([facility] st Contact Info) Description 12/17/2023 Telephone [facility] [address] [place], [place] [phone] Gloria Smith MD [address] [place], [place] [phone] Appointment Request Social History Tobacco Use Types [...] a call back if there any cancellations music writer did offer appt for January but the patient would like something sooner and in the afternoon documented in this encounter Plan of Treatment Not on file documented as of this encounter Visit Diagnoses Not on filedocumented in this encounter Additional Health Concerns Assessment Noted Time PHQ-9 Depression Total Score: 12 024 8:47 AM EST documented as of this encounter Care Teams Hatchery Manager Relationship Specialty Start Date End Date Glorai Smith MD [address] [place] [address] PCP - General Family Medicine 04/17/17 documented as of this encounter
--- NOTE | 2025-04-16 02:49 | ED.ABDPAIN ---
HPI - Abdominal Pain General Chief Complaint: Abdominal Pain Stated Complaint: right side pain Time Seen by Provider: 04/16/25 02:48 Source: patient Mode of arrival: ambulatory Limitations: no limitations History of Present Illness ED Provider: Joey JOHNSON HPI narrative: The patient is a 54-year-old female presenting to the emergency department for evaluation of 2 days of sharp pleuritic pain under her right ribs which is worse with deep respiration but not reproducible with direct palpation. Patient denies associated fever/chills, nausea, vomiting, urinary symptoms, cough, hemoptysis, hematochezia, melena, constipation, diarrhea, recent sick contacts, or recent trauma. The patient denies any recent travel or lower extremity complaint, denies history of coagulopathy. Patient reports she is status post cholecystectomy and appendectomy. Related Data Previous Rx's ?Medication ?Instructions ?Recorded ibuprofen 600 mg tablet 600 mg PO Q8H PRN pain #14 tabs 04/16/25 Allergies Allergy/AdvReac Type Severity Reaction Status Date / Time bee pollen (BEE STINGS) Allergy Severe THROAT Verified 04/15/25 21:53 SWELLING codeine (Codeine) Allergy Severe CAN'T Verified 04/15/25 21:53 BREATHE, SWELLING,RASH tramadol (TRAMADOL) Allergy Intermediate ABD PAIN- Verified 04/15/25 21:53 COULD NOT EAT - FELT SICK Review of Systems Review of Systems Yes all other systems are reviewed and are negative [facility] Past Medical History Medical History Fibromyalgia Epidermal cyst of neck Gastroesophageal reflux disease COVID-19 Female pelvic pain ASCUS of cervix with negative high risk HPV Hx of abnormal cervical Pap smear Encounter for repeat Papanicolaou smear of cervix Encounter for annual routine gynecological examination Tubular adenoma PONV (postoperative nausea and vomiting) Potential exposure to STD Well woman exam with routine gynecological exam Breast lump Hx of ectopic MRSA (methicillin resistant Staphylococcus aureus) Kidney stones SAB (spontaneous ) Surgical History History of excision of epidermal inclusion cyst (~01/17/23) History of removal of cyst (~01/17/23) Hx of hemorrhoidectomy H/O elbow surgery H/O lithotripsy Hx of endoscopy History of colonoscopy History of hernia repair Hx of appendectomy Hx of cholecystectomy Hx of breast biopsy Family History Family History Father Diabetes mellitus CVD (cardiovascular disease) Hyperlipemia Mother Diabetes mellitus HTN (hypertension) Colon cancer Liver cancer Maternal Grandmother Diabetes mellitus Maternal Aunt Breast cancer Paternal Grandfather Colon cancer Maternal Grandfather Stomach cancer Social History Social History Household Members: Spouse Housing: House Do you presently have visiting nurse or other home services: No Alcohol intake: current Alcohol intake frequency: holidays/special occasions only Alcohol type: hard liquor Patient Tobacco Use Status: Never used Tobacco Cigarettes Per Day: 5 Years Smoked: 8 Substance Use Type: Marijuana Advance Directives: No Advance Directives Information Provided: Yes Do you have a plan to hurt others: No Plan service: No Current occupational status: disabled Gender identity: Female Physical Exam ED Vital Signs: Vital Signs - 24 hr 04/15/25 21:51 04/16/25 01:30 04/16/25 03:45 Temperature 98.1 F 98.0 F Pulse Rate 95 91 80 Respiratory Rate 18 18 20 Blood Pressure 159/63 H 129/80 114/72 Pulse Oximetry 99 97 100 Oxygen Delivery Method Room Air Room Air Room Air BMI result Body Mass Index 19.0 CONSTITUTIONAL: The patient appears uncomfortable, but otherwise non-toxic, well nourished and in no acute distress. Vital signs as documented. HEAD: Atraumatic, normocephalic. EYES: EOMs grossly intact, pupils equal, conjunctiva clear, no exudate. ENT: Nares patent, no discharge. Airway patent, no audible stridor, visible mucosa is pink and moist without noted lesions. NECK: Trachea is midline, no obvious masses or gross abnormalities. CHEST: Symmetric movement, normal appearance. Chest is nontender to palpation, unable to reproduce the patient's pain. LUNGS: LS present and CTAB, no w/r/r. Non-labored work of breathing, patient noted to wince and hold her right side with deep respiration. CARDIAC: Regular Rhythm, S1/S2 appreciated, no murmurs, rubs or gallops. ABDOMEN: Abdomen soft x4 quadrants, there is minimal tenderness to palpation of the right upper quadrant under the ribs, negative rebound, no palpable masses or organomegaly. Negative CVAT bilaterally. : Deferred. EXTREMITIES: Normal tone, moves all extremities spontaneously without reported pain. No obvious acute injury or deformity noted. NEURO: Alert and oriented x3, CN II-XII appear grossly intact. Cerebellar Functioning grossly intact. No obvious sensory or motor deficits. Speech clear and appropriate. PSYCH: normal affect, appropriate eye contact, fluid speech, with appropriate response to questioning. No reported suicidality or homicidality. SKIN: Warm, dry, color appropriate, normal turgor. No rashes noted. Medical Decision Making Medical Decision Making [facility] Narrative: 3:31 AM 04/16/2025 (Krysta JOHNSON): The patient is a 54-year-old female with a history of seizures, kidney stones, cholecystectomy and appendectomy presenting to the ED for evaluation of 2 days of sharp, pleuritic pain under her right ribs without associated nausea, vomiting, fever/chills or recent trauma. The patient's exam is largely unremarkable with the exception of obvious discomfort with deep respiration. The patient's workup thus far is reassuring, no leukocytosis, anemia, electrolyte abnormality, or NAJMA. Viral swab is negative. Chest x-ray shows no focal consolidation. The patient's presentation is concerning for possible PE versus less likely common bile duct pathology. We will add on EKG, troponin, LFTs, lipase, and CTA chest with CT abdomen and pelvis. I received sign-out from my colleague ALEX Price CT scan of the chest abdomen or pelvis did not show any acute abnormality, negative for PE. Differential Diagnosis Differential Diagnoses: The differential diagnosis associated with the presentation includes (As above) Admission/Observation Consideration of admission/observation: Escalation of care including admission/observation considered Lab Data MDM Lab Attestation statement: I reviewed the patient's lab results. 04/15/25 22:36 04/15/25 22:36 Labs: Lab Results 04/15/25 04/16/25 Range/Units 22:36 03:38 WBC 9.5 (4.8-10.8) X10*3/uL RBC 4.79 D (4.20-5.50) X10*6/uL Hgb 13.8 D (12.0-16.0) g/dl Hct 40.5 D (37.0-47.0) % MCV 84.6 (80.0-98.0) fL MCH 28.8 (27.0-33.0) pg MCHC 34.1 (31.0-35.0) g/dl RDW 14.6 (11.0-16.0) % Plt Count 316 D (160-400) X10*3/uL MPV 8.9 L (9.4-12.3) fL Immature Gran % (Auto) 0.1 (0.0-0.4) % Neut % (Auto) 69.8 (45-73) % Lymph % (Auto) 23.9 (20-40) % Blair % (Auto) 5.2 (2-11) % Eos % (Auto) 0.5 (0-4) % Baso % (Auto) 0.5 (0-2) % Lymph # (Auto) 2.3 (1.2-4.9) X10*3/uL Blair # (Auto) 0.5 (0.1-1.2) X10*3/uL Eos # (Auto) 0.1 (0.0-0.4) X10*3/uL Baso # (Auto) 0.1 (0.0-0.2) X10*3/uL Abs Immat Gran (auto) 0.01 (0.00-0.03) X10*3/uL Absolute Neuts (auto) 6.6 (2.0-8.3) x10*3/uL Absolute Nucleated RBC 0.000 (0.0-0.012) X10*3/uL Nucleated RBC % (auto) 0.0 (0.0-0.2) /100WBC Sodium 140 (135-145) mmol/L Potassium 4.3 (3.3-5.1) mmol/L Chloride 105 (96-108) mmol/L Carbon Dioxide 26 (22-29) mmol/L Anion Gap 13 (12-20) BUN 13 (9-16) mg/dL Creatinine 0.83 (0.5-1.4) mg/dL Estim Creat Clear Calc 52.2 Estimated GFR > 60 Random Glucose 107 (60-115) mg/dL Calcium 10.7 H D (8.4-10.2) mg/dL Total Bilirubin 0.4 (0.0-1.0) mg/dL Direct Bilirubin 0.2 (0.0-0.5) mg/dL AST 34 H (5-31) U/L ALT 31 (0-31) U/L Alkaline Phosphatase 93 (39-117) U/L Troponin I High Sens < 2.7 (<3.5-17.0) ng/L Total Protein 7.9 (6.5-8.0) g/dL Albumin 5.2 H (3.5-5.0) g/dL Lipase 32 (8-78) U/L Influenza Type A (PCR) NEGATIVE (Negative) Influenza Type B (PCR) NEGATIVE (Negative) RSV RNA Qual (PCR) NEGATIVE (Negative) SARS-CoV-2 RNA (RT-PCR) NEGATIVE (Negative) Independent Interpretation I performed an independent interpretation of an: EKG (EKG shows sinus rhythm with a rate of 64, no evidence of acute ischemia, no ST elevation, no ectopy. QTC 408. Compared to previous on 12/17/2024 there are no acute morphology changes. ) and CT Scan Radiology Impression Discussion of test interpretation with radiology: I have reviewed the radiologist's reading. Radiologist Impression: CLINICAL HISTORY: R sided rib pain 2 view chest x-ray Comparison: CR - XR CHEST 1V - 12/17/24 02:51 EDT Findings: The lungs are clear. Normal size heart. No acute fracture. IMPRESSION: 1. No acute findings. This document has been electronically signed by: Azucena Trevino MD on 04/15/2025 22:26:48 1. Thickened loops of jejunum visualized at the left hemiabdomen. This may be related to bowel underdistention or an underlying enteritis. No other CT evidence for an acute inflammatory process identified within the abdomen or pelvis. No bowel obstruction. 2. Nonobstructing left renal calculus. No hydronephrosis. 1. Negative for pulmonary embolism. No focal pulmonary consolidation, pneumothorax, or pleural effusion. Prescription Management I considered prescription management with: Pain Medication and Antibiotic Medications Administered Discontinued Medications Generic Name Dose Route Start Last Admin Trade Name Freq PRN Reason Stop Dose Admin Sodium Chloride 1,000 mls @ 999 mls/hr 04/16/25 03:30 04/16/25 03:46 Ns IV 04/16/25 04:30 999 mls/hr .Q1H1M ROSEMARY Administration Iohexol 85 ml 04/16/25 04:18 04/16/25 04:19 Iohexol 350 Mg/Ml 100 Ml Infus..Btl IV 04/16/25 04:19 85 ml ONCE ONE Administration Morphine Sulfate 4 mg 04/16/25 03:22 04/16/25 03:46 Morphine Sulfate 4 Mg/Ml Cartridge IVPUSH 04/16/25 03:23 4 mg ONCE ONE Administration Protocol Critical Care Time Critical Care Time Critical Care Time: Yes Total Critical Care Time: 35 Attestation: I have personally provided critical care time. Time includes review of lab data, radiology results, discussion with consultants, and monitoring for potential decompensation. Intervention performed as documented. Discharge Plan Discharge Clinical Impression: Flank pain, Pleurisy Patient Disposition: Home, Self-Care Instructions: Abdominal Pain (ED), Pleurisy (ED) Additional Instructions: Please follow-up with your primary care physician tomorrow. If you have any worsening or new symptoms, please return to the emergency room or call 911 Prescriptions: New ibuprofen 600 mg tablet 600 mg PO Q8H PRN (Reason: pain) Qty: 14 0RF Print Language: Portuguese
--- NOTE | 2025-04-16 03:25 | ECG_ITS ---
Test Reason : PLEURISY Blood Pressure : */* mmHG Vent. Rate : 64 BPM Atrial Rate : 64 BPM P-R Int : 140 ms QRS Dur : 84 ms QT Int : 396 ms P-R-T Axes : 80 79 44 degrees QTcB Int : 408 ms Normal sinus rhythm Possible Left atrial enlargement Borderline ECG When compared with ECG of 17-Dec-2024 11:35, No significant change was found Referred By: Joey Price Electronically Signed By: Munir Salazar
[2025-04-16 03:45] VITALS: BP 114/72; PULSE 80; RESP 20; O2SAT 100
[2025-04-16 03:50] LABS: Alanine Aminotransferase 31 U/L (0-31); Albumin Level 5.2 g/dL (3.5-5.0); Alkaline Phosphatase 93 U/L (39-117); Aspartate Amino Transferase 34 U/L (5-31); Lipase 32 U/L (8-78); Total Protein 7.9 g/dL (6.5-8.0)
[2025-04-16 04:05] LABS: Troponin-I High Sensitivity < 2.7 ng/L (<3.5-17.0)
[2025-04-16] MEDS: iohexoL 350 MG/ML 100 ML INFUS..BTL 85 ML IV (04:19)
[2025-04-16 05:29] VITALS: BP 114/72; PULSE 80; RESP 20; TEMP 36.6; O2SAT 100
== END 2025-04-16 05:38 | disposition home or self-care (01) ==
PROVIDERS: Physician Assistant; Emergency Provider Emergency Medicine
DX: R07.81 Pleurodynia (principal); R10.9 Unspecified abdominal pain
CPT/HCPCS: 36415; 71046; 71275; 74177; 80048; 80076; 83690; 84484; 85025; 87637; 93005; 96361; 96374; 99284; J2270; Q9967

== ENCOUNTER → 2025-04-15 21:14 | Outpatient (BNV) | payer MEDICAID, SELFPAY | PROVIDERS: Visit Provider Student in an Organized Health Care Education/Training Program | DX: R07.89 Other chest pain (principal) | CPT/HCPCS: 71046 ==

== ENCOUNTER → 2025-04-16 03:22 | Outpatient (BNV) | payer MEDICAID, SELFPAY | PROVIDERS: Emergency Provider Emergency Medicine; Visit Provider Radiology Diagnostic Radiology | DX: N20.0 Calculus of kidney (principal); R09.1 Pleurisy | CPT/HCPCS: 71275; 74177 ==

== ENCOUNTER → 2025-04-16 03:25 | Outpatient (BNV) | payer MEDICAID, SELFPAY | PROVIDERS: Emergency Provider Emergency Medicine; Visit Provider Internal Medicine Cardiovascular Disease | DX: R09.1 Pleurisy (principal) | CPT/HCPCS: 93010 ==

== ENCOUNTER 2025-05-04 14:19 | Emergency (ER) | payer MEDICAID, SELFPAY ==
[2025-05-04] VITALS (7 sets, daily range): BP systolic 109–116; BP diastolic 66–74; PULSE 52–65; RESP 15–25; TEMP 36.6–36.8; O2SAT 97–100; BMI 20.7
--- NOTE | 2025-05-04 14:38 | ED_ITS ---
HPI - Headache General Chief Complaint: Nausea/Vomiting/Diarrhea Stated Complaint: DIZZY,WEAK VOMITING SINCE LAST NIGHT Time Seen by Provider: 05/04/25 14:24 History of Present Illness ED Provider: Ravindra Smith MD HPI Narrative: [age] female with dizziness. The patient to me mainly complains of diarrhea nausea vomiting and upper abdominal discomfort with some reflux symptoms. Nonbloody nonbilious vomiting. No recent antibiotic use no trauma to the chest or abdomen. Denies fever Related Data Previous Rx's ?Medication ?Instructions ?Recorded ibuprofen 600 mg tablet 600 mg PO Q8H PRN pain #14 t abs 04/16/25 ondansetron 4 mg disintegrating 4 mg PO Q8H PRN nausea and 05/04/25 tablet vomiting #7 tabs Allergies Allergy/AdvReac Type Severity Reaction Status Date / Time bee pollen (BEE STINGS) Allergy Severe THROAT Verified 05/04/25 14:38 SWELLING codeine (Codeine) Allergy Severe CAN'T Verified 05/04/25 14:38 BREATHE, SWELLING,RASH tramadol (TRAMADOL) Allergy Intermediate ABD PAIN- Verified 05/04/25 14:38 COULD NOT EAT - FELT SICK COUNT INCLUDES THE [facility] Past Medical History Medical History Fibromyalgia Epidermal cyst of neck Gastroesophageal reflux disease COVID-19 Female pelvic pain ASCUS of cervix with negative high risk HPV Hx of abnormal cervical Pap smear Encounter for repeat Papanicolaou smear of cervix Encounter for annual routine gynecological examination Tubular adenoma PONV (postoperative nausea and vomiting) Potential exposure to STD Well woman exam with routine gynecological exam Breast lump Hx of ectopic MRSA (methicillin resistant Staphylococcus aureus) Kidney stones SAB (spontaneous ) Surgical History History of excision of epidermal inclusion cyst (~01/17/23) History of removal of cyst (~01/17/23) Hx of hemorrhoidectomy H/O elbow surgery H/O lithotripsy Hx of endoscopy History of colonoscopy History of hernia repair Hx of appendectomy Hx of cholecystectomy Hx of breast biopsy Family History Family History Father Diabetes mellitus CVD (cardiovascular disease) Hyperlipemia Mother Diabetes mellitus HTN (hypertension) Colon cancer Liver cancer Maternal Grandmother Diabetes mellitus Maternal Aunt Breast cancer Paternal Grandfather Colon cancer Maternal Grandfather Stomach cancer Social History Social History Household Members: Spouse Housing: House Do you presently have visiting nurse or other home services: No Alcohol intake: current Alcohol intake frequency: holidays/special occasions only Alcohol type: hard liquor Patient Tobacco Use Status: Never used Tobacco Cigarettes Per Day: 5 Years Smoked: 8 Smoked in Last 30 Days: Yes Use of substances other than those prescribed or required for medical reasons: Yes Substance Use Type: Marijuana Substance Use Frequency: Chronic Longstanding Last Used Substance: Hours (ago) Any prior treatment program specific to substance use: No Advance Directives: No Advance Directives Information Provided: No Do you have a plan to hurt others: No Plan Patient : No service: No Current occupational status: disabled Gender identity: Female Physical Exam 2 Exam: Exam: EXAM: Gen: Alert, awake, slightly ill-appearing not toxic, mildly dehydrated appearing Head: Atraumatic Eyes: Anicteric, Normal conjunctiva. ENT: Mildly dry oral mucosa, no pallor. ? Neck: Supple. Skin: ?No observable rash or bruising on exposed or examined skin Respiratory: Breathing comfortably, No distress.Clear to auscultation bilaterally, symmetric chest expansion, No wheeze, rales, ronchi. Cardiovascular: Regular rate and rhythm. No murmurs or rub. Well perfused periphery, warm extremities. No edema. ? Abdominal: No focal tenderness. Soft, no objective distension. No palpable masses or obvious organomegaly. ?No guarding, no rebound tenderness or other peritoneal findings. : No flank tenderness. Neuro: Alert. Gross movement of all extremities intact. ? Psych: Calm. Cooperative. MSK: No grossly visible deformity. Vital signs: See flowsheet Vital Signs: Vital Signs: Last Vital Signs Temp 98.2 F 05/04/25 20:04 Pulse 52 05/04/25 20:04 Resp 20 05/04/25 20:04 BP 115/73 05/04/25 20:04 Pulse Ox 97 05/04/25 20:04 O2 Del Method Room Air 05/04/25 20:04 BMI result Body Mass Index 20.7 Medications Administered Discontinued Medications Generic Name Dose Route Start Last Admin Trade Name Freq PRN Reason Stop Dose Admin Al Hydroxide/Mg Hydroxide 30 ml 05/04/25 17:19 05/04/25 18:10 Magnesium Hydrox/Alum Hydrox 30 Ml Oral.Susp PO 05/04/25 17:20 30 ml ONCE ONE Administration Famotidine 20 mg 05/04/25 17:19 05/04/25 18:09 Famotidine 20 Mg Tablet PO 05/04/25 17:20 20 mg ONCE ONE Administration Fentanyl 50 mcg 05/04/25 15:11 05/04/25 15:17 Fentanyl Citrate/Pf 100 Mcg/2 Ml Vial IVPUSH 05/04/25 15:12 50 mcg ONCE ONE Administration Protocol Sodium Chloride 1,000 mls @ 999 mls/hr 05/04/25 15:15 05/04/25 17:02 Ns IV 05/04/25 16:15 Infused .Q1H1M [facility] Infusion Sodium Chloride 1,000 mls @ 999 mls/hr 05/04/25 17:15 05/04/25 18:41 Ns IV 05/04/25 18:15 Infused .Q1H1M [facility] Infusion Ondansetron HCl 4 mg 05/04/25 15:11 05/04/25 15:17 Ondansetron Hcl 4 Mg/2 Ml Vial IVPUSH 05/04/25 15:12 4 mg ONCE ONE Administration Ondansetron HCl 4 mg 05/04/25 17:20 05/04/25 18:10 Ondansetron Hcl 4 Mg/2 Ml Vial IVPUSH 05/04/25 17:21 4 mg ONCE ONE Administration Medical Decision Making Medical Decision Making MDM Narrative: Medical Decision Makin-year-old female with upper abdominal pain vomiting diarrhea no fever no blood mildly tender upper abdomen no Gannon's sign. No white count or leukocytosis. No urinary symptoms. Patient arrived with a slightly borderline low blood pressure but likely was hypovolemic dehydrated. She received 2 L crystalloid. Lipase not elevated reassuring LFTs. Doubt acute biliary pathology or pancreatitis. Considered PUD, gastritis, gastroenteritis or food-borne illness Preliminary Favored Differential Diagnosis: Considered PUD, gastritis, gastroenteritis or food-borne illness ] among additional considered etiologies Testing Interpreted Independently: ?See below for details Radiology or Lab testing Results Reviewed: ?See below for details Consults: ?See below for details Independent Historians/External Chart Reviews: ?See below for details Social Determinants of Health Impacting MDM/Planning: ?See below for details Differential Diagnosis Differential Diagnoses: The differential diagnosis associated with the presentation includes Admission/Observation Consideration of admission/observation: Escalation of care including admission/observation considered Patient required multiple antiemetic doses and continued fluid but eventually improved Lab Data MDM Lab Attestation statement: I reviewed the patient's lab results. 05/04/25 15:25 05/04/25 15:25 Labs: Lab Results 05/04/25 Range/Units 15:25 WBC 7.8 (4.8-10.8) X10*3/uL RBC 4.10 L (4.20-5.50) X10*6/uL Hgb 11.6 L (12.0-16.0) g/dl Hct 34.7 L (37.0-47.0) % MCV 84.6 (80.0-98.0) fL MCH 28.3 (27.0-33.0) pg MCHC 33.4 (31.0-35.0) g/dl RDW 14.3 (11.0-16.0) % Plt Count 193 D (160-400) X10*3/uL MPV 8.8 L (9.4-12.3) fL Immature Gran % (Auto) 0.4 (0.0-0.4) % Neut % (Auto) 79.8 H (45-73) % Lymph % (Auto) 14.9 L (20-40) % Lassen % (Auto) 3.7 (2-11) % Eos % (Auto) 0.6 (0-4) % Baso % (Auto) 0.6 (0-2) % Lymph # (Auto) 1.2 (1.2-4.9) X10*3/uL Lassen # (Auto) 0.3 (0.1-1.2) X10*3/uL Eos # (Auto) 0.1 (0.0-0.4) X10*3/uL Baso # (Auto) 0.1 (0.0-0.2) X10*3/uL Abs Immat Gran (auto) 0.03 (0.00-0.03) X10*3/uL Absolute Neuts (auto) 6.2 (2.0-8.3) x10*3/uL Absolute Nucleated RBC 0.000 (0.0-0.012) X10*3/uL Nucleated RBC % (auto) 0.0 (0.0-0.2) /100WBC Sodium 143 (135-145) mmol/L Potassium 4.5 (3.3-5.1) mmol/L Chloride 112 H (96-108) mmol/L Carbon Dioxide 25 (22-29) mmol/L Anion Gap 11 L (12-20) BUN 10 (9-16) mg/dL Creatinine 0.64 (0.5-1.4) mg/dL Estim Creat Clear Calc 68.5 Estimated GFR > 60 Random Glucose 105 (60-115) mg/dL Calcium 8.6 D (8.4-10.2) mg/dL Magnesium 1.8 (1.6-2.6) mg/dL Total Bilirubin 0.3 (0.0-1.0) mg/dL AST 31 (5-31) U/L ALT 29 (0-31) U/L Alkaline Phosphatase 74 (39-117) U/L Troponin I High Sens < 2.7 (<3.5-17.0) ng/L Total Protein 6.1 L (6.5-8.0) g/dL Albumin 4.1 (3.5-5.0) g/dL Lipase 35 (8-78) U/L TSH 0.31 L (0.32-4.0) uIU/mL Ethyl Alcohol < 10 mg/dL Independent Interpretation I performed an independent interpretation of an: EKG (Sinus rhythm rate 49 QTC 397. Bradycardia. No ischemic change) Social Determinants Substance use disorder Discharge Plan Discharge Clinical Impression: Gastroenteritis Patient Disposition: Home, Self-Care Instructions: Acute Diarrhea (ED) Additional Instructions: _ DISCHARGE DIAGNOSES: Diarrhea and vomiting dehydration unclear cause possibly viral EMERGENCY DEPARTMENT COURSE,TESTS, TREATMENTS: While in the ED today reassuring lab work including blood counts and chemistry tests DISCHARGE MEDICATIONS: ?[We have made no changes to your regular medication regimen] nausea medicine has been prescribed FOLLOW-UP: ?Call your primary or general physician soon as possible to discuss your symptoms, your ED visit and to discuss follow up plans Call your primary doctor for follow up INSTRUCTIONS ?& RETURN PRECAUTIONS: If any symptoms change first call your primary physician, if it is after-hours your primary doctors office should have a provider mason tender you can speak with. If the symptoms are severe or very concerning to you then call 911 or return to the ED. Ravindra Smith MD Emergency Physician [facility] Prescriptions: New ondansetron 4 mg tablet,disintegrating 4 mg PO Q8H PRN (Reason: nausea and vomiting) Qty: 7 0RF No Action ibuprofen 600 mg tablet 600 mg PO Q8H PRN (Reason: pain) Qty: 14 0RF Interventions: ED Discharge Assessment Last Done: 05/04/25 20:04 Discharge Date/Time: 05/04/25 20:05 Print Language: Icelandic
--- NOTE | 2025-05-04 15:03 | ECG_ITS ---
Test Reason : ABD PAIN Blood Pressure : */* mmHG Vent. Rate : 49 BPM Atrial Rate : 49 BPM P-R Int : 136 ms QRS Dur : 86 ms QT Int : 440 ms P-R-T Axes : 78 74 55 degrees QTcB Int : 397 ms Sinus bradycardia Otherwise normal ECG When compared with ECG of 16-Apr-2025 03:35, No significant change was found Referred By: Ravindra Smith Electronically Signed By: Munir Salazar
[2025-05-04 15:29] LABS: MANUAL DIFF FLAG NO
[2025-05-04 15:31] LABS: Hematocrit 34.7 % (37.0-47.0); Hemoglobin 11.6 g/dl (12.0-16.0); Imm Gran Abs Auto 0.03 X10*3/uL (0.00-0.03); Imm Gran Pct Auto 0.4 % (0.0-0.4); Lymphocytes Absolute Auto 1.2 X10*3/uL (1.2-4.9); Mean Corpuscular HGB Conc 33.4 g/dl (31.0-35.0); Mean Corpuscular Hemoglobin 28.3 pg (27.0-33.0); Mean Corpuscular Volume 84.6 fL (80.0-98.0); NRBC Abs Auto 0.000 X10*3/uL (0.0-0.012); NRBC Pct Auto 0.0 /100WBC (0.0-0.2); Platelet Count 193 X10*3/uL (160-400); Red Blood Count 4.10 X10*6/uL (4.20-5.50); White Blood Count 7.8 X10*3/uL (4.8-10.8)
[2025-05-04 16:00] LABS: Troponin-I High Sensitivity < 2.7 ng/L (<3.5-17.0)
[2025-05-04 16:01] LABS: Alanine Aminotransferase 29 U/L (0-31); Albumin Level 4.1 g/dL (3.5-5.0); Alkaline Phosphatase 74 U/L (39-117); Anion Gap 11 (12-20); Aspartate Amino Transferase 31 U/L (5-31); Blood Urea Nitrogen 10 mg/dL (9-16); Calcium 8.6 mg/dL (8.4-10.2); Carbon Dioxide 25 mmol/L (22-29); Chloride 112 mmol/L (96-108); Creatinine Clr Calc Pharmacy 68.5; Estimated Glomerular Filt Rate > 60; Lipase 35 U/L (8-78); Magnesium 1.8 mg/dL (1.6-2.6); Potassium 4.5 mmol/L (3.3-5.1); Sodium 143 mmol/L (135-145); Total Protein 6.1 g/dL (6.5-8.0)
[2025-05-04 16:16] LABS: Thyroid Stimulating Hormone 0.31 uIU/mL (0.32-4.0)
--- OUTSIDE RECORDS SUMMARY | 2025-05-04 16:53 | XMS_ITS | Encounter Summary ---
Author Organization [employer] Address [address] [facility] [facility] [address] [place] [address] Care Team Providers Care Warp Tying Machine Knotter Name Role Phone Gloria Smith MD Primary Care Provider + Encounter Details Date Type Department Care Team (Late st Contact Info) Description 10/23/2022 Orders Only [facility] [address] [place], [place] [phone] Chantale Amaya LPN Social History Tobacco Use [...] 0 AM EDT 01/18/2023 7:18 AM EDT [facility] - 01/24/2023 7:32 PM EDT ----- ------- Name: Neli Jean Age/Sex: 52/F : 1970 Unit#: [id number] Attend Dr: Filemon Veronica MD Re01/17/23 Status: [facility] REF Location: .[facility] Disch: ----- ------- SPEC : [id number] RECD: 01/18/23 [facility] NUM: [id number] [place]: 01/17/23-[address] [facility] [address]: Filemon Veronica MD ENTERED: 01/18/23 TYPE: Surgical OTHR DR: Gloria Smith MD ORDERED: Gross Micro L3 Diagnosis Skin, neck cyst, excision: Benign epidermal cyst. Clinical History Epidermal cyst of neck Microscopic Description Microscopic sections reviewed. Material Received Epidermal cyst of neck Gross Description Received in formalin labeled epidermal cyst neck is a 1.2 x 1.0 cm slightly puckered retracted ovoid-elliptical portion of thurston-brown skin and nodular subcutaneous tissue excised to a maximum depth 1.0 cm. The margins are inked and the specimen is serially sectioned to reveal homogeneous, dense, carrillo-white fibrous dermal tissue and unremarkable subcutaneous fat. A cyst is not identified. The specimen is entirely submitted in a single cassette labeled A. CEDS Copies To: Gloria Smith MD [address] [place] [address] Filemon Veronica MD [address] [place] [address] ----- ------- Signed (signature on file) Babita Castellanos 01/24/231931 ----- ------- END OF REPORT [facility] External Provider LAB CYT OLOGY ORDERABLES Final Result Performing Organization Address [facility]/ZIP Co de Phone Number [facility] [address] [place] [phone] * Creatine Kinase, Total (11/20/2022 11:41 AM EDT) Creatine Kinase Total 106 26 - 140 U/L [facility] 11/20/2022 11:4 1 AM EDT 11/20/2022 11:[address]T [facility] External Provider LAB BLO OD ORDERABLES Final Result Performing Organization Address [facility] Co de Phone Number [facility] [address] [place] [address] [phone] SARS-CoV-2 RNA, Influenza A/B, and RSV RNA, Ql NAAT (11/20/2022 11:41 AM EDT) Influenza A PCR NEGATIVE Negative [facility] Influenza B PCR NEGATIVE Negative [facility] Resp Syncy Virus RNA Qual PCR NEGATIVE Negative [facility] SARS COV2 PCR NEGATIVE Negative [facility] SARS/Flu/RSV Note See Note [facility] Comment:All test results mus t [...] use by authorized laboratories.Testing performed on the [employer] GeneXpert utilizingreal-time RT-PCR.All SARS CoV2 and positive influenza A/B results arereported to [facility]. 11/20/2022 11:4 1 AM EDT 11/20/2022 11:[address] [facility] Exter nal Provider LAB MICROBIOLOGY - GENERAL ORDERABLES Final Result [facility] [address] [place] [phone] * (ABNORMAL) Basic Metabolic Panel (11/20/2022 11:41 AM EDT) Sodium 138 135 - 145 mmol/L [facility] Potassium 4.6 3.3 - 5.1 mmol/L [facility] Comment:Slight Hemolysis Chloride 105 96 - 108 mmol/L [facility] Carbon Dioxide 23 22 - 29 mmol/L [facility] Anion Gap 15 12 - 20 [facility] Urea Nitrogen (BUN) 9 9 - 16 mg/dL [facility] Creatinine, Serum 0.77 0.5 - 1.4 mg/dL [facility] Creatinine Clr Calc Pharmacy 61.4 [facility] Comment:Provided height and weight: 152.4 cm,51 kg.eGFR (calculated from the MDRD study equation) and eCrCl(calculated from the Cockcroft-Gault equation) are based ondifferent parameters and may not yield comparable results.If eCrCl result is absurd, please check patient'sheight/weight. Estimated Glomerular Filt Rate >60 [facility] Comment:NOTE: For -Am erican individuals, multiply the result by 1.210.Chronic Kidney Disease: Estimated GFR < 60 mL/min/1.55d9Maeygv Kidney Disease: Estimated GFR < 15 mL/min/1.73m2 Glucose 109 60 - 115 mg/dL [facility] Calcium 10.5(H) 8.4 - 10.2 mg/dL [facility] 11/20/2022 11:4 1 AM EDT 11/20/2022 11:[address] [facility] External Provider LAB BLO OD ORDERABLES Final Result [facility] [address] [place] [phone] documented in this encounter Visit Diagnoses Not on filedocumented in this encounter Care Teams Warp Tying Machine Knotter Relationship Specialty Start Date End Date Gloria Smith MD [address] [place] [phone] PCP - General Family Medicine 04/17/17 documented as of this encounter
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
--- OUTSIDE RECORDS SUMMARY | 2025-05-04 16:53 | XMS_ITS | Encounter Summary ---
Author Organization [employer] Address [address] [place] [address] [address] [place] [address] Care Team Providers Care Negative Assembler Name Role Phone Gloria Smith MD Primary Care Provider + Reason for Visit * Reason Onset Date Comments Appointment Request 12/17/2023 Encounter Details Date Type Department Care Team ([facility] st Contact Info) Description 12/17/2023 Telephone [facility] MEDICINE [address] [place], [place] [phone] Gloria Smith MD [address] [place], [place] [phone] Appointment Request Social History Tobacco Use Types [...] a call back if there any cancellations typewriter aligner did offer appt for January but the patient would like something sooner and in the afternoon documented in this encounter Plan of Treatment Not on file documented as of this encounter Visit Diagnoses Not on filedocumented in this encounter Additional Health Concerns Assessment Noted Time PHQ-9 Depression Total Score: 12 024 8:47 AM EST documented as of this encounter Care Teams Negative Assembler Relationship Specialty Start Date End Date Gloria Smith MD [address] [place] [address] PCP - General Family Medicine 04/17/17 documented as of this encounter
--- OUTSIDE RECORDS SUMMARY | 2025-05-04 16:53 | XMS_ITS | Encounter Summary ---
Author Organization [employer] Address [address] [facility] 7t [place] [address] Care Team Providers Care Chairman & Ceo Name Role Phone Gloria Smith MD Primary Care Provider + Encounter Details Date Type Department Care Team (Late st Contact Info) Description 01/29/2024 Orders Only [facility] MEDICINE [address] [place] [address] Provider, MD Gloria Social History Tobacco Use [...] documented as of this encounter Care Teams Chairman & Ceo Relationship Specialty Start Date End Date Gloria Smith MD [address] [place] [phone] PCP - General Family Medicine 04/17/17 documented as of this encounter
[2025-05-04] MEDS: Magnesium Hydrox/Alum Hydrox 30 ML ORAL.SUSP PO (18:10)
== END 2025-05-04 20:05 | disposition home or self-care (01) ==
PROVIDERS: Emergency Provider Emergency Medicine; PCP Internal Medicine
DX: K52.9 Noninfective gastroenteritis and colitis, unspecified (principal); R10.9 Unspecified abdominal pain; R11.2 Nausea with vomiting, unspecified
CPT/HCPCS: 36415; 80053; 80307; 83690; 83735; 84443; 84484; 85025; 93005; 96361; 96374; 96375; 96376; 99284; 99285; J2405; J3010

== ENCOUNTER → 2025-05-04 15:03 | Outpatient (BNV) | payer MEDICAID, SELFPAY | PROVIDERS: Emergency Provider Emergency Medicine; PCP Internal Medicine; Visit Provider Internal Medicine Cardiovascular Disease | DX: R00.1 Bradycardia, unspecified (principal) | CPT/HCPCS: 93010 ==

== ENCOUNTER 2025-05-25 14:03 | Outpatient (REF) | payer MEDICAID, SELFPAY ==
--- OUTSIDE RECORDS SUMMARY | 2025-05-25 17:20 | XMS_ITS | Encounter Summary ---
Author Organization [employer] Address [address] [place] [address] [address] [place] [address] Care Team Providers Care Combatant Diver Qualified Name Role Phone Gloria Smith MD Primary Care Provider + William Marmolejo RN Unavailable [phone] Judie Brooks Unavailable Reason for Visit * Reason Onset Date Comments Appointment Request 12/17/2023 Encounter Details Date Type Department Care Team ([facility] st Contact Info) Description 12/17/2023 Telephone [facility] MEDICINE [address] [place], [place] [phone] Gloria Smith MD [address] [place], [place] [phone] Appointment Request Social History Tobacco Use Types [...] a call back if there any cancellations credit underwriter did offer appt for January but the patient would like something sooner and in the afternoon documented in this encounter Plan of Treatment Not on file documented as of this encounter Visit Diagnoses Not on filedocumented in this encounter Additional Health Concerns Assessment Noted Time PHQ-9 Depression Total Score: 12 024 8:47 AM EST documented as of this encounter Care Teams Combatant Diver Qualified Relationship Specialty Start Date End Date Gloria Smith MD [address] [place] [address] PCP - General Family Medicine 04/17/17 William Marmolejo RN [address] [place] [address] Registered Nurse Family Medicine 05/05/25 Judie Brooks 05/05/25 documented as of this encounter
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
--- OUTSIDE RECORDS SUMMARY | 2025-05-25 17:20 | XMS_ITS ---
Author Organization [employer] Address [address] [place] [address] [address]t [place] [address] Care Team Providers Care Director Of Provider Relations Name Role Phone Gloria Smith MD Primary Care Provider + William Marmolejo RN Unavailable Judie Brooks Unavailable CM Complex Status:Outreach In Progress (Enrolling) Start date:05/05/2025 Enrollment reason:ADT Feed Overview ED- Pt went to [facility] ED on 05/04/25. Case Team Name Relationship Phone William Marmolejo RN(Responsible Staff) Registered Jarod carter [phone] Continued Care and Services Coordination
--- OUTSIDE RECORDS SUMMARY | 2025-05-25 17:20 | XMS_ITS | Encounter Summary ---
Author Organization [employer] Address [address] [facility] [address]t [place] [address] Care Team Providers Care Commercial Technician Name Role Phone Gloria Smith MD Primary Care Provider + William Marmolejo RN Unavailable [phone] Judie Brooks Unavailable Encounter Details Date Type Department Care Team (Late st Contact Info) Description 01/29/2024 Orders Only [facility] [address] [place] [address] Provider, MD Gloria Social History Tobacco Use [...] documented as of this encounter Care Teams Commercial Technician Relationship Specialty Start Date End Date Gloria Smith MD [address] [place] [address] PCP - General Family Medicine 04/17/17 William Marmolejo, RN [address] [place] [address] Registered Nurse Family Medicine 05/05/25 Judie Brooks 05/05/25 documented as of this encounter
--- OUTSIDE RECORDS SUMMARY | 2025-05-25 17:20 | XMS_ITS ---
Author Organization [employer] Address [address] [place] [address] [address] [place] [address] Care Team Providers Care Punchboard Assembler Name Role Phone Gloria Smith MD Primary Care Provider + William Marmolejo RN Unavailable [phone] Judie Brooks Unavailable CHW Complex Status:Enrolled (Active) Start date:05/05/2025 Enrollment date:05/05/2025 Enrollment reason:ADT Feed Overview ED- Pt went to [facility] ED on 05/04/25. Case Team Name Relationship Phone Judie Brooks(Responsible Staff) Continued Care and Services Coordination
== END 2025-05-25 14:04 | disposition home or self-care (01) ==
LOC: HO.MAMMO 14:03
PROVIDERS: PCP Internal Medicine; Visit Provider Internal Medicine
DX: Z12.31 Encounter for screening mammogram for malignant neoplasm of breast (principal)
CPT/HCPCS: 77063; 77067

== ENCOUNTER → 2025-05-25 14:15 | Outpatient (BNV) | payer MEDICAID, SELFPAY | PROVIDERS: PCP Internal Medicine; Visit Provider Radiology Body Imaging | DX: Z12.31 Encounter for screening mammogram for malignant neoplasm of breast (principal) | CPT/HCPCS: 77063; 77067 ==

== ENCOUNTER 2025-06-17 13:14 | Outpatient (REF) | payer MEDICAID, SELFPAY ==
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
--- OUTSIDE RECORDS SUMMARY | 2025-06-17 16:36 | XMS_ITS | Clinical Summary ---
Author Organization [facility] Address [address] [place] [address] Care Team Providers Care Telegraph And Teletype Operator Name Role Phone Unavailable Primary Care Provider Unavailabl e Source Comments PLEASE NOTE, if this patient is a minor, it may be UNLAWFUL to discuss sensitive information that is contained in these records (such as FAMILY PLANNING, MENTAL HEALTH or SUBSTANCE ABUSE) with the minor patient's parent or other person without the patient's specific authorization.[facility] Social History Tobacco Use Types Packs/Day Years Used Date Smoking Tobacco: Never Assessed Comments Unknown Sex and Gender Information Value Date Recorded Sex Assigned at Not on file Legal Sex Female 11:09 AM PDT Gender Identity Not on file Sexual Orientation Not on file Plan of Treatment Upcoming Encounters Date Type Department Care Team (Late st Contact Info) Description 07/15/2025 11:00 AM EST Behavioral Health Visit [facility] [address] [place] [phone] Shruti Lowe APRN [address] [place] [address] Health Maintenance Due Date Last Done Comments Anxiety Screening 1970 HPV Screening (self-collect) 1970 HPV Screening 1970 Hepatitis C Screening 1970 Lipid Screening 1970 Pap + HPV 1970 Tobacco Screening 1970 Hypertension Screening (#1) 1988 Cervical Cancer Screening 1991 Pap Smear 1991 Breast Cancer Screening (Mammogram) 2010 CT Colonography 2015 Colonoscopy 2015 Colorectal Cancer Screening 2015 FIT/gFOBT 2015 Fecal DNA 2015 Flexible Sigmoidoscopy 2015 Imm-Zoster, Recombinant (1 of 2) 2020 Alcohol and Drug Screen 09/02/2024 Depression Annual Screen 09/02/2024 [id number] ( season) 2025 06/28/2023, 06/13/2022, 08/16/2021, Additional history exists Imm-Influenza (#1) 2025 05/20/2023, 0 05/29/2022, 08/16/2021, Additional history exists Diabetes Screening 12/18/2027 12/17/2024, 0 12/16/2024, 12/02/2024 Imm-DTaP/Tdap/Td (3 - Td or Tdap) 06/14/2031 06/14/2021, 05/03/2011, 03/14/2000 Imm-Pneumococcal 50+ Completed 11/16/2022, 08/04/20 15 Imm-Hepatitis B Completed 04/10/2024, 12/01, 03/04/2008 HIV Screening Completed 01/19/2025, 01/19/2025 Cervical Ablation/Cold-Knife Conization Discontinued Cervical Cryotherapy Discontinued Colposcopy Discontinued Excision/Leep Discontinued HPV Genotyping Discontinued Vaginal Pap Discontinued Vulvoscopy Discontinued
== END 2025-06-17 13:15 | disposition home or self-care (01) ==
LOC: HO.HHCX 13:14
PROVIDERS: PCP Internal Medicine; Visit Provider Internal Medicine
DX: M50.30 Other cervical disc degeneration, unspecified cervical region (principal)
CPT/HCPCS: 72050

== ENCOUNTER → 2025-06-17 13:21 | Outpatient (BNV) | payer MEDICAID, SELFPAY | PROVIDERS: PCP Internal Medicine; Visit Provider Radiology Diagnostic Radiology | DX: M54.2 Cervicalgia (principal) | CPT/HCPCS: 72050 ==

== ENCOUNTER 2025-06-29 14:09 | Outpatient (AMB) | payer MEDICAID, SELFPAY ==
--- NOTE | 2025-06-29 14:16 | MHC.OFFVIS ---
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,precordial pain,vazquez Intake Note: New patient palpitations and chest pain had HCCA in the past has had cardiac cath in the past and strong fx heart dz Port Crane Operator Required: No Allergies bee pollen (BEE STINGS) Allergy (Severe, Verified 05/04/25 14:38) THROAT SWELLING codeine (Codeine) Allergy (Severe, Verified 05/04/25 14:38) CAN'T BREATHE, SWELLING,RASH tramadol (TRAMADOL) Allergy (Intermediate, Verified 05/04/25 14:38) ABD PAIN- COULD NOT EAT - FELT SICK Medication List - Last Reconciled 06/29/25 by Sam Eckert MD ibuprofen 600 mg PO Q8H PRN HPI Comments Details: Neli was referred here for symptoms of chest pain. Patient is 55 year female with prior history of marijuana use, strong family history as per her for premature coronary artery disease both in his father and mother. Patient in the past has had 2 cardiac catheterization 1 in 2014 which showed normal coronary arteries and 1 in 2018 which showed luminal irregularities. He has been managed with medical therapy. She has has ongoing chest pain syndrome which she describes as sharp pain in his retrosternal area followed by pressure in both sides of her neck. Symptoms are not clearly exertional in nature. She denies any significant shortness of breath, orthopnea, PND. No associated palpitations. She has no lightheadedness, syncope. [facility] Medical History Fibromyalgia Epidermal cyst of neck Gastroesophageal reflux disease COVID-19 Female pelvic pain ASCUS of cervix with negative high risk HPV Hx of abnormal cervical Pap smear Encounter for repeat Papanicolaou smear of cervix Encounter for annual routine gynecological examination Tubular adenoma PONV (postoperative nausea and vomiting) Potential exposure to STD Well woman exam with routine gynecological exam Breast lump Hx of ectopic MRSA (methicillin resistant Staphylococcus aureus) Kidney stones SAB (spontaneous ) Surgical History History of excision of epidermal inclusion cyst (~01/17/23) History of removal of cyst (~01/17/23) Hx of hemorrhoidectomy H/O elbow surgery H/O lithotripsy Hx of endoscopy History of colonoscopy History of hernia repair Hx of appendectomy Hx of cholecystectomy Hx of breast biopsy Family History Father Diabetes mellitus CVD (cardiovascular disease) Hyperlipemia Mother Diabetes mellitus HTN (hypertension) Colon cancer Liver cancer Maternal Grandmother Diabetes mellitus Maternal Aunt Breast cancer Paternal Grandfather Colon cancer Maternal Grandfather Stomach cancer Social History Household Members: Spouse Housing: House Do you presently have visiting nurse or other home services: No Alcohol intake: current Alcohol intake frequency: holidays/special occasions only Alcohol type: hard liquor Patient Tobacco Use Status: Never used Tobacco Cigarettes Per Day: 5 Years Smoked: 8 Substance Use Type: Marijuana service: No Current occupational status: disabled Gender identity: Female Female Reproductive History Menstrual Age of Menarche: 9 Date of menopause: 04/02/19 Review of Systems Const Denies chills, Denies daytime sleepiness, Denies fatigue, Denies fever(s), Denies frequent falls, Denies poor appetite, Denies snoring, Denies stops breathing during sleep, Denies weakness, Denies weight gain and Denies weight loss Eyes Denies loss of vision ENT Denies dizziness and Denies hearing loss Card Denies chest pain, Denies claudication, Denies leg edema, Denies lightheadedness, Denies palpitations, Denies dyspnea, Denies dyspnea on exertion and Denies orthopnea Resp Denies cough, Denies excessive phlegm production, Denies dyspnea, Denies dyspnea on exertion, Denies snoring and Denies wheezing GI Denies abdominal pain, Denies hematochezia, Denies change in bowel habits, Denies nausea and Denies vomiting Denies urinary frequency and Denies dysuria Musc Denies arthralgias, Denies muscle weakness and Denies numbness Skin/Breast Denies nail changes and Denies rash Neuro Denies Abnormal speech present, Denies dizziness, Denies frequent falls, Denies loss of vision, Denies memory loss, Denies numbness and Denies weakness Psych Denies depression and Denies memory loss Endo Denies fatigue and Denies palpitations Paul/Lymph Reports easy bruising and Reports other (anemia) Aller/Immun Denies wheezing Physical Exam Vital Signs: Last Vital Signs Pulse 62 06/29/25 14:17 BP 110/62 06/29/25 14:17 BMI result Body Mass Index 20.9 Const General: cooperative, comfortable, no acute distress, alert, awake and Physically active Nutritional Appearance: thin Orientation/consciousness: patient oriented x3 Limitations: no limitations HEENT Head: Yes normocephalic and Yes atraumatic Neck Neck: Yes trachea midline, Yes supple and Yes no JVD Carotids: no bruits Resp Effort & Inspection: normal respiratory effort Auscultation: clear to auscultation bilaterally Cardio Jugular venous distension: no JVD Palpation: normal PMI Rate: regular rate Rhythm: regular rhythm Heart sounds: S1 normal heart sound present, S2 normal heart sound present, no click, no gallops and no murmurs GI Auscultation: normal bowel sounds Skin General skin exam: no rashes or lesions noted Neuro General: patient oriented x3 and no focal motor deficits Speech: No Abnormal speech present Extrem General: Yes no clubbing, cyanosis or edema Office Procedures EKG Details: EKGs shows normal sinus rhythm with normal EKGs 43941-[id number], Complete Assessment & Plan Assessment & Plan (1) Atypical chest pain: Code(s): R07.89 - Other chest pain Plan: Atypical chest pain this middle-aged woman with strong family history of premature coronary artery disease with prior nonobstructive coronary disease more than 5 years ago. She describes symptoms that are fairly atypical although mostly happening at rest. However given her risk factors I have suggested her to undergo a treadmill stress test given her normal EKGs underlying. Also suggest an echocardiogram to evaluate for cardiac structure and function. These tests will be scheduled in near future. Complete avoidance of cocaine use was discussed that this can lead to plaque rupture and myocardial infarction as well as progressive cardiomyopathy process. She said this was an accidental use and will not use it again. Also continue lifestyle modification. Target goal LDL less than 100 mg/dL. Can consider coronary calcium score to assess for further treatment if lipids are elevated. Will follow up in the clinic if testing is abnormal otherwise will follow up as need be. Thank you for allowing me to partake in her care Coding Level of Care Code New Pt Level 4 (38810) Complex EM visit Add On G2211 Diagnoses Atypical chest pain R07.89 CPT Codes EKG - CPT: 90227-[id number], Complete ([id number])
[2025-06-29 14:17] VITALS: BP 110/62; PULSE 62; BMI 20.9
--- OUTSIDE RECORDS SUMMARY | 2025-06-29 18:33 | XMS_ITS | Encounter Summary ---
Author Organization [employer] Address [address] [place] [address] [address] [place] [address] Care Team Providers Care Metal Trimmer Name Role Phone Gloria Smith MD Primary Care Provider + William Marmolejo RN Unavailable [phone] Judie Brooks Unavailable Reason for Visit * Reason Onset Date Comments Appointment Request 12/17/2023 Encounter Details Date Type Department Care Team ([facility] st Contact Info) Description 12/17/2023 Telephone [facility] MEDICINE [address] [place], [place] [phone] Gloria Smith MD [address] [place], [place] [phone] Appointment Request Social History Tobacco Use Types [...] a call back if there any cancellations contract writer did offer appt for January but the patient would like something sooner and in the afternoon documented in this encounter Plan of Treatment Not on file documented as of this encounter Visit Diagnoses Not on filedocumented in this encounter Additional Health Concerns Assessment Noted Time PHQ-9 Depression Total Score: 12 024 8:47 AM EST documented as of this encounter Care Teams Metal Trimmer Relationship Specialty Start Date End Date Gloria Smith MD [address] [place] [address] PCP - General Family Medicine 04/17/17 William Marmolejo RN [address] [place] [address] Registered Nurse Family Medicine 05/05/25 Judie Brooks 05/05/25 documented as of this encounter
--- OUTSIDE RECORDS SUMMARY | 2025-06-29 18:33 | XMS_ITS | Encounter Summary ---
Author Organization [employer] Address [address] [place] [address] [address] [place] [address] Care Team Providers Care Crushing Machine Operator Name Role Phone Gloria Smith MD Primary Care Provider + William Marmolejo RN Unavailable [phone] Judie Brooks Unavailable Reason for Visit * Reason Comments Care Management C3CM- Initial assess ment/enrollment/LVM Encounter Details Date Type Department Care Team (Late st Contact Info) Description 05/19/2025 Patient Outreach [facility] MEDICINE [address] [place] [address] Gloria Smith MD [address] [place] [address] Care Management (C3CM- Initial assessment/enrollmen t/LVM) Social History Tobacco Use Types Packs/Day Years Used Date Smoking Tobacco: Every Day Cigarettes Passive Smoke Exposure: Current Smokeless Tobacco: Former Comments:Smoking since age 2 6 1/2 ppd for 15y then 5-10 cig for 10 more years, for the past 15y she's smoking 2-5 cig/d Alcohol Use Standard Drinks/Week Comments Yes 0 (1 standard drink = 0.6 oz pur e alcohol) social Alcohol Answer Date Recorded How often do you have a drink containing alcohol ? 1 06/17/2025 How many drinks containing a lcohol do you have on a typical day when you are drinking? 0 06/17/2025 How often do you have six or more drinks on one occasion? 0 06/17/2025 Depression Answer Date Recorded Patient Health Questionnaire-9 Score 1 06/17/2025 Patient Health Questionnaire-9 Score 1 06/17/2025 Last PHQ-9: Questionnaire Data Not on file 1 Housing Stability Answer Date Recorded What is [...] Answer Date Recorded Patient Health Questionnaire-2 Score 1 06/17/2025 Internet Access Answer Date Recorded Internet Access [...] this encounter Functional Status * Over the past 2 weeks, how often have you been bothered by any of the following problems? Question Answer Date of Assessment Author Little interest or pleasure in doing things Not at all 06/17/2025 3:55 PM EDT Gloria Smith MD Feeling down, depressed, or hopeless Several days 06/17/2025 3:55 PM EDT Gloria Smith MD Patient Health Questionnaire-2 Score 1 06/17/2025 3:55 PM EDT Gloria Smith MD * Trouble falling or staying asleep, or sleeping too much Answer Date of Assessment Author Not at all 06/17/2025 3:55 PM EDT Gloria Wilson MD * Feeling tired or having little energy Answer Date of Assessment Author Not at all 06/17/2025 3:55 PM EDT Gloria Wilson MD * Poor appetite or overeating Answer Date of Assessment Author Not at all 06/17/2025 3:55 PM TERRIT Gloria Wilson MD * Feeling bad about yourself - or that you are a failure or have let yourself or your family down Answer Date of Assessment Author Not at all 06/17/2025 3:55 PM EDT Gloria Wilson MD * Trouble concentrating on things, such as reading the newspaper or watching television Answer Date of Assessment Author Not at all 06/17/2025 3:55 PM TERRIT Gloria Wilson MD * Moving or speaking so slowly that other people could have noticed? Or the opposite - being so fidgety or restless that you have been moving around a lot more than usual. Answer Date of Assessment Author Not at all 06/17/2025 3:55 PM TERRIT Gloria Wilson MD * Thoughts that you would be better off or hurting yourself in some way Answer Date of Assessment Author Not at all 06/17/2025 3:55 PM TERRIT Gloria Wilson MD * Patient Health Questionnaire-9 Score Answer Date of Assessment Author 1 06/17/2025 3:55 PM TERRIT Gloria Wilson MD * If you checked off any problems on this questionnaire so far, Question Answer Date of Assessment Author How difficult have these problems made it for you to do your work, take care of things at home, or get along with other people? Somewhat difficult 06/17/2025 3:55 PM Gloria Art MD documented as of this encounter Progress Notes * William Marmolejo RN - 05/19/2025 10:28 AM EDT GABI Marmolejo RN, placed outbound call to patient for agreed upon assessment time. No answer at this time, left message requesting call back at [phone]. CHW will attempt contact with patient to reschedule missed initial assessment. documented in this encounter Plan of Treatment Not on file documented as of this encounter Visit Diagnoses Not on filedocumented in this encounter Additional Health Concerns Assessment Noted Time PHQ-9 Depression Total Score: 13 024 4:13 PM EDT documented as of this encounter Care Teams Crushing Machine Operator Relationship Specialty Start Date End Date Gloria Smith MD [address] [place] [address] PCP - General Family Medicine 04/17/17 William Marmolejo RN [address] [place] [address] Registered Nurse Family Medicine 05/05/25 Judie Brooks 05/05/25 documented as of this encounter
--- OUTSIDE RECORDS SUMMARY | 2025-06-29 18:33 | XMS_ITS ---
Author Organization [employer] Address [address] [place] [address] [address] [place] [address] Care Team Providers Care Private Duty Rn Name Role Phone Gloria Smith MD Primary Care Provider + William Marmolejo RN Unavailable [phone] Judie Brooks Unavailable CHW Complex Status:Enrolled (Active) Start date:05/05/2025 Enrollment date:05/05/2025 Enrollment reason:ADT Feed Overview ED- Pt went to [facility] ED on 05/04/25. Case Team Name Relationship Phone Judie Brooks(Responsible Staff) Continued Care and Services Coordination
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
--- OUTSIDE RECORDS SUMMARY | 2025-06-29 18:33 | XMS_ITS | Encounter Summary ---
Author Organization [employer] Address [address] [place] [address] [address] [place] [address] Care Team Providers Care Loan Counselor Name Role Phone Gloria Smith MD Primary Care Provider + William Marmolejo RN Unavailable [phone] Judie Brooks Unavailable Reason for Visit * Reason Onset Date Comments Medication Question 06/18/2025 Encounter Details Date Type Department Care Team ([facility] st Contact Info) Description 06/18/2025 Telephone [facility] MEDICINE [address] [place], [place] [phone] Gloria Smith MD [address] [place], [place] [phone] Medication Question Social History Tobacco Use Types Packs/Day Years [...] encounter Miscellaneous Notes * Telephone Encounter - Jalen Hendricks - 06/29/2025 2:07 PM EDT Tc from pt requesting a call back regarding prior message Contact pt at [phone] * Telephone Encounter - Jamaica Short RN - 06/18/2025 2:01 PM EDT TC placed to patient [phone] in regards to below message. Patient did not answer, RN unable toleave VM as VM is full. Patient to f/u PRN. * Telephone Encounter - Tom Carbajal - 06/18/2025 10:10 AM EDT Tc from pt calling in regards to nicotine (Nicoderm CQ) 7 MG/24HR patch stating she feels the dosage is a little too high at the moment and would like a call back to discuss a decrease. Please contact pt at [phone]. documented in this encounter Plan of Treatment Not on file documented as of this encounter Visit Diagnoses Not on filedocumented in this encounter Additional Health Concerns Assessment Noted Time PHQ-9 Depression Total Score: 1 06/17/20 25 3:55 PM EDT documented as of this encounter Care Teams Loan Counselor Relationship Specialty Start Date End Date Gloria Smith MD [address] [place] [address] PCP - General Family Medicine 04/17/17 William Marmolejo, YEHUDA [address] [place] [address] Registered Nurse Family Medicine 05/05/25 Judie Brooks 05/05/25 documented as of this encounter
--- OUTSIDE RECORDS SUMMARY | 2025-06-29 18:33 | XMS_ITS ---
Author Organization [employer] Address [address] [place] [address] [address] [place] [address] Care Team Providers Care Electric Clock Mechanic Name Role Phone Gloria Smith MD Primary Care Provider + William Marmolejo RN Unavailable [phone] Judie Brooks Unavailable CM Complex Status:Outreach In Progress (Enrolling) Start date:05/05/2025 Enrollment reason:ADT Feed Overview ED- Pt went to [facility] ED on 05/04/25. Case Team Name Relationship Phone William Marmolejo RN(Responsible Staff) Registered Jarod carter [phone] Continued Care and Services Coordination
--- OUTSIDE RECORDS SUMMARY | 2025-06-29 18:33 | XMS_ITS | Encounter Summary ---
Author Organization [employer] Address [address] [place] [address] [address] [place] [address] Care Team Providers Care Billing Administrator Name Role Phone Gloria Smith MD Primary Care Provider + William Marmolejo RN Unavailable [phone] Judie Brooks Unavailable Reason for Visit * Reason Onset Date Comments Med Refill 06/18/2025 Encounter Details Date Type Department Care Team (Late st Contact Info) Description 06/18/2025 Telephone [facility] MEDICINE [address] [place], [place] [phone] Gloria Smith MD [address] [place], [place] [phone] Med Refill Social History Tobacco Use Types Packs/Day Years [...] encounter Miscellaneous Notes * Telephone Encounter - Chantale Amaya LPN - 06/18/2025 10:20 AM EDT Medication being addressed in another encounter from today 06/18/25. * Telephone Encounter - Tom Carbajal - 06/18/2025 10:05 AM EDT TC from pt requesting medication refill. Medications needing refill: nicotine (Nicoderm CQ) 7 MG/24HR patch To be sent to: [facility] [place] - [address] documented in this encounter Plan of Treatment Not on file documented as of this encounter Visit Diagnoses Not on filedocumented in this encounter Additional Health Concerns Assessment Noted Time PHQ-9 Depression Total Score: 1 06/17/20 25 3:55 PM EDT documented as of this encounter Care Teams Billing Administrator Relationship Specialty Start Date End Date Gloria Smith MD [address] [facility] [place] [address] PCP - General Family Medicine 04/17/17 William Marmolejo, YEHUDA [address] [place] [address] Registered Nurse Family Medicine 05/05/25 Judie Brooks 05/05/25 documented as of this encounter
--- OUTSIDE RECORDS SUMMARY | 2025-06-29 18:33 | XMS_ITS | Encounter Summary ---
Author Organization [employer] Address [address] [facility] [address] [place] [address] Care Team Providers Care Web Page Designer Name Role Phone Gloria Smith MD Primary Care Provider + William Marmolejo RN Unavailable [phone] Judie Brooks Unavailable Encounter Details Date Type Department Care Team (Late st Contact Info) Description 10/23/2022 Orders Only [facility] MED [facility] PEDS [address] [place] [address] Chantale Amaya LPN Social History Tobacco Use [...] 0 AM EDT 01/18/2023 7:18 AM EDT [facility] - 01/24/2023 7:32 PM EDT ----- ------- Name: Neli Jean Age/Sex: 52/F : 1970 Unit#: [id number] Attend Dr: Filemon Veronica MD Re01/17/23 Status: DEP REF Location: HO.LNP Disch: ----- ------- SPEC : [id number] RECD: 01/18/23 STATUS: SHRUTHI EWINER NUM: [id number] MIGNON: 01/17/23-[address] [facility] [address]: Filemon Veronica MD ENTERED: 01/18/23 SP [...] CEDMatty Copies To: Gloria Smith MD [address] [place] [address] Filemon Veronica MD [address] [place] [address] ----- ------- Signed (signature on file) Babita Indianola 01/24/231931 ----- ------- END OF REPORT [facility] External Provider LAB [facility] ORDERABLES Final Result [facility] [address] [place] [address] [phone] * Creatine Kinase, Total (11/20/2022 11:41 AM EDT) Creatine Kinase Total 106 26 - 140 U/L [facility] 11/20/2022 11:4 1 AM EDT 11/20/2022 11:44 AM EDT us [facility] External Provider LAB BLO OD ORDERABLES Final Result Performing Organization Address [facility] de Phone Number [facility] [address] [place] [address] [phone] * SARS-CoV-2 RNA, Influenza A/B, and RSV RNA, Ql NAAT (11/20/2022 11:41 AM EDT) Influenza A PCR NEGATIVE Negative [facility] Influenza B PCR NEGATIVE Negative [facility] Resp Syncy Virus RNA Qual PCR NEGATIVE Negative [facility] SARS COV2 PCR NEGATIVE Negative [facility] SARS/Flu/RSV Note See Note [facility] Comment:All test results mus [...] use by authorized laboratories.Testing performed on the [employer] GeneXpert utilizingreal-time RT-PCR.All SARS CoV2 and positive influenza A/B results arereported to [facility]. 11/20/2022 11:4 1 AM EDT 11/20/2022 11:44 AM EDT [facility] Exter nal Provider LAB MICROBIOLOGY - GENERAL ORDERABLES Final Result Performing Organization Address [facility] Co de Phone Number [facility] [address] [place] [address] [phone] * (ABNORMAL) Basic Metabolic Panel (11/20/2022 11:41 AM EDT) Sodium 138 135 - 145 mmol/L [facility] Potassium 4.6 3.3 - 5.1 mmol/L [facility] Comment:Slight Hemolysis Chloride 105 96 - 108 mmol/L [facility] Carbon Dioxide 23 22 - 29 mmol/L [facility] Anion Gap 15 12 - 20 [facility] Urea Nitrogen (BUN) 9 9 - 16 mg/dL [facility] Creatinine, Serum 0.77 0.5 - 1.4 mg/dL [facility] Creatinine Clr Calc Pharmacy 61.4 [facility] Comment:Provided height and weight: 152.4 cm,51 kg.eGFR (calculated from the MDRD study equation) and eCrCl(calculated from the Cockcroft-Gault equation) are based ondifferent parameters and may not yield comparable results.If eCrCl result is absurd, please check patient'sheight/weight. Estimated Glomerular Filt Rate >60 [facility] Comment:NOTE: For -Am erican individuals, multiply the result by 1.210.Chronic Kidney Disease: Estimated GFR < 60 mL/min/1.44z3Reyqzw Kidney Disease: Estimated GFR < 15 mL/min/1.73m2 Glucose 109 60 - 115 mg/dL [facility] Calcium 10.5(H) 8.4 - 10.2 mg/dL [facility] 11/20/2022 11:4 1 AM EDT 11/20/2022 11:44 AM EDT [facility] External Provider LAB BLO OD ORDERABLES Final Result [facility] [address] [place] [address] [phone] documented in this encounter Visit Diagnoses Not on filedocumented in this encounter Care Teams Web Page Designer Relationship Specialty Start Date End Date Gloria Smith MD [address] [place] [address] PCP - General Family Medicine 04/17/17 William Marmolejo, RN [address] [place] [address] Registered Nurse Family Medicine 05/05/25 Judie Brooks 05/05/25 documented as of this encounter
--- OUTSIDE RECORDS SUMMARY | 2025-06-29 18:33 | XMS_ITS | Encounter Summary ---
Author Organization [employer] Address [address] [facility] 7[address] [place] [address] Care Team Providers Care Service Dismantler Name Role Phone Gloria Smith MD Primary Care Provider + William Marmolejo RN Unavailable [phone] Judie Brooks Unavailable Encounter Details Date Type Department Care Team (Late st Contact Info) Description 01/29/2024 Orders Only [facility] MEDICINE [address] [place] [address] Provider, MD Gloria Social History Tobacco Use [...] documented as of this encounter Care Teams Service Dismantler Relationship Specialty Start Date End Date Gloria Smith MD [address] [place] [address] PCP - General Family Medicine 04/17/17 William Marmolejo, RN [address] [place] [address] Registered Nurse Family Medicine 05/05/25 Judie Brooks 05/05/25 documented as of this encounter
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
--- OUTSIDE RECORDS SUMMARY | 2025-06-29 18:33 | XMS_ITS | Clinical Summary ---
Author Organization [facility] Address [address] [place] [address] Care Team Providers Care Assorter Name Role Phone Unavailable Primary Care Provider [...] EST Behavioral Health Visit [facility] [address] [place] [id number] Shruti Lowe APRN [address] [place] [address] Health Maintenance Due Date Last Done Comments [...] Drug Screen 09/02/2024 Depression Annual Screen 09/02/2024 [id number] ( season) 2025 06/28/2023, 06/13/2022, 08/16/2021, Additional [...]
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
== END 2025-06-29 14:41 | disposition home or self-care (01) ==
LOC: HO.HCS 14:10
PROVIDERS: PCP Internal Medicine; Visit Provider Internal Medicine Cardiovascular Disease
DX: R07.89 Other chest pain (principal)
CPT/HCPCS: 93010; 99214

== ENCOUNTER → 2025-06-29 14:09 | Outpatient (BNVA) | payer MEDICAID, SELFPAY | PROVIDERS: PCP Internal Medicine; Visit Provider Internal Medicine Cardiovascular Disease | DX: R07.89 Other chest pain (principal); Z82.49 Family history of ischemic heart disease and other diseases of the circulatory system; Z98.890 Other specified postprocedural states | CPT/HCPCS: 93005; 99212 ==

== ENCOUNTER 2025-07-27 03:16 | Emergency (ER) | payer MEDICAID, SELFPAY ==
--- NOTE | ~2025-07-27 | XR_ITS ---
CLINICAL HISTORY: cough CHEST X-RAY FRONTAL AND LATERAL VIEWS COMPARISON: 04/15/2025. FINDINGS: Frontal and lateral views of the chest were performed. The cardiac size and mediastinal silhouette are within normal limits. The lungs are clear. There are no acute infiltrates or pleural effusions. There is no pneumothorax. IMPRESSION: 1. No acute disease. This document has been electronically signed by: Eliazar Moss M.D. on 07/27/2025 04:46:46
[2025-07-27 03:19] VITALS: BP 132/60; PULSE 94; RESP 20; TEMP 36.7; O2SAT 97; BMI 22.2
[2025-07-27 03:30] VITALS: O2SAT 97
[2025-07-27 03:39] LABS: IDNOW Serial# 6674DD1D; Strep A Nucleic Acid Negative (Negative)
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
--- OUTSIDE RECORDS SUMMARY | 2025-07-27 03:47 | XMS_ITS | Encounter Summary ---
Author Organization [employer] Address [address] [place] [address] 7 [place] [address] Care Team Providers Care Wool Broker Name Role Phone Gloria Smith MD Primary Care Provider + William Marmolejo RN Unavailable [phone] Judie Brooks Unavailable Reason for Visit * Reason Onset Date Comments Appointment Request 12/17/2023 Encounter Details Date Type Department Care Team ([facility] st Contact Info) Description 12/17/2023 Telephone [facility] MEDICINE [address] [place], [place] [phone] Gloria Smith MD [address] [place], [place] [phone] Appointment Request Social History Tobacco Use Types [...] a call back if there any cancellations screenplay writer did offer appt for January but the patient would like something sooner and in the afternoon documented in this encounter Plan of Treatment Not on file documented as of this encounter Visit Diagnoses Not on filedocumented in this encounter Additional Health Concerns Assessment Noted Time PHQ-9 Depression Total Score: 12 024 8:47 AM EST documented as of this encounter Care Teams Wool Broker Relationship Specialty Start Date End Date Gloria Smith MD [address] [place] [address] PCP - General Family Medicine 04/17/17 William Marmolejo RN [address] [place] [address] Registered Nurse Family Medicine 05/05/25 Judie Brooks 05/05/25 documented as of this encounter
--- OUTSIDE RECORDS SUMMARY | 2025-07-27 03:47 | XMS_ITS ---
Author Organization [employer] Address [address] [place] [address] 7[address] [place] [address] Care Team Providers Care Figure Model Name Role Phone Gloria Smith MD Primary Care Provider + William Marmolejo RN Unavailable [phone] Judie Brooks Unavailable CM Complex Status:Outreach In Progress (Enrolling) Start date:05/05/2025 Enrollment reason:ADT Feed Overview ED- Pt went to [facility] [place] [place] ED on 05/04/25. Case Team Name Relationship Phone William Marmolejo RN(Responsible Staff) Registered Jarod carter [phone] Continued Care and Services Coordination
--- OUTSIDE RECORDS SUMMARY | 2025-07-27 03:47 | XMS_ITS | Encounter Summary ---
Author Organization [employer] Address [address] [place] [address] [address] [place] [address] Care Team Providers Care Bean Sprout Grower Name Role Phone Gloria Smith MD Primary Care Provider + William Marmolejo RN Unavailable [phone] Judie Brooks Unavailable Reason for Visit * Reason Onset Date Comments Med Refill 06/18/2025 Encounter Details Date Type Department Care Team (Late st Contact Info) Description 06/18/2025 Telephone [facility] MEDICINE [address] [place], [place] [phone] Gloria Smith MD [address] [place], [place] [phone] Med Refill Social History Tobacco Use Types [...] 7 MG/24HR patch To be sent to: [facility] [place] - [address] documented in this encounter Plan of Treatment Not on file documented as of this encounter Visit Diagnoses Not on filedocumented in this encounter Additional Health Concerns Assessment Noted Time PHQ-9 Depression Total Score: 1 06/17/20 25 3:55 PM EDT documented as of this encounter Care Teams Bean Sprout Grower Relationship Specialty Start Date End Date Gloria Smith MD [address] [place] [address] PCP - General Family Medicine 04/17/17 William Marmolejo, YEHUDA [address] [place] [address] Registered Nurse Family Medicine 05/05/25 Judie Brooks 05/05/25 documented as of this encounter
--- OUTSIDE RECORDS SUMMARY | 2025-07-27 03:47 | XMS_ITS | Encounter Summary ---
Author Organization [employer] Address [address] [facility] 7t [place] [address] Care Team Providers Care Tar Roofer Name Role Phone Gloria Smith MD Primary Care Provider + William Marmolejo RN Unavailable [phone] Judie Brooks Unavailable Encounter Details Date Type Department Care Team (Late st Contact Info) Description 01/29/2024 Orders Only [facility] MEDICINE [address] [place] [address] Provider, MD Gloria Social History Tobacco Use [...] documented as of this encounter Care Teams Tar Roofer Relationship Specialty Start Date End Date Gloria Smith MD [address] [place] [address] PCP - General Family Medicine 04/17/17 William Marmolejo, RN [address] [place] [address] Registered Nurse Family Medicine 05/05/25 Judie Brooks 05/05/25 documented as of this encounter
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
--- OUTSIDE RECORDS SUMMARY | 2025-07-27 03:47 | XMS_ITS ---
Author Organization [employer] Address [address] [place] [address] [address] [place] [address] Care Team Providers Care Foreign Languages Department Chair Name Role Phone Gloria Smith MD Primary Care Provider + William Marmolejo RN Unavailable [phone] Judie Brooks Unavailable [facility] Status:Enrolled (Active) Start date:05/05/2025 Enrollment date:05/05/2025 Enrollment reason:ADT Feed Overview ED- Pt went to [facility] ED on 05/04/25. Case Team Name Relationship Phone Judie Brooks(Responsible Staff) Continued Care and Services Coordination
[2025-07-27 04:10] LABS: Resp Syncy Virus RNA Qual PCR NEGATIVE (Negative); SARS COV2 PCR INHOUSE NEGATIVE (Negative)
--- NOTE | 2025-07-27 04:42 | ED_ITS ---
HPI - URI/Sore Throat General Chief Complaint: Upper Respiratory Symptoms Stated Complaint: Fever Body Aches Time Seen by Provider: 07/27/25 03:23 Source: patient Mode of arrival: ambulatory Limitations: no limitations History of Present Illness ED Provider: Dr. Cindy Cross HPI Narrative: 55-year-old female with history of hypertension not currently on treatment presenting with sore throat, painful swallowing, fevers as high as 100.8 degrees at home, dry cough, generalized malaise and fatigue ongoing for the last 24 hours or so. Has been using Tylenol and ibuprofen without relief of her symptoms. Having a difficult time swallowing due to the pain. No changes in her voice. No reported sick contacts. No recent travel. Has been feeling well prior to this. Related Data Previous Rx's ?Medication ?Instructions ?Recorded ibuprofen 600 mg tablet 600 mg PO Q8H PRN pain #14 t abs 04/16/25 dexamethasone 6 mg tablet 12 mg (2 x 6 mg) PO ONCE 1 d ay #2 07/27/25 tabs phenol 1.4 % mucosal aerosol spray 4 spray mucous memb ken Q4H PRN 07/27/25 (Chloraseptic Throat Mauldin) sore throat #177 mL Allergies Allergy/AdvReac Type Severity Reaction Status Date / Time bee pollen (BEE STINGS) Allergy Severe THROAT Verified 07/27/25 03:21 SWELLING codeine (Codeine) Allergy Severe CAN'T Verified 07/27/25 03:21 BREATHE, SWELLING,RASH tramadol (TRAMADOL) Allergy Intermediate ABD PAIN- Verified 07/27/25 03:21 COULD NOT EAT - FELT SICK Review of Systems Review of Systems: as per HPI, full review of systems performed and negative but for the above me ntioned pertinent positives and negatives. [facility] Past Medical History Medical History Fibromyalgia Epidermal cyst of neck Gastroesophageal reflux disease COVID-19 Female pelvic pain ASCUS of cervix with negative high risk HPV Hx of abnormal cervical Pap smear Encounter for repeat Papanicolaou smear of cervix Encounter for annual routine gynecological examination Tubular adenoma PONV (postoperative nausea and vomiting) Potential exposure to STD Well woman exam with routine gynecological exam Breast lump Hx of ectopic MRSA (methicillin resistant Staphylococcus aureus) Kidney stones SAB (spontaneous ) Surgical History History of excision of epidermal inclusion cyst (~01/17/23) History of removal of cyst (~01/17/23) Hx of hemorrhoidectomy H/O elbow surgery H/O lithotripsy Hx of endoscopy History of colonoscopy History of hernia repair Hx of appendectomy Hx of cholecystectomy Hx of breast biopsy Family History Family History Father Diabetes mellitus CVD (cardiovascular disease) Hyperlipemia Mother Diabetes mellitus HTN (hypertension) Colon cancer Liver cancer Maternal Grandmother Diabetes mellitus Maternal Aunt Breast cancer Paternal Grandfather Colon cancer Maternal Grandfather Stomach cancer Social History Social History Household Members: Spouse Housing: House Do you presently have visiting nurse or other home services: No Alcohol intake: never Patient Tobacco Use Status: Never used Tobacco Cigarettes Per Day: 5 Years Smoked: 8 Smoked in Last 30 Days: No Use of substances other than those prescribed or required for medical reasons: Yes Substance Use Type: Marijuana Substance Use Frequency: Daily Advance Directives: No Advance Directives Information Provided: Yes Patient : No service: No Current occupational status: disabled Gender identity: Female Physical Exam Exam: Exam: GENERAL: Ill-Appearing, appears uncomfortable. SKIN: Normal skin color for ethnicity, warm, dry, no rashes noted. HEENT:? Normocephalic, atraumatic, no stridor, no muffled voice, posterior oropharynx is nonerythematous without exudate, dry mucous membranes, dentition intact, EOMI, no discoloration or rash under the chin. NECK: Soft, supple, full ROM, midline structures nontender, no step-offs, no deformities, shotty posterior cervical lymphadenopathy. CHEST: Heart regular tachycardia, no murmurs, symmetric chest rise and fall. PULMONARY: Clear to auscultation bilaterally, diminished at the bases, no labored breathing, no wheezes/rhales/rhonchi. ABDOMINAL: Soft, nondistended, nontender, positive bowel sounds in all quadrants. : Deferred. MUSCULOSKELETAL: Normal tone, full range of motion, no deformities, no peripheral edema. NEURO: Alert and oriented x3, CN II through XII intact, equal strength and sensation bilateral upper and lower extremities, no focal neurologic deficits.? PSYCHIATRIC: Flat affect, fluid speech, good eye contact and appropriate demeanor. Vital Signs: Vital Signs: Last Vital Signs Temp 98.1 F 07/27/25 03:19 Pulse 94 07/27/25 03:19 Resp 20 07/27/25 03:19 BP 132/60 07/27/25 03:19 Pulse Ox 97 07/27/25 03:30 O2 Del Method Room Air 07/27/25 03:30 BMI result Body Mass Index 22.2 Medical Decision Making Medical Decision Making [facility] Narrative: Patient presents today with a chief complaint of sore throat. Differential diagnosis includes pharyngitis as well as ENT emergencies such as epiglottitis, retropharyngeal abscess, peritonsillar abscess, Blake's angina, angioedema, allergic reaction, among many others. On exam, patient is nontoxic, tolerating their secretions, without signs of respiratory distress. COVID and flu swabs are negative. Clinical picture consistent with viral pharyngitis. Given a dose of Decadron, additional dose of Decadron for home as well as Chloraseptic spray for sore throat symptoms. Using shared decision making, plan for discharge home to follow-up with primary care and/or specialist. Patient understands and agrees with plan for discharge. Discharged home in stable condition. Differential Diagnosis Differential Diagnoses: The differential diagnosis associated with the presentation includes (As above) Lab Data [facility] Lab Attestation statement: I reviewed the patient's lab results. Labs: Lab Results 07/27/25 Range/Units 03:24 Influenza Type A (PCR) NEGATIVE (Negative) Influenza Type B (PCR) NEGATIVE (Negative) RSV RNA Qual (PCR) NEGATIVE (Negative) SARS-CoV-2 RNA (RT-PCR) NEGATIVE (Negative) S. pyogenes GrpA MAEGAN Negative (Negative) Independent Interpretation I performed an independent interpretation of an: Plain X-Ray Interpretation: My independent interpretation of the chest x-ray reveals no consolidations, pulmonary edema, pleural effusion, pneumothorax, obvious bony abnormalities. Radiology Impression Discussion of test interpretation with radiology: I have reviewed the radiologist's reading. External Record Review External record reviewed: Inpatient record and Office record Prescription Management I considered prescription management with: Pain Medication and Other (Steroids) Chronic Conditions Patient?s care impacted by: Hypertension Social Determinants Patient?s care significantly limited by Social Determinants of Health including: Other Social Determinant of Health Discharge Plan Discharge Clinical Impression: Acute viral pharyngitis, Upper respiratory infection Patient Disposition: Home, Self-Care Instructions: Pharyngitis (ED) Additional Instructions: Take an additional dose of dexamethasone in 48 hours (on 07/29/2025) with continued sore throat symptoms. Return to the emergency department with any new or worsening symptoms including: Worsening sore throat to but despite medication, fevers greater than 100 degrees for more than 5 days in a row, difficulty swallowing or throat swelling, any new symptom that concerns you. Call 911 with any medical emergency. Prescriptions: New dexamethasone 6 mg tablet 12 mg PO ONCE 1 Days Qty: 2 0RF Rx Instructions: take 12mg once by mouth on 07/29 if continued sore throat symptoms Chloraseptic Throat Mauldin 1.4 % aerosol,spray 4 spray mucous membrane Q4H PRN (Reason: sore throat) Qty: 177 0RF No Action ibuprofen 600 mg tablet 600 mg PO Q8H PRN (Reason: pain) Qty: 14 0RF Print Language: Kinyarwanda
[2025-07-27] MEDS: guaiFENesin DM 100/10/5 ML 5 ML SYRUP PO (04:51)
[2025-07-27 05:02] VITALS: BP 100/54; PULSE 81; RESP 18; TEMP 36.7; O2SAT 97
== END 2025-07-27 05:06 | disposition home or self-care (01) ==
PROVIDERS: Emergency Provider Emergency Medicine; PCP Internal Medicine
DX: J06.9 Acute upper respiratory infection, unspecified (principal); J02.8 Acute pharyngitis due to other specified organisms; R05.9 Cough, unspecified; J02.9 Acute pharyngitis, unspecified; R50.9 Fever, unspecified; R53.83 Other fatigue
CPT/HCPCS: 71046; 87637; 87651; 99283; 99284; J8540

== ENCOUNTER → 2025-07-27 04:02 | Outpatient (BNV) | payer MEDICAID, SELFPAY | PROVIDERS: Emergency Provider Emergency Medicine; PCP Internal Medicine; Visit Provider Radiology Diagnostic Radiology | DX: R05.9 Cough, unspecified (principal) | CPT/HCPCS: 71046 ==

== ENCOUNTER 2025-08-10 12:25 | Outpatient (REF) | payer MEDICAID, SELFPAY ==
--- NOTE | ~2025-08-10 | XR_ITS ---
EXAMINATION: XR FOOT, LEFT CLINICAL INFORMATION: left foot/toe pain COMPARISON: None available. TECHNIQUE: AP, lateral, and oblique views of the left foot. FINDINGS: The bones and soft tissues are normal. No fracture. Alignment is anatomic. Joint spaces are maintained. XR/XR foot LT min 3V IMPRESSION: Unremarkable left foot Electronically signed by: Mumtaz May MD 08/10/2025 01:17 PM EST
--- NOTE | ~2025-08-10 | XR_ITS ---
EXAMINATION: XR TOES, LEFT CLINICAL INFORMATION: left foot/toe pain COMPARISON: None available. TECHNIQUE: AP left foot, oblique and lateral view of the toes FINDINGS: Intermetatarsal angle: Angle between the first and second metatarsal measured 10 degrees. (wnl <10 degrees). Metatarsophalangeal angle: Angle between the first metatarsal and proximal phalanx measured 14.7 degrees. (wnl <15 degrees). Interphalangeal angle: Angle between the proximal and distal phalanx measured 16 degrees. (wnl <10 degrees). Sesamoid position: Station 2 XR/XR toe LT min 2V IMPRESSION: Minimal hallux valgus deformity Sesamoid position: Station 2 Station Criterion 0 medial sesamoid completely medial to mid-axial line of the first metatarsal 1 medial sesamoid less than 50% overlapping the midline 2 medial sesamoid greater than 50% overlapping the midline 3 medial sesamoid completely lateral to the midline [Foot Ankle. May-Jun 1984;5(2):92-103. Hallux valgus assessment: report of research committee of [employer]] Electronically signed by: Mumtaz May MD 08/10/2025 01:20 PM [facility]
== END 2025-08-10 12:26 | disposition home or self-care (01) ==
LOC: HO.HHCX 12:25
PROVIDERS: PCP Internal Medicine; Visit Provider Internal Medicine
DX: M21.612 Bunion of left foot (principal)
CPT/HCPCS: 73630; 73660

== ENCOUNTER → 2025-08-10 12:42 | Outpatient (BNV) | payer MEDICAID, SELFPAY | PROVIDERS: PCP Internal Medicine; Visit Provider Radiology Diagnostic Radiology | DX: M79.672 Pain in left foot (principal); M79.675 Pain in left toe(s) | CPT/HCPCS: 73630; 73660 ==